=== PATIENT | female | born 2000 | race Caucasian/White ===

== ENCOUNTER 2019-06-15 15:56 | Emergency (ER) | payer MEDICAID, SELFPAY | END 2019-06-15 18:16 | disposition home or self-care (01) | DX: K29.00 Acute gastritis without bleeding (principal); B34.9 Viral infection, unspecified; F17.210 Nicotine dependence, cigarettes, uncomplicated | CPT/HCPCS: 36415; 80053; 81003; 83690; 84703; 85025; 87081; 87880; 99282 ==

== ENCOUNTER 2019-06-17 18:36 | Emergency (ER) | payer MEDICAID, SELFPAY ==
[2019-06-17 18:42] VITALS: BP 130/82; PULSE 99; RESP 16; TEMP 36.6; O2SAT 97; BMI 45.7
--- NOTE | 2019-06-17 19:47 | ECG_ITS ---
Measurements Intervals Rector Rate: 95 P: 42 UT: 155 QRS: 38 QRSD: 89 T: 40 QT: 340 QTc: 429 SINUS RHYTHM Compared to ECG 06/01/2019 14:57:02 No significant changes Electronically Signed On 06-18-2019 6:46:48 LINING CEMENTER by Eloisa Guzman M.D. [email or web address]
== END 2019-06-17 20:38 | disposition left against medical advice (07) ==
LOC: ER 07-14 23:31
PROVIDERS: Emergency Provider Emergency Medicine; PCP Pediatrics Adolescent Medicine
DX: Z53.21 Procedure and treatment not carried out due to patient leaving prior to being seen by health care provider (principal)
CPT/HCPCS: 93005; 99281

== ENCOUNTER 2019-06-18 09:58 | Emergency (ER) | payer MEDICAID, SELFPAY ==
[2019-06-18 10:03] VITALS: BP 121/71; PULSE 80; RESP 16; TEMP 36.7; O2SAT 98; BMI 38.7
--- NOTE | 2019-06-18 10:20 | W.ED.CHESTPA ---
HPI - Chest Pain General: Chief Complaint: Chest Pain Stated Complaint: Chest pain Time Seen by Provider: 06/18/19 10:20 Source: patient Mode of arrival: ambulatory Limitations: no limitations History of Present Illness: HPI narrative: here for continued nausea/vomiting and diarrhea x 1 week; now having chest congestion and a cough; subjective low grade fevers; no blood in vomit or stool; has been seen in our ED twice now for similar symptoms MD complaint: chest pain Associated symptoms: Reports abdominal pain, fever(s) (subjective; low grade), nausea, vomiting and other (diarrhea ); Deny dyspnea, palpitations or syncope Review of Systems Const: Reports: fever (subjective; low grade); Denies: body aches ENMT: Denies: throat pain, enlarged tonsils or painful swallowing Card: Reports: chest pain; Denies: palpitations, irregular heart rhythm, edema, lightheadedness, syncope, pre-syncope, shortness of breath on exertion or shortness of breath when lying down Resp: Reports: productive cough and chest congestion; Denies: shortness of breath or coughing up blood GI: Reports: abdominal pain, nausea, vomiting and diarrhea; Denies: vomiting blood, coffee grounds in vomit, excessive passing of gas, fecal incontinence, painful bowel movements or rectal pain : Denies: flank pain, difficulty urinating, painful urination, urinary frequency, urinary urgency or urinary hesitancy Musc: Denies: neck pain or joint pain Skin/Breast: Denies: rash Neuro: Denies: headache, numbness in extremities or weakness in extremities PFSH ED PFSH: Statuses (acute, chronic, etc) shown below reflect problem list status as previously entered and may not be historically accurate Social History Smoking and tobacco status: current every day smoker Female Reproductive History: Date of last menstrual period: 05/25/19 Physical Exam Const: COMMON NORMALS: no apparent distress, oriented x3, no limitations and well nourished GENERAL APPEARANCE: cooperative ORIENTATION/CONSCIOUSNESS: Yes awake, Yes oriented to person, Yes oriented to place and Yes oriented to time HENMT: COMMON NORMALS: normocephalic, head/scalp atraumatic and external nose normal HEAD & SCALP: normocephalic and atraumatic FACE & SINUS: normal facial exam and sinuses nontender NOSE: external nose normal MOUTH: oral and palatal mucosa normal THROAT: posterior oropharynx normal Neck/C-Spine: COMMON NORMALS: full ROM and no lymphadenopathy Resp: COMMON NORMALS: normal respiratory effort and clear to auscultation bilaterally AUSCULTATION: clear to auscultation bilaterally Cardio: COMMON NORMALS: regular rate and regular rhythm RATE: regular rate RHYTHM: regular rhythm GI: COMMON NORMALS: normal to inspection, nondistended, normoactive bowel sounds, soft to palpation, non-tender and no masses PALPATION: Yes soft : COMMON NORMALS: Yes no CVA tenderness BLADDER/KIDNEY EXAM: Yes no CVA tenderness Back/Pelvis: COMMON NORMALS: no CVA tenderness Neuro: COMMON NORMALS: oriented x3 SENSORIUM/ORIENTATION: Yes oriented to person, Yes oriented to place and Yes oriented to time Skin: COMMON NORMALS: no rashes or lesions noted and skin turgor normal GENERAL SKIN EXAM: no rashes or lesions noted and turgor normal Course Reevaluation(s): Reevaluation #1: pt has not had any vomiting while in ED; she is requesting food-ate entire sandwich and sprite; she was unable to produce stool sample throughout her stay Vital Signs: Vital signs: Vital Signs Temperature 98.0 F 06/18/19 10:03 Pulse Rate 73 06/18/19 13:02 Respiratory Rate 18 06/18/19 13:02 Blood Pressure 111/55 06/18/19 13:02 Pulse Oximetry 96 06/18/19 13:02 MDM - Chest Pain Lab Data: Attestation: I reviewed the patient's lab results. Labs: Lab Results 06/18/19 06/18/19 06/18/19 Range/Units 10:17 10:17 11:05 WBC 6.5 (4.5-13.0) 10^3/ uL RBC 4.84 (4.1-5.3) 10^6/u L Hgb 13.1 (11.5-15.3) g/dL Hct 41.2 (37.0-47.0) % MCV 85.1 (81-99) fL MCH 27.1 L (28.0-34.0) pg MCHC 31.8 (30.0-36.0) g/dL RDW 13.0 (12.1-15.1) % Plt Count 421 H (130-400) 10^3/c mm MPV 9.2 (7.4-10.4) fL Neut % (Auto) 52.4 % Lymph % (Auto) 37.7 % Victoria % (Auto) 7.2 % Eos % (Auto) 2.1 % Baso % (Auto) 0.3 % Neut # (Auto) 3.4 (1.8-8.0) 10^3/u L Lymph # (Auto) 2.5 (1.5-6.5) 10^3/u L Victoria # (Auto) 0.5 (0.2-0.9) 10^3/u L Eos # (Auto) 0.1 (0.0-0.8) 10^3/u L Baso # (Auto) 0.0 (0.0-0.1) 10^3/u L Nucleated RBC % (a uto) 0 % Nucleated RBCs # 0.0 /100WBC Sodium (136-145) mmol/L Potassium (3.5-5.1) mmol/L Chloride (98-107) mmol/L Carbon Dioxide (22-29) mmol/L Anion Gap (5-19) BUN (6-20) mg/dL Creatinine (0.5-0.9) mg/dL GFR Calculation (90-130) mL/min Glucose (74-109) mg/dL Calcium (8.6-10.0) mg/Dl Total Bilirubin (0.15-1.2) mg/dL AST (0-32) U/L ALT (0-33) U/L Alkaline Phosphata se (35-105) IU/L Total Protein (6.6-8.7) g/dL Albumin (3.5-5.2) g/dL Globulin (1.3-4.6) g/dL Urine Color Straw (Yellow) Urine Appearance Clear (CLEAR) Urine pH 5.0 (5-7) Ur Specific Gravit y 1.010 (1.005-1.030) Urine Protein Neg (Negative) Urine Glucose (UA) Norm (Normal) Urine Ketones Negative (Negative) Urine Occult Blood Neg (Negative) Urine Nitrate Negative (Negative) Urine Bilirubin Neg (NEGATIVE) Urine Urobilinogen Norm (Negative) mg/dL Ur Leukocyte Janice ase Negative (Negative) Urine HCG, Qual Negative (Negative) Influenza Type A A g (Negative) POC Influenza B Ag (Negative) 06/18/19 06/18/19 Range/Units 11:05 12:00 WBC (4.5-13.0) 10^3/ uL RBC (4.1-5.3) 10^6/u L Hgb (11.5-15.3) g/dL Hct (37.0-47.0) % MCV (81-99) fL MCH (28.0-34.0) pg MCHC (30.0-36.0) g/dL RDW (12.1-15.1) % Plt Count (130-400) 10^3/c mm MPV (7.4-10.4) fL Neut % (Auto) % Lymph % (Auto) % Victoria % (Auto) % Eos % (Auto) % Baso % (Auto) % Neut # (Auto) (1.8-8.0) 10^3/u L Lymph # (Auto) (1.5-6.5) 10^3/u L Victoria # (Auto) (0.2-0.9) 10^3/u L Eos # (Auto) (0.0-0.8) 10^3/u L Baso # (Auto) (0.0-0.1) 10^3/u L Nucleated RBC % (a uto) % Nucleated RBCs # /100WBC Sodium 137 (136-145) mmol/L Potassium 4.0 (3.5-5.1) mmol/L Chloride 100 (98-107) mmol/L Carbon Dioxide 26 (22-29) mmol/L Anion Gap 15.0 (5-19) BUN 12 (6-20) mg/dL Creatinine 0.8 (0.5-0.9) mg/dL GFR Calculation 92.4 (90-130) mL/min Glucose 96 (74-109) mg/dL Calcium 9.9 (8.6-10.0) mg/Dl Total Bilirubin 0.3 (0.15-1.2) mg/dL AST 23 (0-32) U/L ALT 21 (0-33) U/L Alkaline Phosphata se 78 (35-105) IU/L Total Protein 7.4 (6.6-8.7) g/dL Albumin 4.1 (3.5-5.2) g/dL Globulin 3.3 (1.3-4.6) g/dL Urine Color (Yellow) Urine Appearance (CLEAR) Urine pH (5-7) Ur Specific Gravit y (1.005-1.030) Urine Protein (Negative) Urine Glucose (UA) (Normal) Urine Ketones (Negative) Urine Occult Blood (Negative) Urine Nitrate (Negative) Urine Bilirubin (NEGATIVE) Urine Urobilinogen (Negative) mg/dL Ur Leukocyte Janice ase (Negative) Urine HCG, Qual (Negative) Influenza Type A A g Negative (Negative) POC Influenza B Ag Negative (Negative) Discharge Plan Discharge Patient Disposition: Home, Self-Care Clinical Impression: Atypical chest pain, Gastroenteritis Condition: Stable Prescriptions: New ondansetron HCl [Zofran] 4 mg tablet 4 mg PO Q6H PRN (Reason: nausea and vomiting) Qty: 14 RF: 0 dicyclomine 10 mg capsule 10 mg PO TID Qty: 14 RF: 0 No Action paroxetine HCl [Paxil] 20 mg Tablet 20 mg PO DAILY RF: 0 ziprasidone HCl [Geodon] 20 mg Capsule 20 mg PO BID RF: 0 trazodone 100 mg Tablet 100 mg PO BEDTIME RF: 0 Discharge Orders: Discharge Order (Routine); Ordered 06/18/19 Ordered By: Emy Edmonds Referrals: Natalia Granados MD [Primary Care Provider] - Discharge Diet: Advance as tolerated Discharge Activity: Resume usual activity Patient Instructions: Gastroenteritis (ED), Acute Nausea and Vomiting (ED) Activity Restrictions/Additional Instructions: Follow up with primary care in 3-4 days if symptoms persist Coding Level of Care Code ED 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
--- NOTE | 2019-06-18 10:31 | XR_ITS ---
WS: [id number] Portable AP upright chest, 06/18/2019 Clinical Data: chest pain Comparison: Portable chest, 06/11/2019 Findings: No nodules, masses or effusions are seen. The heart is normal. The pulmonary vascularity is not increased. No pneumonia or pneumothorax is seen. XR/XR chest 1V [id number] Impression: Negative chest.
--- NOTE | 2019-06-18 10:47 | PC.NURSE ---
pt reports chest pain in left upper chest that worsens with coughing and inspiration. Pt gowned, pulse ox, environmental monitoring technician, and NIBP monitor on pt. portable CXR at bedside. Pt reports nausea, bile like vomiting, and diarrhea
[2019-06-18 10:52] LABS: Add Urine Microscopic? NO
--- NOTE | 2019-06-18 11:05 | PC.NURSE ---
blood drawn by rn. Peripheral iv. Prior to fluid start. sent to lab
[2019-06-18 11:07] LABS: Bilirubin Urine Neg (NEGATIVE); Blood Urine Neg (Negative); Glucose Urine UA Norm (Normal); Ketones Urine Negative (Negative); Leukocyte Esterase Urine Negative (Negative); Nitrate Urine Negative (Negative); OR HCG Qualitative Urine Negative (Negative); Protein Urine Neg (Negative); Urine Appearance Clear (CLEAR); Urine Color Straw (Yellow); Urobilinogen Urine Norm (Negative)
[2019-06-18] MEDS: sodium chloride 0.9% 1,000 ML 999 ML IV ×2 (11:08→13:00)
[2019-06-18 11:16] LABS: Basophils % 0.3 %; Eosinophils # 0.1 10^3/uL (0.0-0.8); Eosinophils % 2.1 %; Hematocrit 41.2 % (37.0-47.0); Hemoglobin 13.1 g/dL (11.5-15.3); Lymphocytes # 2.5 10^3/uL (1.5-6.5); Lymphocytes % 37.7 %; Mean Corpuscular HGB Conc 31.8 g/dL (30.0-36.0); Mean Corpuscular Hemoglobin 27.1 pg (28.0-34.0); Mean Corpuscular Volume 85.1 fL (81-99); Mean Platelet Volume 9.2 fL (7.4-10.4); Monocytes # 0.5 10^3/uL (0.2-0.9); Monocytes % 7.2 %; Neutrophils # 3.4 10^3/uL (1.8-8.0); Neutrophils % 52.4 %; Nucleated Red Blood Cells % 0 %; Platelet Count 421 10^3/cmm (130-400); Red Blood Count 4.84 10^6/uL (4.1-5.3); White Blood Count 6.5 10^3/uL (4.5-13.0)
[2019-06-18 11:35] LABS: Alanine Aminotransferase 21 U/L (0-33); Albumin Level 4.1 g/dL (3.5-5.2); Alkaline Phosphatase 78 IU/L (35-105); Aspartate Amino Transferase 23 U/L (0-32); Blood Urea Nitrogen 12 mg/dL (6-20); Calcium 9.9 mg/Dl (8.6-10.0); Carbon Dioxide 26 mmol/L (22-29); Chloride 100 mmol/L (98-107); Globulin 3.3 g/dL (1.3-4.6); Glomerular Filtration Rate 92.4 mL/min (90-130); Glucose 96 mg/dL (74-109); Sodium 137 mmol/L (136-145); Total Bilirubin 0.3 mg/dL (0.15-1.2); Total Protein 7.4 g/dL (6.6-8.7)
[2019-06-18 12:02] VITALS: BP 101/55; PULSE 60; RESP 18; O2SAT 97
--- NOTE | 2019-06-18 12:03 | PC.NURSE ---
flu swab obtained by nasal swab by rn. labeled and sent to lab
[2019-06-18 13:02] VITALS: BP 111/55; PULSE 73; RESP 18; O2SAT 96
[2019-06-18 13:02] LABS: Influenza A by IFA Negative (Negative); Influenza B by IFA Negative (Negative)
[2019-06-18 14:21] VITALS: BP 112/58; PULSE 80; RESP 26; O2SAT 96
== END 2019-06-18 14:21 | disposition home or self-care (01) ==
PROVIDERS: Emergency Provider Physician Assistant; PCP Pediatrics Adolescent Medicine
DX: R07.89 Other chest pain (principal); K52.9 Noninfective gastroenteritis and colitis, unspecified; F17.210 Nicotine dependence, cigarettes, uncomplicated
CPT/HCPCS: 36415; 71045; 80053; 81003; 82274; 82784; 83516; 83630; 84703; 85025; 87493; 87505; 87804; 96360; 96361; 99282; J7030

== ENCOUNTER 2019-08-24 20:06 | Emergency (ER) | payer MEDICAID, SELFPAY ==
[2019-08-24 20:12] VITALS: BP 119/76; PULSE 62; RESP 18; TEMP 36.9; O2SAT 99; BMI 32.9
[2019-08-24 22:40] LABS: HCG Qualitative Urine. Negative (Negative)
[2019-08-24 22:50] LABS: Urine Appearance SL Hazy (CLEAR); Urine Color Yellow (Yellow)
[2019-08-24 22:51] LABS: Add Urine Microscopic? YES; Bacteria Urine 2+; Bilirubin Urine Neg (NEGATIVE); Blood Urine Neg (Negative); Glucose Urine UA Norm (Normal); Ketones Urine Negative (Negative); Leukocyte Esterase Urine 2+ (Negative); Mucus Urine TRACE; Nitrate Urine Negative (Negative); Protein Urine Neg (Negative); Squamous Epithelial Cell Urine 0-4 (0-5); Urobilinogen Urine Norm (Negative); pH Urine 6.5 (5-7)
[2019-08-24 22:52] LABS: Add Urine Culture? Yes; Trichomonas Urine 1+
--- NOTE | 2019-08-24 23:05 | W.ED.FEMALGU ---
HPI - Female Genitourinary General: Chief complaint: Urogenital-Female Stated complaint: vag itching/burningabd pain Time Seen by Provider: 08/24/19 23:04 History of Present Illness: HPI Narrative: Patient is a 18-year-old female who comes into the ED with vaginal discharge. The vaginal discharge has been going on for the last 7 days. She describes it as a greenish-yellow color and has a foul odor. She says she is having a little bit of pelvic pain and irritation for the past couple days. Patient did say that she has had trichomonas in the past. She would also like to be tested for gonorrhea and chlamydia. Associated symptoms: Reports vaginal discharge (greenish/yellow); Deny abdominal pain, headache(s) or nausea Date of Last Menstrual Period: 05/25/19 Review of Systems Const: Denies: fever, chills or fatigue Eyes: Denies: change in vision or eye discomfort ENMT: Denies: throat pain, painful swallowing, nasal discharge or nasal congestion Card: Denies: chest pain, palpitations, edema, swelling of feet/ankles, shortness of breath on exertion or shortness of breath when lying down Resp: Denies: shortness of breath, productive cough or non-productive cough GI: Denies: abdominal pain, nausea, vomiting, diarrhea, constipation or blood in stool : Reports: vaginal odor, vaginal discharge (greenish/yellow) and pelvic pain (mild irritation); Denies: flank pain, painful urination or blood in urine Musc: Denies: neck pain, back pain or extremity swelling Skin/Breast: Denies: rash or new lesion Neuro: Denies: headache, numbness in extremities or weakness in extremities PFS ED PFSH: Social History Smoking and tobacco status: current every day smoker Female Reproductive History: Date of last menstrual period: 05/25/19 Physical Exam Const: COMMON NORMALS: oriented x3 HENMT: COMMON NORMALS: normocephalic HEAD & SCALP: normocephalic MOUTH: oral and palatal mucosa normal THROAT: posterior oropharynx normal and uvula midline Neck/C-Spine: COMMON NORMALS: supple GENERAL: Yes normal visual inspection Resp: COMMON NORMALS: normal respiratory effort, no retractions, no use of accessory muscles and clear to auscultation bilaterally AUSCULTATION: clear to auscultation bilaterally Cardio: COMMON NORMALS: regular rate, regular rhythm, S1 normal heart sound, S2 normal heart sound, no gallops, no clicks, no murmurs and peripheral pulses 2+ throughout RATE: regular rate RHYTHM: regular rhythm HEART SOUNDS: S1 normal and S2 normal PERIPHERAL PULSES: pulses 2+ throughout GI: COMMON NORMALS: normal to inspection, nondistended, normoactive bowel sounds, soft to palpation, non-tender and no masses PALPATION: Yes soft and Yes bladder palpation abnormal (mild discomfort upon palpation of lower pelvic region and over bladder.) : COMMON NORMALS: Yes no CVA tenderness BLADDER/KIDNEY EXAM: Yes no CVA tenderness and Yes bladder abnormal to palpation (mild discomfort upon palpation of lower pelvic region and over bladder.) Bladder abnormal details: tender Back/Pelvis: COMMON NORMALS: no CVA tenderness Extremity: COMMON NORMALS: normal to inspection Neuro: COMMON NORMALS: oriented x3 and moves all extremities Skin: COMMON NORMALS: no rashes or lesions noted GENERAL SKIN EXAM: no rashes or lesions noted Course ED course: Patient is a 18-year-old female who comes into the ED with vaginal discharge with a foul odor. Urine tested positive for trichomonas. Patient would also like to be tested for gonorrhea and chlamydia. I explained to her that we will prophylactically give her the treatment for gonorrhea and chlamydia here in the ED even though we do not know if she has not yet. She agreed with this. Gonorrhea and Chlamydia lab was ordered and is pending. While in the ED patient was given a gram of azithromycin and an injection of 250 mg Rocephin. Patient was also given a prescription for Flagyl to treat the Trichomonas. Patient was instructed to meet with her PCP within 5 to 7 days for reevaluation. Patient agreed with and understood plan. Vital Signs: Vital signs: Vital Signs Temperature 98.4 F 08/24/19 20:12 Pulse Rate 80 08/24/19 23:44 Respiratory Rate 16 08/24/19 23:44 Blood Pressure 119/76 08/24/19 20:12 Pulse Oximetry 98 08/24/19 23:44 MDM - Female Lab Data: Attestation: I reviewed the patient's lab results. Labs: Lab Results 08/24/19 08/24/19 Range/Units 22:14 22:16 HCG, Qual Negative (Negative) Urine Color Yellow (Yellow) Urine Appearance Sl hazy (CLEAR) Urine pH 6.5 (5-7) Ur Specific Gravit y 1.020 (1.005-1.030) Urine Protein Neg (Negative) Urine Glucose (UA) Norm (Normal) Urine Ketones Negative (Negative) Urine Blood Neg (Negative) Urine Nitrate Negative (Negative) Urine Bilirubin Neg (NEGATIVE) Urine Urobilinogen Norm (Negative) mg/dL Ur Leukocyte Janice ase 2+ H (Negative) Urine RBC None (0-2) /hpf Urine WBC 5-10 H (0-5) /hpf Ur Squamous Epith Cells 0-4 H (0-5) Urine Bacteria 2+ H (NONE) Urine Mucus Trace Urine Trichomonas 1+ H Discharge Plan Discharge Patient Disposition: Home, Self-Care Clinical Impression: Trichomoniasis Condition: Stable Prescriptions: New Flagyl 500 mg tablet 500 mg PO BID 7 Days Qty: 14 RF: 0 No Action paroxetine HCl [Paxil] 20 mg Tablet 20 mg PO DAILY RF: 0 ziprasidone HCl [Geodon] 20 mg Capsule 20 mg PO BID RF: 0 trazodone 100 mg Tablet 100 mg PO BEDTIME RF: 0 dicyclomine 10 mg capsule 10 mg PO TID Qty: 14 RF: 0 Zofran 4 mg tablet 4 mg PO Q6H PRN (Reason: nausea and vomiting) Qty: 14 RF: 0 Discharge Orders: Discharge Order (Routine); Ordered 08/24/19 Ordered By: Blaine Kahn Referrals: Natalia Granados MD [Primary Care Provider] - Discharge Diet: Regular Discharge Activity: Resume usual activity Patient Instructions: Sexually Transmitted Diseases (ED), Trichomoniasis - Female Activity Restrictions/Additional Instructions: Follow-up with your PCP in 7 days for reevaluation. Take full course of Flagyl as prescribed. You can take Tylenol or ibuprofen for pain. Drink plenty of fluids and stay hydrated. You were also treated prophylactically for gonorrhea and chlamydia. That does not mean that you tested positive, you will be notified if your labs test positive for gonorrhea or chlamydia (labs usually take a couple days). Discharge Date/Time: 08/24/19 23:46 Coding Level of Care Code ED Mill Control Operator for Chg Fwd Exam Comprehensive
[2019-08-24] MEDS: cefTRIAXone 250 mg SDV IM (23:36)
[2019-08-24] MEDS: azithromycin 250 mg Tablet 1000 MG PO (23:36)
[2019-08-24] MEDS: lidocaine 1% INJ 20 mL 2.1 ML IM (23:39)
[2019-08-24 23:44] VITALS: PULSE 80; RESP 16; O2SAT 98
== END 2019-08-24 23:46 | disposition home or self-care (01) ==
PROVIDERS: Emergency Medicine; Emergency Provider Physician Assistant; PCP Pediatrics Adolescent Medicine
DX: A59.01 Trichomonal vulvovaginitis (principal); F17.200 Nicotine dependence, unspecified, uncomplicated
CPT/HCPCS: 12345; 81001; 81025; 87086; 87491; 87591; 96372; 99282; 99283; J0696; J2001; Q0144

== ENCOUNTER 2019-08-30 20:50 | Emergency (ER) | payer MEDICAID, SELFPAY ==
[2019-08-30 20:51] VITALS: PULSE 76; RESP 18; TEMP 36.4; O2SAT 98; BMI 32.9
--- NOTE | 2019-08-30 20:54 | ED_ITS ---
Entered by Francy Frank, acting as scribe for Segundo Kingsley DO HPI - Psych General: Chief Complaint: Psychiatric Symptoms Stated Complaint: 96 hour Time Seen by Provider: 08/30/19 20:53 Source: patient Mode of arrival: EMS Limitations: no limitations History of Present Illness: HPI Narrative: 18 yo f came to the er by [facility] for SI thoughts and attempt. Onset was today. Pt states that she was at the [facility] and she tried to cut herself. Pt states that she tried to kill herself with a bed sheet. Pt said that her face were was turning purple and that she started to fee funny and so she undid the bed sheet that was around her neck. Pt said that she was trying to get the police attention before she did it but they were pre occupied per patient. MD complaint: suicidal ideation Onset (ago): day(s) (today) Duration: constant History of same: Yes Relieving factors: none Exacerbating factors: none Associated psychiatric symptoms: none Associated symptoms: Reports suicidal ideation Treatments prior to arrival: none If self harm: admits thoughts of self harm Details of plan: Pt states that she tried cutting herself with straws and then tried to hang herself with a bed sheet. Review of Systems Const: Denies: fever Eyes: Denies: change in vision ENMT: Denies: throat pain Card: Denies: chest pain Resp: Denies: shortness of breath or productive cough GI: Denies: abdominal pain : Denies: painful urination Skin/Breast: Denies: rash Neuro: Denies: headache Psych: Reports: suicidal ideation Endo: Denies: excessive urination Vern/Lymph: Denies: easy bruising PFSH ED PFSH: Social History Smoking and tobacco status: current every day smoker Female Reproductive History: Date of last menstrual period: 05/25/19 Physical Exam Const: COMMON NORMALS: average body habitus, oriented x3 and alert GENERAL APPEARANCE: cooperative, comfortable, well kempt and well developed NUTRITIONAL APPEARANCE: obese ORIENTATION/CONSCIOUSNESS: Yes awake, Yes oriented to person and Yes oriented to place HENMT: COMMON NORMALS: normocephalic, head/scalp atraumatic, EAC's normal, TM's normal bilaterally, external nose normal, moist oral mucous membranes and oropharynx normal HEAD & SCALP: normocephalic and atraumatic NOSE: external nose normal EXTERNAL AUDITORY CANAL: EAC's normal TYMPANIC MEMBRANE: TM's normal bilaterally MOUTH: oral and palatal mucosa normal, lip normal and tongue normal THROAT: posterior oropharynx normal and tonsils normal Eye: COMMON NORMALS: PERRL, EOMs intact bilaterally, conjunctivae normal and no scleral icterus CONJUNCTIVA: Yes conjunctivae normal PUPIL: Yes PERRL Neck/C-Spine: COMMON NORMALS: full ROM, no lymphadenopathy, supple, no meningeal signs and thyroid normal THYROID: thyroid normal and asymmetrical Lymph: LYMPHATIC: no lymphadenopathy noted Resp: COMMON NORMALS: normal respiratory effort, no retractions, no use of accessory muscles and clear to auscultation bilaterally AUSCULTATION: clear to auscultation bilaterally Cardio: COMMON NORMALS: regular rate and regular rhythm RATE: regular rate RHYTHM: regular rhythm HEART SOUNDS: no murmurs GI: COMMON NORMALS: normal to inspection, nondistended, normoactive bowel sounds, soft to palpation and no hepatosplenomegaly PALPATION: Yes soft and Yes no hepatosplenomegaly : COMMON NORMALS: Yes no CVA tenderness BLADDER/KIDNEY EXAM: Yes no CVA tenderness Back/Pelvis: COMMON NORMALS: no CVA tenderness LUMBAR SPINE/LOWER BACK: Yes normal to inspection Extremity: COMMON NORMALS: no clubbing, cyanosis or edema, no calf tenderness and no pedal edema Neuro: COMMON NORMALS: oriented x3 SENSORIUM/ORIENTATION: Yes alert, Yes oriented to person and Yes oriented to place MENINGEAL SIGNS: Yes no meningeal signs Psych: APPEARANCE: Yes well kempt Skin: COMMON NORMALS: no rashes or lesions noted and skin turgor normal GENERAL SKIN EXAM: no rashes or lesions noted and turgor normal MDM - Psych Lab Data: Labs: Lab Results 08/30/19 08/30/19 08/30/19 Range/Units 20:17 20:17 20:17 WBC (4.5-13.0) 10^3/ uL RBC (4.1-5.3) 10^6/u L Hgb (11.5-15.3) g/dL Hct (37.0-47.0) % MCV (81-99) fL MCH (28.0-34.0) pg MCHC (30.0-36.0) g/dL RDW (12.1-15.1) % Plt Count (130-400) 10^3/c mm MPV (7.4-10.4) fL Neut % (Auto) % Lymph % (Auto) % [place] % (Auto) % Eos % (Auto) % Baso % (Auto) % Neut # (Auto) (1.8-8.0) 10^3/u L Lymph # (Auto) (1.5-6.5) 10^3/u L [place] # (Auto) (0.2-0.9) 10^3/u L Eos # (Auto) (0.0-0.8) 10^3/u L Baso # (Auto) (0.0-0.1) 10^3/u L Nucleated RBC % (a uto) % Nucleated RBCs # /100WBC Sodium (136-145) mmol/L Potassium (3.5-5.1) mmol/L Chloride (98-107) mmol/L Carbon Dioxide (22-29) mmol/L Anion Gap (5-19) BUN (6-20) mg/dL Creatinine (0.5-0.9) mg/dL GFR Calculation (90-130) mL/min Glucose (65-115) mg/dL Calculated Osmolal ity (285-295) mOsm/k g Calcium (8.5-10.5) mg/dL Total Bilirubin (0.15-1.2) mg/dL AST (0-32) U/L ALT (0-33) U/L Alkaline Phosphata se (35-105) IU/L Total Protein (6.6-8.7) g/dL Albumin (3.5-5.2) g/dL Globulin (1.3-4.6) g/dL HCG, Qual Negative (Negative) Urine Color Yellow (Yellow) Urine Appearance Clear (CLEAR) Urine pH 5 (5-7) Ur Specific Gravit y 1.025 (1.005-1.030) Urine Protein Neg (Negative) Urine Glucose (UA) Norm (Normal) Urine Ketones Negative (Negative) Urine Blood Neg (Negative) Urine Nitrate Negative (Negative) Urine Bilirubin Neg (NEGATIVE) Urine Urobilinogen Norm (Negative) mg/dL Ur Leukocyte Janice ase Negative (Negative) Salicylates (3-10) mg/dL Urine Opiates Scre en Negative (Negative) ng/mL Acetaminophen (10-30) ug/mL Ur Barbiturates Sc reen Negative (Negative) ng/mL Ur Phencyclidine S crn Negative (Negative) ng/mL Ur Amphetamines Sc reen Negative (Negative) ng/mL U Benzodiazepines Scrn Negative (Negative) ng/mL Urine Cocaine Scre en Negative (Negative) ng/mL U Marijuana (THC) Screen Negative (Negative) ng/mL Ethyl Alcohol (0-10) mg/dL 08/30/19 08/30/19 Range/Units 21:05 21:05 WBC 11.2 (4.5-13.0) 10^3/ uL RBC 5.02 (4.1-5.3) 10^6/u L Hgb 14.2 (11.5-15.3) g/dL Hct 43.7 (37.0-47.0) % MCV 87.1 (81-99) fL MCH 28.3 (28.0-34.0) pg MCHC 32.5 (30.0-36.0) g/dL RDW 14.3 (12.1-15.1) % Plt Count 412 H (130-400) 10^3/c mm MPV 10.4 (7.4-10.4) fL Neut % (Auto) 58.5 % Lymph % (Auto) 35.1 % [place] % (Auto) 5.2 % Eos % (Auto) 0.6 % Baso % (Auto) 0.4 % Neut # (Auto) 6.6 (1.8-8.0) 10^3/u L Lymph # (Auto) 3.9 (1.5-6.5) 10^3/u L [place] # (Auto) 0.6 (0.2-0.9) 10^3/u L Eos # (Auto) 0.1 (0.0-0.8) 10^3/u L Baso # (Auto) 0.1 (0.0-0.1) 10^3/u L Nucleated RBC % (a uto) 0 % Nucleated RBCs # 0.0 /100WBC Sodium 136 (136-145) mmol/L Potassium 3.5 (3.5-5.1) mmol/L Chloride 99 (98-107) mmol/L Carbon Dioxide 24 (22-29) mmol/L Anion Gap 16.5 (5-19) BUN 11 (6-20) mg/dL Creatinine 0.7 (0.5-0.9) mg/dL GFR Calculation 107.8 (90-130) mL/min Glucose 116 H (65-115) mg/dL Calculated Osmolal ity 279 L (285-295) mOsm/k g Calcium 10.0 (8.5-10.5) mg/dL Total Bilirubin 0.2 (0.15-1.2) mg/dL AST 22 (0-32) U/L ALT 26 (0-33) U/L Alkaline Phosphata se 74 (35-105) IU/L Total Protein 7.6 (6.6-8.7) g/dL Albumin 4.3 (3.5-5.2) g/dL Globulin 3.3 (1.3-4.6) g/dL HCG, Qual (Negative) Urine Color (Yellow) Urine Appearance (CLEAR) Urine pH (5-7) Ur Specific Gravit y (1.005-1.030) Urine Protein (Negative) Urine Glucose (UA) (Normal) Urine Ketones (Negative) Urine Blood (Negative) Urine Nitrate (Negative) Urine Bilirubin (NEGATIVE) Urine Urobilinogen (Negative) mg/dL Ur Leukocyte Janice ase (Negative) Salicylates < 0.3 L (3-10) mg/dL Urine Opiates Scre en (Negative) ng/mL Acetaminophen < 5.0 L (10-30) ug/mL Ur Barbiturates Sc reen (Negative) ng/mL Ur Phencyclidine S crn (Negative) ng/mL Ur Amphetamines Sc reen (Negative) ng/mL U Benzodiazepines Scrn (Negative) ng/mL Urine Cocaine Scre en (Negative) ng/mL U Marijuana (THC) Screen (Negative) ng/mL Ethyl Alcohol < 10 (0-10) mg/dL Discharge Plan Discharge Patient Disposition: Home, Self-Care Clinical Impression: Personality disorder in adult Condition: Stable Prescriptions: Changed Geodon 20 mg Capsule 40 mg PO BID Qty: 0 RF: 0 No Action paroxetine HCl [Paxil] 20 mg Tablet 20 mg PO DAILY RF: 0 trazodone 100 mg Tablet 100 mg PO BEDTIME RF: 0 dicyclomine 10 mg capsule 10 mg PO TID Qty: 14 RF: 0 Zofran 4 mg tablet 4 mg PO Q6H PRN (Reason: nausea and vomiting) Qty: 14 RF: 0 Discharge Orders: Discharge Order (Routine); Ordered 08/30/19 Ordered By: Segundo Kingsley Referrals: [facility], [Staff Physician] - Discharge Diet: Usual diet Discharge Activity: Resume usual activity Discharge Date/Time: 08/30/19 22:07 Coding Level of Care Code ED Nozzle Tender for Chg Fwd Exam Comprehensive The documentation recorded by the Zac ramos Stephanie Lyn, accurately reflects the service I personally performed and the decisions made by Sancho mcallister Curtis L, Aug 30, 2019 20:50
[2019-08-30 21:16] LABS: Basophils # 0.1 10^3/uL (0.0-0.1); Basophils % 0.4 %; Eosinophils # 0.1 10^3/uL (0.0-0.8); Eosinophils % 0.6 %; Hematocrit 43.7 % (37.0-47.0); Hemoglobin 14.2 g/dL (11.5-15.3); Lymphocytes # 3.9 10^3/uL (1.5-6.5); Lymphocytes % 35.1 %; Mean Corpuscular HGB Conc 32.5 g/dL (30.0-36.0); Mean Corpuscular Hemoglobin 28.3 pg (28.0-34.0); Mean Corpuscular Volume 87.1 fL (81-99); Mean Platelet Volume 10.4 fL (7.4-10.4); Monocytes # 0.6 10^3/uL (0.2-0.9); Monocytes % 5.2 %; Neutrophils # 6.6 10^3/uL (1.8-8.0); Neutrophils % 58.5 %; Nucleated Red Blood Cells % 0 %; Platelet Count 412 10^3/cmm (130-400); Red Blood Count 5.02 10^6/uL (4.1-5.3); Red Cell Distribution Width 14.3 % (12.1-15.1); White Blood Count 11.2 10^3/uL (4.5-13.0)
[2019-08-30 21:22] LABS: HCG Qualitative Urine. Negative (Negative)
[2019-08-30 21:31] LABS: Alanine Aminotransferase 26 U/L (0-33); Albumin Level 4.3 g/dL (3.5-5.2); Alkaline Phosphatase 74 IU/L (35-105); Anion Gap 16.5 (5-19); Aspartate Amino Transferase 22 U/L (0-32); Blood Urea Nitrogen 11 mg/dL (6-20); Carbon Dioxide 24 mmol/L (22-29); Chloride 99 mmol/L (98-107); Globulin 3.3 g/dL (1.3-4.6); Glomerular Filtration Rate 107.8 mL/min (90-130); Glucose 116 mg/dL (65-115); Osmolality Calculated 279 mOsm/kg (285-295); Potassium 3.5 mmol/L (3.5-5.1); Sodium 136 mmol/L (136-145); Total Bilirubin 0.2 mg/dL (0.15-1.2); Total Protein 7.6 g/dL (6.6-8.7)
[2019-08-30 21:31] LABS: Add Urine Microscopic? NO
[2019-08-30 21:33] LABS: Acetaminophen < 5.0 ug/mL (10-30); Alcohol Level < 10 mg/dL (0-10); Salicylate < 0.3 mg/dL (3-10)
[2019-08-30 21:33] LABS: Bilirubin Urine Neg (NEGATIVE); Blood Urine Neg (Negative); Glucose Urine UA Norm (Normal); Ketones Urine Negative (Negative); Leukocyte Esterase Urine Negative (Negative); Nitrate Urine Negative (Negative); Protein Urine Neg (Negative); Specific Gravity, Urine 1.025 (1.005-1.030); Urine Appearance Clear (CLEAR); Urine Color Yellow (Yellow); Urobilinogen Urine Norm (Negative); pH Urine 5 (5-7)
[2019-08-30 21:42] LABS: Amphetamines Screen Urine Negative (Negative); Barbiturates Screen Urine Negative (Negative); Benzodiazepines Screen Urine Negative (Negative); Cocaine Screen Urine Negative (Negative); Opiate Screen Urine Negative (Negative); PCP Screen Urine Negative (Negative); THC Screen Urine Negative (Negative)
[2019-08-30 22:07] VITALS: PULSE 74; RESP 18; O2SAT 99
== END 2019-08-30 22:07 | disposition home or self-care (01) ==
PROVIDERS: Emergency Provider Family Medicine; PCP Pediatrics Adolescent Medicine
DX: F60.9 Personality disorder, unspecified (principal); E66.9 Obesity, unspecified; Z68.32 Body mass index [BMI] 32.0-32.9, adult; F17.200 Nicotine dependence, unspecified, uncomplicated
CPT/HCPCS: 12345; 80053; 80306; 80307; 81003; 81025; 85025; 99284; A9270

== ENCOUNTER 2019-09-01 13:08 | Emergency (ER) | payer MEDICAID, SELFPAY ==
[2019-09-01 13:19] VITALS: BP 107/67; PULSE 95; RESP 18; TEMP 37; O2SAT 98; BMI 32.9
--- NOTE | 2019-09-01 13:55 | W.ED.NAVMDI ---
HPI - Nausea/Vomiting/Diarrhea General: Chief complaint: Nausea/Vomiting/Diarrhea Stated complaint: cough n/v Time Seen by Provider: 09/01/19 13:55 History of Present Illness: Associated nausea: Yes Associated symtoms: Reports nausea Review of Systems General: Reports: 10 or more systems reviewed and unremarkable except in HPI and below GI: Reports: nausea, vomiting and coffee grounds in vomit (one bout; resolved) PFSH ED PFSH: Social History Smoking and tobacco status: current every day smoker Female Reproductive History: Date of last menstrual period: 05/25/19 Physical Exam Const: COMMON NORMALS: no apparent distress, oriented x3, no limitations and alert GENERAL APPEARANCE: cooperative and comfortable ORIENTATION/CONSCIOUSNESS: Yes awake, Yes oriented to person, Yes oriented to place and Yes oriented to time HENMT: COMMON NORMALS: normocephalic, head/scalp atraumatic, external ears normal, EAC's normal, TM's normal bilaterally and external nose normal HEAD & SCALP: normal to inspection, normocephalic and atraumatic FACE & SINUS: normal facial exam, sinuses nontender and face symmetric NOSE: external nose normal, nares normal and no nasal discharge EXTERNAL EAR: Yes external ears normal EXTERNAL AUDITORY CANAL: EAC's normal TYMPANIC MEMBRANE: TM's normal bilaterally MOUTH: oral and palatal mucosa normal, lip normal and tongue normal THROAT: posterior oropharynx normal, tonsils normal and uvula midline Eye: COMMON NORMALS: PERRL, EOMs intact bilaterally and conjunctivae normal GENERAL EYE: normal appearance of both eyes and normal light reflex EYELID: eyelids normal CONJUNCTIVA: Yes conjunctivae normal PUPIL: Yes PERRL EOM: Yes EOM abnormal DIRECT OPHTHALMOSCOPY: Yes normal light reflex Neck/C-Spine: COMMON NORMALS: full ROM, no lymphadenopathy, supple, no meningeal signs, no JVD and thyroid normal GENERAL: Yes normal visual inspection THYROID: thyroid normal CERVICAL SPINE: Yes cervical ROM normal and Yes normal cervical lordosis Lymph: LYMPHATIC: no lymphadenopathy noted Chest: COMMONS NORMALS: inspection of chest normal and palpation of chest normal Resp: COMMON NORMALS: normal respiratory effort, no retractions and clear to auscultation bilaterally AUSCULTATION: clear to auscultation bilaterally Cardio: COMMON NORMALS: no JVD, regular rate, regular rhythm, S1 normal heart sound, S2 normal heart sound, no gallops, no clicks, no murmurs, no rub and peripheral pulses 2+ throughout RATE: regular rate RHYTHM: regular rhythm HEART SOUNDS: S1 normal and S2 normal PERIPHERAL PULSES: pulses 2+ throughout GI: COMMON NORMALS: normal to inspection, nondistended, normoactive bowel sounds, soft to palpation, non-tender and no masses PALPATION: Yes soft : COMMON NORMALS: Yes no CVA tenderness and Yes external appearance normal BLADDER/KIDNEY EXAM: Yes no CVA tenderness Back/Pelvis: COMMON NORMALS: no CVA tenderness, thoracic and lumbar spine normal to inspection, no thoracic nor lumbar tenderness and thoraco-lumbar ROM normal Extremity: COMMON NORMALS: normal to inspection, full ROM, normal capillary refill, no joint enlargement, no clubbing, cyanosis or edema, no calf tenderness and no pedal edema GENERAL: Yes normal exam except as noted Neuro: COMMON NORMALS: oriented x3, moves all extremities, no focal motor deficits, no sensory deficits noted and gait normal SENSORIUM/ORIENTATION: Yes alert, Yes oriented to person, Yes oriented to place and Yes oriented to time MENINGEAL SIGNS: Yes no meningeal signs Psych: COMMON NORMALS: mental status grossly normal, thought process normal, cooperative, affect normal, speech normal and activity/motor behavior normal SPEECH: Yes normal speech THOUGHT PROCESS: normal thought process Skin: COMMON NORMALS: no rashes or lesions noted, no wounds and skin turgor normal GENERAL SKIN EXAM: no rashes or lesions noted and turgor normal Course ED course: Pt is currently on flagyl PO for dx of trich. Pt states NVD has been present greater than 4 times for two days with mild cramping. UA ordered to rule out UTI as pt complains of some burning with urination. IM nausea meds given and will do PO challenge. Reevaluation(s): Reevaluation #1: UA negative for UTI. Pt tolerating fluids after IM meds. Pt appears well and able for DC. No episodes of NVD while present in ER. Time: 15:04 Vital Signs: Vital signs: Vital Signs Temperature 98.6 F 09/01/19 13:19 Pulse Rate 95 09/01/19 13:19 Respiratory Rate 18 09/01/19 13:19 Blood Pressure 107/67 09/01/19 13:19 Pulse Oximetry 98 09/01/19 13:19 MDM - Nausea/Vomiting/Diarrhea Lab Data: Labs: Lab Results 09/01/19 Range/Units 13:16 Urine Color Yellow (Yellow) Urine Appearance Clear (CLEAR) Urine pH 6.5 (5-7) Ur Specific Gravit y 1.010 (1.005-1.030) Urine Protein Neg (Negative) Urine Glucose (UA) Norm (Normal) Urine Ketones Negative (Negative) Urine Blood Neg (Negative) Urine Nitrate Negative (Negative) Urine Bilirubin Neg (NEGATIVE) Urine Urobilinogen Norm (Negative) mg/dL Ur Leukocyte Janice ase Negative (Negative) Discharge Plan Discharge Patient Disposition: Home, Self-Care Clinical Impression: Gastroenteritis Condition: Stable Prescriptions: No Action Geodon 20 mg Capsule 40 mg PO BID Qty: 0 RF: 0 paroxetine HCl [Paxil] 20 mg Tablet 20 mg PO DAILY RF: 0 trazodone 100 mg Tablet 100 mg PO BEDTIME RF: 0 Referrals: Natalia Granados MD [Primary Care Provider] - Discharge Diet: Advance as tolerated Discharge Activity: Resume usual activity Activity Restrictions/Additional Instructions: Clear fluids only and advance as tolerated over 24 hours. Do not drink alcohol while on Flagyl. Return if worsening in symptoms. Coding Level of Care Code ED Handle And Vent Machine Operator for Xin Fwd Exam Comprehensive
[2019-09-01] MEDS: promethazine 25 mg/mL SDV 1 mL IM (14:22)
[2019-09-01 14:28] LABS: Add Urine Microscopic? NO
[2019-09-01 14:37] LABS: Bilirubin Urine Neg (NEGATIVE); Blood Urine Neg (Negative); Glucose Urine UA Norm (Normal); Ketones Urine Negative (Negative); Leukocyte Esterase Urine Negative (Negative); Nitrate Urine Negative (Negative); Protein Urine Neg (Negative); Urine Appearance Clear (CLEAR); Urine Color Yellow (Yellow); Urobilinogen Urine Norm (Negative); pH Urine 6.5 (5-7)
--- NOTE | 2019-09-01 15:27 | PC.NURSE ---
Patient tolerated sprite to drink without nausea and vomiting. Vital signs stable and patient reports feeling better.
[2019-09-01 15:28] VITALS: BP 119/87; PULSE 80; RESP 16; TEMP 36.7; O2SAT 100
== END 2019-09-01 15:29 | disposition home or self-care (01) ==
LOC: ER 15:23
PROVIDERS: Emergency Provider Nurse Practitioner Family; PCP Pediatrics Adolescent Medicine
DX: K52.9 Noninfective gastroenteritis and colitis, unspecified (principal)
CPT/HCPCS: 12345; 81003; 96372; 96375; 99281; 99283; J2550

== ENCOUNTER → 2019-09-02 09:07 | Outpatient (BNVA) | payer MEDICAID, SELFPAY | PROVIDERS: PCP Pediatrics Adolescent Medicine; Visit Provider Counselor Professional | DX: F60.3 Borderline personality disorder (principal) | CPT/HCPCS: 90834 ==

== ENCOUNTER → 2019-09-03 09:27 | Outpatient (BNVA) | payer MEDICAID, SELFPAY | PROVIDERS: PCP Pediatrics Adolescent Medicine; Visit Provider Psychiatry & Neurology Psychiatry | DX: F60.3 Borderline personality disorder (principal); F43.12 Post-traumatic stress disorder, chronic; F17.200 Nicotine dependence, unspecified, uncomplicated; F12.20 Cannabis dependence, uncomplicated | CPT/HCPCS: 99204 ==

== ENCOUNTER 2019-09-06 08:50 | Emergency (ER) | payer MEDICAID, SELFPAY ==
[2019-09-06 08:51] VITALS: BP 125/78; PULSE 98; RESP 17; TEMP 36.7; O2SAT 98; BMI 32.9
--- NOTE | 2019-09-06 08:57 | XR_ITS ---
WS: [id number] XR chest 1V portable [id number] REASON FOR EXAM: cough/congestion FINDINGS: The heart mediastinum were normal. The lung danielle are well aerated. No pneumonia, pleural effusion, pulmonary edema, or mass effect. Th ere are scattered granulomas seen. The hilum and apices normal. XR/XR chest 1V portable [id number] IMPRESSION: Negative chest for active pathology.
[2019-09-06] MEDS: SUMAtriptan 6 mg/0.5 mL SDV SUBCUT (09:16)
--- NOTE | 2019-09-06 09:19 | W.ED.GENADLT ---
HPI - General Adult General: Chief complaint: Nausea/Vomiting/Diarrhea Stated complaint: COUGH N/D Time Seen by Provider: 09/06/19 08:51 Source: patient Mode of arrival: ambulatory Limitations: no limitations History of Present Illness: HPI narrative: Patient is a 18-year-old female who presents to ED today with multiple medical complaints. She tells me she has had a nonproductive cough for 5 to 6 months. This is the first time she has sought evaluation for this. She denies shortness of breath or difficulty breathing. She has not been running fevers. She also tells me she is having some diarrhea. She states she recently began taking Flagyl for a Trichomonas infection and states she has a few doses left. Patient was seen here recently for abdominal cramping, nausea, vomiting, diarrhea. She states the cramping and vomiting has subsided but the diarrhea has not (reports 5 episodes in a 24 hour period-nonbloody). Patient also complains of a migraine headache over the past few days. She states she has a longstanding history of migraine headaches and feels her headache today is identical. Onset (ago): unknown (5-6 months for cough; [place] x 2-3 days; diarrhea for about a week) Exacerbating factors: other ([place] is worse with light) Associated symptoms: Reports headache(s); Deny chest pain, dyspnea, malaise, nausea, rash, palpitations, syncope or vomiting Review of Systems Const: Denies: fever, chills, body aches, change in appetite, change in weight, fatigue or malaise Eyes: Reports: photophobia; Denies: change in vision or blurry vision ENMT: Denies: throat pain, enlarged tonsils or painful swallowing Card: Denies: chest pain, palpitations, irregular heart rhythm, edema, lightheadedness, syncope, pre-syncope or bluish discoloration of hands/feet Resp: Reports: non-productive cough; Denies: shortness of breath, productive cough, pain on inspiration, change in phlegm color, coughing up blood or chest congestion GI: Reports: diarrhea; Denies: abdominal pain, nausea or vomiting : Denies: flank pain, difficulty urinating, painful urination, urinary frequency, urinary urgency or urinary hesitancy Musc: Denies: neck pain or back pain Skin/Breast: Denies: rash Neuro: Reports: headache; Denies: numbness in extremities, weakness in extremities or changes in sensation PFSH ED PFSH: Medical History (Updated 09/06/19 @ 09:30 by TORO Mosley) Personality disorder in adult Social History (Updated 09/03/19 @ 09:47 by Willian Epstein LPN) Smoking and tobacco status: current every day smoker cigarettes Packs smoked per day: 0.5 Years cigarettes smoked: 3 Quit status (tobacco): has tried quititng Number of times tried to quit tobacco: 2 Second hand smoke exposure: Yes Female Reproductive History: Date of last menstrual period: 05/25/19 Physical Exam Const: COMMON NORMALS: no apparent distress, oriented x3, no limitations and alert NUTRITIONAL APPEARANCE: obese ORIENTATION/CONSCIOUSNESS: Yes oriented to person, Yes oriented to place and Yes oriented to time HENMT: COMMON NORMALS: normocephalic and head/scalp atraumatic HEAD & SCALP: normocephalic and atraumatic Eye: COMMON NORMALS: PERRL, EOMs intact bilaterally and conjunctivae normal CONJUNCTIVA: Yes conjunctivae normal PUPIL: Yes PERRL Resp: COMMON NORMALS: normal respiratory effort and clear to auscultation bilaterally AUSCULTATION: clear to auscultation bilaterally Cardio: COMMON NORMALS: regular rate and regular rhythm RATE: regular rate RHYTHM: regular rhythm GI: COMMON NORMALS: normal to inspection, nondistended, normoactive bowel sounds, soft to palpation, non-tender, no hepatosplenomegaly and no masses PALPATION: Yes soft and Yes no hepatosplenomegaly : COMMON NORMALS: Yes no CVA tenderness BLADDER/KIDNEY EXAM: Yes no CVA tenderness Back/Pelvis: COMMON NORMALS: no CVA tenderness Neuro: LANE COMA SCALE: document GCS findings Lane coma scale eye opening: Spontaneous [place] coma scale verbal response: Orientated [place] coma scale motor response: Obey commands [place] coma scale total score: 15 COMMON NORMALS: oriented x3, CN's II-XII intact bilaterally, moves all extremities, no focal motor deficits, no sensory deficits noted and gait normal SENSORIUM/ORIENTATION: Yes alert, Yes oriented to person, Yes oriented to place and Yes oriented to time Skin: COMMON NORMALS: no rashes or lesions noted GENERAL SKIN EXAM: no rashes or lesions noted Course Vital Signs: Vital signs: Vital Signs Temperature 98.1 F 09/06/19 08:51 Pulse Rate 98 09/06/19 08:51 Respiratory Rate 17 09/06/19 08:51 Blood Pressure 125/78 09/06/19 08:51 Pulse Oximetry 98 09/06/19 08:51 MDM - General Adult MDM Narrative: Medical decision making narrative: Patient appears in no acute distress. She has perfect vital signs. None of her complaints are emergent at this time. Diarrhea most likely has been caused from the Flagyl use. Recommend she go ahead and finish this course as she only has 1-2 doses left. Primary care can reassess the diarrhea if it continues after that. She was given IM sumatriptan for her migraine headache. Her CXR is without acute findings. We will give her a cough medicine to help with her cough. Discharge Plan Discharge Patient Disposition: Home, Self-Care Clinical Impression: Cough, Antibiotic-associated diarrhea Migraine Qualifiers: Migraine type: without aura Status migrainosus presence: without status migrainosus Intractability: not intractable Qualified Code(s): G43.009 - Migraine without aura, not intractable, without status migrainosus Condition: Stable Prescriptions: New promethazine-DM 6.25-15 mg/5 mL syrup 5 ml PO Q6H PRN (Reason: cough) Qty: 473 RF: 0 No Action trazodone 100 mg tablet 100 mg PO BEDTIME Qty: 30 RF: 2 prazosin 5 mg capsule 5 mg PO .HS Qty: 30 RF: 2 duloxetine 30 mg capsule,delayed release(DR/EC) 30 mg PO DAILY Qty: 30 RF: 2 hydroxyzine HCl 50 mg tablet 50 mg PO QID PRN (Reason: Anxiety/insomnia) Qty: 120 RF: 2 Discharge Orders: Discharge Order (Routine); Ordered 09/06/19 Ordered By: Emy Edmonds Referrals: Natalia Granados MD [Primary Care Provider] - Discharge Diet: Usual diet Discharge Activity: Resume usual activity Patient Instructions: Migraine Headache (ED), Chronic Cough (ED), Acute Diarrhea (ED) Discharge Date/Time: 09/06/19 09:40 Coding Level of Care Code ED Associate Professor Of Church Music for Chg Fwd Exam Comprehensive
== END 2019-09-06 09:40 | disposition home or self-care (01) ==
PROVIDERS: Emergency Provider Physician Assistant; PCP Pediatrics Adolescent Medicine
DX: R05 Cough (principal); K52.1 Toxic gastroenteritis and colitis; T37.3X5A Adverse effect of other antiprotozoal drugs, initial encounter; G43.909 Migraine, unspecified, not intractable, without status migrainosus; E66.9 Obesity, unspecified; F17.210 Nicotine dependence, cigarettes, uncomplicated; R40.2412 Glasgow coma scale score 13-15, at arrival to emergency department
CPT/HCPCS: 12345; 71045; 96372; 99281; 99283; J3030

== ENCOUNTER 2019-09-17 14:59 | Emergency (ER) | payer MEDICAID, SELFPAY ==
--- NOTE | 2019-09-17 15:04 | XR_ITS ---
WS: [id number] PORTABLE CHEST HISTORY: cough COMPARISON: 09/06/2019 Lungs are clear and well expanded. No pleural effusion or pneumothorax. Cardiac size: Normal. Mediastinum/Aorta: Normal mediastinum. No osseous abnormality seen. XR/XR chest 1V portable [id number] IMPRESSION: Unremarkable portable chest.
[2019-09-17 15:08] VITALS: BP 125/106; PULSE 103; RESP 16; TEMP 37; O2SAT 100; BMI 32.9
--- NOTE | 2019-09-17 15:09 | ED_ITS ---
HPI - URI/Sore Throat General: Chief Complaint: Abdominal Pain Stated Complaint: sob, fever Time Seen by Provider: 09/17/19 15:00 Source: patient Mode of arrival: ambulatory History of Present Illness: HPI Narrative: 18-year-old female who states she is had cough congestion and fever over the last week. States she also had has some nausea and vomiting. Patient is currently drinking a soda pop and states her nausea is improved. States she is worried about the coronavirus as she has been [facility] multiple times. Patient is in no distress here. MD elicited complaint: fever and cough Consistency: intermittent Severity: mild Able to tolerate fluids by mouth: Yes Exacerbating factors: nothing Relieving factors: nothing Associated symptoms: Reports fever(s), nausea and vomiting; Deny chest pain or headache(s) Review of Systems Const: Reports: fever Eyes: Denies: blurry vision or eye discomfort ENMT: Denies: throat pain or dental pain Card: Denies: chest pain Resp: Reports: productive cough GI: Reports: nausea and vomiting : Denies: painful urination Musc: Denies: neck pain or back pain Skin/Breast: Denies: rash Neuro: Denies: headache Psych: Denies: depression Vern/Lymph: Denies: easy bruising All/Imm: Denies: hives PFSH ED PFSH: Medical History Personality disorder in adult Social History Smoking and tobacco status: current every day smoker cigarettes Packs smoked per day: 0.5 Years cigarettes smoked: 3 Quit status (tobacco): has tried quititng Number of times tried to quit tobacco: 2 Second hand smoke exposure: Yes Female Reproductive History: Date of last menstrual period: 05/25/19 Physical Exam Const: COMMON NORMALS: no apparent distress, oriented x3 and healthy appearing HENMT: COMMON NORMALS: normocephalic and head/scalp atraumatic HEAD & SCALP: normocephalic and atraumatic Eye: COMMON NORMALS: PERRL and EOMs intact bilaterally PUPIL: Yes PERRL Neck/C-Spine: COMMON NORMALS: full ROM and supple Chest: COMMONS NORMALS: inspection of chest normal and palpation of chest normal Resp: COMMON NORMALS: normal respiratory effort, no retractions, no use of accessory muscles and clear to auscultation bilaterally AUSCULTATION: clear to auscultation bilaterally Cardio: COMMON NORMALS: regular rate, regular rhythm and no murmurs RATE: regular rate RHYTHM: regular rhythm GI: COMMON NORMALS: normal to inspection, nondistended, normoactive bowel sounds, soft to palpation, non-tender and no masses PALPATION: Yes soft Extremity: COMMON NORMALS: normal to inspection and full ROM Neuro: COMMON NORMALS: oriented x3, moves all extremities and no focal motor deficits Psych: COMMON NORMALS: mental status grossly normal, thought process normal and cooperative THOUGHT PROCESS: normal thought process Skin: COMMON NORMALS: no rashes or lesions noted and no wounds GENERAL SKIN EXAM: no rashes or lesions noted Course Vital Signs: Vital signs: Vital Signs Temperature 98.6 F 09/17/19 15:08 Pulse Rate 71 09/17/19 16:01 Respiratory Rate 17 09/17/19 16:01 Blood Pressure 113/82 09/17/19 16:01 Pulse Oximetry 98 09/17/19 16:01 MDM - URI/Sore Throat MDM Narrative: Medical decision making narrative: Patient presents here with chronic cough along with low-grade fevers and vomiting. Patient is well- appearing here and lab work and x-ray are normal. Patient prescribed Zofran and is stable for discharge. Patient tested for the coronavirus informed to self quarantine at this time. Lab Data: Labs: Lab Results 09/17/19 09/17/19 09/17/19 Range/Units 15:22 15:22 15:40 WBC 8.5 (4.5-13.0) 10^3/ uL RBC 4.76 (4.1-5.3) 10^6/u L Hgb 13.5 (11.5-15.3) g/dL Hct 42.5 (37.0-47.0) % MCV 89.3 (81-99) fL MCH 28.4 (28.0-34.0) pg MCHC 31.8 (30.0-36.0) g/dL RDW 15.4 H (12.1-15.1) % Plt Count 431 H (130-400) 10^3/c mm MPV 9.6 (7.4-10.4) fL Neut % (Auto) 62.6 % Lymph % (Auto) 31.3 % Garden % (Auto) 4.4 % Eos % (Auto) 1.1 % Baso % (Auto) 0.5 % Neut # (Auto) 5.3 (1.8-8.0) 10^3/u L Lymph # (Auto) 2.7 (1.5-6.5) 10^3/u L Garden # (Auto) 0.4 (0.2-0.9) 10^3/u L Eos # (Auto) 0.1 (0.0-0.8) 10^3/u L Baso # (Auto) 0.0 (0.0-0.1) 10^3/u L Nucleated RBC % (a uto) 0 % Nucleated RBCs # 0.0 /100WBC Sodium 139 (136-145) mmol/L Potassium 3.8 (3.5-5.1) mmol/L Chloride 102 (98-107) mmol/L Carbon Dioxide 26 (22-29) mmol/L Anion Gap 14.8 (5-19) BUN 11 (6-20) mg/dL Creatinine 0.7 (0.5-0.9) mg/dL GFR Calculation 107.8 (90-130) mL/min Glucose 123 H (65-115) mg/dL Calculated Osmolal ity 285 (285-295) mOsm/k g Calcium 9.9 (8.5-10.5) mg/dL Total Bilirubin 0.2 (0.15-1.2) mg/dL AST 25 (0-32) U/L ALT 29 (0-33) U/L Alkaline Phosphata se 75 (35-105) IU/L Total Protein 7.6 (6.6-8.7) g/dL Albumin 4.1 (3.5-5.2) g/dL Globulin 3.5 (1.3-4.6) g/dL Lipase 34 (13-60) U/L HCG, Qual Negative (Negative) Urine Color (Yellow) Urine Appearance (CLEAR) Urine pH (5-7) Ur Specific Gravit y (1.005-1.030) Urine Protein (Negative) Urine Glucose (UA) (Normal) Urine Ketones (Negative) Urine Blood (Negative) Urine Nitrate (Negative) Urine Bilirubin (NEGATIVE) Urine Urobilinogen (Negative) mg/dL Ur Leukocyte Janice ase (Negative) 09/17/19 Range/Units 15:40 WBC (4.5-13.0) 10^3/ uL RBC (4.1-5.3) 10^6/u L Hgb (11.5-15.3) g/dL Hct (37.0-47.0) % MCV (81-99) fL MCH (28.0-34.0) pg MCHC (30.0-36.0) g/dL RDW (12.1-15.1) % Plt Count (130-400) 10^3/c mm MPV (7.4-10.4) fL Neut % (Auto) % Lymph % (Auto) % Garden % (Auto) % Eos % (Auto) % Baso % (Auto) % Neut # (Auto) (1.8-8.0) 10^3/u L Lymph # (Auto) (1.5-6.5) 10^3/u L Garden # (Auto) (0.2-0.9) 10^3/u L Eos # (Auto) (0.0-0.8) 10^3/u L Baso # (Auto) (0.0-0.1) 10^3/u L Nucleated RBC % (a uto) % Nucleated RBCs # /100WBC Sodium (136-145) mmol/L Potassium (3.5-5.1) mmol/L Chloride (98-107) mmol/L Carbon Dioxide (22-29) mmol/L Anion Gap (5-19) BUN (6-20) mg/dL Creatinine (0.5-0.9) mg/dL GFR Calculation (90-130) mL/min Glucose (65-115) mg/dL Calculated Osmolal ity (285-295) mOsm/k g Calcium (8.5-10.5) mg/dL Total Bilirubin (0.15-1.2) mg/dL AST (0-32) U/L ALT (0-33) U/L Alkaline Phosphata se (35-105) IU/L Total Protein (6.6-8.7) g/dL Albumin (3.5-5.2) g/dL Globulin (1.3-4.6) g/dL Lipase (13-60) U/L HCG, Qual (Negative) Urine Color Yellow (Yellow) Urine Appearance Clear (CLEAR) Urine pH 7 (5-7) Ur Specific Gravit y 1.005 (1.005-1.030) Urine Protein Neg (Negative) Urine Glucose (UA) Norm (Normal) Urine Ketones Negative (Negative) Urine Blood Neg (Negative) Urine Nitrate Negative (Negative) Urine Bilirubin Neg (NEGATIVE) Urine Urobilinogen Norm (Negative) mg/dL Ur Leukocyte Janice ase Negative (Negative) Imaging Data^: CXR: Radiologist's impression: [facility] [address] [address] XRay Report Signed Patient: An Villarreal Unit #: [id number] : 2000 Age/Sex: 18 / F ADM Date: 09/17/19 Loc: ER Room/Bed: Attending Dr: Ordering Provider/Ordering MD: Dennis Pritchard MD Date of Service: 09/17/19 Procedure(s): XR chest 1V portable [id number] Accession Number(s): [id number] Report Number: [id number] WS: [id number] PORTABLE CHEST HISTORY: cough COMPARISON: 09/06/2019 Lungs are clear and well expanded. No pleural effusion or pneumothorax. Cardiac size: Normal. Mediastinum/Aorta: Normal mediastinum. No osseous abnormality seen. XR/XR chest 1V portable [id number] IMPRESSION: Unremarkable portable chest. Discharge Plan Discharge Patient Disposition: Home, Self-Care Clinical Impression: Acute upper respiratory infection Vomiting Qualifiers: Vomiting type: unspecified Vomiting Intractability: non-intractable Nausea presence: with nausea Qualified Code(s): R11.2 - Nausea with vomiting, unspeci fied Condition: Stable Prescriptions: New Zofran 4 mg tablet 4 mg PO QID PRN (Reason: nausea and vomiting) Qty: 14 RF: 0 No Action trazodone 100 mg tablet 100 mg PO BEDTIME Qty: 30 RF: 2 prazosin 5 mg capsule 5 mg PO .HS Qty: 30 RF: 2 duloxetine 30 mg capsule,delayed release(DR/EC) 30 mg PO DAILY Qty: 30 RF: 2 hydroxyzine HCl 50 mg tablet 50 mg PO QID PRN (Reason: Anxiety/insomnia) Qty: 120 RF: 2 promethazine-DM 6.25-15 mg/5 mL syrup 5 ml PO Q6H PRN (Reason: cough) Qty: 473 RF: 0 Geodon 20 mg Capsule 20 mg PO BID RF: 0 Discharge Orders: Discharge Order (Routine); Ordered 09/17/19 Ordered By: Dennis Pritchard Referrals: Natalia Granados MD [Primary Care Provider] - 4-7 days Discharge Diet: Advance as tolerated Discharge Activity: Resume usual activity Patient Instructions: Upper Respiratory Infection (ED), Acute Nausea and Vomiting (ED) Coding Level of Care Code ED Management Accounts Manager for Chg Fwd Exam Comprehensive
[2019-09-17] MEDS: ondansetron 4 MG Tablet PO (15:36)
[2019-09-17 15:43] LABS: Basophils % 0.5 %; Eosinophils # 0.1 10^3/uL (0.0-0.8); Eosinophils % 1.1 %; Hematocrit 42.5 % (37.0-47.0); Hemoglobin 13.5 g/dL (11.5-15.3); Lymphocytes # 2.7 10^3/uL (1.5-6.5); Lymphocytes % 31.3 %; Mean Corpuscular HGB Conc 31.8 g/dL (30.0-36.0); Mean Corpuscular Hemoglobin 28.4 pg (28.0-34.0); Mean Corpuscular Volume 89.3 fL (81-99); Mean Platelet Volume 9.6 fL (7.4-10.4); Monocytes # 0.4 10^3/uL (0.2-0.9); Monocytes % 4.4 %; Neutrophils # 5.3 10^3/uL (1.8-8.0); Neutrophils % 62.6 %; Nucleated Red Blood Cells % 0 %; Platelet Count 431 10^3/cmm (130-400); Red Blood Count 4.76 10^6/uL (4.1-5.3); Red Cell Distribution Width 15.4 % (12.1-15.1); White Blood Count 8.5 10^3/uL (4.5-13.0)
[2019-09-17 16:01] VITALS: BP 113/82; PULSE 71; RESP 17; O2SAT 98
[2019-09-17 16:05] LABS: Add Urine Microscopic? NO; HCG Qualitative Urine. Negative (Negative); Urine Appearance Clear (CLEAR); Urine Color Yellow (Yellow)
[2019-09-17 16:06] LABS: Bilirubin Urine Neg (NEGATIVE); Blood Urine Neg (Negative); Glucose Urine UA Norm (Normal); Ketones Urine Negative (Negative); Leukocyte Esterase Urine Negative (Negative); Nitrate Urine Negative (Negative); Protein Urine Neg (Negative); Specific Gravity, Urine 1.005 (1.005-1.030); Urobilinogen Urine Norm (Negative); pH Urine 7 (5-7)
[2019-09-17 16:09] LABS: Alanine Aminotransferase 29 U/L (0-33); Albumin Level 4.1 g/dL (3.5-5.2); Alkaline Phosphatase 75 IU/L (35-105); Anion Gap 14.8 (5-19); Aspartate Amino Transferase 25 U/L (0-32); Blood Urea Nitrogen 11 mg/dL (6-20); Calcium 9.9 mg/dL (8.5-10.5); Carbon Dioxide 26 mmol/L (22-29); Chloride 102 mmol/L (98-107); Globulin 3.5 g/dL (1.3-4.6); Glomerular Filtration Rate 107.8 mL/min (90-130); Glucose 123 mg/dL (65-115); Lipase 34 U/L (13-60); Osmolality Calculated 285 mOsm/kg (285-295); Potassium 3.8 mmol/L (3.5-5.1); Sodium 139 mmol/L (136-145); Total Bilirubin 0.2 mg/dL (0.15-1.2); Total Protein 7.6 g/dL (6.6-8.7)
[2019-09-17 16:20] VITALS: BP 113/82; PULSE 96; RESP 16; O2SAT 100
--- NOTE | 2019-09-21 10:53 | PC.NURSE ---
attempted to call pt to inform of negative covid test. no answer from any phone number listed on her chart. primary phone was turned off.
[2019-09-24 10:57] LABS: Coronavirus Overall Results NOT DETECTED
--- NOTE | 2019-10-07 14:32 | PC.NURSE ---
Patient notified of negative Covid 19 test results at this time.
== END 2019-09-17 16:30 | disposition home or self-care (01) ==
PROVIDERS: Emergency Provider Emergency Medicine; PCP Pediatrics Adolescent Medicine
DX: J06.9 Acute upper respiratory infection, unspecified (principal); R11.2 Nausea with vomiting, unspecified; F17.210 Nicotine dependence, cigarettes, uncomplicated; F43.12 Post-traumatic stress disorder, chronic; F60.3 Borderline personality disorder
CPT/HCPCS: 12345; 36415; 71045; 80053; 81003; 81025; 83690; 85025; 87635; 99282; 99283; Q0162

== ENCOUNTER → 2019-10-01 07:56 | Outpatient (BNVA) | payer MEDICAID, SELFPAY | PROVIDERS: PCP Pediatrics Adolescent Medicine; Visit Provider Psychiatry & Neurology Psychiatry | DX: F43.12 Post-traumatic stress disorder, chronic (principal); F12.20 Cannabis dependence, uncomplicated; F17.200 Nicotine dependence, unspecified, uncomplicated; F60.3 Borderline personality disorder | CPT/HCPCS: 99213 ==

== ENCOUNTER → 2019-10-02 07:55 | Outpatient (BNVA) | payer MEDICAID, SELFPAY | PROVIDERS: PCP Pediatrics Adolescent Medicine; Visit Provider Counselor Professional | DX: F12.20 Cannabis dependence, uncomplicated (principal); F17.200 Nicotine dependence, unspecified, uncomplicated; F43.12 Post-traumatic stress disorder, chronic; F60.3 Borderline personality disorder | CPT/HCPCS: 90834 ==

== ENCOUNTER → 2020-01-14 07:52 | Outpatient (BNVA) | payer MEDICAID, SELFPAY | PROVIDERS: PCP Pediatrics Adolescent Medicine; Visit Provider Psychiatry & Neurology Psychiatry | DX: F43.12 Post-traumatic stress disorder, chronic (principal) | CPT/HCPCS: 99214 ==

== ENCOUNTER 2020-03-03 15:55 | Inpatient (IN) | payer MEDICAID, SELFPAY ==
[2020-03-03 17:02] VITALS: BP 114/85; PULSE 87; RESP 16; TEMP 36.6; O2SAT 100; BMI 36.6
--- NOTE | 2020-03-03 17:10 | ED_ITS ---
HPI - Female Genitourinary General: Chief complaint: Urogenital-Female Stated complaint: POSSIBLE STI Time Seen by Provider: 03/03/20 16:10 History of Present Illness: HPI Narrative: 19-year-old female patient who is incarcerated presents to the emergency department with lower pelvic pain, reports, feel like I have an STD . She reports history of trichomonas and chlamydia infection. She reports malodorous discharge. She denies fever chills, she denies dysuria. MD elicited complaint: vaginal discharge and possible STD Pertinent past history: STI/STD Onset (ago): day(s) (2-3) Location of symptoms: vaginal Female Urogenital Radiation: Non-Radiating Quality of pain: cramping Consistency: intermittent Vaginal discharge: white and yellow Vaginal bleeding: none Exacerbating factors: none Relieving factors: none Associated symptoms: Reports no associated symptoms and vaginal discharge; Deny abdominal pain, headache(s) or nausea Treatment prior to arrival: none Sexual activity: Yes Date of Last Menstrual Period: 02/17/20 Review of Systems General: Reports: 10 or more systems reviewed and unremarkable except in HPI and below Const: Denies: fever(s), chills or diaphoresis Eyes: Denies: blurry vision or eye redness ENMT: Denies: throat pain, dental pain or disequilibrium Card: Denies: chest pain, palpitations or irregular heart rhythm Resp: Denies: dyspnea, productive cough, non-productive cough or wheezing GI: Denies: abdominal pain, nausea or vomiting : Reports: vaginal discharge; Denies: flank pain, difficulty voiding or dysuria Musc: Denies: back pain Skin/Breast: Denies: rash or pruritus Neuro: Denies: headache(s), weakness in extremities or behavioral changes Vern/Lymph: Denies: easy bruising PFS ED PFSH: Medical History (Updated 03/03/20 @ 17:21 by YOHANNES Glynn) Personality disorder in adult Family History Grandmother Hypertension Maternal grandmother Breast cancer Paternal grandmother Diabetes Maternal great grandmother Heart disease Maternal great grandmother Grandfather Diabetes Maternal great grandfather Heart disease Maternal great grandfather Family/Other Stroke Maternal great uncle Denies family history of Colon cancer Ovarian cancer Hyperlipidemia Family history of thyroid problem Uterine cancer Social History Additional social history: - Tobacco use: Current everyday smoker; 0.5pk daily Alcohol use: Denies Drug use: Denies Female Reproductive History: Date of last menstrual period: 02/17/20 Physical Exam Const: COMMON NORMALS: no acute distress, patient oriented x3, healthy appearing and alert GENERAL APPEARANCE: cooperative, comfortable and well h ydrated HENMT: COMMON NORMALS: normocephalic, Normal external nose present and moist oral mucous membranes HEAD & SCALP: normocephalic NOSE: Normal external nose present Eye: COMMON NORMALS: Equal, round and reactive pupils present and EOMs intact bilaterally GENERAL EYE: appearance normal, both eyes and all related structures PUPIL: Yes Equal, round and reactive pupils present Neck/C-Spine: COMMON NORMALS: full ROM and no lymphadenopathy GENERAL: Yes normal visual inspection and Yes trachea midline CERVICAL SPINE: Yes cervical ROM normal Lymph: LYMPHATIC: no lymphadenopathy noted Chest: COMMONS NORMALS: normal inspection of the chest Resp: COMMON NORMALS: normal respiratory effort and clear to auscultation bilaterally AUSCULTATION: clear to auscultation bilaterally Cardio: COMMON NORMALS: regular rhythm, S1 normal heart sound present, S2 normal heart sound present and Peripheral pulses 2+ throughout RHYTHM: regular rhythm HEART SOUNDS: S1 normal heart sound present and S2 normal heart sound present PERIPHERAL PULSES: Peripheral pulses 2+ throughout GI: COMMON NORMALS: Soft to palpation and non-tender INSPECTION: Yes normal to inspection PALPATION: Yes Soft to palpation : COMMON NORMALS: Yes no CVA tenderness BLADDER/KIDNEY EXAM: Yes no CVA tenderness Back/Pelvis: COMMON NORMALS: no CVA tenderness and thoracic and lumbar spine normal to inspection Extremity: COMMON NORMALS: normal to inspection and capillary refill normal Neuro: COMMON NORMALS: patient oriented x3 and no focal motor deficits SENSORIUM/ORIENTATION: Yes alert Psych: COMMON NORMALS: mental status grossly normal, Normal thought process present and cooperative ACTIVITY/MOTOR BEHAVIOR: Yes appropriate eye contact THOUGHT PROCESS: Normal thought process present Skin: COMMON NORMALS: no rashes or lesions noted and turgor normal GENERAL SKIN EXAM: no rashes or lesions noted and turgor normal Course Vital Signs: Vital signs: Vital Signs Temperature 97.8 F 03/03/20 17:02 Pulse Rate 87 03/03/20 17:02 Respiratory Rate 16 03/03/20 17:02 Blood Pressure 114/85 03/03/20 17:02 Pulse Oximetry 100 03/03/20 17:02 MDM - Female Lab Data: Labs: Lab Results 03/03/20 03/03/20 Range/Units 16:57 16:57 HCG, Qual Negative (Negative) Urine Color Yellow (Yellow) Urine Appearance Hazy A (CLEAR) Urine pH 8 H (5-7) Ur Specific Gravit y 1.015 (1.005-1.030) Urine Protein Neg (Negative) Urine Glucose (UA) Norm (Normal) Urine Ketones Negative (Negative) Urine Blood Neg (Negative) Urine Nitrate Negative (Negative) Urine Bilirubin Neg (Negative) Prot Sulfosalicyli c Acd Negative (Negative) Urine Urobilinogen Norm (Negative) mg/dL Ur Leukocyte Janice ase 2+ H (Negative) Urine RBC None (0-2) /hpf Urine WBC 25-40 H (0-5) /hpf Ur Squamous Epith Cells 5-10 H (0-5) /hpf Amorphous Sediment Not Reportable Urine Bacteria 2+ H (NONE) /hpf Urine Trichomonas Trace H /hpf Discharge Plan Discharge Patient Disposition: Home Clinical Impression: STI (sexually transmitted infection) Condition: Stable Prescriptions: New Flagyl 500 mg tablet 500 mg PO TID Qty: 21 RF: 0 No Action venlafaxine 75 mg capsule,extended release 24hr 75 mg PO QAM 30 Days Qty: 30 RF: 1 mirtazapine 15 mg tablet 15 mg PO .hs 30 Days Qty: 30 RF: 1 prazosin 2 mg capsule 6 mg PO .HS 30 Days Qty: 90 RF: 1 Zofran 4 mg tablet 4 mg PO QID PRN (Reason: nausea and vomiting) Qty: 14 RF: 0 Discharge Orders: Discharge Order (Routine); Ordered 03/03/20 Ordered By: Xiomy Clark Referrals: Natalia Granados MD [Primary Care Provider] - Discharge Diet: Usual diet Discharge Activity: Resume usual activity Patient Instructions: Chlamydia Infection (ED), Sexually Transmitted Diseases (ED), Trichomoniasis (ED) Activity Restrictions/Additional Instructions: No sex until follow-up with your primary care and medically cleared to do so Take Flagyl until all gone, avoid alcohol with use of medication Return to the emergency department if you develop abdominal pain, fever chills or nausea vomiting Follow-up with your primary care provider to ensure infection has resolved Coding Level of Care Code ED 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
[2020-03-03 17:23] LABS: HCG Qualitative Urine. Negative (Negative)
[2020-03-03 17:24] LABS: Add Urine Microscopic? YES; Bilirubin Urine Neg (Negative); Blood Urine Neg (Negative); Glucose Urine UA Norm (Normal); Ketones Urine Negative (Negative); Leukocyte Esterase Urine 2+ (Negative); Nitrate Urine Negative (Negative); Protein Urine Neg (Negative); Specific Gravity, Urine 1.015 (1.005-1.030); Sulfosalicylic Acid Urine Negative (Negative); Urine Appearance Hazy (CLEAR); Urine Color Yellow (Yellow); Urobilinogen Urine Norm (Negative); pH Urine 8 (5-7)
[2020-03-03 17:30] LABS: Add Urine Culture? Yes; Bacteria Urine 2+ /hpf; Trichomonas Urine TRACE /hpf; WBC Urine 25-40 /hpf (0-5)
[2020-03-03 17:31] VITALS: BP 142/58; PULSE 89; RESP 16; O2SAT 99
[2020-03-03] MEDS: azithromycin 250 mg Tablet 1000 MG PO (17:49)
--- NOTE | 2020-03-03 17:55 | PC.NURSE ---
pt reported to me that she has si with a plan of suffocating herself and has tried while at shelter. INFORMED DR. SULTANA. DR. SULTANA AT BEDSIDE SPEAKING WITH PT.
--- NOTE | 2020-03-03 18:09 | PC.NURSE ---
Pt moved to [facility] bed until admission to psych.
--- NOTE | 2020-03-03 18:47 | PC.NURSE ---
Have attempted twice to call report to [facility], was told they will not take report at this time.
[2020-03-03 18:53] LABS: Amphetamines Screen Urine Negative (Negative); Barbiturates Screen Urine Negative (Negative); Benzodiazepines Screen Urine Negative (Negative); Cocaine Screen Urine Negative (Negative); Opiate Screen Urine Negative (Negative); PCP Screen Urine Negative (Negative); THC Screen Urine Positive (Negative)
--- NOTE | 2020-03-03 18:58 | PC.NURSE ---
Again attempted to call report, again told no one could take report, all nurses busy.
[2020-03-03 18:59] LABS: Basophils % 0.3 %; Eosinophils # 0.1 10^3/uL (0.0-0.8); Eosinophils % 0.5 %; Hematocrit 45.2 % (37.0-47.0); Hemoglobin 13.9 g/dL (11.5-15.3); Lymphocytes # 3.1 10^3/uL (1.5-6.5); Lymphocytes % 26.6 %; Mean Corpuscular HGB Conc 30.8 g/dL (30.0-36.0); Mean Corpuscular Hemoglobin 28.3 pg (28.0-34.0); Mean Corpuscular Volume 91.9 fL (81-99); Mean Platelet Volume 10.2 fL (7.4-10.4); Monocytes # 0.6 10^3/uL (0.2-0.9); Neutrophils # 7.84 10^3/uL (1.8-8.0); Neutrophils % 67.4 %; Nucleated Red Blood Cells % 0 %; Platelet Count 388 10^3/cmm (130-400); Red Blood Count 4.92 10^6/uL (4.1-5.3); Red Cell Distribution Width 13.2 % (12.1-15.1); White Blood Count 11.6 10^3/uL (4.5-13.0)
[2020-03-03 19:12] VITALS: BP 142/58; PULSE 89; RESP 16; TEMP 36.6; O2SAT 99
[2020-03-03 19:38] LABS: Alanine Aminotransferase 27 U/L (0-33); Albumin Level 4.1 g/dL (3.5-5.2); Alkaline Phosphatase 87 IU/L (35-105); Anion Gap 17.1 (5-19); Aspartate Amino Transferase 21 U/L (0-32); Blood Urea Nitrogen 12 mg/dL (6-20); Calcium 9.9 mg/dL (8.5-10.5); Carbon Dioxide 23 mmol/L (22-29); Chloride 101 mmol/L (98-107); Creatinine Clr Calc Pharmacy 134.2741; Globulin 3.7 g/dL (1.3-4.6); Glomerular Filtration Rate 106.7 mL/min (90-130); Glucose 99 mg/dL (65-115); Osmolality Calculated 284 mOsm/kg (285-295); Potassium 4.1 mmol/L (3.5-5.1); Salicylate 0.4 mg/dL (3-10); Sodium 137 mmol/L (136-145); Total Bilirubin 0.2 mg/dL (0.15-1.2); Total Protein 7.8 g/dL (6.6-8.7)
[2020-03-03 19:40] LABS: Acetaminophen < 5.0 ug/mL (10-30); Alcohol Level < 10 mg/dL (0-10)
[2020-03-03] MEDS: prazosin 1 mg Capsule 6 MG PO (21:42)
[2020-03-03] MEDS: trazodone 50 mg Tablet PO (21:42)
[2020-03-03] MEDS: mirtazapine 15 mg Tablet PO (21:42)
--- NOTE | 2020-03-03 21:44 | PC.NURSE ---
The patient has a dime size bruise to left arm where blood was drawn in the ED.
[2020-03-03 21:58] VITALS: BP 121/86; PULSE 95; RESP 19; TEMP 37.1; O2SAT 96
[2020-03-03] MEDS: acetaminophen 325 mg Tablet 650 MG PO (22:06)
--- NOTE | 2020-03-03 22:28 | PC.NURSE ---
@[id number] Patient arrived in handcuffs and ankles shackled by the police department and once we had clearance the officer removed her restraints. A second shift supervisor came with paperwork for patient court date. He told the patient that her court date on mar 21. He went on to tell her that Supervisor [employer] [facility] stated that this is the 3rd time patient has been arrested and claimed mental illness to escape the longterm. He went on to say that if she does not come to court this time, regardless of reason, that he is going to incarcerate her for 120 days, that he is tired of playing games with her. Currently, patient is in the dayroom since her arrival on the unit. She is bragging about her interaction with local police and stated she wanted to whip his ass and spider monkey him Meaning climb up his back... she reports a headache. She responded to medication administration by clapping her hands and saying this is my favorite part of this place.
--- NOTE | 2020-03-04 04:54 | PC.NURSE ---
Prn tylenol 650mg PO for headache given. She is sleeping soundly without pain Visteril 50mg PO given for anxiety. She is no longer anxious and is resting
[2020-03-04] MEDS: venlafaxine ER (24HR) 75 mg Capsule PO (05:42)
[2020-03-04 06:00] VITALS: BP 110/75; PULSE 100; RESP 20; TEMP 36.6; O2SAT 98
[2020-03-04] MEDS: paliperidone ER 6 mg Tablet PO (11:39)
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
[2020-03-04 14:00] VITALS: BP 114/81; PULSE 85; RESP 18; TEMP 36.9; O2SAT 98
[2020-03-04 20:52] VITALS: BP 118/78; PULSE 89; RESP 20; TEMP 37; O2SAT 98
[2020-03-04] MEDS: mirtazapine 15 mg Tablet PO (21:09)
[2020-03-04] MEDS: prazosin 1 mg Capsule 6 MG PO (21:09)
[2020-03-05] MEDS: venlafaxine ER (24HR) 75 mg Capsule PO (05:12)
[2020-03-05 06:00] VITALS: BP 126/82; PULSE 73; RESP 18; TEMP 37.1; O2SAT 99
[2020-03-05] MEDS: paliperidone ER 6 mg Tablet PO (08:44)
--- NOTE | 2020-03-05 10:58 | PM.NPN ---
Subjective NPU Subjective: Interval history: An presented today reporting that she was in long term secondary to some shoplifting charges. She reports that there were several people at this location and they all ran and left her with stuff and she has no plans of saying anybody's names. So she is stuck in the back so to speak. She reports that she has a court date on March 17 and that her hope is to discharge from here stable on medication, get a job at 1 of the places she has applied, so she can be prepared to review a payment plan with the exchange engineer at her hearing. She reports that she is adjusting to the medication and she is eating fine and sleeping okay. Mental Status Exam MSE Comments: This is an obese white female with adequate dress, grooming and eye contact. No abnormal movements except for mild psychomotor retardation. Cooperative with exam in no acute distress. Speech was normal rate and slightly decreased volume. Mood described as a little better, affect congruent. Thought process organized. Thought content: Patient denied suicidal ideation, she denies any homicidal ideation, there are no delusions reported or noted, she reported decreasing auditory hallucinations but did not report visual hallucinations. Attention and concentration were intact and memory appeared mostly reliable. She is alert and oriented x3. Insight and judgment are impaired, but improving, impulse control is limited. Vitals/I&O/Wt Last Vital Signs Temp 98.7 F 03/05/20 06:00 Pulse 73 03/05/20 06:00 Resp 18 03/05/20 06:00 BP 126/82 03/05/20 06:00 Pulse Ox 99 03/05/20 06:00 Weight last 48 hrs Weight 90.718 kg Data NPU : 03/03/20 18:50 03/03/20 18:50 Micro: Microbiology 03/03/20 16:57 Urine Culture - Final Urine,Clean Catch 03/03/20 16:57 Chlamydia trachomatis (YOHAN) - Final Urine Random Neisseria gonorrhoeae (YOHAN) - Final Microbiology 03/03/20 16:57 Urine,Clean Catch Urine Culture - Final 03/03/20 16:57 Urine Random Chlamydia trachomatis (YOHAN) - Final 03/03/20 16:57 Urine Random Neisseria gonorrhoeae (YOHAN) - Final A&P Additional A&P Information (1) STI (sexually transmitted infection): (2) Suicidal ideation: (3) Cannabis dependence, uncomplicated: (4) Nicotine dependence, unspecified, uncomplicated: (5) Post-traumatic stress disorder, chronic: (6) Borderline personality disorder: (7) Psychosis: (8) Malingering: This is a 19-year-old white female with a long history of mental health issues with a history of PTSD cannabis use and suicidal ideation with borderline personality disorder appearing more prominent who presents endorsing psychosis which could be a micro-psychosis of borderline personality disorder endorsing anxiety attacks secondary to the hallucinations open to a trial of medication. 1. Continue current medication. 2. Continue every 15 minute checks for safety. 3. Encourage individual, group and milieu therapy. 4. Recommend sober living treatment at the highest level of care to which she is willing to commit. At this point however outpatient services should suffice given her reporting. Involuntary Hold Information 96 Hour Hold: 96 Hour Involuntary Admission: Yes 96 Hour Hold Ending Date: 03/09/20 96 Hour Hold Ending Time: 18:00 Attestations NPU Medical Necessity Statement*: Inpatient hospitalization is medically necessary and the clinically appropriate intervention at this time. We will monitor medications and add medications and make changes as indicated. Likely length of stay 1-3 days. Please note there are some concerns that this was an episode of malingering. Coding Level of Care Code Acute Biofuels Manager for Xin Domínguez
[2020-03-05 14:00] VITALS: BP 119/80; PULSE 88; RESP 20; TEMP 37; O2SAT 97
[2020-03-05] MEDS: hyDROXYzine 25 mg Capsule 50 MG PO (16:03)
--- NOTE | 2020-03-05 16:03 | PC.NURSE ---
PRN VISTARIL VISTARIL 50MG PO PER PATIENT C/O ANXIETY. WILL CONTINUE TO MONITOR FOR MEDICATION EFFECTIVENESS.
--- NOTE | 2020-03-05 16:50 | PC.NURSE ---
PRN VISTARIL FOLLOW UP MEDICATION EFFECTIVE. NO FURTHER C/O ANXIETY.
[2020-03-05 20:25] VITALS: BP 132/88; PULSE 89; RESP 18; TEMP 36.4; O2SAT 98
[2020-03-05] MEDS: prazosin 1 mg Capsule 6 MG PO (20:27)
[2020-03-05] MEDS: mirtazapine 15 mg Tablet PO (20:28)
[2020-03-06 06:00] VITALS: BP 134/87; PULSE 70; RESP 15; TEMP 36.7; O2SAT 99
[2020-03-06] MEDS: venlafaxine ER (24HR) 75 mg Capsule PO (06:20)
[2020-03-06] MEDS: paliperidone ER 6 mg Tablet PO (08:37)
--- NOTE | 2020-03-06 12:22 | P.PN_ITS ---
Subjective NPU Subjective: Interval history: An presents today reporting that things are looking brighter. She reports that she has a court date on March 17 but that prior to that she has interviews with [employer] Saldana and signed. She is hopeful she will secure 1 of those jobs which will allow her to have a intelligent conversation with the court about when she can pay back her findings which will take a big stress off of her. She reports she is tolerating the medication well and we discussed the possibility discharge in the morning. Mental Status Exam MSE Comments: This is an obese white female with adequate dress, grooming and eye contact. No abnormal movements except for mild psychomotor retardation. Cooperative with exam in no acute distress. Speech was normal rate and slightly decreased volume. Mood described as a little better, affect congruent. Thought process organized. Thought content: Patient denied suicidal ideation, she denies any homicidal ideation, there are no delusions reported or noted, she reported decreasing auditory hallucinations but did not report visual hallucinations. Attention and concentration were intact and memory appeared mostly reliable. She is alert and oriented x3. Insight and judgment are impaired, but improving, impulse control is limited. Vitals/I&O/Wt Last Vital Signs Temp 98.1 F 03/06/20 06:00 Pulse 70 03/06/20 06:00 Resp 15 03/06/20 06:00 BP 134/87 03/06/20 06:00 Pulse Ox 99 03/06/20 06:00 Weight last 48 hrs Weight 108.635 kg Data NPU : 03/03/20 18:50 03/03/20 18:50 Micro: Microbiology 03/03/20 16:57 Urine Culture - Final Urine,Clean Catch Microbiology 03/03/20 16:57 Urine,Clean Catch Urine Culture - Final A&P Additional A&P Information (1) STI (sexually transmitted infection): (2) Suicidal ideation: (3) Cannabis dependence, uncomplicated: (4) Nicotine dependence, unspecified, uncomplicated: (5) Post-traumatic stress disorder, chronic: (6) Borderline personality disorder: (7) Psychosis: (8) Malingering: This is a 19-year-old white female with a long history of mental health issues with a history of PTSD cannabis use and suicidal ideation with borderline personality disorder appearing more prominent who presents endorsing psychosis which could be a micro-psychosis of borderline personality disorder endorsing anxiety attacks secondary to the hallucinations adjusting well to the new medica tion. 1. Continue current medication. 2. Continue every 15 minute checks for safety. 3. Encourage individual, group and milieu therapy. 4. Recommend sober living treatment at the highest level of care to which she is willing to commit. At this point however outpatient services should suffice given her reporting. Involuntary Hold Information 2 96 Hour Hold: 96 Hour Involuntary Admission: Yes 96 Hour Hold Ending Date: 03/09/20 96 Hour Hold Ending Time: 18:00 Attestations NPU Medical Necessity Statement*: Inpatient hospitalization is medically necessary and the clinically appropriate intervention at this time. We will monitor medications and add medications and make changes as indicated. Likely length of stay 1 to 2 days. Coding Level of Care Code Acute Information Security Consultant for Xin Domínguez
[2020-03-06 14:00] VITALS: BP 113/57; PULSE 104; RESP 18; TEMP 37.1; O2SAT 98
[2020-03-06 20:44] VITALS: BP 143/16; PULSE 96; RESP 16; TEMP 36.9; O2SAT 96
[2020-03-06] MEDS: trazodone 50 mg Tablet PO (21:31)
[2020-03-06] MEDS: hyDROXYzine 25 mg Capsule 50 MG PO (21:31)
[2020-03-06] MEDS: prazosin 1 mg Capsule 6 MG PO (21:31)
[2020-03-06] MEDS: mirtazapine 15 mg Tablet PO (21:31)
[2020-03-07 06:00] VITALS: BP 122/73; PULSE 68; RESP 17; TEMP 36.8; O2SAT 99
[2020-03-07] MEDS: venlafaxine ER (24HR) 75 mg Capsule PO (06:55)
--- NOTE | 2020-03-07 07:49 | PC.RESP ---
Smoking Cessation information sent to patient.
[2020-03-07] MEDS: paliperidone ER 6 mg Tablet PO (07:52)
[2020-03-07 10:01] VITALS: BP 122/73; PULSE 68; RESP 17; TEMP 36.8; O2SAT 99
--- NOTE | 2020-03-07 10:16 | P.DS_ITS ---
Diagnoses at Discharge Discharge Diagnosis (1) STI (sexually transmitted infection): Status: Resolved (2) Suicidal ideation: Status: Resolved (3) Cannabis dependence, uncomplicated: Status: Acute (4) Nicotine dependence, unspecified, uncomplicated: Status: Resolved (5) Post-traumatic stress disorder, chronic: Status: Acute (6) Borderline personality disorder: Status: Acute (7) Psychosis: Status: Acute (8) Malingering: Status: Resolved Reason for Visit Reason for Visit: POSSIBLE STI Hospital Course Hospital Course The patient presented to the emergency room with lower pelvic pain, with history of trichomoniasis and chlamydia, and reporting a malodorous discharge. After that had been managed, she claimed she was suicidal and the emergency room doctor spoke with her and the flatbed owner operator, who acknowledged he was going to release her. She reported she had a plan to hang herself. She was placed on a 96-hour hold and admitted to the neuropsychiatric unit for definitive treatment of those issues. On the unit, she quickly acclimated to the individual, group, and milieu therapies provided. She did endorse having some psychosis and that the medication she had tried in the past, to help with her psychosis, was ineffective. We discussed the risks, benefits, and alternatives of initiating Invega, which we started and she tolerated well with a positive response. She was deemed absent credible lethality and so she was discharged. During the hospitalization, the patient had routine laboratory studies which were within normal limits, except for a few outliers. Additionally, the patient had a general medical evaluation which was within normal limits and revealed no new acute processes. Discharge Summary At the time of discharge the patient denied all lethality, was absent psychosis, and mood and anxiety were well managed. The patient endorsed a plan to avoid all drugs of abuse and to follow-up with outpatient services, as recommended. The patient was evaluated and deemed to be absent credible lethality, and had achieved the maximum benefit from an inpatient hospitalization, and so she was discharged. Involuntary Hold Information 96 Hour Hold: 96 Hour Involuntary Admission: Yes 96 Hour Hold Ending Date: 03/09/20 96 Hour Hold Ending Time: 18:00 Mental Status Exam MSE Comments: This is an obese white female with adequate dress, grooming and eye contact. No abnormal movements. Cooperative with exam in no acute distress. Speech was normal rate and volume. Mood described as good, affect congruent. Thought process organized. Thought content: Patient denied suicidal ideation, she denies any homicidal ideation, there are no delusions reported or noted, she reported decreasing auditory hallucinations but did not report visual hallucinations. Attention and concentration were intact and memory appeared mostly reliable. She is alert and oriented x3. Insight and judgment are improving, impulse control is limited, but improving. Discharge Data Vitals: Last Vital Signs Temp 98.3 F 03/07/20 10:01 Pulse 68 03/07/20 10:01 Resp 17 03/07/20 10:01 BP 122/73 03/07/20 10:01 Pulse Ox 99 03/07/20 10:01 Discharge Plan Discharge Patient Disposition: Home Condition: Stable Prescriptions: New Flagyl 500 mg tablet 500 mg PO TID Qty: 21 RF: 0 paliperidone 6 mg Tablet Extended Release 24hr 6 mg PO DAILY 30 Days Qty: 30 RF: 1 Continued venlafaxine 75 mg capsule,extended release 24hr 75 mg PO QAM 30 Days Qty: 30 RF: 1 mirtazapine 15 mg tablet 15 mg PO BEDTIME 30 Days Qty: 30 RF: 1 prazosin 2 mg capsule 6 mg PO BEDTIME 30 Days Qty: 90 RF: 1 Discharge Orders: Discharge Order (Routine); Ordered 03/07/20 Ordered By: Zeb Ramirez Referrals: Elvira Frausto MD [[place]] - 03/16/20 1:45 pm () Radha Fonseca APN, WHDIANNE [Nurse Practitioner] - Lou Stern MS, CERTIFIED REGISTERED DENTAL ASSISTANT [Referring] - 4-7 days (*On Walk In Status-go to [facility] and ask to see a therapist on a walk in basis. Do ask about getting your child welfare caseworker if you have not had contact with one yet ) Discharge Diet: Usual diet Discharge Activity: Resume usual activity Patient Instructions: Chlamydia Infection (ED), Sexually Transmitted Diseases (ED), Trichomoniasis (ED) Activity Restrictions/Additional Instructions: For your court note. Be sure to call [facility] and ask for Kadi [phone] at [phone]. [phone]. Make sure to leave a number to reach you if you leave a message. No sex until follow-up with your primary care and medically cleared to do so Take Flagyl until all gone, avoid alcohol with use of medication Return to the emergency department if you develop abdominal pain, fever chills or nausea vomiting Follow-up with your primary care provider to ensure infection has resolved Discharge Date/Time: 03/07/20 12:54 Discharge Attestations [facility] Time Spent in Discharge Care*: less than 30 min Specific Discharge Activities: Specific discharge activities: educating patient, discussing with correctional casework specialist/social workers/dc planners, documenting/other paperwork and evaluating patient/reviewing data Coding Level of Care Code Acute Emergency Department Technician for [facility] Fwd Diagnoses STI (sexually transmitted infection) A64 Suicidal ideation R45.851 Cannabis dependence, uncomplicated F12.20 Nicotine dependence, unspecified, uncomplicated F17.200 Post-traumatic stress disorder, chronic F43.12 Borderline personality disorder F60.3 Psychosis F29 Malingering Z76.5
== END 2020-03-07 12:54 | disposition home or self-care (01) | DRG 885 ==
LOC: ER 18:11 → NP 18:37
PROVIDERS: Emergency Medicine; Nurse Practitioner Family; Admitting Provider Psychiatry & Neurology Psychiatry; PCP Pediatrics Adolescent Medicine; Visit Provider Psychiatry & Neurology Psychiatry
DX: F23 Brief psychotic disorder (principal); R45.851 Suicidal ideations; F32.9 Major depressive disorder, single episode, unspecified; F41.9 Anxiety disorder, unspecified; F17.210 Nicotine dependence, cigarettes, uncomplicated; Z91.5 Personal history of self-harm; Z62.810 Personal history of physical and sexual abuse in childhood; F43.12 Post-traumatic stress disorder, chronic; Z76.5 Malingerer [conscious simulation]; F60.3 Borderline personality disorder; F12.20 Cannabis dependence, uncomplicated; A64 Unspecified sexually transmitted disease
CPT/HCPCS: 12345; 36415; 80053; 80306; 80307; 81001; 81025; 85025; 87086; 87491; 87591; 99283; Q0144

== ENCOUNTER → 2020-03-16 11:56 | Outpatient (BNVA) | payer MEDICAID, SELFPAY | PROVIDERS: PCP Pediatrics Adolescent Medicine; Visit Provider Psychiatry & Neurology Psychiatry | DX: F43.12 Post-traumatic stress disorder, chronic (principal); F33.3 Major depressive disorder, recurrent, severe with psychotic symptoms | CPT/HCPCS: 99214 ==

== ENCOUNTER → 2020-06-14 07:56 | Outpatient (BNVA) | payer MEDICAID, SELFPAY | PROVIDERS: PCP Pediatrics Adolescent Medicine; Visit Provider Nurse Practitioner Psychiatric/Mental Health | DX: F33.3 Major depressive disorder, recurrent, severe with psychotic symptoms (principal); F43.12 Post-traumatic stress disorder, chronic; F60.3 Borderline personality disorder; F12.20 Cannabis dependence, uncomplicated; F17.200 Nicotine dependence, unspecified, uncomplicated | CPT/HCPCS: 99212 ==

== ENCOUNTER 2020-08-02 22:04 | Emergency (ER) | payer MEDICAID, SELFPAY ==
[2020-08-02 22:08] VITALS: BP 112/70; PULSE 89; RESP 17; TEMP 36.9; O2SAT 98; BMI 46.0
--- NOTE | 2020-08-02 22:13 | W.ED.ABDPA2 ---
HPI - Abdominal Pain General: Chief Complaint: Abdominal Pain Stated Complaint: ABD PAIN Time Seen by Provider: 08/02/20 22:06 History of Present Illness: HPI narrative: Patient is a 19-year-old female comes to the ED via EMS with abdominal pain, nausea vomiting diarrhea. While in route patient received nausea meds and Dilaudid to help with pain. Patient says her pain is greatly improved due to meds given by EMS. Symptoms started about 1 week ago. She states the abdominal pain is located in the periumbilical region and in the right upper quadrant of the abdomen. She currently rates the pain a 3 out of 10. She endorses having nausea and vomiting over the last week. She says her symptoms get worse after she eats and she has diarrhea. Patient says she did go see her PCP for same complaint on July 28 and they performed some lab work and working to set her up for an outpatient CT of the abdomen. She endorses having more episodes of acid reflux since symptoms started as well. Denies any fever, chills, constipation, dysuria or hematuria. No past abdominal surgery history. Associated Symptoms: Reports diarrhea, nausea and vomiting; Denies chills, constipation, dysuria, fever(s), hematochezia and hematuria Related Data: Date of Last Menstrual Period: 07/02/20 Review of Systems Const: Reports: change in appetite (Decreased appetite); Denies: fever(s), chills or fatigue Eyes: Denies: change in vision or eye discomfort ENMT: Denies: throat pain, odynophagia, nasal discharge or nasal congestion Card: Denies: chest pain, palpitations, edema, swelling of feet/ankles, dyspnea on exertion or orthopnea Resp: Denies: dyspnea, productive cough or non-productive cough GI: Reports: abdominal pain, nausea, vomiting and diarrhea; Denies: constipation or hematochezia : Denies: flank pain, dysuria or hematuria Musc: Denies: neck pain, back pain or extremity swelling Skin/Breast: Denies: rash or new lesions Neuro: Denies: headache(s), numbness in extremities or weakness in extremities [facility] ED PFSH: Medical History MDD (major depressive disorder) Personality disorder in adult Family History Grandmother Hypertension Maternal grandmother Breast cancer Paternal grandmother Diabetes Maternal great grandmother Heart disease Maternal great grandmother Grandfather Diabetes Maternal great grandfather Heart disease Maternal great grandfather Family/Other Stroke Maternal great uncle Denies family history of Colon cancer Ovarian cancer Hyperlipidemia Family history of thyroid problem Uterine cancer Social History Smoking and tobacco status: current every day smoker Additional social history: - Tobacco use: Current everyday smoker; 0.5pk daily Alcohol use: Denies Drug use: Denies Female Reproductive History: Date of last menstrual period: 07/02/20 Physical Exam Narrative: EXAM NARRATIVE: Patient is a pleasant 19-year-old female that is appear in any acute distress or pain. She appears nontoxic and is sitting comfortable on the exam bed while in the room. Const: COMMON NORMALS: no acute distress, patient oriented x3 and alert GENERAL APPEARANCE: cooperative and comfortable NUTRITIONAL APPEARANCE: obese HENMT: COMMON NORMALS: normocephalic HEAD & SCALP: normocephalic MOUTH: Normal oral and palatal mucosa present THROAT: posterior oropharynx normal and uvula midline Eye: COMMON NORMALS: Equal, round and reactive pupils present PUPIL: Yes Equal, round and reactive pupils present Neck/C-Spine: COMMON NORMALS: supple GENERAL: Yes normal visual inspection Resp: COMMON NORMALS: normal respiratory effort, No retractions, No use of accessory muscles and clear to auscultation bilaterally AUSCULTATION: clear to auscultation bilaterally Cardio: COMMON NORMALS: regular rate, regular rhythm, S1 normal heart sound present, S2 normal heart sound present, No gallops present (Cardio), No clicks present (Cardio), No murmurs present (Cardio) and Peripheral pulses 2+ throughout RATE: regular rate RHYTHM: regular rhythm HEART SOUNDS: S1 normal heart sound present and S2 normal heart sound present PERIPHERAL PULSES: Peripheral pulses 2+ throughout GI: COMMON NORMALS: Normal to inspection, nondistended, normoactive bowel sounds present, Soft to palpation and no masses INSPECTION: Yes central obesity PALPATION: Yes Soft to palpation and Yes Tenderness to palpation present (GI) Details: RUQ and other (Periumbilical tenderness.) : COMMON NORMALS: Yes no CVA tenderness BLADDER/KIDNEY EXAM: Yes no CVA tenderness Back/Pelvis: COMMON NORMALS: no CVA tenderness Extremity: COMMON NORMALS: normal to inspection Neuro: COMMON NORMALS: patient oriented x3 SENSORIUM/ORIENTATION: Yes alert GAIT: Yes Normal gait present Skin: GENERAL SKIN EXAM: dry skin Course Vital Signs: Vital signs: Vital Signs Temperature 98.5 F 08/02/20 22:08 Pulse Rate 78 08/03/20 00:49 Respiratory Rate 18 08/03/20 00:49 Blood Pressure 122/54 08/03/20 00:49 Pulse Oximetry 98 08/03/20 00:49 MDM - Abdominal Pain MDM Narrative: Medical decision making narrative: Patient is a 19-year-old female comes to the ED via EMS with abdominal pain, nausea/vomiting, diarrhea. Patient has been having the symptoms for about a week. Patient arrived here in the ED and her pain was well controlled due to EMS giving pain meds and nausea meds. Patient abdominal pain located in the periumbilical region and the right upper quadrant. Exam findings showed a nontoxic 39-year-old female in no acute distress or pain. She sitting comfortably on exam bed when I enter the room. Mild right upper quadrant tenderness and mild periumbilical tenderness. Vitals stable. CBC, CMP and lipase are unremarkable. hCG negative and UA was unremarkable as well. CT of abdomen showed no acute findings and appendix visualized and normal. Patient's pain and nausea is controlled here in the ED. Patient diagnosed with biliary colic and discharged home with a prescription for hydrocodone for pain. Patient currently has Zofran for nausea. I told her to eat a clear liquid diet then advance as tolerated. Follow-up with her PCP in 5 to 7 days for reevaluation. Return to ED precautions given. Patient understood and agree with plan. Lab Data: Attestation: I reviewed the patient's lab results. Labs: Lab Results 08/02/20 08/02/20 08/02/20 Range/Units 22:11 22:11 22:11 WBC 12.0 (4.5-13.0) 10^3/ uL RBC 4.71 (4.1-5.3) 10^6/u L Hgb 12.9 (11.5-15.3) g/dL Hct 40.2 (37.0-47.0) % MCV 85.4 (81-99) fL MCH 27.4 L (28.0-34.0) pg MCHC 32.1 (30.0-36.0) g/dL RDW 13.3 (12.1-15.1) % Plt Count 470 H (130-400) 10^3/c mm MPV 9.5 (7.4-10.4) fL Neut % (Auto) 60.0 % Lymph % (Auto) 32.5 % Greene % (Auto) 5.9 % Eos % (Auto) 0.9 % Baso % (Auto) 0.2 % Neut # (Auto) 7.21 (1.8-8.0) 10^3/u L Lymph # (Auto) 3.9 (1.5-6.5) 10^3/u L Greene # (Auto) 0.7 (0.2-0.9) 10^3/u L Eos # (Auto) 0.1 (0.0-0.8) 10^3/u L Baso # (Auto) 0.0 (0.0-0.1) 10^3/u L Nucleated RBC % (a uto) 0 % Nucleated RBCs # 0.0 /100WBC Sodium 137 (136-145) mmol/L Potassium 4.1 (3.5-5.1) mmol/L Chloride 101 (98-107) mmol/L Carbon Dioxide 25 (22-29) mmol/L Anion Gap 15.1 (5-19) BUN 12 (6-20) mg/dL Creatinine 0.5 (0.5-0.9) mg/dL GFR Calculation 157.3 H (90-130) mL/min Glucose 101 (65-115) mg/dL Calculated Osmolal ity 284 L (285-295) mOsm/k g Calcium 8.9 (8.5-10.5) mg/dL Total Bilirubin 0.2 (0.15-1.2) mg/dL AST 12 (0-32) U/L ALT 11 (0-33) U/L Alkaline Phosphata se 76 (35-105) IU/L Total Protein 7.0 (6.6-8.7) g/dL Albumin 3.7 (3.5-5.2) g/dL Globulin 3.3 (1.3-4.6) g/dL Lipase 26 (13-60) U/L HCG, Qual Negative (Negative) Urine Color (Yellow) Urine Appearance (CLEAR) Urine pH (5-7) Ur Specific Gravit y (1.005-1.030) Urine Protein (Negative) Urine Glucose (UA) (Normal) Urine Ketones (Negative) Urine Blood (Negative) Urine Nitrate (Negative) Urine Bilirubin (Negative) Urine Urobilinogen (Negative) mg/dL Ur Leukocyte Janice ase (Negative) Urine RBC (0-2) /hpf Urine WBC (0-5) /hpf Ur Squamous Epith Cells (0-5) /hpf Amorphous Sediment Urine Bacteria (NONE) /hpf 08/02/20 Range/Units 22:50 WBC (4.5-13.0) 10^3/ uL RBC (4.1-5.3) 10^6/u L Hgb (11.5-15.3) g/dL Hct (37.0-47.0) % MCV (81-99) fL MCH (28.0-34.0) pg MCHC (30.0-36.0) g/dL RDW (12.1-15.1) % Plt Count (130-400) 10^3/c mm MPV (7.4-10.4) fL Neut % (Auto) % Lymph % (Auto) % Greene % (Auto) % Eos % (Auto) % Baso % (Auto) % Neut # (Auto) (1.8-8.0) 10^3/u L Lymph # (Auto) (1.5-6.5) 10^3/u L Greene # (Auto) (0.2-0.9) 10^3/u L Eos # (Auto) (0.0-0.8) 10^3/u L Baso # (Auto) (0.0-0.1) 10^3/u L Nucleated RBC % (a uto) % Nucleated RBCs # /100WBC Sodium (136-145) mmol/L Potassium (3.5-5.1) mmol/L Chloride (98-107) mmol/L Carbon Dioxide (22-29) mmol/L Anion Gap (5-19) BUN (6-20) mg/dL Creatinine (0.5-0.9) mg/dL GFR Calculation (90-130) mL/min Glucose (65-115) mg/dL Calculated Osmolal ity (285-295) mOsm/k g Calcium (8.5-10.5) mg/dL Total Bilirubin (0.15-1.2) mg/dL AST (0-32) U/L ALT (0-33) U/L Alkaline Phosphata se (35-105) IU/L Total Protein (6.6-8.7) g/dL Albumin (3.5-5.2) g/dL Globulin (1.3-4.6) g/dL Lipase (13-60) U/L HCG, Qual (Negative) Urine Color Yellow (Yellow) Urine Appearance Clear (CLEAR) Urine pH 6 (5-7) Ur Specific Gravit y 1.015 (1.005-1.030) Urine Protein Neg (Negative) Urine Glucose (UA) Norm (Normal) Urine Ketones Negative (Negative) Urine Blood Neg (Negative) Urine Nitrate Negative (Negative) Urine Bilirubin Neg (Negative) Urine Urobilinogen Norm (Negative) mg/dL Ur Leukocyte Janice ase Negative (Negative) Urine RBC 0-4 H (0-2) /hpf Urine WBC None (0-5) /hpf Ur Squamous Epith Cells 5-10 H (0-5) /hpf Amorphous Sediment Not Reportable Urine Bacteria Trace (NONE) /hpf Imaging Data ^: CT Abd/Pel: Attestation: I personally reviewed and interpreted this imaging study as follows: Radiologist's impression: [address] [address] [address] Scan Report Signed Patient: An Villarreal #: [id number] : 2000Acct#:[id number] Age/Sex: 19 / FADM Date: 08/02/20 Loc: ERRoom/Bed: Attending Dr: Ordering Provider/Ordering MD: Blaine Kahn Date of Service: 08/02/20 Procedure(s): CT abdomen pelvis w con* [id number] Accession Number(s): [id number] Report Number: [id number] PROCEDURE INFORMATION: Exam: CT Abdomen And Pelvis With Contrast Exam date and time: 08/02/2020 10:28 PM Age: 19 years old Clinical indication: Abdominal pain; Localized; Patient HX: Right sided abd pain with n/v/d. ; Additional info: Abdom pain with n/v/d TECHNIQUE: Imaging protocol: Computed tomography of the abdomen and pelvis with contrast. Total images: 266 Radiation optimization: All CT scans at this facility use at least one of these dose optimization techniques: automated exposure control; mA and/or kV adjustment per patient size (includes targeted exams where dose is matched to clinical indication); or iterative reconstruction. Contrast material: OMNI 300; Contrast volume: 95 ml; Contrast route: INTRAVENOUS (IV); COMPARISON: US Pelvis Female [id number] 01/09/2018 6:48 PM RADIATION DOSE METRICS: Total DLP (mGy-cm): 1736.48 FINDINGS: Lungs: Limited assessment of the lung bases fails to reveal evidence for active cardiopulmonary process. Liver: Unremarkable. No mass. Gallbladder and bile ducts: Normal. No calcified stones. No ductal dilation. Pancreas: Normal. No ductal dilation. Spleen: Tiny splenule. Spleen otherwise unremarkable. Adrenal glands: Normal. No mass. Kidneys and ureters: Normal. No hydronephrosis. Stomach and bowel: Assessment of the hollow viscus fails to reveal evidence of active or acute pathology. Nonobstructed bowel pattern. No visible acute diverticulitis. No visible adynamic or reactive ileus. Appendix: The appendix is visualized and appears noninflamed. Intraperitoneal space: No visible pneumoperitoneum. No visible intraperitoneal ascites. visible evidence of mesenteric lymphadenitis or active mesenteritis/panniculitis. Vasculature: Unremarkable. No abdominal aortic aneurysm. Lymph nodes: No current visible evidence of active mesenteric or retroperitoneal lymphadenopathy. Urinary bladder: Unremarkable as visualized. Reproductive: Dominant simple appearing left ovarian cyst dimensions 48 mm x 41 mm. No further imaging is recommended. (Reference: Shawn). Bones/joints: No visible active or acute osseous pathology. Soft tissues: Marked obesity. CT/CT abdomen pelvis w con* [id number] IMPRESSION: 1. Currently no visible evidence of acute abdominal or pelvic pathologic process. 2. The appendix is visualized and appears noninflamed. REFERENCES: Shawn et al. Management of Incidental Adnexal Findings on CT and MRI: A White Paper of the ACR Incidental Findings Committee, J Am Rafael Radiol. 2019;17(2):248-254. Radiation Dose CTDIVOL = (mGy): DLP = 1736.48 (mGy-cm) Dictated By:Rickey Bailey Signed By:Rickey BaileySigned Date/Time:08/02/20 5689 Discharge Plan Discharge Patient Disposition: Home Clinical Impression: Biliary colic symptom Condition: Stable Prescriptions: No Action ondansetron HCl [Zofran] 4 mg tablet 4 mg PO Q6H PRN (Reason: nausea and vomiting) Qty: 20 RF: 0 aripiprazole 10 mg tablet 10 mg PO DAILY Qty: 14 RF: 0 hydroxyzine HCl 10 mg tablet 10 mg PO BID PRN (Reason: anxiety) Qty: 28 RF: 0 mirtazapine 15 mg tablet 15 mg PO BEDTIME 14 Days Qty: 14 RF: 0 prazosin 2 mg capsule 2 mg PO .qhs Qty: 14 RF: 0 Discharge Orders: Discharge ED (Routine); Ordered 08/03/20 Ordered By: Blaine Kahn Discharge Diet: Advance as tolerated and Clear Liquid Discharge Activity: Resume usual activity Patient Instructions: Biliary Colic (ED), Opioid Safety Activity Restrictions/Additional Instructions: Follow-up with medical provider as directed in 7 to 10 days for reevaluation. Take medications as prescribed. Clear liquid diet and then advance diet as tolerated. Avoid foods that cause symptoms. Return to the ER or your medical provider if condition worsens. Please read and understand discharge instructions. If any questions, please ask. Coding Level of Care Code ED Critical Care Transport Nurse for Xin Fwd Exam Comprehensive
[2020-08-02 22:14] VITALS: BP 112/70; PULSE 93; RESP 18; O2SAT 97
--- NOTE | 2020-08-02 22:20 | CTR_ITS ---
PROCEDURE INFORMATION: Exam: CT Abdomen And Pelvis With Contrast Exam date and time: 08/02/2020 10:28 PM Age: 19 years old Clinical indication: Abdominal pain; Localized; Patient HX: Right sided abd pain with n/v/d. ; Additional info: Abdom pain with n/v/d TECHNIQUE: Imaging protocol: Computed tomography of the abdomen and pelvis with contrast. Total images: 266 Radiation optimization: All CT scans at this facility use at least one of these dose optimization techniques: automated exposure control; mA and/or kV adjustment per patient size (includes targeted exams where dose is matched to clinical indication); or iterative reconstruction. Contrast material: OMNI 300; Contrast volume: 95 ml; Contrast route: INTRAVENOUS (IV); COMPARISON: US Pelvis Female [id number] 01/09/2018 6:48 PM RADIATION DOSE METRICS: Total DLP (mGy-cm): 1736.48 FINDINGS: Lungs: Limited assessment of the lung bases fails to reveal evidence for active cardiopulmonary process. Liver: Unremarkable. No mass. Gallbladder and bile ducts: Normal. No calcified stones. No ductal dilation. Pancreas: Normal. No ductal dilation. Spleen: Tiny splenule. Spleen otherwise unremarkable. Adrenal glands: Normal. No mass. Kidneys and ureters: Normal. No hydronephrosis. Stomach and bowel: Assessment of the hollow viscus fails to reveal evidence of active or acute pathology. Nonobstructed bowel pattern. No visible acute diverticulitis. No visible adynamic or reactive ileus. Appendix: The appendix is visualized and appears noninflamed. Intraperitoneal space: No visible pneumoperitoneum. No visible intraperitoneal ascites. visible evidence of mesenteric lymphadenitis or active mesenteritis/panniculitis. Vasculature: Unremarkable. No abdominal aortic aneurysm. Lymph nodes: No current visible evidence of active mesenteric or retroperitoneal lymphadenopathy. Urinary bladder: Unremarkable as visualized. Reproductive: Dominant simple appearing left ovarian cyst dimensions 48 mm x 41 mm. No further imaging is recommended. (Reference: Shawn). Bones/joints: No visible active or acute osseous pathology. Soft tissues: Marked obesity. CT/CT abdomen pelvis w con* [id number] IMPRESSION: 1. Currently no visible evidence of acute abdominal or pelvic pathologic process. 2. The appendix is visualized and appears noninflamed. REFERENCES: Shawn et al. Management of Incidental Adnexal Findings on CT and MRI: A White Paper of the ACR Incidental Findings Committee, J Am Rafael Radiol. 2019;17(2):248-254. Radiation Dose CTDIVOL = (mGy): DLP = 1736.48 (mGy-cm)
[2020-08-02 22:28] LABS: Basophils % 0.2 %; Eosinophils # 0.1 10^3/uL (0.0-0.8); Eosinophils % 0.9 %; Hematocrit 40.2 % (37.0-47.0); Hemoglobin 12.9 g/dL (11.5-15.3); Lymphocytes # 3.9 10^3/uL (1.5-6.5); Lymphocytes % 32.5 %; Mean Corpuscular HGB Conc 32.1 g/dL (30.0-36.0); Mean Corpuscular Hemoglobin 27.4 pg (28.0-34.0); Mean Corpuscular Volume 85.4 fL (81-99); Mean Platelet Volume 9.5 fL (7.4-10.4); Monocytes # 0.7 10^3/uL (0.2-0.9); Monocytes % 5.9 %; Neutrophils # 7.21 10^3/uL (1.8-8.0); Nucleated Red Blood Cells % 0 %; Platelet Count 470 10^3/cmm (130-400); Red Blood Count 4.71 10^6/uL (4.1-5.3); Red Cell Distribution Width 13.3 % (12.1-15.1)
[2020-08-02 22:48] LABS: HCG, Serum Qual Negative (Negative)
[2020-08-02 22:52] VITALS: BP 114/71; PULSE 84; O2SAT 98
[2020-08-02 22:55] LABS: Alanine Aminotransferase 11 U/L (0-33); Albumin Level 3.7 g/dL (3.5-5.2); Alkaline Phosphatase 76 IU/L (35-105); Anion Gap 15.1 (5-19); Aspartate Amino Transferase 12 U/L (0-32); Blood Urea Nitrogen 12 mg/dL (6-20); Calcium 8.9 mg/dL (8.5-10.5); Carbon Dioxide 25 mmol/L (22-29); Chloride 101 mmol/L (98-107); Globulin 3.3 g/dL (1.3-4.6); Glomerular Filtration Rate 157.3 mL/min (90-130); Glucose 101 mg/dL (65-115); Lipase 26 U/L (13-60); Osmolality Calculated 284 mOsm/kg (285-295); Potassium 4.1 mmol/L (3.5-5.1); Sodium 137 mmol/L (136-145); Total Bilirubin 0.2 mg/dL (0.15-1.2)
[2020-08-02] MEDS: iohexol 300 mg/mL 100 mL Btl IV (23:09)
[2020-08-02 23:30] VITALS: BP 117/80; PULSE 86; RESP 18; O2SAT 96
[2020-08-02 23:41] LABS: Urine Appearance Clear (CLEAR); Urine Color Yellow (Yellow)
[2020-08-02 23:42] LABS: Bilirubin Urine Neg (Negative); Blood Urine Neg (Negative); Glucose Urine UA Norm (Normal); Ketones Urine Negative (Negative); Leukocyte Esterase Urine Negative (Negative); Nitrate Urine Negative (Negative); Protein Urine Neg (Negative); Specific Gravity, Urine 1.015 (1.005-1.030); Urobilinogen Urine Norm (Negative); pH Urine 6 (5-7)
[2020-08-02] MEDS: metoclopramide 5 mg/mL SDV 2 mL 10 MG IVP (23:43)
[2020-08-02 23:48] VITALS: RESP 16; O2SAT 98
[2020-08-02] MEDS: morphine 4 mg/mL SDV 1 mL 2 MG IVP (23:48)
[2020-08-02 23:52] LABS: Add Urine Culture? No; Bacteria Urine TRACE /hpf; RBC Urine 0-4 /hpf (0-2)
[2020-08-03 00:49] VITALS: BP 122/54; PULSE 78; RESP 18; O2SAT 98
== END 2020-08-03 00:49 | disposition home or self-care (01) ==
PROVIDERS: Emergency Provider Physician Assistant
DX: K80.50 Calculus of bile duct without cholangitis or cholecystitis without obstruction (principal); F17.210 Nicotine dependence, cigarettes, uncomplicated
CPT/HCPCS: 74177; 80053; 81001; 83690; 84703; 85025; 96374; 96375; 99283; J2270; J2765; Q9967

== ENCOUNTER → 2020-08-08 13:43 | Outpatient (BNVA) | payer MEDICAID, SELFPAY | PROVIDERS: Visit Provider Nurse Practitioner Psychiatric/Mental Health | DX: F33.3 Major depressive disorder, recurrent, severe with psychotic symptoms (principal); F43.12 Post-traumatic stress disorder, chronic; F60.3 Borderline personality disorder; F12.20 Cannabis dependence, uncomplicated; F17.200 Nicotine dependence, unspecified, uncomplicated | CPT/HCPCS: 99214 ==

== ENCOUNTER 2020-08-18 20:50 | Emergency (ER) | payer MEDICAID, SELFPAY ==
[2020-08-18 20:50] VITALS: BP 133/98; PULSE 99; RESP 18; O2SAT 98; BMI 46.7
[2020-08-18 21:18] VITALS: BP 121/78; PULSE 94; RESP 18; O2SAT 97
[2020-08-18 21:35] LABS: Add Urine Microscopic? NO
[2020-08-18 21:50] LABS: Bilirubin Urine 1+ (Negative); Blood Urine Neg (Negative); Glucose Urine UA Norm (Normal); Ketones Urine Negative (Negative); Leukocyte Esterase Urine Negative (Negative); Nitrate Urine Negative (Negative); Protein Urine Neg (Negative); Urine Appearance Clear (CLEAR); Urine Color Yellow (Yellow); Urobilinogen Urine Norm (Negative); pH Urine 5 (5-7)
[2020-08-18 21:51] LABS: Basophils % 0.3 %; Eosinophils # 0.1 10^3/uL (0.0-0.8); Eosinophils % 0.3 %; Hematocrit 44.2 % (37.0-47.0); Hemoglobin 14.2 g/dL (11.5-15.3); Lymphocytes # 1.5 10^3/uL (1.5-6.5); Lymphocytes % 10.2 %; Mean Corpuscular HGB Conc 32.1 g/dL (30.0-36.0); Mean Corpuscular Hemoglobin 27.5 pg (28.0-34.0); Mean Corpuscular Volume 85.7 fL (81-99); Mean Platelet Volume 9.5 fL (7.4-10.4); Monocytes # 0.5 10^3/uL (0.2-0.9); Monocytes % 3.5 %; Neutrophils # 12.68 10^3/uL (1.8-8.0); Neutrophils % 85.4 %; Nucleated Red Blood Cells % 0 %; Platelet Count 465 10^3/cmm (130-400); Red Blood Count 5.16 10^6/uL (4.1-5.3); Red Cell Distribution Width 13.7 % (12.1-15.1); White Blood Count 14.9 10^3/uL (4.5-13.0)
[2020-08-18] MEDS: sodium chloride 0.9% 1,000 ML 999 ML IV (21:52)
[2020-08-18 22:07] LABS: HCG, Serum Qual Negative (Negative)
[2020-08-18 22:14] LABS: Alanine Aminotransferase 17 U/L (0-33); Alcohol Level < 10 mg/dL (0-10); Alkaline Phosphatase 85 IU/L (35-105); Anion Gap 14.9 (5-19); Aspartate Amino Transferase 15 U/L (0-32); Blood Urea Nitrogen 12 mg/dL (6-20); C Reactive Protein 11.7 mg/L (0.0-4.9); Calcium 8.7 mg/dL (8.5-10.5); Carbon Dioxide 24 mmol/L (22-29); Chloride 100 mmol/L (98-107); Globulin 3.7 g/dL (1.3-4.6); Glomerular Filtration Rate 106.7 mL/min (90-130); Glucose 99 mg/dL (65-115); Lipase 24 U/L (13-60); Osmolality Calculated 280 mOsm/kg (285-295); Potassium 3.9 mmol/L (3.5-5.1); Sodium 135 mmol/L (136-145); Total Bilirubin 0.6 mg/dL (0.15-1.2); Total Protein 7.7 g/dL (6.6-8.7)
[2020-08-18] MEDS: lidocaine 2% viscous 15 ML, aluminum-mag hydrox-simethicon 30 ML, sucralfate oral liq 1 GM PO (22:32)
[2020-08-18] MEDS: ondansetron 2 mg/ML SDV 2 mL 4 MG IVP (22:32)
[2020-08-18] MEDS: famotidine 20 mg/2 mL INJ 40 MG IVP (22:33)
[2020-08-18] MEDS: morphine 4 mg/mL SDV 1 mL IVP (22:35)
[2020-08-18 22:41] VITALS: BP 139/71; RESP 18; O2SAT 98
--- NOTE | 2020-08-18 22:52 | ED_ITS ---
HPI - Abdominal Pain General: Chief Complaint: Abdominal Pain Stated Complaint: ABD PAIN Time Seen by Provider: 08/18/20 20:51 Source: patient and old records reviewed Mode of arrival: EMS Limitations: no limitations History of Present Illness: HPI narrative: Patient is a 19-year-old female who presents to the emergency department with abdominal pain. She states that the abdominal pain has been ongoing for about 4 weeks now but has been getting worse. She says the abdominal pain is central with associated nausea and vomiting. She denies any fever. She has been evaluated by her primary care provider and in the emergency department but no cause for the pain has been identified. The patient states that she was given fentanyl en route to the emergency department but it did help her pain. MD elicited complaint: abdominal pain Onset (ago): week(s) (4) Pain Consistency: intermittent Location: Epigastric Severity: severe Quality: stabbing Radiation: none Migration to: no migration Exacerbating factors: nothing Relieving factors: nothing Associated Symptoms: Reports dyspepsia, heartburn, nausea and vomiting; Denies anorexia, belching, bloating, change in bowel habits, change in stool character, chills, coffee ground emesis, constipation, GI cramping, diarrhea, dysuria, excessive flatus, fever(s), hematochezia, hematuria, hematemesis, fecal incontinence, loose stools, melena, poor appetite and syncope Related Data: Date of Last Menstrual Period: 07/02/20 Review of Systems General: Reports: 10 or more systems reviewed and unremarkable except in HPI and below Const: Denies: fever(s) or chills Eyes: Denies: change in vision or blurry vision ENMT: Denies: throat pain, enlarged tonsils, odynophagia, hoarseness, mouth pain or swelling of lips/tongue Card: Denies: syncope Resp: Denies: dyspnea, productive cough or non-productive cough GI: Reports: nausea, vomiting and heartburn; Denies: hematemesis, coffee ground emesis, diarrhea, constipation, bloating, GI cramping, belching, excessive flatus, fecal incontinence, change in bowel habits, change in stool character, hematochezia or melena : Denies: dysuria or hematuria Musc: Denies: neck pain, back pain or extremity swelling Skin/Breast: Denies: rash, pruritus or erythema Neuro: Denies: headache(s), numbness in extremities or weakness in extremities Endo: Denies: polyuria, polydipsia or tired all the time PFSH ED PFSH: Medical History (Reviewed 08/18/20 @ 23:40 by Gabo Barfield MD, [facility] [place]) MDD (major depressive disorder) Personality disorder in adult Family History (Reviewed 08/18/20 @ 23:40 by Gabo Barfield MD, [facility] [place]) Grandmother Hypertension Maternal grandmother Breast cancer Paternal grandmother Diabetes Maternal great grandmother Heart disease Maternal great grandmother Grandfather Diabetes Maternal great grandfather Heart disease Maternal great grandfather Family/Other Stroke Maternal great uncle Denies family history of Colon cancer Ovarian cancer Hyperlipidemia Family history of thyroid problem Uterine cancer Social History (Reviewed 08/18/20 @ 23:40 by Gabo Barfield MD, [facility] [place]) Smoking and tobacco status: current every day smoker cigarettes Packs smoked per day: 0.5 Years cigarettes smoked: 4 Quit status (tobacco): not considering quitting Additional social history: - Tobacco use: Current everyday smoker; 0.5pk daily Alcohol use: Denies Drug use: Denies Female Reproductive History: Date of last menstrual period: 07/02/20 Physical Exam Const: COMMON NORMALS: no acute distress, average body habitus, patient oriented x3, no limitations, healthy appearing, alert and well nourished HENMT: COMMON NORMALS: normocephalic, atraumatic and moist oral mucous membranes HEAD & SCALP: normocephalic and atraumatic Neck/C-Spine: COMMON NORMALS: no meningeal signs and no JVD Resp: COMMON NORMALS: normal respiratory effort, No retractions, No use of accessory muscles, clear to auscultation bilaterally and percussion normal AUSCULTATION: clear to auscultation bilaterally PERCUSSION: percussion normal Cardio: COMMON NORMALS: no JVD, regular rate, regular rhythm, S1 normal heart sound present, S2 normal heart sound present, No gallops present (Cardio), No clicks present (Cardio), No murmurs present (Cardio), No rub (Cardio) and Peripheral pulses 2+ throughout RATE: regular rate RHYTHM: regular rhythm HEART SOUNDS: S1 normal heart sound present and S2 normal heart sound present PERIPHERAL PULSES: Peripheral pulses 2+ throughout GI: COMMON NORMALS: Normal to inspection, nondistended, normoactive bowel sounds present, Soft to palpation, No hepatosplenomegaly present, no masses and no bruits PALPATION: Yes Soft to palpation, Yes Tenderness to palpation present (GI) (epigastric), No Guarding due to palpation present (GI), No Rigid due to palpation and Yes No hepatosplenomegaly present Extremity: COMMON NORMALS: normal to inspection, full ROM, capillary refill normal, no calf tenderness and no pedal edema Neuro: COMMON NORMALS: patient oriented x3 SENSORIUM/ORIENTATION: Yes alert MENINGEAL SIGNS: Yes no meningeal signs Skin: COMMON NORMALS: no rashes or lesions noted, no wounds, turgor normal, no jaundice, no petechiae and no mottling GENERAL SKIN EXAM: no rashes or lesions noted and turgor normal Course Reevaluation(s): Reevaluation #1: Discussed her lab findings with her. Unremarkable. Explained that she likely has gastritis. We will discharge her home with a prescription for omeprazole and sucralfate. She voiced understanding and is in agreement with this plan. She is currently pain-free. Time: 22:52 Vital Signs: Vital signs: Vital Signs Pulse Rate 85 08/18/20 22:54 Respiratory Rate 16 08/18/20 22:54 Blood Pressure 139/71 08/18/20 22:54 Pulse Oximetry 99 08/18/20 22:54 MDM - Abdominal Pain MDM Narrative: Medical decision making narrative: Patient is a 19-year-old female who presents to the emergency department with a 4-week history of abdominal pain. Evaluation in the emergency department is unremarkable with lab work all normal other than mild leukocytosis. Evaluation is consistent with likely gastritis and she is going to be managed as such Medical Records: Attestation: I reviewed the patient's medical records. Lab Data: Attestation: I reviewed the patient's lab results. Labs: Lab Results 08/18/20 08/18/20 08/18/20 Range/Units 21:33 21:41 21:41 WBC 14.9 H (4.5-13.0) 10^3/ uL RBC 5.16 (4.1-5.3) 10^6/u L Hgb 14.2 (11.5-15.3) g/dL Hct 44.2 (37.0-47.0) % MCV 85.7 (81-99) fL MCH 27.5 L (28.0-34.0) pg MCHC 32.1 (30.0-36.0) g/dL RDW 13.7 (12.1-15.1) % Plt Count 465 H (130-400) 10^3/c mm MPV 9.5 (7.4-10.4) fL Neut % (Auto) 85.4 % Lymph % (Auto) 10.2 % Moffat % (Auto) 3.5 % Eos % (Auto) 0.3 % Baso % (Auto) 0.3 % Neut # (Auto) 12.68 H (1.8-8.0) 10^3/u L Lymph # (Auto) 1.5 (1.5-6.5) 10^3/u L Moffat # (Auto) 0.5 (0.2-0.9) 10^3/u L Eos # (Auto) 0.1 (0.0-0.8) 10^3/u L Baso # (Auto) 0.0 (0.0-0.1) 10^3/u L Nucleated RBC % (a uto) 0 % Nucleated RBCs # 0.0 /100WBC Sodium 135 L (136-145) mmol/L Potassium 3.9 (3.5-5.1) mmol/L Chloride 100 (98-107) mmol/L Carbon Dioxide 24 (22-29) mmol/L Anion Gap 14.9 (5-19) BUN 12 (6-20) mg/dL Creatinine 0.7 (0.5-0.9) mg/dL GFR Calculation 106.7 (90-130) mL/min Glucose 99 (65-115) mg/dL Calculated Osmolal ity 280 L (285-295) mOsm/k g Calcium 8.7 (8.5-10.5) mg/dL Total Bilirubin 0.6 (0.15-1.2) mg/dL AST 15 (0-32) U/L ALT 17 (0-33) U/L Alkaline Phosphata se 85 (35-105) IU/L C-Reactive Protein 11.7 H (0.0-4.9) mg/L Total Protein 7.7 (6.6-8.7) g/dL Albumin 4.0 (3.5-5.2) g/dL Globulin 3.7 (1.3-4.6) g/dL Lipase 24 (13-60) U/L HCG, Qual (Negative) Urine Color Yellow (Yellow) Urine Appearance Clear (CLEAR) Urine pH 5 (5-7) Ur Specific Gravit y 1.020 (1.005-1.030) Urine Protein Neg (Negative) Urine Glucose (UA) Norm (Normal) Urine Ketones Negative (Negative) Urine Blood Neg (Negative) Urine Nitrate Negative (Negative) Urine Bilirubin 1+ H (Negative) Urine Urobilinogen Norm (Negative) mg/dL Ur Leukocyte Janice ase Negative (Negative) Ethyl Alcohol < 10 (0-10) mg/dL 08/18/20 Range/Units 21:41 WBC (4.5-13.0) 10^3/ uL RBC (4.1-5.3) 10^6/u L Hgb (11.5-15.3) g/dL Hct (37.0-47.0) % MCV (81-99) fL MCH (28.0-34.0) pg MCHC (30.0-36.0) g/dL RDW (12.1-15.1) % Plt Count (130-400) 10^3/c mm MPV (7.4-10.4) fL Neut % (Auto) % Lymph % (Auto) % Moffat % (Auto) % Eos % (Auto) % Baso % (Auto) % Neut # (Auto) (1.8-8.0) 10^3/u L Lymph # (Auto) (1.5-6.5) 10^3/u L Moffat # (Auto) (0.2-0.9) 10^3/u L Eos # (Auto) (0.0-0.8) 10^3/u L Baso # (Auto) (0.0-0.1) 10^3/u L Nucleated RBC % (a uto) % Nucleated RBCs # /100WBC Sodium (136-145) mmol/L Potassium (3.5-5.1) mmol/L Chloride (98-107) mmol/L Carbon Dioxide (22-29) mmol/L Anion Gap (5-19) BUN (6-20) mg/dL Creatinine (0.5-0.9) mg/dL GFR Calculation (90-130) mL/min Glucose (65-115) mg/dL Calculated Osmolal ity (285-295) mOsm/k g Calcium (8.5-10.5) mg/dL Total Bilirubin (0.15-1.2) mg/dL AST (0-32) U/L ALT (0-33) U/L Alkaline Phosphata se (35-105) IU/L C-Reactive Protein (0.0-4.9) mg/L Total Protein (6.6-8.7) g/dL Albumin (3.5-5.2) g/dL Globulin (1.3-4.6) g/dL Lipase (13-60) U/L HCG, Qual Negative (Negative) Urine Color (Yellow) Urine Appearance (CLEAR) Urine pH (5-7) Ur Specific Gravit y (1.005-1.030) Urine Protein (Negative) Urine Glucose (UA) (Normal) Urine Ketones (Negative) Urine Blood (Negative) Urine Nitrate (Negative) Urine Bilirubin (Negative) Urine Urobilinogen (Negative) mg/dL Ur Leukocyte Janice ase (Negative) Ethyl Alcohol (0-10) mg/dL Discharge Plan Discharge Patient Disposition: Home Clinical Impression: Gastritis Qualifiers: Gastritis type: unspecified gastritis Chronicity: acute Gastritis bleeding: without bleeding Qualified Code(s): K29.00 - Acute gastritis without bleeding Condition: Stable Prescriptions: New omeprazole 40 mg capsule,delayed release(DR/EC) 40 mg PO DAILY Qty: 14 RF: 0 sucralfate 1 gram tablet 1 g PO TID Qty: 42 RF: 0 Continued ondansetron HCl [Zofran] 4 mg tablet 4 mg PO Q6H PRN (Reason: nausea and vomiting) Qty: 20 RF: 0 hydroxyzine HCl 25 mg tablet 25 mg PO BID PRN (Reason: anxiety) Qty: 60 RF: 0 prazosin 1 mg capsule 3 mg PO BEDTIME@2200 RF: 0 trazodone 100 mg tablet 100 mg PO BEDTIME@2200 PRN (Reason: insomnia) RF: 0 escitalopram oxalate 10 mg tablet 10 mg PO DAILY@1000 RF: 0 aripiprazole 10 mg tablet 10 mg PO DAILY@1000 RF: 0 Discharge Orders: Discharge ED (Routine); Ordered 08/18/20 Ordered By: Gabo Barfield Discharge Diet: As Directed Discharge Activity: Increase activity as tolerated Patient Instructions: Gastritis (ED), Diet for Ulcers and Gastritis (ED) Activity Restrictions/Additional Instructions: Return for any new or worsening symptoms. Follow-up with your primary care provider within 3 days. Take the medications as prescribed. Consume the diet as told to you on given to you in your discharge instructions. Coding Level of Care Code ED Boarder Machine for Xin Domínguez
[2020-08-18 22:54] VITALS: BP 139/71; PULSE 85; RESP 16; O2SAT 99
== END 2020-08-18 23:21 | disposition home or self-care (01) ==
PROVIDERS: Emergency Provider Family Medicine
DX: K29.00 Acute gastritis without bleeding (principal); F17.210 Nicotine dependence, cigarettes, uncomplicated
CPT/HCPCS: 80053; 80307; 81003; 83690; 84703; 85025; 86140; 96361; 96374; 96375; 99284; J2270; J2405; J3490; J7030

== ENCOUNTER 2020-08-22 13:28 | Outpatient (CLI) | payer MEDICAID, SELFPAY ==
--- NOTE | 2020-08-22 13:39 | CT_ITS ---
WS: [id number] CT ABDOMEN AND PELVIS WITH CONTRAST HISTORY: Abdominal pain for 3 weeks. TECHNIQUE: Imaging performed of the abdomen and pelvis with IV contrast. Single phase imaging of the abdomen. Coronal and sagittal reformats are submitted. All CT scans at [facility] use at least one of these dose optimization techniques: automated exposure control; mA and/or kV adjustment per patient size (includes targeted exams where dose is matched to clinical indication); or iterativ e reconstruction. IV CONTRAST: Omnipaque 300; 95 mL IV. Oral contrast: Yes. DLP: 1111.55 mGycm COMPARISON: 08/02/2010 Lower thorax: Lung bases are clear. Heart is normal size. No hiatal hernia. Liver/biliary system: Normal size with no intrahepatic dilatation. Gallbladder: Normal. No gallstones or wall thickening. No pericholecystic fluid. Pancreas: Normal. Spleen: Normal. Adrenal glands: Normal. Right kidney: Normal. Left kidney: Normal. Aorta: Normal. Lymphadenopathy: None. Free fluid: None. GI tract: Normal appendix. No GI tract obstruction. Mild increased fat around the distal small bowel. No strictures are identified. No obstructive pattern. Abdominal wall: Unremarkable abdominal wall. No hernia. Pelvis: Normal. Bones: Unremarkable. CT/CT abdomen pelvis w con* [id number] IMPRESSION: 1. Normal appendix. 2. Increased amount of fat surrounding the distal small bowel. This mild fatty proliferation can be seen with inflammatory bowel disease such as Crohn's. At this time there are no strictures or fluid or obstructive pattern.
[2020-08-22] MEDS: iohexol 300 mg/mL 50 mL Btl PO (13:47)
[2020-08-22] MEDS: iohexol 300 mg/mL 100 mL Btl IV (15:23)
== END 2020-08-22 13:29 | disposition home or self-care (01) ==
LOC: RADWPI 13:31
PROVIDERS: Visit Provider Nurse Practitioner Family
DX: R10.9 Unspecified abdominal pain (principal)
CPT/HCPCS: 74177; 80053; 81003; 81025; 85025; 87491; 87591; 87661; Q9967

== ENCOUNTER → 2020-08-23 15:28 | Outpatient (BNVA) | payer MEDICAID, SELFPAY | PROVIDERS: Visit Provider Nurse Practitioner Family | DX: R19.7 Diarrhea, unspecified (principal); R10.84 Generalized abdominal pain | CPT/HCPCS: 80053; 85025 ==

== ENCOUNTER → 2020-08-24 11:11 | Outpatient (BNVA) | payer MEDICAID, SELFPAY | PROVIDERS: Visit Provider Nurse Practitioner Family | DX: R19.7 Diarrhea, unspecified (principal) | CPT/HCPCS: 83630; 87338; 87493; 87506 ==

== ENCOUNTER 2020-09-06 20:28 | Emergency (ER) | payer MEDICAID, SELFPAY ==
[2020-09-06 20:37] VITALS: BP 121/91; PULSE 79; RESP 16; TEMP 36.8; O2SAT 100; BMI 45.7
--- NOTE | 2020-09-06 23:37 | ED_ITS ---
HPI - Abdominal Pain General: Chief Complaint: Abdominal Pain Stated Complaint: ABD PAIN Time Seen by Provider: 09/06/20 23:02 Source: patient and family Mode of arrival: EMS Limitations: no limitations History of Present Illness: HPI narrative: 19-year-old female complaining of generalized abdominal pain on and off for at least a month. Sometimes associated with nausea and vomiting. She has been seen in clinic twice for these complaints as well as once here in the ED. She has had more than 1 CT abdomen pelvis with no acute findings. Denies any dysuria, fever. She does use marijuana, she states the last time she used was about a week and a half ago. Denies any pelvic pain, abnormal vaginal discharge or bleeding. Last time she ate was around 1130 this morning, she says she is starving and very thirsty. MD elicited complaint: abdominal pain Pertinent past history: gastritis Onset (ago): month(s) Pain Consistency: intermittent and colicky Location: Diffuse Severity: similar to previous episodes Quality: cramping, stabbing, aching, sharp and burning Radiation: epigastric Migration to: periumbilical Exacerbating factors: eating and vomiting Relieving factors: nothing Context: history of similar episodes Associated Symptoms: Reports bloating, GI cramping, dyspepsia, heartburn, nausea, poor appetite and vomiting; Denies chills, constipation, diarrhea, dysuria and fever(s) Treatments prior to arrival: NSAIDs Related Data: Date of Last Menstrual Period: 08/03/20 Review of Systems General: Reports: 10 or more systems reviewed and unremarkable except in HPI and below Const: Reports: body aches, change in appetite, fatigue and diaphoresis; Denies: fever(s) or chills Eyes: Denies: change in vision, blurry vision or blind spots ENMT: Denies: throat pain or odynophagia Card: Denies: chest pain, palpitations or irregular heart rhythm GI: Reports: abdominal pain, nausea, vomiting, heartburn and GI cramping; Denies: diarrhea, constipation or bloating : Denies: flank pain, difficulty voiding or dysuria Musc: Denies: neck pain, back pain, extremity pain or extremity swelling Skin/Breast: Denies: rash, pruritus, erythema or photosensitivity Neuro: Denies: headache(s), numbness in extremities or weakness in extremities Psych: Reports: depression; Denies: anxiety Endo: Denies: polyuria, polydipsia or tired all the time Vern/Lymph: Denies: easy bruising or easy bleeding PFSH ED PFSH: Medical History MDD (major depressive disorder) Personality disorder in adult Family History Grandmother Hypertension Maternal grandmother Breast cancer Paternal grandmother Diabetes Maternal great grandmother Heart disease Maternal great grandmother Grandfather Diabetes Maternal great grandfather Heart disease Maternal great grandfather Family/Other Stroke Maternal great uncle Denies family history of Colon cancer Ovarian cancer Hyperlipidemia Family history of thyroid problem Uterine cancer Social History Smoking and tobacco status: current every day smoker cigarettes Packs smoked per day: 0.5 Years cigarettes smoked: 4 Quit status (tobacco): not considering quitting Additional social history: - Tobacco use: Current everyday smoker; 0.5pk daily Alcohol use: Denies Drug use: Denies Female Reproductive History: Date of last menstrual period: 08/03/20 Physical Exam Const: COMMON NORMALS: no acute distress, patient oriented x3 and alert GENERAL APPEARANCE: cooperative and anxious; not in distress, not ill appearing and not frail appearing NUTRITIONAL APPEARANCE: overweight ORIENTATION/CONSCIOUSNESS: Yes awake, Yes oriented to person and Yes oriented to place HENMT: COMMON NORMALS: normocephalic and atraumatic HEAD & SCALP: normocephalic and atraumatic FACE & SINUS: normal facial exam and face symmetric Eye: COMMON NORMALS: Equal, round and reactive pupils present, EOMs intact bilaterally, conjunctivae normal and no scleral icterus CONJUNCTIVA: Yes conjunctivae normal PUPIL: Yes Equal, round and reactive pupils present Neck/C-Spine: COMMON NORMALS: no lymphadenopathy Resp: COMMON NORMALS: normal respiratory effort, No retractions and No use of accessory muscles EFFORT & INSPECTION: Yes able to speak in complete sentences, Yes symmetric chest movement, No tachypneic and No respiratory distress Cardio: COMMON NORMALS: regular rate, regular rhythm, S1 normal heart sound present and S2 normal heart sound present RATE: regular rate RHYTHM: regular rhythm HEART SOUNDS: S1 normal heart sound present and S2 normal heart sound present GI: COMMON NORMALS: Soft to palpation INSPECTION: No Abdominal wall edema and No abdominal distension PALPATION: Yes Soft to palpation, Yes Tenderness to palpation present (GI) (Mild, diffuse), No Guarding due to palpation present (GI) and No Rigid due to palpation : COMMON NORMALS: Yes no CVA tenderness and Yes normal external appearance BLADDER/KIDNEY EXAM: Yes no CVA tenderness Back/Pelvis: COMMON NORMALS: no CVA tenderness and thoracic and lumbar spine normal to inspection Extremity: COMMON NORMALS: normal to inspection, full ROM and capillary refill normal Neuro: MARVA COMA SCALE: document GCS findings COMMON NORMALS: patient oriented x3 SENSORIUM/ORIENTATION: Yes alert, Yes oriented to person and Yes oriented to place Skin: COMMON NORMALS: no rashes or lesions noted, no wounds, turgor normal and no jaundice GENERAL SKIN EXAM: no rashes or lesions noted and turgor normal Course Vital Signs: Vital signs: Vital Signs Temperature 98.3 F 09/06/20 20:37 Pulse Rate 69 09/07/20 01:47 Respiratory Rate 14 09/07/20 01:47 Blood Pressure 121/91 09/06/20 20:37 Pulse Oximetry 98 09/07/20 01:47 MDM - Abdominal Pain MDM Narrative: Medical decision making narrative: 19-year-old female with recurrent visits of abdominal pain, nausea, and vomiting ongoing for the last 1 to 2 months. Lab work unremarkable. UA does not show any acute infection. She does not have any peritoneal signs on exam, she is tolerating p.o. liquids without difficulty. Vital signs are all stable. I suspect that she is suffering from cannabinoid hyperemesis syndrome, discussed this with her. She also has GERD, I will refill her omeprazole and prescribe some Levsin for pain control. She needs to follow-up with her PCP as scheduled, and discussed return immediately to the ER if her symptoms worsen, if she cannot keep down liquids, if she develops a fever, or has any other worsening symptoms. Differential Diagnosis: Differential diagnosis abdominal pain: Likely abdominal pain, constipation, gastroenteritis and pancreatitis Medical Records: Attestation: I reviewed the patient's medical records. Lab Data: Attestation: I reviewed the patient's lab results. Labs: Lab Results 09/06/20 09/06/20 09/06/20 Range/Units 20:37 20:37 21:23 WBC 12.2 (4.5-13.0) 10^3/ uL RBC 4.72 (4.1-5.3) 10^6/u L Hgb 13.2 (11.5-15.3) g/dL Hct 41.9 (37.0-47.0) % MCV 88.8 (81-99) fL MCH 28.0 (28.0-34.0) pg MCHC 31.5 (30.0-36.0) g/dL RDW 13.8 (12.1-15.1) % Plt Count 436 H (130-400) 10^3/c mm MPV 10.1 (7.4-10.4) fL Neut % (Auto) 69.7 % Lymph % (Auto) 24.5 % [place] % (Auto) 4.7 % Eos % (Auto) 0.6 % Baso % (Auto) 0.3 % Neut # (Auto) 8.47 H (1.8-8.0) 10^3/u L Lymph # (Auto) 3.0 (1.5-6.5) 10^3/u L [place] # (Auto) 0.6 (0.2-0.9) 10^3/u L Eos # (Auto) 0.1 (0.0-0.8) 10^3/u L Baso # (Auto) 0.0 (0.0-0.1) 10^3/u L Nucleated RBC % (a uto) 0 % Nucleated RBCs # 0.0 /100WBC Sodium 135 L (136-145) mmol/L Potassium 3.5 (3.5-5.1) mmol/L Chloride 103 (98-107) mmol/L Carbon Dioxide 22 (22-29) mmol/L Anion Gap 13.5 (5-19) BUN 18 (6-20) mg/dL Creatinine 0.8 (0.5-0.9) mg/dL GFR Calculation 91.4 (90-130) mL/min Glucose 120 H (65-115) mg/dL Calculated Osmolal ity 283 L (285-295) mOsm/k g Calcium 9.0 (8.5-10.5) mg/dL Total Bilirubin 0.2 (0.15-1.2) mg/dL AST 18 (0-32) U/L ALT 22 (0-33) U/L Alkaline Phosphata se 96 (35-105) IU/L Total Protein 7.6 (6.6-8.7) g/dL Albumin 3.9 (3.5-5.2) g/dL Globulin 3.7 (1.3-4.6) g/dL HCG, Qual (Negative) Urine Color (Yellow) Urine Appearance (CLEAR) Urine pH (5-7) Ur Specific Gravit y (1.005-1.030) Urine Protein (Negative) Urine Glucose (UA) (Normal) Urine Ketones (Negative) Urine Blood (Negative) Urine Nitrate (Negative) Urine Bilirubin (Negative) Urine Urobilinogen (Negative) mg/dL Ur Leukocyte Janice ase (Negative) Urine RBC (0-2) /hpf Urine WBC (0-5) /hpf Ur Squamous Epith Cells (0-5) /hpf Amorphous Sediment Urine Bacteria (NONE) /hpf Urine Opiates Scre en Negative (Negative) ng/mL Ur Barbiturates Sc reen Negative (Negative) ng/mL Ur Phencyclidine S crn Negative (Negative) ng/mL Ur Amphetamines Sc reen Negative (Negative) ng/mL U Benzodiazepines Scrn Negative (Negative) ng/mL Urine Cocaine Scre en Negative (Negative) ng/mL U Marijuana (THC) Screen Positive H (Negative) ng/mL 09/06/20 09/06/20 Range/Units 21:23 23:30 WBC (4.5-13.0) 10^3/ uL RBC (4.1-5.3) 10^6/u L Hgb (11.5-15.3) g/dL Hct (37.0-47.0) % MCV (81-99) fL MCH (28.0-34.0) pg MCHC (30.0-36.0) g/dL RDW (12.1-15.1) % Plt Count (130-400) 10^3/c mm MPV (7.4-10.4) fL Neut % (Auto) % Lymph % (Auto) % [place] % (Auto) % Eos % (Auto) % Baso % (Auto) % Neut # (Auto) (1.8-8.0) 10^3/u L Lymph # (Auto) (1.5-6.5) 10^3/u L [place] # (Auto) (0.2-0.9) 10^3/u L Eos # (Auto) (0.0-0.8) 10^3/u L Baso # (Auto) (0.0-0.1) 10^3/u L Nucleated RBC % (a uto) % Nucleated RBCs # /100WBC Sodium (136-145) mmol/L Potassium (3.5-5.1) mmol/L Chloride (98-107) mmol/L Carbon Dioxide (22-29) mmol/L Anion Gap (5-19) BUN (6-20) mg/dL Creatinine (0.5-0.9) mg/dL GFR Calculation (90-130) mL/min Glucose (65-115) mg/dL Calculated Osmolal ity (285-295) mOsm/k g Calcium (8.5-10.5) mg/dL Total Bilirubin (0.15-1.2) mg/dL AST (0-32) U/L ALT (0-33) U/L Alkaline Phosphata se (35-105) IU/L Total Protein (6.6-8.7) g/dL Albumin (3.5-5.2) g/dL Globulin (1.3-4.6) g/dL HCG, Qual Negative (Negative) Urine Color Yellow (Yellow) Urine Appearance Hazy A (CLEAR) Urine pH 5 (5-7) Ur Specific Gravit y 1.025 (1.005-1.030) Urine Protein Neg (Negative) Urine Glucose (UA) Norm (Normal) Urine Ketones Negative (Negative) Urine Blood Neg (Negative) Urine Nitrate Negative (Negative) Urine Bilirubin Neg (Negative) Urine Urobilinogen Norm (Negative) mg/dL Ur Leukocyte Janice ase Negative (Negative) Urine RBC 0-4 H (0-2) /hpf Urine WBC 0-4 H (0-5) /hpf Ur Squamous Epith Cells 10-15 H (0-5) /hpf Amorphous Sediment Not Reportable Urine Bacteria 3+ H (NONE) /hpf Urine Opiates Scre en (Negative) ng/mL Ur Barbiturates Sc reen (Negative) ng/mL Ur Phencyclidine S crn (Negative) ng/mL Ur Amphetamines Sc reen (Negative) ng/mL U Benzodiazepines Scrn (Negative) ng/mL Urine Cocaine Scre en (Negative) ng/mL U Marijuana (THC) Screen (Negative) ng/mL Discharge Plan Discharge Patient Disposition: Home Clinical Impression: Abdominal pain, chronic, generalized, Cannabinoid hyperemesis syndrome Gastritis Qualifiers: Gastritis type: other gastritis Chronicity: chronic Gastritis bleeding: without bleeding Qualified Code(s): K29.50 - Unspecified chronic gastritis without bleeding Condition: Stable Prescriptions: New omeprazole 40 mg capsule,delayed release(DR/EC) 40 mg PO DAILY 28 Days Qty: 30 RF: 0 Levsin/SL 0.125 mg tablet, sublingual 0.125 mg PO Q6H PRN (Reason: abdominal pain) Qty: 20 RF: 0 ondansetron 8 mg tablet,disintegrating 8 mg PO BID PRN (Reason: nausea and vomiting) 5 Days Qty: 10 RF: 0 No Action ondansetron HCl [Zofran] 4 mg tablet 4 mg PO Q6H PRN (Reason: nausea and vomiting) Qty: 20 RF: 0 hydroxyzine HCl 25 mg tablet 25 mg PO BID PRN (Reason: anxiety) Qty: 60 RF: 0 prazosin 1 mg capsule 3 mg PO BEDTIME@2200 RF: 0 trazodone 100 mg tablet 100 mg PO BEDTIME@2200 PRN (Reason: insomnia) RF: 0 escitalopram oxalate 10 mg tablet 10 mg PO DAILY@1000 RF: 0 aripiprazole 10 mg tablet 10 mg PO DAILY@1000 RF: 0 omeprazole 40 mg capsule,delayed release(DR/EC) 40 mg PO DAILY Qty: 14 RF: 0 sucralfate 1 gram tablet 1 g PO TID Qty: 42 RF: 0 Discharge Orders: Discharge ED (Routine); Ordered 09/07/20 Ordered By: Christine Angeles Discharge Diet: Advance as tolerated Discharge Activity: Resume usual activity Patient Instructions: Abdominal Pain (ED) Activity Restrictions/Additional Instructions: Avoid marijuana and anything containing THC. Continue to avoid alcohol, spicy foods, fatty or fried foods. Make sure to take your omeprazole every single day. Follow-up with your PCP in the next 2 days. Return immediately to the ER if you cannot keep any liquids down, you develop fever, worsening pain, or any other concerning changes. Coding Level of Care Code ED Health Care Specialist for Xin Domínguez
[2020-09-06 23:45] LABS: Basophils % 0.3 %; Eosinophils # 0.1 10^3/uL (0.0-0.8); Eosinophils % 0.6 %; Hematocrit 41.9 % (37.0-47.0); Hemoglobin 13.2 g/dL (11.5-15.3); Lymphocytes % 24.5 %; Mean Corpuscular HGB Conc 31.5 g/dL (30.0-36.0); Mean Corpuscular Volume 88.8 fL (81-99); Mean Platelet Volume 10.1 fL (7.4-10.4); Monocytes # 0.6 10^3/uL (0.2-0.9); Monocytes % 4.7 %; Neutrophils # 8.47 10^3/uL (1.8-8.0); Neutrophils % 69.7 %; Nucleated Red Blood Cells % 0 %; Platelet Count 436 10^3/cmm (130-400); Red Blood Count 4.72 10^6/uL (4.1-5.3); Red Cell Distribution Width 13.8 % (12.1-15.1); White Blood Count 12.2 10^3/uL (4.5-13.0)
[2020-09-06 23:50] LABS: HCG Qualitative Urine. Negative (Negative)
[2020-09-06] MEDS: pantoprazole DR 40 mg Tablet PO (23:58)
[2020-09-06] MEDS: ondansetron 4 MG Tablet 8 MG PO (23:58)
[2020-09-07 00:07] LABS: Alanine Aminotransferase 22 U/L (0-33); Albumin Level 3.9 g/dL (3.5-5.2); Alkaline Phosphatase 96 IU/L (35-105); Anion Gap 13.5 (5-19); Aspartate Amino Transferase 18 U/L (0-32); Blood Urea Nitrogen 18 mg/dL (6-20); Carbon Dioxide 22 mmol/L (22-29); Chloride 103 mmol/L (98-107); Creatinine Clr Calc Pharmacy 133.5548; Globulin 3.7 g/dL (1.3-4.6); Glomerular Filtration Rate 91.4 mL/min (90-130); Glucose 120 mg/dL (65-115); Osmolality Calculated 283 mOsm/kg (285-295); Potassium 3.5 mmol/L (3.5-5.1); Sodium 135 mmol/L (136-145); Total Bilirubin 0.2 mg/dL (0.15-1.2); Total Protein 7.6 g/dL (6.6-8.7)
[2020-09-07 01:07] LABS: Add Urine Microscopic? YES; Bilirubin Urine Neg (Negative); Blood Urine Neg (Negative); Glucose Urine UA Norm (Normal); Ketones Urine Negative (Negative); Leukocyte Esterase Urine Negative (Negative); Nitrate Urine Negative (Negative); Protein Urine Neg (Negative); Specific Gravity, Urine 1.025 (1.005-1.030); Urine Appearance Hazy (CLEAR); Urine Color Yellow (Yellow); Urobilinogen Urine Norm (Negative); pH Urine 5 (5-7)
[2020-09-07 01:15] LABS: Bacteria Urine 3+ /hpf; RBC Urine 0-4 /hpf (0-2); WBC Urine 0-4 /hpf (0-5)
[2020-09-07 01:16] LABS: Amphetamines Screen Urine Negative (Negative); Barbiturates Screen Urine Negative (Negative); Benzodiazepines Screen Urine Negative (Negative); Cocaine Screen Urine Negative (Negative); Opiate Screen Urine Negative (Negative); PCP Screen Urine Negative (Negative); THC Screen Urine Positive (Negative)
[2020-09-07 01:47] VITALS: PULSE 69; RESP 14; O2SAT 98
== END 2020-09-07 01:48 | disposition home or self-care (01) ==
PROVIDERS: Emergency Provider Family Medicine
DX: K29.50 Unspecified chronic gastritis without bleeding (principal); G89.29 Other chronic pain; R10.84 Generalized abdominal pain; R11.10 Vomiting, unspecified; F12.90 Cannabis use, unspecified, uncomplicated; F17.210 Nicotine dependence, cigarettes, uncomplicated
CPT/HCPCS: 80053; 80306; 81001; 81025; 85025; 99283; Q0162

== ENCOUNTER → 2020-09-19 09:52 | Outpatient (BNVA) | payer MEDICAID, SELFPAY | PROVIDERS: Visit Provider Nurse Practitioner Family | DX: N91.2 Amenorrhea, unspecified (principal); R10.84 Generalized abdominal pain; Z11.3 Encounter for screening for infections with a predominantly sexual mode of transmission | CPT/HCPCS: 81000; 81025; 87086; 87491; 87591; 87661 ==

== ENCOUNTER → 2020-09-20 08:23 | Outpatient (BNVA) | payer MEDICAID, SELFPAY | PROVIDERS: Visit Provider Nurse Practitioner Psychiatric/Mental Health | DX: F33.3 Major depressive disorder, recurrent, severe with psychotic symptoms (principal); N92.6 Irregular menstruation, unspecified; A59.9 Trichomoniasis, unspecified; F43.12 Post-traumatic stress disorder, chronic; A74.9 Chlamydial infection, unspecified; F60.3 Borderline personality disorder; F12.20 Cannabis dependence, uncomplicated; F17.200 Nicotine dependence, unspecified, uncomplicated | CPT/HCPCS: 84146; 84443; 84702; 99214 ==

== ENCOUNTER → 2020-09-23 08:23 | Outpatient (BNVA) | payer MEDICAID, SELFPAY | PROVIDERS: Visit Provider Nurse Practitioner Family | DX: R50.9 Fever, unspecified (principal); J02.0 Streptococcal pharyngitis | CPT/HCPCS: 87880 ==

== ENCOUNTER → 2020-09-27 09:12 | Outpatient (BNVA) | payer MEDICAID, SELFPAY | PROVIDERS: Visit Provider Counselor Mental Health | DX: F43.12 Post-traumatic stress disorder, chronic (principal); F33.3 Major depressive disorder, recurrent, severe with psychotic symptoms; F41.9 Anxiety disorder, unspecified | CPT/HCPCS: 90834 ==

== ENCOUNTER → 2020-10-18 09:01 | Outpatient (BNVA) | payer MEDICAID, SELFPAY | PROVIDERS: Visit Provider Counselor Mental Health | DX: F43.12 Post-traumatic stress disorder, chronic (principal); F33.9 Major depressive disorder, recurrent, unspecified; F60.3 Borderline personality disorder | CPT/HCPCS: 90834; 90839 ==

== ENCOUNTER 2020-10-18 14:38 | Inpatient (IN) | payer MEDICAID, SELFPAY ==
[2020-10-18 14:40] VITALS: BP 118/80; PULSE 75; RESP 18; TEMP 36.7; O2SAT 99; BMI 46.4
[2020-10-18 15:39] LABS: Basophils % 0.5 %; Eosinophils # 0.1 10^3/uL (0.0-0.8); Eosinophils % 1.3 %; Hematocrit 39.6 % (37.0-47.0); Hemoglobin 12.6 g/dL (11.5-15.3); Lymphocytes # 2.6 10^3/uL (1.5-6.5); Lymphocytes % 29.7 %; Mean Corpuscular HGB Conc 31.8 g/dL (30.0-36.0); Mean Corpuscular Hemoglobin 27.5 pg (28.0-34.0); Mean Corpuscular Volume 86.5 fL (81-99); Mean Platelet Volume 9.4 fL (7.4-10.4); Monocytes # 0.5 10^3/uL (0.2-0.9); Monocytes % 5.4 %; Neutrophils # 5.45 10^3/uL (1.8-8.0); Neutrophils % 62.8 %; Nucleated Red Blood Cells % 0 %; Platelet Count 405 10^3/cmm (130-400); Red Blood Count 4.58 10^6/uL (4.1-5.3); Red Cell Distribution Width 13.5 % (12.1-15.1); White Blood Count 8.7 10^3/uL (4.5-13.0)
--- NOTE | 2020-10-18 16:05 | ED_ITS ---
HPI - Psych General: Chief Complaint: Psychiatric Symptoms Stated Complaint: SI Time Seen by Provider: 10/18/20 14:44 Source: patient, RN notes reviewed and old records reviewed Limitations: no limitations History of Present Illness: HPI Narrative: 19-year-old female with a history of psychiatric disease and borderline personality disorder presents with chief complaint of anxiety and depression which are chronic with acute suicidal thoughts. Patient reports that she frequently has suicidal thoughts but as of recently they have been increasing. Today she had a panic attack and was going to overdose on all of her psychiatric medication. However, she was in contact with her therapist who called the crisis center and the crisis center called an ambulance to come and get her. Associated symptoms: Reports depression and suicidal ideation; Deny auditory hallucinations, visual hallucinations or homicidal ideation Review of Systems General: Reports: 10 or more systems reviewed and unremarkable except in HPI and below GI: Reports: diarrhea and bloating Psych: Reports: anxiety, depression, mood swings, panic attacks and suicidal ideation; Denies: visual hallucinations, auditory hallucinations, tactile hallucinations or homicidal ideation PENDING SALE TO [facility] ED PFSH: Medical History Anxiety Borderline personality disorder IBD (inflammatory bowel disease) diarrhea MDD (major depressive disorder) No pertinent past medical history neghx: htn,dm,thyroid,dvt/pe PCP: Mikayla Martínez Post-traumatic stress disorder, chronic Surgical History History of tonsillectomy (~2017) Family History Grandmother Hypertension Maternal grandmother Breast cancer Paternal grandmother--dx age 50's Diabetes Maternal great grandmother Heart disease Maternal great grandmother Grandfather Diabetes Maternal great grandfather Heart disease Maternal great grandfather Family/Other Stroke Maternal great uncle Denies family history of Colon cancer Ovarian cancer Hyperlipidemia Family history of thyroid problem Uterine cancer Social History Smoking and tobacco status: current every day smoker cigarettes Packs smoked pe r day: 0.5 Years cigarettes smoked: 4 Second hand smoke exposure: No Alcohol intake: current Alcohol intake frequency: few times a week Alcohol type: hard liquor Lives independently: Yes Marital status: Single History of recent travel: No Current gender identity: Female Additional social history: - Tobacco use: Current everyday smoker; 0.5pk daily Alcohol use: Denies Drug use: Denies Female Reproductive History: Date of last menstrual period: 08/03/20 Physical Exam Const: COMMON NORMALS: no limitations, alert and well nourished EXAM LIMITATIONS: no altered mental status GENERAL APPEARANCE: cooperative, well kempt and well developed; not in distress and not ill appearing NUTRITIONAL APPEARANCE: obese ORIENTATION/CONSCIOUSNESS: Yes awake; not confused OTHER: Patient's hair is dyed purple HENMT: COMMON NORMALS: normocephalic, atraumatic, external ears normal and Normal external nose present HEAD & SCALP: normal to inspection, normocepha lic and atraumatic FACE & SINUS: face symmetric NOSE: Normal external nose present EXTERNAL EAR: Yes external ears normal MOUTH: lip normal; no muffled voice Eye: COMMON NORMALS: EOMs intact bilaterally and conjunctivae normal GENERAL EYE: appearance normal, both eyes and all related structures CONJUNCTIVA: Yes conjunctivae normal Neck/C-Spine: COMMON NORMALS: no JVD GENERAL: Yes normal visual inspection and Yes trachea midline Resp: COMMON NORMALS: normal respiratory effort, No use of accessory muscles and clear to auscultation bilaterally EFFORT & INSPECTION: Yes able to speak in complete sentences and Yes symmetric chest movement AUSCULTATION: clear to auscultation bilaterally Cardio: COMMON NORMALS: no JVD, regular rate and regular rhythm RATE: regular rate RHYTHM: regular rhythm PERIPHERAL PULSES: radial pulses present GI: INSPECTION: Yes normal to inspection PALPATION: No Tenderness to palpation present (GI) and No Guarding due to palpation present (GI) Back/Pelvis: COMMON NORMALS: thoraco-lumbar ROM normal Extremity: COMMON NORMALS: normal to inspection GENERAL: Yes normal exam except as noted Neuro: COMMON NORMALS: moves all extremities, no focal motor deficits and no sensory deficits noted SENSORIUM/ORIENTATION: Yes alert Psych: COMMON NORMALS: mental status grossly normal, Normal thought process present, cooperative, normal affect and speech normal APPEARANCE: Yes well kempt SPEECH: Yes normal speech THOUGHT PROCESS: Normal thought process present Skin: COMMON NORMALS: no rashes or lesions noted, turgor normal and no jaundice GENERAL SKIN EXAM: no rashes or lesions noted and turgor normal Course Vital Signs: Vital signs: Vital Signs Temperature 98.1 F 10/18/20 14:40 Pulse Rate 75 10/18/20 14:40 Respiratory Rate 18 10/18/20 14:40 Blood Pressure 118/80 10/18/20 14:40 Pulse Oximetry 99 10/18/20 14:40 MDM - Psych MDM Narrative: Medical decision making narrative: 19-year-old pleasant female presents with worsening anxiety and depression leading to suicidal thoughts. She had plan to overdose by taking her medications. She is calm and cooperative here. She does voluntarily want to be admitted. I discussed this case with Dr. Ramirez. He is willing to admit the patient to the Neuropsych Unit. Lab Data: Attestation: I reviewed the patient's lab results. Labs: Lab Results 10/18/20 10/18/20 10/18/20 Range/Units 14:50 14:50 15:25 WBC 8.7 (4.5-13.0) 10^3/ uL RBC 4.58 (4.1-5.3) 10^6/u L Hgb 12.6 (11.5-15.3) g/dL Hct 39.6 (37.0-47.0) % MCV 86.5 (81-99) fL MCH 27.5 L (28.0-34.0) pg MCHC 31.8 (30.0-36.0) g/dL RDW 13.5 (12.1-15.1) % Plt Count 405 H (130-400) 10^3/c mm MPV 9.4 (7.4-10.4) fL Neut % (Auto) 62.8 % Lymph % (Auto) 29.7 % [place] % (Auto) 5.4 % Eos % (Auto) 1.3 % Baso % (Auto) 0.5 % Neut # (Auto) 5.45 (1.8-8.0) 10^3/u L Lymph # (Auto) 2.6 (1.5-6.5) 10^3/u L [place] # (Auto) 0.5 (0.2-0.9) 10^3/u L Eos # (Auto) 0.1 (0.0-0.8) 10^3/u L Baso # (Auto) 0.0 (0.0-0.1) 10^3/u L Nucleated RBC % (a uto) 0 % Nucleated RBCs # 0.0 /100WBC Sodium (136-145) mmol/L Potassium (3.5-5.1) mmol/L Chloride (98-107) mmol/L Carbon Dioxide (22-29) mmol/L Anion Gap (5-19) BUN (6-20) mg/dL Creatinine (0.5-0.9) mg/dL GFR Calculation (90-130) mL/min Glucose (65-115) mg/dL Calculated Osmolal ity (285-295) mOsm/k g Calcium (8.5-10.5) mg/dL Total Bilirubin (0.15-1.2) mg/dL AST (0-32) U/L ALT (0-33) U/L Alkaline Phosphata se (35-105) IU/L Total Protein (6.6-8.7) g/dL Albumin (3.5-5.2) g/dL Globulin (1.3-4.6) g/dL TSH (0.27-4.20) uIU/ mL HCG, Qual Negative (Negative) Urine Color Yellow (Yellow) Urine Appearance Clear (CLEAR) Urine pH 7 (5-7) Ur Specific Gravit y 1.000 L (1.005-1.030) Urine Protein Neg (Negative) Urine Glucose (UA) Norm (Normal) Urine Ketones Negative (Negative) Urine Blood Neg (Negative) Urine Nitrate Negative (Negative) Urine Bilirubin Neg (Negative) Urine Urobilinogen Norm (Negative) mg/dL Ur Leukocyte Janice ase Negative (Negative) Salicylates (3-10) mg/dL Acetaminophen (10-30) ug/mL 10/18/20 Range/Units 15:25 WBC (4.5-13.0) 10^3/ uL RBC (4.1-5.3) 10^6/u L Hgb (11.5-15.3) g/dL Hct (37.0-47.0) % MCV (81-99) fL MCH (28.0-34.0) pg MCHC (30.0-36.0) g/dL RDW (12.1-15.1) % Plt Count (130-400) 10^3/c mm MPV (7.4-10.4) fL Neut % (Auto) % Lymph % (Auto) % [place] % (Auto) % Eos % (Auto) % Baso % (Auto) % Neut # (Auto) (1.8-8.0) 10^3/u L Lymph # (Auto) (1.5-6.5) 10^3/u L [place] # (Auto) (0.2-0.9) 10^3/u L Eos # (Auto) (0.0-0.8) 10^3/u L Baso # (Auto) (0.0-0.1) 10^3/u L Nucleated RBC % (a uto) % Nucleated RBCs # /100WBC Sodium 139 (136-145) mmol/L Potassium 3.9 (3.5-5.1) mmol/L Chloride 104 (98-107) mmol/L Carbon Dioxide 26 (22-29) mmol/L Anion Gap 12.9 (5-19) BUN 9 (6-20) mg/dL Creatinine 0.5 (0.5-0.9) mg/dL GFR Calculation 157.3 H (90-130) mL/min Glucose 114 (65-115) mg/dL Calculated Osmolal ity 288 (285-295) mOsm/k g Calcium 8.6 (8.5-10.5) mg/dL Total Bilirubin 0.2 (0.15-1.2) mg/dL AST 15 (0-32) U/L ALT 13 (0-33) U/L Alkaline Phosphata se 75 (35-105) IU/L Total Protein 6.9 (6.6-8.7) g/dL Albumin 3.8 (3.5-5.2) g/dL Globulin 3.1 (1.3-4.6) g/dL TSH 0.97 (0.27-4.20) uIU/ mL HCG, Qual (Negative) Urine Color (Yellow) Urine Appearance (CLEAR) Urine pH (5-7) Ur Specific Gravit y (1.005-1.030) Urine Protein (Negative) Urine Glucose (UA) (Normal) Urine Ketones (Negative) Urine Blood (Negative) Urine Nitrate (Negative) Urine Bilirubin (Negative) Urine Urobilinogen (Negative) mg/dL Ur Leukocyte Janice ase (Negative) Salicylates < 0.3 L (3-10) mg/dL Acetaminophen < 5.0 L (10-30) ug/mL Discharge Plan Discharge Patient Disposition: Admitted As Inpatient Admit Provider: Zeb Ramirez Clinical Impression: MDD (major depressive disorder), Borderline personality disorder, Post- traumatic stress disorder, chronic, Suicidal ideation, Anxiety Condition: Stable Coding Level of Care Code ED Managing Consultant for Chg Fwd Exam Comprehensive
[2020-10-18 16:14] LABS: Alanine Aminotransferase 13 U/L (0-33); Albumin Level 3.8 g/dL (3.5-5.2); Alkaline Phosphatase 75 IU/L (35-105); Anion Gap 12.9 (5-19); Aspartate Amino Transferase 15 U/L (0-32); Blood Urea Nitrogen 9 mg/dL (6-20); Calcium 8.6 mg/dL (8.5-10.5); Carbon Dioxide 26 mmol/L (22-29); Chloride 104 mmol/L (98-107); Globulin 3.1 g/dL (1.3-4.6); Glomerular Filtration Rate 157.3 mL/min (90-130); Glucose 114 mg/dL (65-115); Osmolality Calculated 288 mOsm/kg (285-295); Potassium 3.9 mmol/L (3.5-5.1); Sodium 139 mmol/L (136-145); Thyroid Stimulating Hormone 0.97 uIU/mL (0.27-4.20); Total Bilirubin 0.2 mg/dL (0.15-1.2); Total Protein 6.9 g/dL (6.6-8.7)
[2020-10-18 16:19] LABS: Add Urine Microscopic? NO; Charge for UA Resulting for Rev
[2020-10-18 16:23] LABS: Acetaminophen < 5.0 ug/mL (10-30); Salicylate < 0.3 mg/dL (3-10)
[2020-10-18 16:35] LABS: Bilirubin Urine Neg (Negative); Blood Urine Neg (Negative); Glucose Urine UA Norm (Normal); HCG Qualitative Urine. Negative (Negative); Ketones Urine Negative (Negative); Leukocyte Esterase Urine Negative (Negative); Nitrate Urine Negative (Negative); Protein Urine Neg (Negative); Urine Appearance Clear (CLEAR); Urine Color Yellow (Yellow); Urobilinogen Urine Norm (Negative); pH Urine 7 (5-7)
[2020-10-18] MEDS: OLANZapine 10 mg ODT PO (17:10)
[2020-10-18 18:15] VITALS: BP 110/78; PULSE 86; RESP 18; TEMP 36.8; O2SAT 97
[2020-10-18 18:41] VITALS: BP 117/70; PULSE 81; RESP 16; O2SAT 96
[2020-10-18] MEDS: prazosin 1 mg Capsule 4 MG PO (21:17)
[2020-10-18 22:00] VITALS: BP 131/87; PULSE 68; RESP 20; TEMP 36.8; O2SAT 96
[2020-10-19 06:00] VITALS: BP 105/65; PULSE 60; RESP 14; TEMP 36.6; O2SAT 99
[2020-10-19] MEDS: escitalopram 10 mg Tablet 20 MG PO (06:01)
[2020-10-19] MEDS: nicotine 2 mg Gum BUCCAL ×2 (12:33→23:06)
[2020-10-19 14:00] VITALS: BP 141/96; PULSE 87; RESP 18; TEMP 36.6; O2SAT 98
[2020-10-19] MEDS: hyDROXYzine 25 mg Capsule 50 MG PO (14:30)
--- NOTE | 2020-10-19 14:34 | PC.NURSE ---
PRN Vistaril patient at nurses stating she was anxious, after she was noted to be participating in group, laughing and conversing with other patients. Patient is stating now that she is pissed and anxious. Patient is given PRN Vistaril 50mg PO. Will monitor for effectiveness of this medication.
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
[2020-10-19] MEDS: benzocaine 20% 7 gm 1 APPLIC MUCOUS MEM ×2 (16:36→21:06)
[2020-10-19 20:19] VITALS: BP 138/96; PULSE 79; RESP 17; TEMP 36.4; O2SAT 99
[2020-10-19] MEDS: acetaminophen 325 mg Tablet 650 MG PO (21:05)
[2020-10-19] MEDS: prazosin 1 mg Capsule 4 MG PO (21:05)
[2020-10-19] MEDS: trazodone 50 mg Tablet PO ×2 (21:23→23:06)
[2020-10-19] MEDS: escitalopram 10 mg Tablet PO (23:00)
[2020-10-20 06:00] VITALS: BP 123/74; PULSE 75; RESP 14; TEMP 37.1; O2SAT 99
[2020-10-20] MEDS: escitalopram 10 mg Tablet 30 MG PO (08:14)
[2020-10-20] MEDS: nicotine 2 mg Gum BUCCAL (09:04)
[2020-10-20] MEDS: hyDROXYzine 25 mg Capsule 50 MG PO (10:59)
--- NOTE | 2020-10-20 10:59 | PC.NURSE ---
PRN VISTARIL 50 MG GIVEN PO PER PT C/O STATED ANXIETY. NO OUTWARD S/S OF ANXIETY NOTED. WILL CONT TO MONITOR
--- NOTE | 2020-10-20 13:46 | P.DS_ITS ---
Diagnoses at Discharge Discharge Diagnosis (1) Suicidal ideation: Status: Acute (2) Post-traumatic stress disorder, chronic: Status: Chronic (3) Borderline personality disorder: Status: Chronic (4) IBD (inflammatory bowel disease): Status: Acute Permanent problem details: diarrhea (5) Nicotine addiction: Status: Chronic (6) MDD (major depressive disorder): Status: Chronic Qualifiers: Major depression recurrence: recurrent Active/Remission status: remission status unspecified Qualified Code(s): F33.9 - Major depressive disorder, recurrent, unspecified Reason for Visit Reason for Visit: SI Hospital Course Hospital Course Patient presents emergency department with anxiety and depressive symptoms and passive suicidal thoughts in the context of ongoing life stressors. Patient has longstanding history of borderline personality disorder with chronic, passive suicidal ideation with no active intent or plan although she does have intermittent past episodes of self-harm with no actual intent of ending her life. Patient is followed by outpatient clinic and sees a therapist on a regular basis. During this hospitalization her Lexapro was increased to Lexapro 30 mg daily targeting her anxiety and depressive symptoms. Patient continues to have intermittent passive suicidal thoughts with no active intent or plan but states that these typically occur in the context of moments of frustration in which her expectations do not match reality to include her expectation of immediately leaving the hospital after requesting to come into the hospital. Patient participate in unit activities to include group sessions and unit milieu with occasional behavioral disturbances although she was easily verbally redirected with little effort. Patient tolerated medication change well no reports of any medication side effects. Patient was not suicidal at the time of discharge and did not appear to pose an imminent threat of harm to self or others. Low to moderate risk of harm to self and others given no current suicidal ideation although patient experiences a lifelong pattern of chronic passive suicidal thoughts as well as intermittent self harming behavior typically as a means of attention seeking in addition to her poor coping with life stressors. Patient's inadequate coping, impulsivity and unexpected behaviors continue to elevate her risk at times and would be further compounded by the use of any alcohol or substances. Risk mitigation included psychiatric hospitalization given complaint of worsening anxiety and depressive symptoms with medication stabilization although patient had no imminent threat of self-harm at the time of hospitalization. Patient was able to communicate her understanding of the need to be compliant with her ongoing therapy and medication management in order to develop more adaptive coping strategies in order to further mitigate her risk of harm to self and others. Involuntary Hold Information 96 Hour Hold: 96 Hour Involuntary Admission: No 96 Hour Hold Ending Date: 03/09/20 96 Hour Hold Ending Time: 18:00 Mental Status Exam MSE Comments: Appears stated age, obese, wearing hospital scrubs, calm, cooperative, polite, tattoo of heart outline next to her right outer [place]hus, polite, good eye contact Psychomotor activity is neither increased nor decreased, no agitation Speech is normal rate and volume, spontaneous, clear articulation, not pressured I feel okay, full range of affect, not labile Alert and oriented to person, place, time, situation Memory and concentration appear to be intact per interview Intellectual functioning appears to be average at best based on vocabulary, interview Thought process, linear, no flight of ideas, no looseness of associations Thought content, no delusions, no hallucinations, no suicidal homicidal ideation Insight and judgment appear to be fair Discharge Data Vitals: Last Vital Signs Temp 98.7 F 10/20/20 06:00 Pulse 75 10/20/20 06:00 Resp 14 10/20/20 06:00 BP 123/74 10/20/20 06:00 Pulse Ox 99 10/20/20 06:00 Discharge Plan Discharge Patient Disposition: Home Condition: Stable Prescriptions: New escitalopram oxalate 10 mg Tablet 30 mg PO DAILY Qty: 30 RF: 0 Continued hydroxyzine HCl 50 mg tablet 50 mg PO BID PRN (Reason: anxiety) Qty: 60 RF: 0 trazodone 100 mg tablet 100 mg PO BEDTIME PRN (Reason: insomnia) RF: 0 prazosin 2 mg capsule 4 mg PO BEDTIME RF: 0 Discontinued escitalopram oxalate 20 mg tablet 20 mg PO QAM Qty: 30 RF: 1 Discharge Orders: Discharge Order (Routine); Ordered 10/20/20 Ordered By: Dennis Messer Referrals: Ellie Maurer APRN [Nurse Practitioner] - 10/24/20 2:30 pm Discharge Diet: Usual diet Discharge Activity: Resume usual activity Patient Instructions: Opioid Safety Discharge Attestations NPU Time Spent in Discharge Care*: greater than 30 min Status at Discharge: Cognitive status at discharge: cognitively intact , Behavioral status at discharge: cooperative , Functional status at discharge: independent ambulation Overall status at discharge: patient is back to baseline Coding Level of Care Code Acute Chg FW DC note Diagnoses Suicidal ideation R45.851 Post-traumatic stress disorder, chronic F43.12 Borderline personality disorder F60.3 IBD (inflammatory bowel disease) K52.9 Nicotine addiction F17.200 MDD (major depressive disorder) F33.9 Major depression recurrence: recurrent Active/Remission status: remission status unspecified
[2020-10-20 14:11] VITALS: BP 123/74; PULSE 75; RESP 14; TEMP 37.1; O2SAT 99
--- NOTE | 2020-10-21 11:49 | PC.RESP ---
SMOKING CESSATION INFORMATION SENT TO PATIENT.
== END 2020-10-20 14:42 | disposition home or self-care (01) | DRG 885 ==
LOC: ER 15:16 → NP 17:34
PROVIDERS: Admitting Provider Psychiatry & Neurology Psychiatry; Emergency Provider Emergency Medicine; Visit Provider Psychiatry & Neurology Psychiatry
DX: F33.9 Major depressive disorder, recurrent, unspecified (principal); R45.851 Suicidal ideations; F60.3 Borderline personality disorder; F41.9 Anxiety disorder, unspecified; F41.0 Panic disorder [episodic paroxysmal anxiety]; F17.210 Nicotine dependence, cigarettes, uncomplicated; Z81.8 Family history of other mental and behavioral disorders; F43.12 Post-traumatic stress disorder, chronic; K58.9 Irritable bowel syndrome, unspecified
CPT/HCPCS: 36415; 80053; 80307; 81003; 81025; 84443; 85025; 99285

== ENCOUNTER → 2020-10-24 08:22 | Outpatient (BNVA) | payer MEDICAID, SELFPAY | PROVIDERS: Visit Provider Nurse Practitioner Psychiatric/Mental Health | DX: F43.12 Post-traumatic stress disorder, chronic (principal); F33.9 Major depressive disorder, recurrent, unspecified; F60.3 Borderline personality disorder | CPT/HCPCS: 99214 ==

== ENCOUNTER → 2021-02-02 13:55 | Outpatient (BNVA) | payer MEDICAID, SELFPAY | PROVIDERS: Visit Provider Nurse Practitioner Psychiatric/Mental Health | DX: F60.3 Borderline personality disorder (principal); F43.12 Post-traumatic stress disorder, chronic; F33.9 Major depressive disorder, recurrent, unspecified | CPT/HCPCS: 99213 ==

== ENCOUNTER → 2021-02-23 15:11 | Outpatient (BNVA) | payer MEDICAID, SELFPAY | PROVIDERS: Visit Provider Nurse Practitioner Psychiatric/Mental Health | DX: F33.9 Major depressive disorder, recurrent, unspecified (principal); F60.3 Borderline personality disorder; F43.12 Post-traumatic stress disorder, chronic; Z51.81 Encounter for therapeutic drug level monitoring; Z79.899 Other long term (current) drug therapy | CPT/HCPCS: 96372; 99214 ==

== ENCOUNTER → 2021-05-05 00:01 | Outpatient (BNVA) | payer MEDICAID, SELFPAY | PROVIDERS: Visit Provider Nurse Practitioner | DX: R07.9 Chest pain, unspecified (principal) | CPT/HCPCS: 81025 ==

== ENCOUNTER 2021-05-21 22:26 | Inpatient (IN) | payer MEDICAID, SELFPAY ==
[2021-05-21] VITALS (10 sets, daily range): BP systolic 103–134; BP diastolic 51–79; PULSE 129; RESP 18; TEMP 37.1; O2SAT 94–99; BMI 45.7
--- NOTE | 2021-05-21 22:44 | ECG_ITS ---
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 Measurements Intervals [place] Rate: 125 P: 54 OK: 153 QRS: 41 QRSD: 90 T: 39 QT: 336 QTc: 486 Interpretive Statements SINUS TACHYCARDIA NONSPECIFIC T-WAVE ABNORMALITY Compared to ECG 06/17/2019 18:51:26 T-wave abnormality now present Sinus rhythm no longer present Electronically Signed On 05-22-2021 16:59:02 [employer] by Vinny Padilla M.D. [id number]
--- NOTE | 2021-05-21 22:47 | W.ED.OVERDOS ---
HPI - Overdose General: Chief Complaint: Overdose Stated Complaint: OD Time Seen by Provider: 05/21/21 22:35 History of Present Illness: HPI Narrative: 20-year-old female who says around 10 PM she took unknown amounts of gabapentin, paliperidone, Advil PM, and doxepin. She says she did this to try to hurt herself. She has done this in the past. complaint: intentional overdose Onset (ago): minute(s) Review of Systems Const: Denies: fever(s) Eyes: Denies: change in vision ENMT: Denies: throat pain Card: Denies: chest pain or palpitations Resp: Denies: dyspnea, productive cough or non-productive cough GI: Reports: abdominal pain and nausea; Denies: vomiting : Denies: dysuria Neuro: Reports: dizziness; Denies: headache(s) or confusion PFSH ED PFSH: Medical History Anxiety Borderline personality disorder IBD (inflammatory bowel disease) diarrhea MDD (major depressive disorder) No pertinent past medical history neghx: htn,dm,thyroid,dvt/pe PCP: Mikayla Martínez Post-traumatic stress disorder, chronic Psychiatric care Surgical History History of tonsillectomy (~2017) Family History Grandmother Hypertension Maternal grandmother Breast cancer Paternal grandmother--dx age 50's Diabetes Maternal great grandmother Heart disease Maternal great grandmother Grandfather Diabetes Maternal great grandfather Heart disease Maternal great grandfather Family/Other Stroke Maternal great uncle Denies family history of Colon cancer Ovarian cancer Hyperlipidemia Family history of thyroid problem Uterine cancer Social History Smoking and tobacco status: current every day smoker cigarettes Packs smoked per day: 0.5 Years cigarettes smoked: 6 Quit status (tobacco): not considering quitting Second hand smoke exposure: Yes Alcohol intake: current Alcohol intake frequency: few times a week Alcohol type: hard liquor Lives independently: Yes Marital status: Single History of recent travel: No Current gender identity: Female Additional social history: - Tobacco use: Current everyday smoker; 0.5pk daily Alcohol use: Denies Drug use: Denies Female Reproductive History: Date of last menstrual period: 03/21/21 Physical Exam Const: COMMON NORMALS: no acute distress, patient oriented x3 and alert GENERAL APPEARANCE: cooperative HENMT: COMMON NORMALS: normocephalic, atraumatic and Normal external nose present HEAD & SCALP: normocephalic and atraumatic FACE & SINUS: normal facial exam NOSE: Normal external nose present Eye: COMMON NORMALS: Equal, round and reactive pupils present and EOMs intact bilaterally PUPIL: Yes Equal, round and reactive pupils present Chest: COMMONS NORMALS: normal inspection of the chest Resp: COMMON NORMALS: normal respiratory effort, No use of accessory muscles and clear to auscultation bilaterally AUSCULTATION: clear to auscultation bilaterally GI: COMMON NORMALS: Normal to inspection, nondistended, normoactive bowel sounds present, Soft to palpation and no masses PALPATION: Yes Soft to palpation and Yes Tenderness to palpation present (GI) (minimal diffuse) Neuro: COMMON NORMALS: patient oriented x3 SENSORIUM/ORIENTATION: Yes alert Course Consultations: Consultation #1: nancy Time: 01:32 Vital Signs: Vital signs: Vital Signs Temperature 98.7 F 05/21/21 22:34 Pulse Rate 74 05/22/21 01:25 Respiratory Rate 17 05/22/21 01:25 Blood Pressure 95/45 05/22/21 01:25 Pulse Oximetry 95 05/22/21 01:25 MDM - Overdose MDM Narrative: Medical decision making narrative: 20-year-old female who has remained stable on the monitor. Her blood pressures 90/45, heart rate 81, saturations 95% on room air. EKG shows a sinus tachycardia originally which has resolved. There is no QT prolongation. [place] is normal. White blood cell count is 13. Potassium 3.4. BMP is otherwise normal. Urine tox is positive for marijuana, otherwise clean. No alcohol on board. Currently she wishes to be evaluated. Affidavit has been written. She is medically stable. Lab Data: Labs: Lab Results 05/21/21 05/21/21 05/21/21 23:15 23:15 23:15 WBC 13.3 10^3/uL H 10 ^3/uL (4.0-10.0) RBC 4.81 10^6/uL 10^6 /uL (4.1-5.3) Hgb 13.2 g/dL g/dL (11.5-15.3) Hct 41.0 % % (37.0-47.0) MCV 85.2 fl fl (81-99) MCH 27.4 pg L pg (28.0-34.0) MCHC 32.2 g/dL g/dL (30.0-36.0) RDW 14.3 % % (12.1-15.1) Plt Count 433 10^3/cmm H 10 ^3/cmm (130-400) MPV 9.8 fL fL (7.4-10.4) Neut % (Auto) 67.9 % % Lymph % (Auto) 25.5 % % Coleman % (Auto) 5.3 % % Eos % (Auto) 0.5 % % Baso % (Auto) 0.4 % % Neut # (Auto) 9.04 10^3/uL H 10 ^3/uL (1.8-7.7) Lymph # (Auto) 3.4 10^3/uL 10^3/ uL (0.8-4.8) Coleman # (Auto) 0.7 10^3/uL 10^3/ uL (0.2-0.9) Eos # (Auto) 0.1 10^3/uL 10^3/ uL (0.0-0.8) Baso # (Auto) 0.1 10^3/uL 10^3/ uL (0.0-0.1) Nucleated RBC % (a uto) 0 % % Nucleated RBCs # 0.0 /100WBC /100W BC Sodium 140 mmol/L mmol/L (136-145) Potassium 3.4 mmol/L L mmol /L (3.5-5.1) Chloride 103 mmol/L mmol/L (98-107) Carbon Dioxide 22 mmol/L mmol/L (22-29) Anion Gap 18.4 (5-19) BUN 12 mg/dL mg/dL (6-20) Creatinine 0.7 mg/dL mg/dL (0.5-0.9) GFR Calculation 105.6 mL/min mL/m in (90-130) Glucose 117 mg/dL H mg/dL (65-115) Calculated Osmolal ity 291 mOsm/kg mOsm/ kg (285-295) Calcium 8.7 mg/dL mg/dL (8.5-10.5) Total Bilirubin 0.2 mg/dL mg/dL (0.15-1.2) AST 13 U/L U/L (0-32) ALT 13 U/L U/L (0-33) Alkaline Phosphata se 78 IU/L IU/L (35-105) Total Protein 7.3 g/dL g/dL (6.6-8.7) Albumin 3.9 g/dL g/dL (3.5-5.2) Globulin 3.4 g/dL g/dL (1.3-4.6) TSH 2.02 uIU/mL uIU/m L (0.27-4.20) HCG, Qual Negative (Negative) Urine Color Urine Appearance Urine pH Ur Specific Gravit y Urine Protein Urine Glucose (UA) Urine Ketones Urine Blood Urine Nitrate Urine Bilirubin Urine Urobilinogen Ur Leukocyte Janice ase Salicylates < 0.3 mg/dL L mg/ dL (3-10) Urine Opiates Scre en Acetaminophen < 5.0 ug/mL L ug/ mL (10-30) Ur Barbiturates Sc reen Ur Phencyclidine S crn Ur Amphetamines Sc reen U Benzodiazepines Scrn Luis Lopez Urine Cocaine Scre en U Marijuana (THC) Screen Ethyl Alcohol < 10 mg/dL mg/dL (0-10) 05/21/21 05/21/21 05/21/21 23:15 23:15 23:38 WBC RBC Hgb Hct MCV MCH MCHC RDW Plt Count MPV Neut % (Auto) Lymph % (Auto) Coleman % (Auto) Eos % (Auto) Baso % (Auto) Neut # (Auto) Lymph # (Auto) Coleman # (Auto) Eos # (Auto) Baso # (Auto) Nucleated RBC % (a uto) Nucleated RBCs # Sodium Potassium Chloride Carbon Dioxide Anion Gap BUN Creatinine GFR Calculation Glucose Calculated Osmolal ity Calcium Total Bilirubin AST ALT Alkaline Phosphata se Total Protein Albumin Globulin TSH HCG, Qual Urine Color Yellow (Yellow) Urine Appearance Clear (CLEAR) Urine pH 5 (5-7) Ur Specific Gravit y 1.020 (1.005-1.030) Urine Protein Neg (Negative) Urine Glucose (UA) Norm (Normal) Urine Ketones 1+ H (Negative) Urine Blood Neg (Negative) Urine Nitrate Negative (Negative) Urine Bilirubin 1+ H (Negative) Urine Urobilinogen Norm mg/dL mg/dL (Negative) Ur Leukocyte Janice ase Negative (Negative) Salicylates Urine Opiates Scre en Negative ng/mL ng /mL (Negative) Acetaminophen Ur Barbiturates Sc reen Negative ng/mL ng /mL (Negative) Ur Phencyclidine S crn Negative ng/mL ng /mL (Negative) Ur Amphetamines Sc reen Negative ng/mL ng /mL (Negative) U Benzodiazepines Scrn Negative ng/mL ng /mL (Negative) Luis Lopez 0.1 mmol/L L mmol /L (0.6-1.2) Urine Cocaine Scre en Negative ng/mL ng /mL (Negative) U Marijuana (THC) Screen Positive ng/mL H ng/mL (Negative) Ethyl Alcohol Discharge Plan Discharge Patient Disposition: Admitted As Inpatient Admit Provider: Zeb Ramirez Clinical Impression: Drug overdose Qualifiers: Encounter type: initial encounter Injury intent: intentional self-harm Qualified Code(s): T50.902A - Poisoning by unspecified drugs, medicaments and biological substances, intentional self-harm, initial encounter Condition: Stable Coding Level of Care Code ED Mental Health Program Specialist for Xin Fwd Exam Detailed
[2021-05-21] MEDS: sodium chloride 0.9% 1,000 ML 999 ML IV (23:22)
[2021-05-21 23:25] LABS: Basophils # 0.1 10^3/uL (0.0-0.1); Basophils % 0.4 %; Eosinophils # 0.1 10^3/uL (0.0-0.8); Eosinophils % 0.5 %; Hemoglobin 13.2 g/dL (11.5-15.3); Lymphocytes # 3.4 10^3/uL (0.8-4.8); Lymphocytes % 25.5 %; Mean Corpuscular HGB Conc 32.2 g/dL (30.0-36.0); Mean Corpuscular Hemoglobin 27.4 pg (28.0-34.0); Mean Corpuscular Volume 85.2 fl (81-99); Mean Platelet Volume 9.8 fL (7.4-10.4); Monocytes # 0.7 10^3/uL (0.2-0.9); Monocytes % 5.3 %; Neutrophils # 9.04 10^3/uL (1.8-7.7); Neutrophils % 67.9 %; Nucleated Red Blood Cells % 0 %; Platelet Count 433 10^3/cmm (130-400); Red Blood Count 4.81 10^6/uL (4.1-5.3); Red Cell Distribution Width 14.3 % (12.1-15.1); White Blood Count 13.3 10^3/uL (4.0-10.0)
[2021-05-21 23:31] LABS: Add Urine Microscopic? NO; Charge for UA Resulting for Rev
[2021-05-21 23:33] LABS: Urine Appearance Clear (CLEAR); Urine Color Yellow (Yellow)
[2021-05-21 23:34] LABS: Bilirubin Urine 1+ (Negative); Blood Urine Neg (Negative); Glucose Urine UA Norm (Normal); Ketones Urine 1+ (Negative); Leukocyte Esterase Urine Negative (Negative); Nitrate Urine Negative (Negative); Protein Urine Neg (Negative); Urobilinogen Urine Norm (Negative); pH Urine 5 (5-7)
[2021-05-21 23:35] LABS: HCG, Serum Qual Negative (Negative)
[2021-05-21 23:42] LABS: Amphetamines Screen Urine Negative (Negative); Barbiturates Screen Urine Negative (Negative); Benzodiazepines Screen Urine Negative (Negative); Cocaine Screen Urine Negative (Negative); Opiate Screen Urine Negative (Negative); PCP Screen Urine Negative (Negative); THC Screen Urine Positive (Negative)
[2021-05-21 23:49] LABS: Alanine Aminotransferase 13 U/L (0-33); Albumin Level 3.9 g/dL (3.5-5.2); Alkaline Phosphatase 78 IU/L (35-105); Anion Gap 18.4 (5-19); Aspartate Amino Transferase 13 U/L (0-32); Blood Urea Nitrogen 12 mg/dL (6-20); Calcium 8.7 mg/dL (8.5-10.5); Carbon Dioxide 22 mmol/L (22-29); Chloride 103 mmol/L (98-107); Creatinine Clr Calc Pharmacy 151.3621; Globulin 3.4 g/dL (1.3-4.6); Glomerular Filtration Rate 105.6 mL/min (90-130); Glucose 117 mg/dL (65-115); Osmolality Calculated 291 mOsm/kg (285-295); Potassium 3.4 mmol/L (3.5-5.1); Sodium 140 mmol/L (136-145); Thyroid Stimulating Hormone 2.02 uIU/mL (0.27-4.20); Total Bilirubin 0.2 mg/dL (0.15-1.2); Total Protein 7.3 g/dL (6.6-8.7)
[2021-05-21 23:50] LABS: Acetaminophen < 5.0 ug/mL (10-30); Alcohol Level < 10 mg/dL (0-10); Salicylate < 0.3 mg/dL (3-10)
[2021-05-22] VITALS (48 sets, daily range): BP systolic 81–142; BP diastolic 35–82; PULSE 60–85; RESP 11–27; TEMP 36.7; O2SAT 91–100
[2021-05-22 00:04] LABS: Lithium 0.1 mmol/L (0.6-1.2)
--- NOTE | 2021-05-22 08:53 | PC.OT ---
OT EVALUATION ATTEMPTED. PATIENT SLEEPING SOUNDLY ON MULTIPLE OCCASIONS THIS MORNING. WILL ATTEMPT AGAIN AT A LATER TIME.
[2021-05-22] MEDS: famotidine 20 mg Tablet PO ×2 (09:24→18:51)
[2021-05-22] MEDS: gabapentin 300 mg Capsule PO ×2 (09:24→14:49)
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
[2021-05-23 06:00] VITALS: RESP 19
[2021-05-23] MEDS: famotidine 20 mg Tablet PO ×2 (08:26→18:14)
[2021-05-23] MEDS: nicotine 2 mg Gum BUCCAL ×2 (12:35→18:16)
[2021-05-23] MEDS: acetaminophen 325 mg Tablet 650 MG PO (12:36)
[2021-05-23 14:00] VITALS: BP 140/82; PULSE 82; RESP 20; TEMP 37.2; O2SAT 97
--- NOTE | 2021-05-23 17:55 | W.PM.NPUPNS ---
Subjective NPU Subjective: Interval history: Patient presents today in a 180 degree presentation from yesterday. Fully alert and able to participate in the interview. Endorsing significant improvement in her mood with was represented positively in her affect and alertness. She reports that she had some feelings about her grandmother being ill and her conflict with her brother and she does endorse that she had an intentional overdose leading to her presentation yesterday. She denies feeling that way today. Mental Status Exam MSE Comments: This is a morbidly obese white female in hospital scrubs with appropriate grooming and eye contact. No abnormal movements. Cooperative with exam in no acute distress. Speech was normal rate and volume. Mood described as better, affect congruent. Thought process organized. Thought content: Patient denied suicidal or homicidal ideation, no delusions reported or noted, denied any auditory visual hallucinations. Attention and concentration were intact and memory appeared reliable but none were formally tested. She is alert and oriented x3. Insight and judgment appeared improving, impulse control is impaired. Vitals/I&O/Wt Last Vital Signs Temp 99 F 05/23/21 14:00 Pulse 84 05/23/21 21:17 Resp 18 05/23/21 21:17 BP 130/81 05/23/21 21:17 Pulse Ox 97 05/23/21 21:17 Data NPU : 05/21/21 23:15 05/21/21 23:15 A&P Additional A&P Information (1) Drug overdose: (2) Borderline personality disorder: (3) Anxiety: (4) MDD (major depressive disorder): (5) Post-traumatic stress disorder, chronic: Additional A&P Information This is a 20-year-old white male with a long history of mental health issues and some cannabis use who presents after reported drug overdose unable to stay awake for interview the 96-hour hold. 1. Continue current medication. 2. Continue every 15 minute checks for safety. 3. Encourage individual, group and milieu therapies. 4. Encourage sober living treatment after discharge at the highest level of care to which he is willing to commit. 5. We will get collateral information from outpatient team given her borderline personality disorder to determine how we can discharge in a safe manner. Involuntary Hold Information 96 Hour Hold: 96 Hour Involuntary Admission: No 96 Hour Hold Ending Date: 03/09/20 96 Hour Hold Ending Time: 18:00 Attestations NPU Medical Necessity Statement*: Inpatient hospitalization is medically necessary and the clinically appropriate intervention at this time. We will monitor medication to make changes as indicated. Likely length of stay 2-4 days. Coding Level of Care Code Acute Machine Set Up Operator for [facility]
[2021-05-23 21:17] VITALS: BP 130/81; PULSE 84; RESP 18; O2SAT 97
[2021-05-24] MEDS: acetaminophen 325 mg Tablet 650 MG PO (05:43)
[2021-05-24 06:00] VITALS: BP 138/86; PULSE 66; RESP 17; O2SAT 100
[2021-05-24] MEDS: nicotine 2 mg Gum BUCCAL ×4 (06:32→21:23)
[2021-05-24] MEDS: famotidine 20 mg Tablet PO ×2 (08:44→17:15)
[2021-05-24 14:00] VITALS: BP 124/73; PULSE 100; RESP 14; TEMP 36.6; O2SAT 98
[2021-05-24] MEDS: hyDROXYzine 25 mg Capsule 50 MG PO (14:58)
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
[2021-05-24] MEDS: gabapentin 300 mg Capsule PO (20:53)
[2021-05-24] MEDS: blistex lip oint 7 gm Tube 1 APPLIC TOPICAL (20:54)
[2021-05-24 22:00] VITALS: BP 129/85; PULSE 87; RESP 16; TEMP 36.8; O2SAT 98
[2021-05-25 06:00] VITALS: BP 105/73; PULSE 60; RESP 16; TEMP 36.5; O2SAT 99
[2021-05-25] MEDS: nicotine 2 mg Gum BUCCAL ×3 (08:41→15:09)
[2021-05-25] MEDS: OLANZapine 5 mg ODT PO (08:41)
[2021-05-25] MEDS: gabapentin 300 mg Capsule PO ×2 (08:41→15:09)
[2021-05-25] MEDS: famotidine 20 mg Tablet PO (08:41)
[2021-05-25 14:00] VITALS: BP 105/73; PULSE 60; RESP 16; TEMP 36.5
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
[2021-05-25 14:46] VITALS: BP 105/73; PULSE 60; RESP 16; TEMP 36.5
[2021-05-25 14:49] VITALS: BP 105/73; PULSE 60; RESP 16; TEMP 36.5
[2021-05-25] MEDS: paliperidone palmitate 234 mg Syringe IM (15:33)
== END 2021-05-25 15:35 | disposition home or self-care (01) | DRG 918 ==
LOC: ER 05-22 01:35 → NP 05-22 01:58
PROVIDERS: Admitting Provider Psychiatry & Neurology Psychiatry; Emergency Provider Emergency Medicine; Visit Provider Psychiatry & Neurology Psychiatry
DX: T43.592A Poisoning by other antipsychotics and neuroleptics, intentional self-harm, initial encounter (principal); F33.9 Major depressive disorder, recurrent, unspecified; Z68.42 Body mass index [BMI] 45.0-49.9, adult; T39.312A Poisoning by propionic acid derivatives, intentional self-harm, initial encounter; T43.012A Poisoning by tricyclic antidepressants, intentional self-harm, initial encounter; F17.210 Nicotine dependence, cigarettes, uncomplicated; E66.01 Morbid (severe) obesity due to excess calories; F60.3 Borderline personality disorder; F41.9 Anxiety disorder, unspecified; F43.12 Post-traumatic stress disorder, chronic; F12.980 Cannabis use, unspecified with anxiety disorder; Z81.8 Family history of other mental and behavioral disorders; Z81.4 Family history of other substance abuse and dependence; Z62.810 Personal history of physical and sexual abuse in childhood
CPT/HCPCS: 36415; 80053; 80178; 80306; 80307; 81003; 84443; 84703; 85025; 93005; 96372; 97150; 97165; 99285; J7030

== ENCOUNTER 2021-05-28 23:59 | Emergency (ER) | payer MEDICAID, SELFPAY ==
[2021-05-29 00:04] VITALS: BP 118/84; PULSE 118; RESP 20; TEMP 36.5; O2SAT 98; BMI 45.7
[2021-05-29 00:42] LABS: Add Urine Microscopic? NO; Charge for UA Resulting for Rev
[2021-05-29 00:50] LABS: Urine Appearance Clear (CLEAR); Urine Color Yellow (Yellow)
[2021-05-29 00:50] LABS: HCG, Serum Qual Negative (Negative)
[2021-05-29 00:51] LABS: Bilirubin Urine 1+ (Negative); Blood Urine Neg (Negative); Glucose Urine UA Norm (Normal); Ketones Urine Negative (Negative); Leukocyte Esterase Urine Negative (Negative); Nitrate Urine Negative (Negative); Protein Urine Neg (Negative); Urobilinogen Urine 1 mg/dL (Negative); pH Urine 5 (5-7)
[2021-05-29 01:01] LABS: Basophils % 0.2 %; Eosinophils # 0.2 10^3/uL (0.0-0.8); Eosinophils % 1.3 %; Hematocrit 43.9 % (37.0-47.0); Hemoglobin 14.4 g/dL (11.5-15.3); Lymphocytes % 23.7 %; Mean Corpuscular HGB Conc 32.8 g/dL (30.0-36.0); Mean Corpuscular Hemoglobin 27.5 pg (28.0-34.0); Mean Corpuscular Volume 83.8 fl (81-99); Mean Platelet Volume 9.9 fL (7.4-10.4); Monocytes # 0.7 10^3/uL (0.2-0.9); Monocytes % 5.8 %; Neutrophils % 68.6 %; Nucleated Red Blood Cells % 0 %; Platelet Count 518 10^3/cmm (130-400); Red Blood Count 5.24 10^6/uL (4.1-5.3); Red Cell Distribution Width 14.2 % (12.1-15.1); White Blood Count 12.7 10^3/uL (4.0-10.0)
[2021-05-29 01:02] LABS: Alanine Aminotransferase 15 U/L (0-33); Albumin Level 4.2 g/dL (3.5-5.2); Alkaline Phosphatase 84 IU/L (35-105); Anion Gap 14.8 (5-19); Aspartate Amino Transferase 12 U/L (0-32); Blood Urea Nitrogen 11 mg/dL (6-20); Calcium 8.7 mg/dL (8.5-10.5); Carbon Dioxide 25 mmol/L (22-29); Chloride 100 mmol/L (98-107); Creatinine Clr Calc Pharmacy 151.3621; Globulin 3.7 g/dL (1.3-4.6); Glomerular Filtration Rate 105.6 mL/min (90-130); Glucose 108 mg/dL (65-115); Lipase 41 U/L (13-60); Osmolality Calculated 282 mOsm/kg (285-295); Potassium 3.8 mmol/L (3.5-5.1); Sodium 136 mmol/L (136-145); Total Bilirubin 0.4 mg/dL (0.15-1.2); Total Protein 7.9 g/dL (6.6-8.7)
--- NOTE | 2021-05-29 01:26 | W.ED.ABDPA2 ---
HPI - Abdominal Pain General: Chief Complaint: Abdominal Pain Stated Complaint: ABD Pain N\V Time Seen by Provider: 05/29/21 01:07 History of Present Illness: HPI narrative: Patient is a 20-year-old female comes to the ED with abdominal pain, nausea/vomiting and diarrhea. Patient has been having symptoms for approximately 1 week. She rates her abdominal pain an 8 out of 10 and its located in the periumbilical region. Patient says she is been unable to keep any food or fluids down and has multiple episodes of emesis day. She also reports having diarrhea daily as well. Denies any fever, chills, chest pain, shortness of breath, vaginal bleeding, vaginal discharge, dysuria or hematuria. Associated Symptoms: Reports diarrhea, nausea and vomiting; Denies chills, constipation, dysuria, fever(s), hematochezia and hematuria Related Data: Date of Last Menstrual Period: 03/01/21 Review of Systems Const: Denies: fever(s), chills or fatigue Eyes: Denies: change in vision or eye discomfort ENMT: Denies: throat pain, odynophagia, nasal discharge or nasal congestion Card: Denies: chest pain, palpitations, edema, swelling of feet/ankles, dyspnea on exertion or orthopnea Resp: Denies: dyspnea, productive cough or non-productive cough GI: Reports: abdominal pain, nausea, vomiting and diarrhea; Denies: constipation or hematochezia : Denies: flank pain, dysuria or hematuria Musc: Denies: neck pain, back pain or extremity swelling Skin/Breast: Denies: rash or new lesions Neuro: Denies: headache(s), numbness in extremities or weakness in extremities PFS ED PFSH: Medical History Anxiety Borderline personality disorder IBD (inflammatory bowel disease) diarrhea MDD (major depressive disorder) No pertinent past medical history neghx: htn,dm,thyroid,dvt/pe PCP: Mikayla Martínez Post-traumatic stress disorder, chronic Psychiatric care Surgical History History of tonsillectomy (~2017) Family History Grandmother Hypertension Maternal grandmother Breast cancer Paternal grandmother--dx age 50's Diabetes Maternal great grandmother Heart disease Maternal great grandmother Grandfather Diabetes Maternal great grandfather Heart disease Maternal great grandfather Family/Other Stroke Maternal great uncle Denies family history of Colon cancer Ovarian cancer Hyperlipidemia Family history of thyroid problem Uterine cancer Social History Smoking and tobacco status: current every day smoker cigarettes Packs smoked per day: 0.5 Years cigarettes smoked: 6 Quit status (tobacco): not considering quitting Second hand smoke exposure: Yes Alcohol intake: current Alcohol intake frequency: few times a week Alcohol type: hard liquor Lives independently: Yes Marital status: Single History of recent travel: No Current gender identity: Female Additional social history: - Tobacco use: Current everyday smoker; 0.5pk daily Alcohol use: Denies Drug use: Denies Female Reproductive History: Date of last menstrual period: 03/01/21 Physical Exam Const: COMMON NORMALS: no acute distress, patient oriented x3 and alert GENERAL APPEARANCE: cooperative and comfortable HENMT: COMMON NORMALS: normocephalic HEAD & SCALP: normocephalic MOUTH: Normal oral and palatal mucosa present THROAT: posterior oropharynx normal and uvula midline Neck/C-Spine: COMMON NORMALS: supple GENERAL: Yes normal visual inspection Resp: COMMON NORMALS: normal respiratory effort, No retractions, No use of accessory muscles and clear to auscultation bilaterally AUSCULTATION: clear to auscultation bilaterally Cardio: COMMON NORMALS: regular rate, regular rhythm, S1 normal heart sound present, S2 normal heart sound present, No gallops present (Cardio), No clicks present (Cardio), No murmurs present (Cardio) and Peripheral pulses 2+ throughout RATE: regular rate RHYTHM: regular rhythm HEART SOUNDS: S1 normal heart sound present and S2 normal heart sound present PERIPHERAL PULSES: Peripheral pulses 2+ throughout GI: COMMON NORMALS: Normal to inspection, nondistended, normoactive bowel sounds present, Soft to palpation and no masses PALPATION: Yes Soft to palpation and Yes Tenderness to palpation present (GI) Details: other (periumbilical pain) : COMMON NORMALS: Yes no CVA tenderness BLADDER/KIDNEY EXAM: Yes no CVA tenderness Back/Pelvis: COMMON NORMALS: no CVA tenderness Extremity: COMMON NORMALS: normal to inspection Neuro: COMMON NORMALS: patient oriented x3 SENSORIUM/ORIENTATION: Yes alert GAIT: Yes Normal gait present Skin: GENERAL SKIN EXAM: dry skin Course Vital Signs: Vital signs: Vital Signs Temperature 97.7 F 05/29/21 00:04 Pulse Rate 95 05/29/21 01:30 Respiratory Rate 18 05/29/21 01:52 Blood Pressure 109/91 05/29/21 01:30 Pulse Oximetry 97 05/29/21 01:52 MDM - Abdominal Pain MDM Narrative: Medical decision making narrative: Patient is a 20-year-old female comes to the ED with abdominal pain, nausea/vomiting and diarrhea. Symptoms began well for the past week. Vital stable. Patient has some periumbilical abdominal tenderness. Rest of exam is benign. White blood cell count 12.7 the rest of CBC, CMP lipase were unremarkable. UA unremarkable. hCG negative. CT of abdomen pelvis showed mesenteric adenitis. Patient was given 1 L of IV fluids, Zofran and morphine help with symptoms. Patient was diagnosed with mesenteric adenitis and viral syndrome and discharged home with a prescription for dicyclomine and Zofran. She was told to follow-up with PCP in 5 to 7 days for reevaluation. Return to ED precautions given. Patient understood agree with plan. Lab Data: Attestation: I reviewed the patient's lab results. Labs: Lab Results 05/28/21 05/29/21 05/29/21 23:20 00:34 00:34 WBC 12.7 10^3/uL H 10 ^3/uL (4.0-10.0) RBC 5.24 10^6/uL 10^6 /uL (4.1-5.3) Hgb 14.4 g/dL g/dL (11.5-15.3) Hct 43.9 % % (37.0-47.0) MCV 83.8 fl fl (81-99) MCH 27.5 pg L pg (28.0-34.0) MCHC 32.8 g/dL g/dL (30.0-36.0) RDW 14.2 % % (12.1-15.1) Plt Count 518 10^3/cmm H 10 ^3/cmm (130-400) MPV 9.9 fL fL (7.4-10.4) Neut % (Auto) 68.6 % % Lymph % (Auto) 23.7 % % [place] % (Auto) 5.8 % % Eos % (Auto) 1.3 % % Baso % (Auto) 0.2 % % Neut # (Auto) 8.70 10^3/uL H 10 ^3/uL (1.8-7.7) Lymph # (Auto) 3.0 10^3/uL 10^3/ uL (0.8-4.8) [place] # (Auto) 0.7 10^3/uL 10^3/ uL (0.2-0.9) Eos # (Auto) 0.2 10^3/uL 10^3/ uL (0.0-0.8) Baso # (Auto) 0.0 10^3/uL 10^3/ uL (0.0-0.1) Nucleated RBC % (a uto) 0 % % Nucleated RBCs # 0.0 /100WBC /100W BC Sodium 136 mmol/L mmol/L (136-145) Potassium 3.8 mmol/L mmol/L (3.5-5.1) Chloride 100 mmol/L mmol/L (98-107) Carbon Dioxide 25 mmol/L mmol/L (22-29) Anion Gap 14.8 (5-19) BUN 11 mg/dL mg/dL (6-20) Creatinine 0.7 mg/dL mg/dL (0.5-0.9) GFR Calculation 105.6 mL/min mL/m in (90-130) Glucose 108 mg/dL mg/dL (65-115) Calculated Osmolal ity 282 mOsm/kg L mOs m/kg (285-295) Calcium 8.7 mg/dL mg/dL (8.5-10.5) Total Bilirubin 0.4 mg/dL mg/dL (0.15-1.2) AST 12 U/L U/L (0-32) ALT 15 U/L U/L (0-33) Alkaline Phosphata se 84 IU/L IU/L (35-105) Total Protein 7.9 g/dL g/dL (6.6-8.7) Albumin 4.2 g/dL g/dL (3.5-5.2) Globulin 3.7 g/dL g/dL (1.3-4.6) Lipase 41 U/L U/L (13-60) HCG, Qual Urine Color Yellow (Yellow) Urine Appearance Clear (CLEAR) Urine pH 5 (5-7) Ur Specific [place] 1.030 (1.005-1.030) Urine Protein Neg (Negative) Urine Glucose (UA) Norm (Normal) Urine Ketones Negative (Negative) Urine Blood Neg (Negative) Urine Nitrate Negative (Negative) Urine Bilirubin 1+ H (Negative) Urine Urobilinogen 1 mg/dL H mg/dL (Negative) Ur Leukocyte Janice ase Negative (Negative) 05/29/21 00:34 WBC RBC Hgb Hct MCV MCH MCHC RDW Plt Count MPV Neut % (Auto) Lymph % (Auto) [place] % (Auto) Eos % (Auto) Baso % (Auto) Neut # (Auto) Lymph # (Auto) [place] # (Auto) Eos # (Auto) Baso # (Auto) Nucleated RBC % (a uto) Nucleated RBCs # Sodium Potassium Chloride Carbon Dioxide Anion Gap BUN Creatinine GFR Calculation Glucose Calculated Osmolal ity Calcium Total Bilirubin AST ALT Alkaline Phosphata se Total Protein Albumin Globulin Lipase HCG, Qual Negative (Negative) Urine Color Urine Appearance Urine pH Ur Specific [place] y Urine Protein Urine Glucose (UA) Urine Ketones Urine Blood Urine Nitrate Urine Bilirubin Urine Urobilinogen Ur Leukocyte Janice ase Imaging Data ^: CT Abd/Pel: Attestation: I personally reviewed and interpreted this imaging study as follows: Radiologist's impression: [address] [address] [address] Scan Report Signed Patient: An Villarreal Unit #: [id number] : 2000 Age/Sex: 20 / F ADM Date: 05/28/21 Loc: ER Room/Bed: Attending Dr: Ordering Provider/Ordering MD: Blaine Kahn Date of Service: 05/29/21 Procedure(s): CT abdomen pelvis w con* [id number] Accession Number(s): [id number] Report Number: [id number] PROCEDURE INFORMATION: Exam: CT Abdomen And Pelvis With Contrast Exam date and time: 05/29/2021 1:34 AM Age: 20 years old Clinical indication: Abdominal pain; Epigastric; Additional info: Abdominal pain, n/v/d TECHNIQUE: Imaging protocol: Computed tomography of the abdomen and pelvis with contrast. Radiation optimization: All CT scans at this facility use at least one of these dose optimization techniques: automated exposure control; mA and/or kV adjustment per patient size (includes targeted exams where dose is matched to clinical indication); or iterative reconstruction. Contrast material: VISI; Contrast volume: 95 ml; Contrast route: INTRAVENOUS (IV); COMPARISON: CT abdomen pelvis w con* [id number] 08/22/2020 3:19 PM RADIATION DOSE METRICS: Total DLP (mGy-cm): 1804.42 FINDINGS: Liver: Normal. No mass. Gallbladder and bile ducts: Normal. No calcified stones. No ductal dilation. Pancreas: Normal. No ductal dilation. Spleen: Normal. No splenomegaly. Adrenal glands: Normal. No mass. Kidneys and ureters: Normal. No hydronephrosis. Stomach and bowel: Unremarkable. No obstruction. No mucosal thickening. Appendix: No evidence of appendicitis. Intraperitoneal space: Unremarkable. No free air. No significant fluid collection. Vasculature: Unremarkable. No abdominal aortic aneurysm. Lymph nodes: There is mild hazy stranding in the mid abdominal mesentery with scattered reactive lymph nodes consistent with probable mesenteric adenitis. Urinary bladder: Unremarkable as visualized. Reproductive: Unremarkable as visualized. Bones/joints: Unremarkable. No acute fracture. Soft tissues: Unremarkable. CT/CT abdomen pelvis w con* [id number] IMPRESSION: Probable mesenteric adenitis. No other acute abnormality. Dictated By: Marino Linares MD Signed By: Marino Linares MD Signed Date/Time: 05/29/21233 DD/ 3 Discharge Plan Discharge Patient Disposition: Home Clinical Impression: Mesenteric adenitis, Viral syndrome Condition: Stable Prescriptions: New ondansetron 4 mg tablet,disintegrating 4 mg PO Q8H Qty: 15 RF: 0 dicyclomine 20 mg tablet 20 mg PO QID PRN (Reason: abdominal pain and diarrhea) Qty: 30 RF: 0 No Action famotidine 20 mg tablet 20 mg PO BID 10 Days Qty: 20 RF: 0 gabapentin 300 mg capsule 300 mg PO TID 30 Days Qty: 90 RF: 1 paliperidone 3 mg tablet extended release 24hr 3 mg PO DAILY PRN (Reason: agitation or psychotic thoughts) 14 Days Qty: 14 RF: 2 Invega Sustenna 234 mg/1.5 mL syringe 234 mg IM Q30D 30 Days Qty: 1.5 RF: 2 Discharge Orders: Discharge ED (Routine); Ordered 05/29/21 Ordered By: Blaine Kahn Discharge Diet: Advance as tolerated Discharge Activity: Resume usual activity Patient Instructions: Viral Syndrome (ED), Mesenteric Adenitis (ED) Activity Restrictions/Additional Instructions: Follow-up with medical provider as directed in 5 to 7 days reevaluation. Take medications as prescribed. Drink plenty fluids and stay hydrated. Return to the ER or your medical provider if condition worsens. Please read and understand discharge instructions. Thank you for choosing [facility] for your healthcare needs today. Please realize this is an emergency room and that we are providing you with a medical screening exam and this may not be complete and all inclusive of all the testing and or work up that you may need to determine your ailment or severity of your illness. It is very important that you follow up as instructed or that you return to the Emergency Department should you have concerns or if your condition changes or worsens in any way. Coding Level of Care Code ED Steam Fitter Supervisor for Xin Fwd Exam Comprehensive
[2021-05-29 01:30] VITALS: BP 109/91; PULSE 95; O2SAT 95
--- NOTE | 2021-05-29 01:34 | CTR_ITS ---
PROCEDURE INFORMATION: Exam: CT Abdomen And Pelvis With Contrast Exam date and time: 05/29/2021 1:34 AM Age: 20 years old Clinical indication: Abdominal pain; Epigastric; Additional info: Abdominal pain, n/v/d TECHNIQUE: Imaging protocol: Computed tomography of the abdomen and pelvis with contrast. Radiation optimization: All CT scans at this facility use at least one of these dose optimization techniques: automated exposure control; mA and/or kV adjustment per patient size (includes targeted exams where dose is matched to clinical indication); or iterative reconstruction. Contrast material: VISI; Contrast volume: 95 ml; Contrast route: INTRAVENOUS (IV); COMPARISON: CT abdomen pelvis w con* [id number] 08/22/2020 3:19 PM RADIATION DOSE METRICS: Total DLP (mGy-cm): 1804.42 FINDINGS: Liver: Normal. No mass. Gallbladder and bile ducts: Normal. No calcified stones. No ductal dilation. Pancreas: Normal. No ductal dilation. Spleen: Normal. No splenomegaly. Adrenal glands: Normal. No mass. Kidneys and ureters: Normal. No hydronephrosis. Stomach and bowel: Unremarkable. No obstruction. No mucosal thickening. Appendix: No evidence of appendicitis. Intraperitoneal space: Unremarkable. No free air. No significant fluid collection. Vasculature: Unremarkable. No abdominal aortic aneurysm. Lymph nodes: There is mild hazy stranding in the mid abdominal mesentery with scattered reactive lymph nodes consistent with probable mesenteric adenitis. Urinary bladder: Unremarkable as visualized. Reproductive: Unremarkable as visualized. Bones/joints: Unremarkable. No acute fracture. Soft tissues: Unremarkable. CT/CT abdomen pelvis w con* [id number] IMPRESSION: Probable mesenteric adenitis. No other acute abnormality.
[2021-05-29] MEDS: sodium chloride 0.9% 1,000 ML 999 ML IV (01:48)
[2021-05-29 01:52] VITALS: RESP 18; O2SAT 97
[2021-05-29] MEDS: morphine 4 mg/mL SDV 1 mL IVP (01:52)
[2021-05-29] MEDS: ondansetron 2 mg/ML SDV 2 mL 4 MG IVP (01:52)
[2021-05-29] MEDS: iodixanol 320 mg/mL 100mL Btl IV (02:08)
[2021-05-29 02:57] VITALS: BP 101/69; PULSE 90; RESP 16; O2SAT 97
== END 2021-05-29 02:58 | disposition home or self-care (01) ==
PROVIDERS: Emergency Provider Physician Assistant
DX: I88.0 Nonspecific mesenteric lymphadenitis (principal); B34.9 Viral infection, unspecified; F17.210 Nicotine dependence, cigarettes, uncomplicated
CPT/HCPCS: 74177; 80053; 81003; 83690; 84703; 85025; 96361; 96374; 96375; 99283; J2270; J2405; J7030; Q9967

== ENCOUNTER 2021-08-08 18:54 | Inpatient (IN) | payer MEDICAID, SELFPAY ==
[2021-08-08 19:00] VITALS: BP 145/95; PULSE 108; RESP 16; TEMP 36.7; O2SAT 98; BMI 46.3
--- NOTE | 2021-08-08 19:02 | ED_ITS ---
HPI - Overdose General: Chief Complaint: Overdose Stated Complaint: OVERDOSE Time Seen by Provider: 08/08/21 19:02 History of Present Illness: Ms Villarreal is a 20-year-old lady with significant psychiatric past medical history presents the emergency department due to intentional overdose. She reports that she took approximately 5 x 100 mg tablets of doxepin. She denies other coingestants. Time of ingestion was approximately 10 PM. She reports that she did this with a hope of going to sleep and not waking up. She does have a history of suicide attempts and endorses worsening of depression. She does feel moderately sleepy which has been mildly worsening. She also endorses bilateral leg cramps. Denies other medical complaints at this time. No other specific changes in health, exacerbating, relieving factors identified. Review of Systems General: Reports: 10 or more systems reviewed and unremarkable except in HPI and below PFSH ED PFSH: Medical History Anxiety Borderline personality disorder IBD (inflammatory bowel disease) diarrhea MDD (major depressive disorder) No pertinent past medical history neghx: htn,dm,thyroid,dvt/pe PCP: Mikayla Martínez Post-traumatic stress disorder, chronic Psychiatric care Surgical History History of tonsillectomy (~2017) Family History Grandmother Hypertension Maternal grandmother Breast cancer Paternal grandmother--dx age 50's Diabetes Maternal great grandmother Heart disease Maternal great grandmother Grandfather Diabetes Maternal great grandfather Heart disease Maternal great grandfather Family/Other Stroke Maternal great uncle Denies family history of Colon cancer Ovarian cancer Hyperlipidemia Family history of thyroid problem Uterine cancer Social History Smoking and tobacco status: current every day smoker cigarettes Packs smoked per day: 0.5 Years cigarettes smoked: 6 Quit status (tobacco): not considering quitting Second hand smoke exposure: Yes Alcohol intake: current Alcohol intake frequency: few times a week Alcohol ty pe: hard liquor Lives independently: Yes Marital status: Single History of recent travel: No Current gender identity: Female Additional social history: - Tobacco use: Current everyday smoker; 0.5pk daily Alcohol use: Denies Drug use: Denies Female Reproductive History: Date of last menstrual period: 03/31/21 Physical Exam Const: GENERAL APPEARANCE: cooperative, well developed and other (Mildly somnolent) NUTRITIONAL APPEARANCE: obese HENMT: COMMON NORMALS: normocephalic and atraumatic HEAD & SCALP: normocephalic and atraumatic THROAT: posterior oropharynx normal Eye: COMMON NORMALS: conjunctivae normal CONJUNCTIVA: Yes conjunctivae normal SCLERA: sclerae normal Neck/C-Spine: COMMON NORMALS: supple GENERAL: Yes trachea midline Resp: COMMON NORMALS: normal respiratory effort EFFORT & INSPECTION: Yes able to speak in complete sentences Cardio: COMMON NORMALS: regular rate and regular rhythm RATE: regular rate RHYTHM: regular rhythm GI: COMMON NORMALS: Soft to palpation PALPATION: Yes Soft to palpation and No Tenderness to palpation present (GI) PERCUSSION: normal to percussion Extremity: GENERAL: Yes normal exam except as noted and No edema Neuro: COMMON NORMALS: moves all extremities SENSORIUM/ORIENTATION: No Orientation impaired Psych: COMMON NORMALS: mental status grossly normal and Normal thought process present THOUGHT PROCESS: Normal thought process present Course ED course: - Patient was seen and evaluated by me at bedside - Patient placed on cardiac monitors, IV access obtained - Initial evaluation notable for mild somnolence, exam otherwise as above. Patient endorses goal of completion of suicide as reason for overdose. - Labs notable for minimal leukocytosis. Metabolic panel with minimal hypokalemia, replenishment ordered. Toxic ingestions negative as screened with exception of THC. - Based on exam and history no indication for imaging at this time. - Repeat EKG revealed similar narrow QRS. - Upon serial reexamination after treatment the patient was improved - Based on patient history, evaluation, labs, and imaging as interpreted the most likely cause of the patient's condition is suicide attempt by overdose - Based on ED evaluation at this point there is no obvious condition that would preclude the patient from inpatient management of psychiatric concerns. - Discussed with psychiatry service who agreed to admit the patient. Note: Click bubbles or prepopulated danielle in note writing are used for assistance with data collection and billing and are inherently more limited than narrative and other text portions of this note. Please use narrative for additional clinical history and defer to narrative/free test for any case of contradictory information. If information appears in only free text or click bubble it should be considered present or absent as reported. Please contact note program writer for clarifications of clinical information or contradictory information. MDM is a brief summary, contradictory or erroneous seeming information should be clarified and full note should be reviewed. Vital Signs: Vital signs: Vital Signs Temperature 98.7 F 08/11/21 20:50 Pulse Rate 72 08/12/21 18:35 Respiratory Rate 18 08/12/21 18:35 Blood Pressure 118/82 08/12/21 18:35 Pulse Oximetry 98 08/12/21 18:35 MDM - Overdose Medical Decision Making 20-year-old lady presenting with suicide attempt by 5 100 mg tablets of doxepin. Admitted to psychiatry unit in satisfactory condition for definitive ma nagement. Medical Records I reviewed the patient's medical records. Lab Data I reviewed the patient's lab results. : 08/08/21 19:59 08/08/21 19:59 Laboratory Results WBC 10.2 10^3/uL (4.0-10.0) H 08/08/21 19:59 RBC 4.45 10^6/uL (4.1-5.3) 08/08/21 19:59 Hgb 12.3 g/dL (11.5-15.3) 08/08/21 19:59 Hct 37.4 % (37.0-47.0) 08/08/21 19: MCV 84.0 fl (81-99) 08/08/21 19:59 MCH 27.6 pg (28.0-34.0) L 08/08/21 19: MCHC 32.9 g/dL (30.0-36.0) 08/08/21 19: RDW 12.8 % (12.1-15.1) 08/08/21 19:59 Plt Count 374 10^3/cmm (130-400) 08/08/21 19:59 MPV 9.6 fL (7.4-10.4) 08/08/21 19: Neut % (Auto) 57.1 % 08/08/21 19:59 Lymph % (Auto) 35.6 % 08/08/21 19:59 [place] % (Auto) 6.0 % 08/08/21 19:59 Eos % (Auto) 0.7 % 08/08/21 19:59 Baso % (Auto) 0.4 % 08/08/21 19:59 Neut # (Auto) 5.82 10^3/uL (1.8-7.7) 08/08/21 19:59 Lymph # (Auto) 3.6 10^3/uL (0.8-4.8) 08/08/21 19:59 [place] # (Auto) 0.6 10^3/uL (0.2-0.9) 08/08/21 19:59 Eos # (Auto) 0.1 10^3/uL (0.0-0.8) 08/08/21 19:59 Baso # (Auto) 0.0 10^3/uL (0.0-0.1) 08/08/21 19:59 Nucleated RBC % (auto) 0 % 08/08/21:59 Nucleated RBCs # 0.0 /100WBC 08/08/21 19:59 Sodium 140 mmol/L (136-145) 08/08/21 19:59 Potassium 3.4 mmol/L (3.5-5.1) L 08/08/21 19:59 Chloride 106 mmol/L (98-107) 08/08/21 19:59 Carbon Dioxide 23 mmol/L (22-29) 08/08/21 19:59 Anion Gap 14.4 (5-19) 08/08/21 19:59 BUN 10 mg/dL (6-20) 08/08/21 19:59 Creatinine 0.6 mg/dL (0.5-0.9) 08/08/21 19:59 GFR Calculation 126.2 mL/min (90-130) 08/08/21 19:59 Glucose 99 mg/dL (65-115) 08/08/21 19:59 Calculated Osmolality 289 mOsm/kg (285-295) 08/08/21 19:59 Calcium 8.7 mg/dL (8.5-10.5) 08/08/21 19:59 Magnesium 1.9 mg/dL (1.7-2.3) 08/08/21 19:59 Total Bilirubin 0.2 mg/dL (0.15-1.2) 08/08/21 19:59 AST 15 U/L (0-32) 08/08/21 19:59 ALT 16 U/L (0-33) 08/08/21 19:59 Alkaline Phosphatase 73 IU/L (35-105) 08/08/21 19:59 Total Protein 6.8 g/dL (6.6-8.7) 08/08/21 19:59 Albumin 3.6 g/dL (3.5-5.2) 08/08/21 19:59 Globulin 3.2 g/dL (1.3-4.6) 08/08/21 19:59 TSH 2.65 uIU/mL (0.27-4.20) 08/08/21 19:59 Prolactin 84.53 ng/mL (4.8-23.3) H 08/08/21 19:59 HCG, Qual Negative (Negative) 08/08/21 19:20 Urine Color Yellow (Yellow) 08/08/21 19:20 Urine Appearance Clear (CLEAR) 08/08/21 19:20 Urine pH 7 (5-7) 08/08/21 19:20 Ur Specific [place] 1.005 (1.005-1.030) 08/08/21 19:20 Urine Protein Neg (Negative) 08/08/21 19:20 Urine Glucose (UA) Norm (Normal) 08/08/21 19:20 Urine Ketones Negative (Negative) 08/08/21 19:20 Urine Blood Neg (Negative) 08/08/21 19:20 Urine Nitrate Negative (Negative) 08/08/21 19:20 Urine Bilirubin Neg (Negative) 08/08/21 19:20 Urine Urobilinogen Neg mg/dL (Negative) 08/08/21 19:20 Ur Leukocyte Esterase Negative (Negative) 08/08/21 19:20 Salicylates < 0.3 mg/dL (3-10) L 08/08/21 19:59 Urine Opiates Screen Negative ng/mL (Negative) 08/08/21 19:20 Acetaminophen < 5.0 ug/mL (10-30) L 08/08/21 19:59 Ur Barbiturates Screen Negative ng/mL (Negative) 08/08/21 19:20 Ur Phencyclidine Scrn Negative ng/mL (Negative) 08/08/21 19:20 Ur Amphetamines Screen Negative ng/mL (Negative) 08/08/21 19:20 U Benzodiazepines Scrn Negative ng/mL (Negative) 08/08/21 19:20 Urine Cocaine Screen Negative ng/mL (Negative) 08/08/21 19:20 U Marijuana (THC) Screen Positive ng/mL (Negative) H 08/08/21 19:20 Ethyl Alcohol < 10 mg/dL (0-10) 08/08/21 19:59 EKG Data EKG 2: I personally reviewed and interpreted this EKG as follows: EKG interpretation date: 09/05/21 EKG interpretation time: 20:45 Interpretation: Twelve-lead EKG shows a regular rhythm at a rate of 67. DE interval 155, QRS duration 95, QTc 431. Normal axis. Interpretation: Sinus rhythm. Nonspecific ST segment abnormalities. EKG 1: I personally reviewed and interpreted this EKG as follows: EKG interpretation date: 09/05/21 EKG interpretation time: 19:40 Interpretation: Twelve-lead EKG shows a regular rhythm at a rate of 87. DE interval 161, QRS duration 94, QTc 421. Normal axis. Interpretation: Sinus rhythm, nonspecific ST segment abnormalities Discharge Plan Discharge Patient Disposition: Admitted As Inpatient Admit Provider: Gaetano Gurrola Clinical Impression: Suicide attempt by drug overdose Condition: Stable Discharge Diet: Usual diet Discharge Activity: Resume usual activity Coding Level of Care Code ED Instrument Person for Xin Domínguez
--- NOTE | 2021-08-08 19:03 | ECG_ITS ---
[facility] Test Date: 2021-08-08 Pat Name: An Villarreal Department: Room: Gender: Female Doctor Of Osteopathy: : 2000 Requested By: Willian Potter Order Number: [id number] Jason MD: Eloisa Guzman M.D. Measurements Intervals [place] Rate: 87 P: 41 SC: 161 QRS: 37 QRSD: 94 T: 28 QT: 376 QTc: 454 Interpretive Statements SINUS RHYTHM Compared to ECG 05/21/2021 22:43:08 Sinus tachycardia no longer present T-wave abnormality no longer present Electronically Signed On 08-08-2021 20:36:35 TURBINE ASSEMBLER by Eloisa Guzman M.D. [id number]
--- NOTE | 2021-08-08 19:30 | PC.NURSE ---
Pt arrives to ED c/o Doxepin OD. This RN called poison control, who reports the following: Doxepin peaks in 3.5hrs with a half life of 30hrs. It can possibly cause widened QRS and prolonged QT intervals. Bicarb may be used as needed for this. It is also recommended to check a Mag level with the CMP . This was reported to Dr. Potter and the primary RN Brooke.
[2021-08-08 19:40] VITALS: BP 125/70; PULSE 99; RESP 21; O2SAT 93
[2021-08-08 19:51] LABS: HCG Qualitative Urine. Negative (Negative)
[2021-08-08 19:52] LABS: Add Urine Microscopic? NO; Charge for UA Resulting for Rev
[2021-08-08 20:02] VITALS: BP 132/63; PULSE 86; RESP 20; O2SAT 96
[2021-08-08 20:03] LABS: Amphetamines Screen Urine Negative (Negative); Barbiturates Screen Urine Negative (Negative); Benzodiazepines Screen Urine Negative (Negative); Cocaine Screen Urine Negative (Negative); Opiate Screen Urine Negative (Negative); PCP Screen Urine Negative (Negative); THC Screen Urine Positive (Negative)
[2021-08-08 20:04] LABS: Bilirubin Urine Neg (Negative); Blood Urine Neg (Negative); Glucose Urine UA Norm (Normal); Ketones Urine Negative (Negative); Leukocyte Esterase Urine Negative (Negative); Nitrate Urine Negative (Negative); Protein Urine Neg (Negative); Specific Gravity, Urine 1.005 (1.005-1.030); Urine Appearance Clear (CLEAR); Urine Color Yellow (Yellow); Urobilinogen Urine Neg (Negative); pH Urine 7 (5-7)
--- NOTE | 2021-08-08 20:05 | PC.NURSE ---
PT MOTHER UPDATED ON PT SITUATION.
[2021-08-08 20:06] LABS: Basophils % 0.4 %; Eosinophils # 0.1 10^3/uL (0.0-0.8); Eosinophils % 0.7 %; Hematocrit 37.4 % (37.0-47.0); Hemoglobin 12.3 g/dL (11.5-15.3); Lymphocytes # 3.6 10^3/uL (0.8-4.8); Lymphocytes % 35.6 %; Mean Corpuscular HGB Conc 32.9 g/dL (30.0-36.0); Mean Corpuscular Hemoglobin 27.6 pg (28.0-34.0); Mean Platelet Volume 9.6 fL (7.4-10.4); Monocytes # 0.6 10^3/uL (0.2-0.9); Neutrophils # 5.82 10^3/uL (1.8-7.7); Neutrophils % 57.1 %; Nucleated Red Blood Cells % 0 %; Platelet Count 374 10^3/cmm (130-400); Red Blood Count 4.45 10^6/uL (4.1-5.3); Red Cell Distribution Width 12.8 % (12.1-15.1); White Blood Count 10.2 10^3/uL (4.0-10.0)
[2021-08-08 20:42] LABS: Alanine Aminotransferase 16 U/L (0-33); Albumin Level 3.6 g/dL (3.5-5.2); Alkaline Phosphatase 73 IU/L (35-105); Aspartate Amino Transferase 15 U/L (0-32); Blood Urea Nitrogen 10 mg/dL (6-20); Calcium 8.7 mg/dL (8.5-10.5); Carbon Dioxide 23 mmol/L (22-29); Chloride 106 mmol/L (98-107); Creatinine Clr Calc Pharmacy 177.8638; Globulin 3.2 g/dL (1.3-4.6); Glomerular Filtration Rate 126.2 mL/min (90-130); Glucose 99 mg/dL (65-115); Magnesium 1.9 mg/dL (1.7-2.3); Osmolality Calculated 289 mOsm/kg (285-295); Sodium 140 mmol/L (136-145); Thyroid Stimulating Hormone 2.65 uIU/mL (0.27-4.20); Total Bilirubin 0.2 mg/dL (0.15-1.2); Total Protein 6.8 g/dL (6.6-8.7)
[2021-08-08 20:43] LABS: Acetaminophen < 5.0 ug/mL (10-30); Alcohol Level < 10 mg/dL (0-10); Anion Gap 14.4 (5-19); Potassium 3.4 mmol/L (3.5-5.1); Salicylate < 0.3 mg/dL (3-10)
--- NOTE | 2021-08-08 21:03 | ECG_ITS ---
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 Measurements Intervals [place] Rate: 67 P: 27 [place]: 155 QRS: 31 QRSD: 95 T: 27 QT: 415 QTc: 440 Interpretive Statements SINUS RHYTHM WITH SINUS ARRHYTHMIA Compared to ECG 08/08/2021 19:37:43 No significant changes Electronically Signed On 08-09-2021 20:08:37 ENDOSCOPE TECHNICIAN by Daniella Velasquez M.D. [id number]
--- NOTE | 2021-08-08 23:05 | ECG_ITS ---
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 Measurements Intervals [place] Rate: 62 P: 20 NE: 172 QRS: 25 QRSD: 96 T: 18 QT: 440 QTc: 449 Interpretive Statements SINUS RHYTHM WITH SINUS ARRHYTHMIA Compared to ECG 08/08/2021 22:39:36 No significant changes Electronically Signed On 08-09-2021 20:10:28 STEEL HANGER by Daniella Velasquez M.D. [id number]
[2021-08-09] MEDS: potassium chloride ER 20 mEq Tablet 40 MEQ PO (00:16)
[2021-08-09 01:08] VITALS: BP 110/85; PULSE 72; RESP 20; O2SAT 96
[2021-08-09 01:10] VITALS: BP 91/66; PULSE 84; RESP 18; TEMP 36.5; O2SAT 97
[2021-08-09 05:44] VITALS: BP 100/54; PULSE 58; RESP 20; TEMP 36.6; O2SAT 99
--- NOTE | 2021-08-09 11:59 | P.NPUHP_ITS ---
Providers/Chief Complaint Admitting Physician: Gaetano Gurrola MD Chief Complaint: OVERDOSE HPI NPU History of Present Illness An Villarreal is a 20 year old female Admitted through our emergency department for a high suicide attempt by overdose. The Emergency Department smell is not tested at this time and only contract is available. She was recently discharged from here in May with the following report: Discharge Diagnosis (1) Drug overdose: ?Status:?Acute ?Qualifiers: ?Encounter type:?initial encounter??Injury intent:?intentional self-harm? Qualified Code(s):?T50.902A - Poisoning by unspecified drugs, medicaments and biological substances, intentional self-harm, initial encounter (2) Borderline personality disorder: ?Status:?Chronic (3) Anxiety: ?Status:?Acute (4) MDD (major depressive disorder): ?Status:?Chronic ?Qualifiers: ?Active/Remission status:?remission status unspecified??Major depression recurrence:?recurrent? Qualified Code(s):?F33.9 - Major depressive disorder, recurrent, unspecified (5) Post-traumatic stress disorder, chronic: ?Status:?Chronic Chief Complaint: Overdose Stated Complaint: OD Time Seen by Provider: 05/21/21 22:35 History of Present Illness:?? HPI Narrative: 20-year-old female who says around 10 PM she took unknown amounts of gabapentin, paliperidone, Advil PM, and doxepin.? She says she did this to try to hurt herself.? She has done this in the past. complaint: intentional overdose Onset (ago): minute(s). She was admitted to psychiatric unit for definitive treatment of those issues.? Patient presents today fairly lethargic likely having withdrawal secondary to the drugs from the overdose as there is nothing in her UDS besides cannabis.? Attempted to arouse her before and after lunch with no luck.? She continued to very deeply and snore throughout shaking and being spoken to.? She has known to this account underwriter through a previous hospitalization in October of this year and so an excerpt of that stay is included below for context.? Since the time she has been quite involved at [facility] with consistent adherence to appointments with a diagnosis of borderline personality disorder.? We will continue to try to converse with her today. Per her 10/19/2020 [facility] inpatient psychiatric evaluation: History of Present Illness An Villarreal is a 19 year old female who presented to the emergency department with the following report: Chief Complaint: Psychiatric Symptoms Stated Complaint: SI Time Seen by Provider: 10/18/20 14:44 Source: patient, RN notes reviewed and old records reviewed Limitations: no limitations History of Present Illness:?? HPI Narrative: 19-year-old female with a history of psychiatric disease and borderline personality disorder presents with chief complaint of anxiety and depression which are chronic with acute suicidal thoughts.? Patient reports that she frequently has suicidal thoughts but as of recently they have been increasing.? Today she had a panic attack and was going to overdose on all of her psychiatric medication.? However, she was in contact with her therapist who called the crisis center and the crisis center called an ambulance to come and get her. Associated symptoms: Reports depression and suicidal ideation; Deny auditory hallucinations, visual hallucinations or homicidal ideation. She was admitted to the neuropsychiatric unit for definitive treatment of those issues.? She presents today known to this account underwriter from previous inpatient stays and present a very similar presentation.? She endorses distress and very serious tone but observation and interactions with other people show very labile presentations ranging from giddy and happy to significant distress.? She did endorse having significant psychosocial stressors including a family member being quite sick and some possible health problems of her own.? She reports that she is supposedly getting a scope and that they have significant concerns for Crohn's or UC.? We discussed the risks, benefits and alternatives of increasing her Lexapro and initiating propranolol as she denies Vistaril being helpful and she understood and agreed to proceed as is documented in this note.? Otherwise she denies substantive changes and so we reviewed information from her last inpatient hospitalization in February 2020 and an excerpt is included for context. She was admitted to the neuropsychiatry unit because of suicidal ideation and attempts. She says that the lithium was helping but it was discontinued at the last hospitalization in May because she had a tremor of her hands. She said that she is having difficulty with the Invega and has had milk leakage from her breasts recently. She has an appointment to evaluate that. She says that it is still happening. Her suicidal ideation has been worse recently. She says that her anxiety is very bad. She has tried just about every antidepressant but none of them have worked. She does not know the doses of any of them. She agreed to start with Lexapro and was told that it would probably need to be increased to 40 mg before it was helpful for anxiety. He can at the lithium but it usually does not work and was there is a good dose of antidepressant present. She felt it was working well with just the Invega previously. She requested to start it back. Meds NPU Home Medications Medication Instructions Recorded Confirmed Last Taken Type paliperidone palmitate 234 mg/1.5 234 mg (1.5 mL) IM Q30D 30 Days 05/25/21 Unknown Rx mL intramuscular syringe (Invega #1.5 ml Sustenna) Allergies Allergy/AdvReac Type Severity Reaction Status Date / Time hydromorphone [From Dilaudid] Allergy Mild dizziness, Verified 05/21/21 22:44 SOB, upset stomach lorazepam [From Ativan] Allergy ADR-Shakine Verified 05/21/21 22:44 ss PFSH NPU PFSH: Medical History Anxiety Borderline personality disorder IBD (inflammatory bowel disease) diarrhea MDD (major depressive disorder) No pertinent past medical history neghx: htn,dm,thyroid,dvt/pe PCP: Mikayla Martínez Post-traumatic stress disorder, chronic Psychiatric care Surgical History History of tonsillectomy (~2017) Family History Grandmother Hypertension Maternal grandmother Breast cancer Paternal grandmother--dx age 50's Diabetes Maternal great grandmother Heart disease Maternal great grandmother Grandfather Diabetes Maternal great grandfather Heart disease Maternal great grandfather Family/Other Stroke Maternal great uncle Denies family history of Colon cancer Ovarian cancer Hyperlipidemia Family history of thyroid problem Uterine cancer Social History Smoking and tobacco status: current every day smoker cigarettes Packs smoked per day: 0.5 Years cigarettes smoked: 6 Quit status (tobacco): not considering quitting Second hand smoke exposure: Yes Alcohol intake: current Alcohol intake frequency: few times a week Alcohol type: hard liquor Lives independently: Yes Marital status: Single History of recent travel: No Current gender identity: Female Additional social history: - Tobacco use: Current everyday smoker; 0.5pk daily Alcohol use: Denies Drug use: Denies Mental Status Exam MSE Comments: This is a obese 20-year-old female who appears approximately her stated age and is in no acute distress. He is in bed after lunch but woke up easily. She is dressed in hospital scrubs psychomotor activity mildly decreased. Speech is at a regular rate and rhythm, normal volume, good articulation, not pressured. Alert, oriented X3 Attention and concentration appears to be average. Memory is intact Mood is depressed. Affect is mildly dysphoric. Thought process is logical and goal-directed. Thought content: Denies auditory and visual hallucinations. No delusions or paranoia are noted. Admits to some continued suicidal ideation today. No homicidal ideation. Fund of knowledge is average. Insight and judgment appear to be poor. Impulse control is poor. Vitals/I&O/Wt Last Vital Signs Temp 98 F 08/09/21 05:44 Pulse 58 L 08/09/21 05:44 Resp 20 H 08/09/21 05:44 BP 100/54 08/09/21 05:44 Pulse Ox 99 08/09/21 05:44 Weight last 48 hrs Weight 114.759 kg Data NPU : 08/08/21 19:59 08/08/21 19:59 A&P Assessment and plan (1) Borderline personality disorder: Status: Chronic (2) Drug overdose: Status: Acute Qualifiers: Encounter type: initial encounter Injury intent: intentional self-harm Qualified Code(s): T50.902A - Poisoning by unspecified drugs, medicaments and biological substances, intentional self-harm, initial encounter (3) Suicide attempt by drug overdose: Status: Acute (4) Anxiety: Status: Acute Plan This is a 20-year-old female with multiple recent admissions for suicide attempts and ideation and borderline personality disorder. Plan: 1. Discontinue Invega. We will get a prolactin level. Start Lexapro 10 mg and lithium 300 mg twice daily. 2. Continue every 15 minute checks for safety. 3. Encourage individual, group and milieu therapies. 4. Encourage sober living treatment after discharge at the highest level of care to which she is willing to commit. 5. We will monitor for safety for herself in the community prior to discharge. Involuntary Hold Information 96 Hour Hold: 96 Hour Involuntary Admission: Yes 96 Hour Hold Ending Date: 03/09/20 96 Hour Hold Ending Time: 18:00 Attestations NPU Medical Necessity Statement*: Inpatient hospitalization is medically necessary and the clinically appropriate intervention at this time. We will initiate medications and make changes as indicated. She will be in the hospital for over 2 midnights. Likely length of stay 4-6 days Coding Level of Care Code Acute Vice President Of News for [facility] Fwd Diagnoses Borderline personality disorder F60.3 Drug overdose T50.902A Encounter type: initial encounter Injury intent: intentional self-harm Suicide attempt by drug overdose T50.902A Anxiety F41.9
[2021-08-09 13:44] VITALS: BP 118/73; PULSE 75; RESP 17; TEMP 36.8; O2SAT 99
[2021-08-09 14:18] LABS: Prolactin 84.53 ng/mL (4.8-23.3)
[2021-08-09] MEDS: lithium carbonate 300 mg Capsule PO (17:27)
[2021-08-09] MEDS: nicotine 2 mg Gum BUCCAL (17:47)
[2021-08-09 20:30] VITALS: BP 129/68; PULSE 88; RESP 18; TEMP 36.9; O2SAT 97
[2021-08-10 06:00] VITALS: BP 107/77; PULSE 77; RESP 18; TEMP 36.4; O2SAT 98
[2021-08-10] MEDS: escitalopram 10 mg Tablet PO (09:33)
[2021-08-10] MEDS: nicotine 2 mg Gum BUCCAL (09:33)
[2021-08-10] MEDS: lithium carbonate 300 mg Capsule PO ×2 (09:33→17:13)
[2021-08-10] MEDS: OLANZapine 5 mg ODT PO (11:22)
[2021-08-10 14:00] VITALS: BP 126/83; PULSE 76; RESP 18; TEMP 36.6; O2SAT 99
[2021-08-10] MEDS: nicotine 4 mg lozenge MUCOUS MEM ×2 (14:58→19:05)
--- NOTE | 2021-08-10 17:40 | W.PM.NPUPNS ---
Subjective NPU Subjective: Interval history: Patient is in today known to this selling underwriter from previous visits. She reports that she had slept for couple days and then since many of her sleeping pills but not in a plan to overdose or but sleep for couple of days. We discussed the fact that he will sleep for couple days and solidify reasonable plan 20 but that with her history behaviors hard to say was from a nba suicide attempt She agrees and understood how this could be an issue but she reports that she did need to be put on hold and does not believe she needs to be here now. Mental Status Exam MSE Comments: This is a morbidly obese white female in hospital scrubs with appropriate grooming and eye contact.? No abnormal movements.? Cooperative with exam in no acute distress.? Speech was normal rate and volume.? Mood described as pretty good, affect congruent.? Thought process organized.? Thought content: Patient denied suicidal or homicidal ideation, no delusions reported or noted, denied any auditory visual hallucinations.? Attention and concentration were intact and memory appeared reliable but none were formally tested.? She is alert and oriented x3.? Insight and judgment appeared limited, impulse control is limited. Vitals/I&O/Wt Last Vital Signs Temp 98.1 F 08/10/21 21:29 Pulse 85 08/10/21 21:29 Resp 20 H 08/10/21 21:29 BP 113/77 08/10/21 21:29 Pulse Ox 99 08/10/21 21:29 Data NPU : 08/08/21 19:59 08/08/21 19:59 A&P Assessment and plan (1) Suicide attempt by drug overdose: Status: Acute (2) Borderline personality disorder: Status: Chronic (3) Anxiety: Status: Acute (4) Psychiatric care: Status: Acute (5) Post-traumatic stress disorder, chronic: Status: Chronic Plan This is a 20-year-old female with multiple recent admissions for suicide attempts and ideation and borderline personality disorder. Plan: 1.? Discontinue Invega.? We will get a prolactin level.? Started Lexapro 10 mg and lithium 300 mg twice daily. 2.? Continue every 15 minute checks for safety. 3.? Encourage individual, group and milieu therapies. 4.? Encourage sober living treatment after discharge at the highest level of care to which she is willing to commit. 5.? We will monitor for safety prior to discharge back to the community. Involuntary Hold Information 96 Hour Hold: 96 Hour Involuntary Admission: Yes 96 Hour Hold Ending Date: 03/09/20 96 Hour Hold Ending Time: 18:00 Attestations NPU Medical Necessity Statement*: Inpatient hospitalization is medically necessary and the clinically appropriate intervention at this time.? We will initiate medications and make changes as indicated.? Likely length of stay 3-5 days Coding Level of Care Code Acute Auto Glass Worker for [facility] Fwd Diagnoses Suicide attempt by drug overdose T50.902A Borderline personality disorder F60.3 Anxiety F41.9 Psychiatric care Post-traumatic stress disorder, chronic F43.12
[2021-08-10 21:29] VITALS: BP 113/77; PULSE 85; RESP 20; TEMP 36.7; O2SAT 99
[2021-08-10] MEDS: hyDROXYzine 25 mg Capsule 50 MG PO (21:53)
[2021-08-11 06:00] VITALS: BP 111/74; PULSE 62; RESP 20; TEMP 36.5; O2SAT 98
[2021-08-11] MEDS: nicotine 2 mg Gum BUCCAL ×2 (07:18→20:32)
[2021-08-11] MEDS: escitalopram 10 mg Tablet PO (09:31)
[2021-08-11] MEDS: lithium carbonate 300 mg Capsule PO ×2 (09:31→18:41)
[2021-08-11] MEDS: nicotine 4 mg lozenge MUCOUS MEM ×3 (09:31→16:36)
[2021-08-11 14:00] VITALS: BP 129/84; PULSE 93; RESP 16; TEMP 36.7; O2SAT 98
--- NOTE | 2021-08-11 14:19 | W.PM.NPUPNS ---
Subjective NPU Subjective: Interval history: Patient presents today reporting that she is feeling better than when she made the choice to take the medication the other day. She reports that she does not feel like she needs any medication changes and that she does not really feel like she needed to come. She reports that she has no intention to harm herself or harm anyone else and that she really does not want to stay till her 96-hour hold is up on 08/15/2021. We discussed that we would monitor her each day and consider discharge as soon as she appears to be safe. She reports that she will have supports when she returns home and that she is certain that she will be able to avoid repeating any self-harm or suicidal behavior. Mental Status Exam MSE Comments: This is a morbidly obese white female in hospital scrubs with appropriate grooming and eye contact.? No abnormal movements.? Cooperative with exam in no acute distress.? Speech was normal rate and volume.? Mood described as good, affect congruent.? Thought process organized.? Thought content: Patient denied suicidal or homicidal ideation, no delusions reported or noted, denied any auditory or visual hallucinations.? Attention and concentration were intact and memory appeared reliable but none were formally tested.? She is alert and oriented x3.? Insight and judgment appeared limited, impulse control is limited. Vitals/I&O/Wt Last Vital Signs Temp 98.0 F 08/11/21 14:00 Pulse 93 08/11/21 14:00 Resp 16 08/11/21 14:00 BP 129/84 08/11/21 14:00 Pulse Ox 98 08/11/21 14:00 Data NPU : 08/08/21 19:59 08/08/21 19:59 A&P Assessment and plan (1) Suicide attempt by drug overdose: Status: Acute (2) Borderline personality disorder: Status: Chronic (3) Anxiety: Status: Acute (4) MDD (major depressive disorder): Status: Chronic Qualifiers: Major depression recurrence: recurrent Active/Remission status: remission status unspecified Qualified Code(s): F33.9 - Major depressive disorder, recurrent, unspecified (5) Post-traumatic stress disorder, chronic: Status: Chronic (6) Nicotine addiction: Status: Chronic Plan This is a 20-year-old female with multiple recent admissions for suicide attempts and ideation and borderline personality disorder. Plan: 1.? Discontinue Invega.? We will get a prolactin level.? Started Lexapro 10 mg and lithium 300 mg twice daily. 2.? Continue every 15 minute checks for safety. 3.? Encourage individual, group and milieu therapies. 4.? Encourage sober living treatment after discharge at the highest level of care to which she is willing to commit. 5.? We will monitor for safety prior to discharge back to the community. Involuntary Hold Information 96 Hour Hold: 96 Hour Involuntary Admission: Yes 96 Hour Hold Ending Date: 03/09/20 96 Hour Hold Ending Time: 18:00 Attestations NPU Medical Necessity Statement*: Inpatient hospitalization is medically necessary and the clinically appropriate intervention at this time.? We will initiate medications and make changes as indicated.? Likely length of stay 2-4 days Coding Level of Care Code Acute Anthropology Faculty Member for g Fwd Diagnoses Suicide attempt by drug overdose T50.902A Borderline personality disorder F60.3 Anxiety F41.9 MDD (major depressive disorder) F33.9 Major depression recurrence: recurrent Active/Remission status: remission status unspecified Post-traumatic stress disorder, chronic F43.12 Nicotine addiction F17.200
[2021-08-11] MEDS: acetaminophen 325 mg Tablet 650 MG PO (14:50)
[2021-08-11] MEDS: OLANZapine 5 mg ODT PO (16:36)
[2021-08-11] MEDS: ondansetron 4 MG Tablet PO (16:36)
[2021-08-11] MEDS: haloperidol 5 mg Tablet PO (16:36)
[2021-08-11] MEDS: ibuprofen 800 mg tablet PO (16:45)
[2021-08-11] MEDS: blistex lip oint 7 gm Tube 1 APPLIC TOPICAL (19:13)
[2021-08-11] MEDS: trazodone 50 mg Tablet PO (20:32)
[2021-08-11 20:50] VITALS: BP 97/57; PULSE 92; RESP 18; TEMP 37.1; O2SAT 97
--- NOTE | 2021-08-11 22:19 | PC.NURSE ---
2031-C/O insomnia received Trazodone given PO. 2131-Resting in bed with eyes closed.
[2021-08-12 06:00] VITALS: BP 118/82; PULSE 72; RESP 18; O2SAT 98
[2021-08-12] MEDS: nicotine 2 mg Gum BUCCAL (07:39)
[2021-08-12] MEDS: nicotine 4 mg lozenge MUCOUS MEM ×3 (08:18→17:01)
[2021-08-12] MEDS: lithium carbonate 300 mg Capsule PO ×2 (10:00→18:30)
[2021-08-12] MEDS: escitalopram 10 mg Tablet PO (10:00)
[2021-08-12] MEDS: hyDROXYzine 25 mg Capsule 50 MG PO (13:02)
[2021-08-12] MEDS: OLANZapine 5 mg ODT PO (13:02)
--- NOTE | 2021-08-12 18:29 | W.PM.NPUDCS ---
Diagnoses at Discharge Discharge Diagnosis (1) Suicide attempt by drug overdose: Status: Acute (2) Borderline personality disorder: Status: Chronic (3) Anxiety: Status: Acute (4) MDD (major depressive disorder): Status: Chronic Qualifiers: Active/Remission status: remission status unspecified Major depression recurrence: recurrent Qualified Code(s): F33.9 - Major depressive disorder, recurrent, unspecified (5) Post-traumatic stress disorder, chronic: Status: Chronic (6) Nicotine addiction: Status: Chronic Reason for Visit Reason for Visit: OVERDOSE Brief History: History of Present Illness An Villarreal is a 20 year old female Admitted through our emergency department for a high suicide attempt by overdose.? The Emergency Department smell is not tested at this time and only contract is available. She was recently discharged from here in May with the following report: Discharge Diagnosis (1) Drug overdose: ?Status:?Acute ?Qualifiers: ?Encounter type:?initial encounter??Injury intent:?intentional self-harm? Qualified Code(s):?T50.902A - Poisoning by unspecified drugs, medicaments and biological substances, intentional self-harm, initial encounter (2) Borderline personality disorder: ?Status:?Chronic (3) Anxiety: ?Status:?Acute (4) MDD (major depressive disorder): ?Status:?Chronic ?Qualifiers: ?Active/Remission status:?remission status unspecified??Major depression recurrence:?recurrent? Qualified Code(s):?F33.9 - Major depressive disorder, recurrent, unspecified (5) Post-traumatic stress disorder, chronic: ?Status:?Chronic Chief Complaint: Overdose Stated Complaint: OD Time Seen by Provider: 05/21/21 22:35 History of Present Illness:?? HPI Narrative: 20-year-old female who says around 10 PM she took unknown amounts of gabapentin, paliperidone, Advil PM, and doxepin.? She says she did this to try to hurt herself.? She has done this in the past. ?MD complaint: intentional overdose ?Onset (ago): minute(s). ?She was admitted to psychiatric unit for definitive treatment of those issues.? Patient presents today fairly lethargic likely having withdrawal secondary to the drugs from the overdose as there is nothing in her UDS besides cannabis.? Attempted to arouse her before and after lunch with no luck.? She continued to very deeply and snore throughout shaking and being spoken to.? She has known to this medical underwriter through a previous hospitalization in October of this year and so an excerpt of that stay is included below for context.? Since the time she has been quite involved at [facility] with consistent adherence to appointments with a diagnosis of borderline personality disorder.? We will continue to try to converse with her today. ?Per her 10/19/2020 [facility] inpatient psychiatric evaluation: ?History of Present Illness ?An Villarreal is a 19 year old female who presented to the emergency department with the following report: ?Chief Complaint: Psychiatric Symptoms ?Stated Complaint: SI ?Time Seen by Provider: 10/18/20 14:44 ?Source: patient, RN notes reviewed and old records reviewed ?Limitations: no limitations ?History of Present Illness:?? HPI Narrative: 19-year-old female with a history of psychiatric disease and borderline personality disorder presents with chief complaint of anxiety and depression which are chronic with acute suicidal thoughts.? Patient reports that she frequently has suicidal thoughts but as of recently they have been increasing.? Today she had a panic attack and was going to overdose on all of her psychiatric medication.? However, she was in contact with her therapist who called the crisis center and the crisis center called an ambulance to come and get her. ?Associated symptoms: Reports depression and suicidal ideation; ?Deny auditory hallucinations, visual hallucinations or homicidal ideation. ?She was admitted to the neuropsychiatric unit for definitive treatment of those issues.? She presents today known to this medical underwriter from previous inpatient stays and present a very similar presentation.? She endorses distress and very serious tone but observation and interactions with other people show very labile presentations ranging from giddy and happy to significant distress.? She did endorse having significant psychosocial stressors including a family member being quite sick and some possible health problems of her own.? She reports that she is supposedly getting a scope and that they have significant concerns for Crohn's or UC.? We discussed the risks, benefits and alternatives of increasing her Lexapro and initiating propranolol as she denies Vistaril being helpful and she understood and agreed to proceed as is documented in this note.? Otherwise she denies substantive changes and so we reviewed information from her last inpatient hospitalization in February 2020 and an excerpt is included for context. She was admitted to the neuropsychiatry unit because of suicidal ideation and attempts.? She says that the lithium was helping but it was discontinued at the last hospitalization in May because she had a tremor of her hands.? She said that she is having difficulty with the Invega and has had milk leakage from her breasts recently.? She has an appointment to evaluate that.? She says that it is still happening.? Her suicidal ideation has been worse recently.? She says that her anxiety is very bad.? She has tried just about every antidepressant but none of them have worked.? She does not know the doses of any of them.? She agreed to start with Lexapro and was told that it would probably need to be increased to 40 mg before it was helpful for anxiety.? He can at the lithium but it usually does not work and was there is a good dose of antidepressant present.? She felt it was working well with just the Invega previously.? She requested to start it back. Hospital Course Hospital Course She quickly acclimated to the individual, group and milieu therapies provided. She was having some galactorrhea and so the Invega needed at least until can be evaluated with her outpatient team which was already planned. [place] was initiated for 300 mg p.o. twice daily and Lexapro 10 mg p.o. every morning was started for depression and trazodone 50 mg p.o. nightly for sleep. She showed marked improvement. She was able to contract for safety outside the hospital prior to discharge. During the hospitalization, patient had routine laboratory studies which were within normal limits except for few outliers. Additionally there was a general medical evaluation which was also within normal limits and revealed no new acute processes. Discharge Summary: At the time of discharge, she denied psychosis or lethality. Mood and anxiety were well managed. Patient endorsed a plan to avoid all drugs of abuse and follow-up with the aftercare recommendations of the treatment team. Patient was evaluated and deemed to be absent credible lethality, and had achieved the maximum benefit from an inpatient hospitalization, so was discharged. Involuntary Hold Information 96 Hour Hold: 96 Hour Involuntary Admission: Yes 96 Hour Hold Ending Date: 03/09/20 96 Hour Hold Ending Time: 18:00 Mental Status Exam MSE Comments: This is a morbidly obese white female in hospital scrubs with appropriate grooming and eye contact.? No abnormal movements.? Cooperative with exam in no acute distress.? Speech was normal rate and volume.? Mood described as good, affect congruent.? Thought process organized.? Thought content: Patient denied suicidal or homicidal ideation, no delusions reported or noted, denied any auditory or visual hallucinations.? Attention and concentration were intact and memory appeared reliable but none were formally tested.? She is alert and oriented x3.? Insight and judgment appeared limited, impulse control is limited, but improving Discharge Data Studies Completed and Pending: Laboratory Results WBC 10.2 10^3/uL (4.0 -10.0) H 08/08/21 19:59 RBC 4.45 10^6/uL (4.1 -5.3) 08/08/21 19:59 Hgb 12.3 g/dL (11.5-1 5.3) 08/08/21 19:59 Hct 37.4 % (37.0-47.0 ) 08/08/21 19:59 MCV 84.0 fl (81-99) 08/08/21 19:59 MCH 27.6 pg (28.0-34. 0) L 08/08/21 19:59 MCHC 32.9 g/dL (30.0-3 6.0) 08/08/21 19:59 RDW 12.8 % (12.1-15.1 ) 08/08/21 19:59 Plt Count 374 10^3/cmm (130 -400) 08/08/21 19:59 MPV 9.6 fL (7.4-10.4) 08/08/21 19:59 Neut % (Auto) 57.1 % 08/08/21 19:59 Lymph % (Auto) 35.6 % 08/08/21 19:59 [place] % (Auto) 6.0 % 08/08/21 19:59 Eos % (Auto) 0.7 % 08/08/21 19:59 Baso % (Auto) 0.4 % 08/08/21 19:59 Neut # (Auto) 5.82 10^3/uL (1.8 -7.7) 08/08/21 19:59 Lymph # (Auto) 3.6 10^3/uL (0.8- 4.8) 08/08/21 19:59 [place] # (Auto) 0.6 10^3/uL (0.2- 0.9) 08/08/21 19:59 Eos # (Auto) 0.1 10^3/uL (0.0- 0.8) 08/08/21 19:59 Baso # (Auto) 0.0 10^3/uL (0.0- 0.1) 08/08/21 19:59 Nucleated RBC % (a uto) 0 % 08/08/21 19:59 Nucleated RBCs # 0.0 /100WBC 08/08/21 19:59 Sodium 140 mmol/L (136-1 45) 08/08/21 19:59 Potassium 3.4 mmol/L (3.5-5 .1) L 08/08/21 19:59 Chloride 106 mmol/L (98-10 7) 08/08/21 19:59 Carbon Dioxide 23 mmol/L (22-29) 08/08/21 19:59 Anion Gap 14.4 (5-19) 08/08/21 19:59 BUN 10 mg/dL (6-20) 08/08/21 19:59 Creatinine 0.6 mg/dL (0.5-0. 9) 08/08/21 19:59 GFR Calculation 126.2 mL/min (90- 130) 08/08/21 19:59 Glucose 99 mg/dL (65-115) 08/08/21 19:59 Calculated Osmolal ity 289 mOsm/kg (285- 295) 08/08/21 19:59 Calcium 8.7 mg/dL (8.5-10 .5) 08/08/21 19:59 Magnesium 1.9 mg/dL (1.7-2. 3) 08/08/21 19:59 Total Bilirubin 0.2 mg/dL (0.15-1 .2) 08/08/21 19:59 AST 15 U/L (0-32) 08/08/21 19:59 ALT 16 U/L (0-33) 08/08/21 19:59 Alkaline Phosphata se 73 IU/L (35-105) 08/08/21 19:59 Total Protein 6.8 g/dL (6.6-8.7 ) 08/08/21 19:59 Albumin 3.6 g/dL (3.5-5.2 ) 08/08/21 19:59 Globulin 3.2 g/dL (1.3-4.6 ) 08/08/21 19:59 TSH 2.65 uIU/mL (0.27 -4.20) 08/08/21 19:59 Prolactin 84.53 ng/mL (4.8- 23.3) H 08/08/21 19:59 HCG, Qual Negative (Negati ve) 08/08/21 19:20 Urine Color Yellow (Yellow) 08/08/21 19:20 Urine Appearance Clear (CLEAR) 08/08/21 19:20 Urine pH 7 (5-7) 08/08/21 19:20 Ur Specific Gravit y 1.005 (1.005-1.0 30) 08/08/21 19:20 Urine Protein Neg (Negative) 08/08/21 19:20 Urine Glucose (UA) Norm (Normal) 08/08/21 19:20 Urine Ketones Negative (Negati ve) 08/08/21 19:20 Urine Blood Neg (Negative) 08/08/21 19:20 Urine Nitrate Negative (Negati ve) 08/08/21 19:20 Urine Bilirubin Neg (Negative) 08/08/21 19:20 Urine Urobilinogen Neg mg/dL (Negati ve) 08/08/21 19:20 Ur Leukocyte Janice ase Negative (Negati ve) 08/08/21 19:20 Salicylates < 0.3 mg/dL (3-10 ) L 08/08/21 19:59 Urine Opiates Scre en Negative ng/mL (N egative) 08/08/21 19:20 Acetaminophen < 5.0 ug/mL (10-3 0) L 08/08/21 19:59 Ur Barbiturates Sc reen Negative ng/mL (N egative) 08/08/21 19:20 Ur Phencyclidine S crn Negative ng/mL (N egative) 08/08/21 19:20 Ur Amphetamines Sc reen Negative ng/mL (N egative) 08/08/21 19:20 U Benzodiazepines Scrn Negative ng/mL (N egative) 08/08/21 19:20 Urine Cocaine Scre en Negative ng/mL (N egative) 08/08/21 19:20 U Marijuana (THC) Screen Positive ng/mL (N egative) H 08/08/21 19:20 Ethyl Alcohol < 10 mg/dL (0-10) 08/08/21 19:59 Vitals: Last Vital Signs Temp 98.7 F 08/11/21 20:50 Pulse 72 08/12/21 06:00 Resp 18 08/12/21 06:00 BP 118/82 08/12/21 06:00 Pulse Ox 98 08/12/21 06:00 Discharge Plan Discharge Patient Disposition: Home Condition: Stable Prescriptions: New lithium carbonate 300 mg Capsule 300 mg PO BID 30 Days Qty: 60 1RF escitalopram oxalate 10 mg Tablet 10 mg PO DAILY 30 Days Qty: 30 1RF trazodone 50 mg Tablet 50 mg PO BEDTIME PRN (Reason: Sleep) 30 Days Qty: 30 1RF Discontinued Invega Sustenna 234 mg/1.5 mL syringe 234 mg IM Q30D 30 Days Qty: 1.5 2RF Rx Instructions: One injection IM monthly at clinic Discharge Orders: Discharge Order (Routine); Ordered 08/12/21 Ordered By: Zeb Ramirez Discharge Diet: Usual diet Discharge Activity: Resume usual activity Patient Instructions: Opioid Safety Discharge Attestations NPU Time Spent in Discharge Care*: less than 30 min Specific Discharge Activities: Specific discharge activities: educating patient, discussing with case investigator/social workers/dc planners, documenting/other paperwork and evaluating patient/reviewing data Status at Discharge: Cognitive status at discharge: cognitively intact, Behavioral status at discharge: cooperative, Coding Level of Care Code [facility] DC note Diagnoses Suicide attempt by drug overdose T50.902A Borderline personality disorder F60.3 Anxiety F41.9 MDD (major depressive disorder) F33.9 Active/Remission status: remission status unspecified Major depression recurrence: recurrent Post-traumatic stress disorder, chronic F43.12 Nicotine addiction F17.200
[2021-08-12 18:35] VITALS: BP 118/82; PULSE 72; RESP 18; O2SAT 98
== END 2021-08-12 18:57 | disposition home or self-care (01) | DRG 918 ==
LOC: ER 08-09 00:06 → NP 08-09 00:17
PROVIDERS: Admitting Provider Psychiatry & Neurology Psychiatry; Emergency Provider Emergency Medicine; Visit Provider Psychiatry & Neurology Psychiatry
DX: T43.012A Poisoning by tricyclic antidepressants, intentional self-harm, initial encounter (principal); Z68.42 Body mass index [BMI] 45.0-49.9, adult; F32.9 Major depressive disorder, single episode, unspecified; F41.9 Anxiety disorder, unspecified; F60.3 Borderline personality disorder; K58.0 Irritable bowel syndrome with diarrhea; F43.12 Post-traumatic stress disorder, chronic; F17.210 Nicotine dependence, cigarettes, uncomplicated; E66.01 Morbid (severe) obesity due to excess calories
CPT/HCPCS: 80053; 80306; 80307; 81003; 81025; 83735; 84146; 84443; 85025; 93005; 97150; 97165; 99285; Q0162

== ENCOUNTER → 2021-09-14 15:30 | Outpatient (BNVA) | payer MEDICAID, SELFPAY | PROVIDERS: Visit Provider Nurse Practitioner Women's Health | DX: Z12.4 Encounter for screening for malignant neoplasm of cervix (principal); N64.3 Galactorrhea not associated with childbirth; N92.6 Irregular menstruation, unspecified | CPT/HCPCS: 88175 ==

== ENCOUNTER 2022-05-13 15:18 | Inpatient (IN) | payer MEDICAID, SELFPAY ==
--- NOTE | 2022-05-13 15:21 | W.ED.PSYCHS ---
HPI - Psych General: Chief Complaint: Psychiatric Symptoms Stated Complaint: SI Time Seen by Provider: 05/13/22 15:20 History of Present Illness: Ms Villarreal is a 21-year-old female with history of psychiatric disorder presenting to the emergency department due to depression with suicidal ideation. Law enforcement was called as the patient was holding a knife to her neck. She reported to them wish to . Symptoms of been worsening for some period of time. 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 Intensity symptoms is moderate to severe. Course is worsened. She reports no longer taking her psychiatric medications though is unsure of how long ago. Onset (ago): day(s) Duration: getting worse History of same: Yes Context: recent drug abuse and not taking psychiatric medications Associated psychiatric symptoms: depression, suicidal ideation and racing thoughts Review of Systems General: Reports: 10 or more systems reviewed and unremarkable except in HPI and below PFSH ED PFSH: Medical History Anxiety Borderline personality disorder managed by [facility] Chlamydia IBD (inflammatory bowel disease) diarrhea MDD (major depressive disorder) No pertinent past medical history neghx: htn,dm,thyroid,dvt/pe PCP: Mikayla Martínez Post-traumatic stress disorder, chronic Suicide attempt by drug overdose (~07/2021) Trichomoniasis Surgical History History of tonsillectomy (~2016) Family History Grandmother Hypertension Maternal grandmother Breast cancer Paternal grandmother--dx age 50's Diabetes Maternal great grandmother Heart disease Maternal great grandmother Grandfather Diabetes Maternal great grandfather Heart disease Maternal great grandfather Family/Other Stroke Maternal great uncle Denies family history of Colon cancer Ovarian cancer Hyperlipidemia Family history of thyroid problem Uterine cancer Social History Smoking and tobacco status: current every day smoker cigarettes Packs smoked per day: 0.5 Years cigarettes smoked: 6 Quit status (tobacco): not considering quitting Second hand smoke exposure: Yes Alcohol intake: current Alcohol intake frequency: few times a week Alcohol type: hard liquor Lives independently: Yes Marital status: Single History of recent travel: No Current gender identity: Female Additional social history: - Tobacco use: Current everyday smoker; 0.5pk daily Alcohol use: Denies Drug use: Denies Female Reproductive History: Date of last menstrual period: 11/15/21 Physical Exam Const: COMMON NORMALS: alert GENERAL APPEARANCE: cooperative and well developed HENMT: COMMON NORMALS: normocephalic and atraumatic HEAD & SCALP: normocephalic and atraumatic Eye: COMMON NORMALS: conjunctivae normal CONJUNCTIVA: Yes conjunctivae normal SCLERA: sclerae normal Neck/C-Spine: COMMON NORMALS: supple GENERAL: Yes trachea midline Resp: COMMON NORMALS: normal respiratory effort EFFORT & INSPECTION: Yes able to speak in complete sentences Cardio: COMMON NORMALS: regular rate and regular rhythm RATE: regular rate RHYTHM: regular rhythm GI: COMMON NORMALS: Soft to palpation PALPATION: Yes Soft to palpation and No Tenderness to palpation present (GI) Extremity: GENERAL: Yes normal exam except as noted and No edema Neuro: COMMON NORMALS: moves all extremities SENSORIUM/ORIENTATION: Yes alert and No Orientation impaired Psych: INSIGHT: Limited insight present (Psych) JUDGEMENT: Limited judgement present (Psych) Face to Face: Restrn/Seclusion Events leading up to initiation: Verbalizing threat to self or others and Combative/Striking out at staff or others Evaluation of patient's immediate situation: No signs of physical distress and Signs of psychological distress Patient reaction since intervention applied: De-escalation/no displays of violent/destructive behavior Recent labs reviewed: Yes Review of medications: Yes Patient's current medical/behavioral condition: No new concerns since last ROS Need for restraint or seclusion is: No longer present Attending notified: Attending completed assessment Course Vital Signs: Vital signs: Vital Signs Temperature 98 F 05/18/22 17:23 Pulse Rate 108 H 05/18/22 17:23 Respiratory Rate 16 05/18/22 17:23 Blood Pressure 115/78 05/18/22 17:23 Pulse Oximetry 99 05/18/22 17:23 Oxygen Delivery Me thod 05/18/22 14:00 MDM - Psych Medical Decision Making 21-year-old female presenting with suicidal ideation in the context of not taking psychiatric medications and substance abuse. History is mildly limited secondary to patient's psychiatric symptoms. No significant injuries identified on exam. Initially patient was somewhat cooperative and calm however behavior unfortunately escalated and the patient became a threat to herself and others requiring chemical and physical restraints. Patient was serially reexamined and reevaluated per protocol for release from restraints including [id number] exams and restraints were released per protocol. EKG shows sinus rhythm with marked arrhythmia and nonspecific ST segment abnormalities which are likely normal given patient's age. No significant hematologic abnormalities requiring intervention. Metabolic panel with mild dehydration, patient can adequately orally rehydrate. Negative hCG, toxic ingestions negative and lithium level is subtherapeutic. Urinalysis pending. Upon reassessment patient improved. Based on ED evaluation at this point there is no obvious condition that would preclude the patient from inpatient management of psychiatric symptoms. Patient placed on psychiatric hold. Discussed with psychiatry service and patient admitted to neuropsych unit. Medical Records I reviewed the patient's medical records. Lab Data I reviewed the patient's lab results. 05/13/22 18:30 05/13/22 18:30 Laboratory Results WBC 10.0 10^3/uL (4.0-10.0) 05/13/22 18: RBC 4.74 10^6/uL (4.1-5.3) 05/13/22 18:30 Hgb 13.2 g/dL (11.5-15.3) 05/13/22 18: Hct 40.7 % (37.0-47.0) 05/13/22 18: MCV 85.9 fl (81-99) 05/13/22 18: MCH 27.8 pg (28.0-34.0) L 05/13/22 18: MCHC 32.4 g/dL (30.0-36.0) 05/13/22 18: RDW 13.6 % (12.1-15.1) 05/13/22 18: Plt Count 407 10^3/cmm (130-400) H 05/13/22 18: MPV 9.8 fL (7.4-10.4) 05/13/22 18:30 Neut % (Auto) 60.1 % 05/13/22 18: Lymph % (Auto) 31.8 % 05/13/22 18: [place] % (Auto) 5.7 % 05/13/22 18: Eos % (Auto) 1.6 % 05/13/22 18:30 Baso % (Auto) 0.4 % 05/13/22 18:30 Neut # (Auto) 6.01 10^3/uL (1.8-7.7) 05/13/22 18:30 Lymph # (Auto) 3.2 10^3/uL (0.8-4.8) 05/13/22 18:30 [place] # (Auto) 0.6 10^3/uL (0.2-0.9) 05/13/22 18:30 Eos # (Auto) 0.2 10^3/uL (0.0-0.8) 05/13/22 18:30 Baso # (Auto) 0.0 10^3/uL (0.0-0.1) 05/13/22 18:30 Nucleated RBC % (auto) 0 % 05/13/22 18:30 Nucleated RBCs # 0.0 /100WBC 05/13/22 18:30 Sodium 131 mmol/L (136-145) L 05/13/22 18:30 Potassium 3.3 mmol/L (3.5-5.1) L 05/13/22 18:30 Chloride 97 mmol/L (98-107) L 05/13/22 18:30 Carbon Dioxide 21 mmol/L (22-29) L 05/13/22 18:30 Anion Gap 16.3 (5-19) 05/13/22 18:30 BUN 10 mg/dL (6-20) 05/13/22 18:30 Creatinine 0.6 mg/dL (0.5-0.9) 05/13/22 18: GFR Calculation 125.0 mL/min (90-130) 05/13/22 18:30 Glucose 92 mg/dL (65-115) 05/13/22 18:30 Calculated Osmolality 271 mOsm/kg (285-295) L 05/13/22 18: Calcium 9.7 mg/dL (8.5-10.5) 05/13/22 18:30 Total Bilirubin 0.4 mg/dL (0.15-1.2) 05/13/22 18:30 AST 18 U/L (0-32) 05/13/22 18:30 ALT 27 U/L (0-33) 05/13/22 18:30 Alkaline Phosphatase 66 U/L (35-105) 05/13/22 18:30 Total Protein 7.4 g/dL (6.6-8.7) 05/13/22 18:30 Albumin 3.9 g/dL (3.5-5.2) 05/13/22 18:30 Globulin 3.5 g/dL (1.3-4.6) 05/13/22 18:30 TSH 1.44 uIU/mL (0.27-4.20) 05/13/22 18:30 HCG, Qual Negative (Negative) 05/13/22 18:30 Salicylates < 0.3 mg/dL (3-10) L 05/13/22 18:30 Acetaminophen < 5.0 ug/mL (10-30) L 05/13/22 18:30 [place] 0.1 mmol/L (0.6-1.2) L 05/13/22 18:30 Ethyl Alcohol < 10 mg/dL (0-10) 05/13/22 18:30 Discharge Plan Discharge Patient Disposition: Admitted As Inpatient Admit Provider: Juma Irving Clinical Impression: Acute psychosis, Suicidal ideation, Polysubstance abuse Condition: Stable Discharge Diet: Regular Discharge Activity: Resume usual activity Coding Level of Care Code ED Media Traffic Manager for Xin Domínguez
--- NOTE | 2022-05-13 15:35 | ECG_ITS ---
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 Measurements Intervals [place] Rate: 69 P: 20 MT: 144 QRS: 38 QRSD: 90 T: 27 QT: 401 QTc: 430 Interpretive Statements SINUS RHYTHM WITH MARKED SINUS ARRHYTHMIA Nonspecific T wave changes Compared to ECG 08/09/2021 00:50:19 No significant changes Electronically Signed On 05-15-2022 0:07:54 OPERATIONAL INTELLIGENCE ANALYST by Daniella Velasquez M.D. [id number]
[2022-05-13] MEDS: haloperidol inj 5 mg/mL INJ 1 mL IM (17:34)
[2022-05-13] MEDS: midazolam 1 mg/mL INJ 2 mL 2 MG IM ×2 (17:34→18:15)
--- NOTE | 2022-05-13 18:22 | PC.NURSE ---
Pt was very aggiated and yelling and screaming, she would not let us get her blood. Dr. Potter ordered meds to help her calm down. I tired to get her to let me give her the shots and she started screaming that all we wanted to do was kill her. Pts arms and legs were held and pt was given 2 injections per MD
--- NOTE | 2022-05-13 18:25 | PC.NURSE ---
Pt was beating the wall and screaming, Dr. Potter ordered more meds and house sup was at bedside, pt was trying to hurt herself by slamming into the wall and hitting it with her fist. The deision was made to place her on the restraint bunk for her safety. Pulses were present in all 4 extremties.
[2022-05-13 18:39] LABS: Basophils % 0.4 %; Eosinophils # 0.2 10^3/uL (0.0-0.8); Eosinophils % 1.6 %; Hematocrit 40.7 % (37.0-47.0); Hemoglobin 13.2 g/dL (11.5-15.3); Lymphocytes # 3.2 10^3/uL (0.8-4.8); Lymphocytes % 31.8 %; Mean Corpuscular HGB Conc 32.4 g/dL (30.0-36.0); Mean Corpuscular Hemoglobin 27.8 pg (28.0-34.0); Mean Corpuscular Volume 85.9 fl (81-99); Mean Platelet Volume 9.8 fL (7.4-10.4); Monocytes # 0.6 10^3/uL (0.2-0.9); Monocytes % 5.7 %; Neutrophils # 6.01 10^3/uL (1.8-7.7); Neutrophils % 60.1 %; Nucleated Red Blood Cells % 0 %; Platelet Count 407 10^3/cmm (130-400); Red Blood Count 4.74 10^6/uL (4.1-5.3); Red Cell Distribution Width 13.6 % (12.1-15.1)
--- NOTE | 2022-05-13 18:44 | PC.NURSE ---
Pt was offered food and drink but she was sleeping at the time.
[2022-05-13 18:55] LABS: HCG, Serum Qual Negative (Negative)
[2022-05-13 19:04] LABS: Alanine Aminotransferase 27 U/L (0-33); Albumin Level 3.9 g/dL (3.5-5.2); Alkaline Phosphatase 66 U/L (35-105); Anion Gap 16.3 (5-19); Aspartate Amino Transferase 18 U/L (0-32); Blood Urea Nitrogen 10 mg/dL (6-20); Calcium 9.7 mg/dL (8.5-10.5); Carbon Dioxide 21 mmol/L (22-29); Chloride 97 mmol/L (98-107); Globulin 3.5 g/dL (1.3-4.6); Glucose 92 mg/dL (65-115); Osmolality Calculated 271 mOsm/kg (285-295); Potassium 3.3 mmol/L (3.5-5.1); Sodium 131 mmol/L (136-145); Thyroid Stimulating Hormone 1.44 uIU/mL (0.27-4.20); Total Bilirubin 0.4 mg/dL (0.15-1.2); Total Protein 7.4 g/dL (6.6-8.7)
[2022-05-13 19:05] LABS: Acetaminophen < 5.0 ug/mL (10-30); Alcohol Level < 10 mg/dL (0-10); Salicylate < 0.3 mg/dL (3-10)
[2022-05-13 19:15] VITALS: BP 115/75; PULSE 98; RESP 18; O2SAT 94
[2022-05-13 19:39] VITALS: BP 119/80; PULSE 90; RESP 18; O2SAT 94
[2022-05-13 20:24] LABS: Lithium 0.1 mmol/L (0.6-1.2)
--- NOTE | 2022-05-13 21:15 | PC.NURSE ---
21 yr.old female admitted to Room #170 with dx of SI. Arrived to unit via w/c accompanied by ED staff and security. Patient is tired but was able to complete assessment. Ox2. Mood calm and cooperative. Denies any current thoughts of SI/HI or AVH. Contracts for safety. Denies any current pain. Denies any current anxiety but does state she is depressed. Stated she attempted to OD on methamphetamine and LSD. Reports she did a large amount of meth and was up for 5 days before taking 3 hits of LSD. Patient is involuntary and was given rights in ED earlier today. Did review again and answered all questions. Skin assessment completed with no issues noted and no contraband present. [place] and fluids given. Orientated to unit and rules and expectations reviewed. Voiced understanding. Escorted to room without incident.
[2022-05-13 21:21] VITALS: BP 121/90; PULSE 95; RESP 18; TEMP 36.7; O2SAT 97
[2022-05-13 21:24] VITALS: BP 115/79; PULSE 91; RESP 16; O2SAT 95
[2022-05-13 22:00] VITALS: BP 115/79; PULSE 91; RESP 16; TEMP 36.7; O2SAT 95
[2022-05-14] MEDS: nicotine 2 mg Gum BUCCAL (08:55)
[2022-05-14 14:00] VITALS: BP 109/76; PULSE 90; RESP 18; TEMP 36.8; O2SAT 96
[2022-05-14] MEDS: acetaminophen 325 mg Tablet 650 MG PO ×2 (16:09→20:03)
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
[2022-05-14] MEDS: lamoTRIgine 25 mg Tablet PO (17:46)
[2022-05-14] MEDS: ondansetron 4 MG Tablet PO (17:46)
[2022-05-14] MEDS: prazosin 1 mg Capsule 2 MG PO (20:03)
[2022-05-14 21:13] VITALS: BP 111/78; PULSE 97; RESP 18; TEMP 36.9; O2SAT 95
[2022-05-15] MEDS: acetaminophen 325 mg Tablet 650 MG PO (08:10)
[2022-05-15] MEDS: ondansetron 4 MG Tablet PO (08:11)
[2022-05-15] MEDS: ARIPiprazole 10 mg Tablet 5 MG PO (08:12)
[2022-05-15] MEDS: lamoTRIgine 25 mg Tablet PO ×2 (08:12→17:16)
[2022-05-15] MEDS: nicotine 2 mg Gum BUCCAL ×2 (08:20→17:16)
[2022-05-15] MEDS: hyDROXYzine 25 mg Capsule 50 MG PO (08:37)
[2022-05-15] MEDS: OLANZapine 5 mg ODT PO (08:37)
--- NOTE | 2022-05-15 13:18 | W.PM.NPUPNS ---
Subjective NPU Subjective: Melany is a 21-year-old homeless white female with a history of addiction admitted with an overdose with intent to after significant quantities of methamphetamine were consumed along with additional hits of hallucinogens. The patient had reported a history of mood instability, chronic feelings of abandonment, history of PTSD symptoms along with depressed mood with current suicidal thoughts remaining. She had reported a history of hypomanic symptoms as well. She had reported that she was willing to consider rehabilitation for substance abuse issues as well as for treatment of her mood disorder. She had reported continued nightmares that were associated with her trauma. She continued to report feeling on edge around people and states that she has had episodes of intense anger and depressed mood that are often triggered by thoughts of her previous abuse. The patient was compliant and redirectable on the milieu. She continued to report a lack of motivation and depressed mood. She had reported that lithium and Depakote had led to significant side effects and she did not did not wish to take those medications for her mood fluctuations. Mental Status Exam MSE Comments: She is an obese white female in hospital scrubs scrubs with appropriate grooming and fair eye contact. There was no evidence of any abnormal involuntary motor movements tics or tremors. She was cooperative with exam and appeared in no acute distress. Her speech was normal in rate and volume. Her mood was described as depressed. Her affect was mood congruent and restricted in range. Her thought process was linear logical and goal directed. Her thought content showed infrequent suicidal thoughts with no active plan. There was no active homicidal ideation. She did not appear to be responding to internal stimuli. There was no evidence of any delusional thinking. Her attention and concentration appeared variable at this time. She was alert and oriented to person place and time. Her insight and judgment appeared limited her impulse control was poor. Vitals/I&O/Wt Last Vital Signs Temp 98.5 F 05/14/22 21:13 Pulse 97 05/14/22 21:13 Resp 18 05/14/22 21:13 BP 111/78 05/14/22 21:13 Pulse Ox 95 05/14/22 21:13 O2 Del Method 05/13/22 22:00 Weight last 48 hrs Weight 99.337 kg Data NPU 05/13/22 18:30 05/13/22 18:30 A&P Assessment and plan (1) Bipolar disorder, unspecified: (2) Borderline personality disorder: (3) Post-traumatic stress disorder, chronic: (4) Suicidal ideation: Plan The patient is a 21-year-old white female admitted with a relapse on amphetamines along with additional use of hallucinogenic's currently endorsing suicidal ideation and worsening depression while having significant psychosocial stressors including homelessness. 1.? Patient was agreeable to starting medications to target impulsivity along with mood. We will initiate lamotrigine at 25 mg twice a day and increase abilify to 10 mg daily along with prazosin at 2mg night to target insomnia and nightmares associated with her PTSD. 2.? Encourage individual, group and milieu therapy 3.? Continue q-15 minute check for safety 4.? Recommend sober living treatment at the highest level of care to which the patient is willing to commit. Involuntary Hold Information 96 Hour Hold: 96 Hour Involuntary Admission: Yes 96 Hour Hold Ending Date: 05/18/22 96 Hour Hold Ending Time: 00:01 Attestations NPU Medical Necessity Statement*: Inpatient hospitalization is medically necessary at this time and is the clinically appropriate intervention with a likely length of stay 5 to 7 days. 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
[2022-05-15 14:00] VITALS: BP 108/68; PULSE 73; RESP 17; O2SAT 99
[2022-05-15] MEDS: prazosin 1 mg Capsule 2 MG PO (21:08)
[2022-05-15 22:00] VITALS: BP 107/72; PULSE 73; RESP 16; TEMP 36.8; O2SAT 99
[2022-05-16 06:00] VITALS: BP 112/75; PULSE 54; RESP 16; TEMP 36.9; O2SAT 98
[2022-05-16] MEDS: ARIPiprazole 10 mg Tablet PO (08:32)
[2022-05-16] MEDS: lamoTRIgine 25 mg Tablet PO ×2 (08:32→20:36)
[2022-05-16] MEDS: ondansetron 4 MG Tablet PO ×3 (08:50→20:36)
--- NOTE | 2022-05-16 08:51 | PC.NURSE ---
PRN ZOFRAN 4 MG GIVEN PO PER PT C/O NAUSEA/VOMITING. PT STATED I DON'T FEEL GOOD AT ALL, I JUST THREW UP ALL MY BREAKFAST NOT OBSERVED BY STAFF.
[2022-05-16] MEDS: nicotine 2 mg Gum BUCCAL ×3 (09:47→20:09)
[2022-05-16 14:00] VITALS: BP 112/71; PULSE 50; RESP 16; TEMP 36.7; O2SAT 98
--- NOTE | 2022-05-16 16:04 | W.PM.NPUPNS ---
Subjective NPU Subjective: Melany is a 21-year-old homeless white female with a history of addiction admitted with an overdose with intent to after significant quantities of methamphetamine were consumed along with additional use of hallucinogens. The patient had reported a history of mood instability, chronic feelings of abandonment, history of PTSD symptoms along with depressed mood with current suicidal thoughts remaining. Patient had requested that she was homeless and wished to find a place to live with her emotional support/service animal. She reported no side effects from her current medication. She had continued to endorse nightmares associated with previous trauma. She denied any suicidal ideation but continued to report depressed mood. She had reported periods of intense mood fluctuations and intense feelings of anger. The patient had been redirectable on the milieu and continued to report desire to consider dual diagnosis treatment for her substance abuse issues. Mental Status Exam MSE Comments: She is an obese white female in hospital scrubs scrubs with appropriate grooming and fair eye contact. There was no evidence of any abnormal involuntary motor movements tics or tremors. She was cooperative with exam and appeared in no acute distress. Her speech was normal in rate, rhythm, and volume. Her mood was described as okay. Her affect was mood incongruent and restricted in range. Her thought process was linear logical and goal directed. Her thought content showed infrequent suicidal thoughts with no active plan. There was no active homicidal ideation. She did not appear to be responding to internal stimuli. There was no evidence of any delusional thinking. Her attention and concentration appeared variable at this time. She was alert and oriented to person place and time. Her insight and judgment appeared limited her impulse control was poor. Vitals/I&O/Wt Last Vital Signs Temp 98.0 F 05/16/22 14:00 Pulse 50 L 05/16/22 14:00 Resp 16 05/16/22 14:00 BP 112/71 05/16/22 14:00 Pulse Ox 98 05/16/22 14:00 O2 Del Method 05/13/22 22:00 Data NPU 05/13/22 18:30 05/13/22 18:30 A&P Assessment and plan (1) Bipolar disorder, unspecified: (2) Borderline personality disorder: (3) Post-traumatic stress disorder, chronic: (4) Suicidal ideation: Plan The patient is a 21-year-old white female admitted with a relapse on amphetamines along with additional use of hallucinogenic's currently endorsing suicidal ideation and worsening depression while having significant psychosocial stressors including homelessness. 1.? Patient was agreeable to starting medications to target impulsivity along with mood. We will initiate lamotrigine at 25 mg twice a day (bipolar depression) and continue abilify to 10 mg daily (bipolar II) along with prazosin at 2mg night to target insomnia and nightmares associated with her PTSD. 2.? Encourage individual, group and milieu therapy 3.? Continue q-15 minute check for safety 4.? Recommend sober living treatment at the highest level of care to which the patient is willing to commit. Involuntary Hold Information 96 Hour Hold: 96 Hour Involuntary Admission: Yes 96 Hour Hold Ending Date: 05/18/22 96 Hour Hold Ending Time: 00:01 Attestations NPU Medical Necessity Statement*: Inpatient hospitalization is medically necessary at this time and is the clinically appropriate intervention with a likely length of stay 5 to 7 days. 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
[2022-05-16] MEDS: acetaminophen 325 mg Tablet 650 MG PO (18:33)
[2022-05-16 20:28] VITALS: BP 113/70; PULSE 76; RESP 18; TEMP 37.2; O2SAT 99
[2022-05-16] MEDS: prazosin 1 mg Capsule 2 MG PO (20:36)
[2022-05-17 06:00] VITALS: BP 110/67; PULSE 74; RESP 18; TEMP 36.8; O2SAT 99
[2022-05-17] MEDS: ARIPiprazole 10 mg Tablet PO (08:31)
[2022-05-17] MEDS: nicotine 4 mg lozenge MUCOUS MEM ×3 (08:31→20:47)
[2022-05-17] MEDS: lamoTRIgine 25 mg Tablet PO ×2 (08:31→20:45)
[2022-05-17] MEDS: ondansetron 4 MG Tablet PO (08:31)
--- NOTE | 2022-05-17 08:32 | PC.NURSE ---
PRN ZOFRAN 4 MG GIVEN PO PER PT C/O NAUSEA/VOMITING. PT STATED SHE THREW UP HER BREAKFAST AGAIN, STATED TO THIS NURSE I THINK I'M WITHDRAWING.
[2022-05-17] MEDS: ondansetron 2 mg/ML SDV 2 mL 4 MG IM (13:57)
[2022-05-17 14:00] VITALS: BP 121/89; PULSE 97; RESP 16; TEMP 36.6; O2SAT 98
--- NOTE | 2022-05-17 16:49 | W.PM.NPUPNS ---
Subjective NPU Subjective: Patient presented today reporting that she is feeling better each day. She did knowledge significant drug use leading to this admission. She reports he had been sober for a couple years from methamphetamine and that her behavior was out of her recent character. We discussed the fact that at this point she does not have a place to return to as things with her mother and her mother's significant other and her are challenging. She discussed the possibility living in a tent in her mother's backyard. We agreed we would work with the social work team to determine a reasonable and safe discharge plan over the next couple of days. Mental Status Exam MSE Comments: This is an obese versus morbidly obese white female in hospital scrubs with appropriate grooming and eye contact.? No abnormal movements.? Cooperative with exam in no acute distress.? Speech was normal rate and volume.? Mood described as getting better, affect congruent.? Thought process organized.? Thought content: Patient denied suicidal or homicidal ideation, no delusions reported or noted, denied any auditory or visual hallucinations.? Attention and concentration were intact and memory appeared reliable but none were formally tested.? She is alert and oriented x3.? Insight and judgment appeared limited and impulse control is limited. Vitals/I&O/Wt Last Vital Signs Temp 97.9 F 05/17/22 20:03 Pulse 91 05/17/22 20:03 Resp 16 05/17/22 20:03 BP 120/71 05/17/22 20:03 Pulse Ox 95 05/17/22 20:03 O2 Del Method 05/17/22 14:00 Data NPU 05/13/22 18:30 05/13/22 18:30 A&P Assessment and plan (1) Bipolar disorder, unspecified: (2) Borderline personality disorder: (3) Post-traumatic stress disorder, chronic: (4) Suicidal ideation: Plan The patient is a 21-year-old white female admitted with a relapse on amphetamines along with additional use of hallucinogenic's currently endorsing suicidal ideation and worsening depression while having significant psychosocial stressors including homelessness. 1.? Patient was agreeable to starting medications to target impulsivity along with mood. We will initiate lamotrigine at 25 mg twice a day (bipolar depression) and continue abilify to 10 mg daily (bipolar II) along with prazosin at 2mg night to target insomnia and nightmares associated with her PTSD. 2.? Encourage individual, group and milieu therapy 3.? Continue q-15 minute check for safety 4.? Recommend sober living treatment at the highest level of care to which the patient is willing to commit. Involuntary Hold Information 96 Hour Hold: 96 Hour Involuntary Admission: Yes 96 Hour Hold Ending Date: 05/18/22 96 Hour Hold Ending Time: 00:01 Attestations NPU Medical Necessity Statement*: Inpatient hospitalization is medically necessary and the clinically appropriate intervention at this time.? We will initiate/monitor medications and make changes as indicated.? Likely length of stay 1-4 days Coding Level of Care Code Acute Project Management Instructor for g Fwd Diagnoses Bipolar disorder, unspecified F31.9 Borderline personality disorder F60.3 Post-traumatic stress disorder, chronic F43.12 Suicidal ideation R45.850
[2022-05-17] MEDS: nicotine 2 mg Gum BUCCAL (18:26)
[2022-05-17 20:03] VITALS: BP 120/71; PULSE 91; RESP 16; TEMP 36.6; O2SAT 95
[2022-05-17] MEDS: prazosin 1 mg Capsule 2 MG PO (20:44)
[2022-05-17] MEDS: trazodone 50 mg Tablet PO (20:45)
[2022-05-18 06:00] VITALS: BP 119/72; PULSE 68; RESP 17; TEMP 36.7; O2SAT 97
[2022-05-18] MEDS: nicotine 4 mg lozenge MUCOUS MEM ×3 (08:21→16:50)
[2022-05-18] MEDS: ARIPiprazole 10 mg Tablet PO (08:21)
[2022-05-18] MEDS: ondansetron 4 MG Tablet PO ×2 (08:36→17:37)
[2022-05-18] MEDS: OLANZapine 5 mg ODT PO ×2 (08:36→15:58)
[2022-05-18] MEDS: lamoTRIgine 25 mg Tablet PO (10:12)
[2022-05-18 14:00] VITALS: BP 115/78; PULSE 108; RESP 16; TEMP 36.6; O2SAT 99
[2022-05-18] MEDS: hyDROXYzine 25 mg Capsule 50 MG PO (15:58)
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
[2022-05-18 17:23] VITALS: BP 115/78; PULSE 108; RESP 16; TEMP 36.6; O2SAT 99
== END 2022-05-18 18:04 | disposition home or self-care (01) | DRG 885 ==
LOC: ER 18:47 → NP 20:44
PROVIDERS: Family Medicine; Admitting Provider Psychiatry & Neurology Psychiatry; Emergency Provider Emergency Medicine; Visit Provider Psychiatry & Neurology Psychiatry
DX: F31.9 Bipolar disorder, unspecified (principal); R45.851 Suicidal ideations; K50.90 Crohn's disease, unspecified, without complications; F60.3 Borderline personality disorder; F15.10 Other stimulant abuse, uncomplicated; F16.10 Hallucinogen abuse, uncomplicated; Z59.00 Homelessness unspecified; Z91.14 Patient's other noncompliance with medication regimen; F43.12 Post-traumatic stress disorder, chronic; Z88.5 Allergy status to narcotic agent; Z88.8 Allergy status to other drugs, medicaments and biological substances; F17.210 Nicotine dependence, cigarettes, uncomplicated
CPT/HCPCS: 36415; 80053; 80178; 80307; 84443; 84703; 85025; 93005; 96372; 97150; 97165; 99285; J1630; J2250; J2405; Q0162

== ENCOUNTER 2022-08-24 13:49 | Emergency (ER) | payer BC, MEDICAID, SELFPAY ==
[2022-08-24 13:53] VITALS: PULSE 77; RESP 18; TEMP 36.8; O2SAT 98
--- NOTE | 2022-08-24 15:00 | CT_ITS ---
WS: [id number] CT HEAD TECHNIQUE: Noncontrast CT of the head obtained from the skullbase to the vertex. CLINICAL INFORMATION: seizure last night, hit head COMPARISON: CT 2016 DLP: 1004.[address] scans at [facility] use at least one of these dose optimization techniques: automated e xposure control; mA and/or kV adjustment per patient size (includes targeted exams where dose is matc hed to clinical indication); or iterative reconstruction. FINDINGS: No evidence of intracranial hemorrhage or mass effect. Ventricular system and basal cisterns are stone nt. No extra-axial fluid collections. No evidence of mass or mass effect. Normal woods-white differen tiation. Paranasal sinuses and mastoid air cells are well aerated. .Normal visualized soft tissues. CT/CT head wo con* [id number] IMPRESSION: 1. No evidence of intracranial hemorrhage or mass effect. 2. No acute intracranial findings.
--- NOTE | 2022-08-24 15:07 | ED_ITS ---
HPI - Weakness General: Chief complaint: Weakness Stated complaint: sick all over Time Seen by Provider: 08/24/22 14:44 History of Present Illness: Patient is a 21-year-old female comes to the ED after seizure. Patient states that last night she had a seizure that was witnessed by her friends. Patient says she has a history of seizures but has not had a seizure in over 5 years. She is currently not taking any seizure medications. Pt is not being followed by neurologist. Today she has a headache and pain all over her body. She was told that she did hit her head when she fel l down from seizure. Patient missed her menstrual period this month and says there is a possibility that she could be . Associated symptoms: Reports headache(s) and nausea; Denies chest pain, chills, dysuria, fever(s) or vomiting Review of Systems Narrative: Generalized pain all over. Const: Denies: fever(s), chills or fatigue Eyes: Denies: change in vision or eye discomfort ENMT: Denies: throat pain, odynophagia, nasal discharge or nasal congestion Card: Denies: chest pain, palpitations, edema, swelling of feet/ankles, dyspnea on exertion or orthopnea Resp: Denies: dyspnea, productive cough or non-productive cough GI: Reports: nausea; Denies: abdominal pain, vomiting, diarrhea, constipation or hematochezia : Denies: flank pain, dysuria or hematuria Musc: Denies: neck pain, back pain or extremity swelling Skin/Breast: Denies: rash or new lesions Neuro: Reports: headache(s); Denies: numbness in extremities or weakness in extremities PFS ED PFSH: Medical History Anxiety Borderline [facility] Chlamydia IBD (inflammatory bowel disease) diarrhea MDD (major depressive disorder) No pertinent past medical history neghx: htn,dm,thyroid,dvt/pe PCP: Mikayla Martínez Post-traumatic stress disorder, chronic Suicide attempt by drug overdose (~07/2021) Trichomoniasis Surgical History History of tonsillectomy (~2016) Family History Grandmother Hypertension Maternal grandmother Breast cancer Paternal grandmother--dx age 50's Diabetes Maternal great grandmother Heart disease Maternal great grandmother Grandfather Diabetes Maternal great grandfather Heart disease Maternal great grandfather Family/Other Stroke Maternal great uncle Denies family history of Colon cancer Ovarian cancer Hyperlipidemia Family history of thyroid problem Uterine cancer Social History Smoking and tobacco status: current every day smoker cigarettes Packs smoked per day: 0.5 Years cigarettes smoked: 6 Quit status (tobacco): not considering quitting Second hand smoke exposure: Yes Alcohol intake: current Alcohol intake frequency: few times a week Alcohol type: hard liquor Lives independently: Yes Marital status: Single Current gender identity: Female Additional social history: - Tobacco use: Current everyday smoker; 0.5pk daily Alcohol use: Denies Drug use: Denies Physical Exam Const: COMMON NORMALS: no acute distress, patient oriented x3 and alert HENMT: COMMON NORMALS: normocephalic HEAD & SCALP: normocephalic MOUTH: Normal oral and palatal mucosa present THROAT: posterior oropharynx normal and uvula midline Eye: COMMON NORMALS: Equal, round and reactive pupils present and EOMs intact bilaterally GENERAL EYE: appearance normal, both eyes and all related structures PUPIL: Yes Equal, round and reactive pupils present Neck/C-Spine: COMMON NORMALS: supple GENERAL: Yes normal visual inspection Lymph: LYMPHATIC: no lymphadenopathy noted Resp: COMMON NORMALS: normal respiratory effort, No retractions, No use of accessory muscles and clear to auscultation bilaterally AUSCULTATION: clear to auscultation bilaterally Cardio: COMMON NORMALS: regular rate, regular rhythm, S1 normal heart sound present, S2 normal heart sound present, No gallops present (Cardio), No clicks present (Cardio), No murmurs present (Cardio) and Peripheral pulses 2+ th roughout RATE: regular rate RHYTHM: regular rhythm HEART SOUNDS: S1 normal heart sound present and S2 normal heart sound present PERIPHERAL PULSES: Peripheral pulses 2+ throughout GI: COMMON NORMALS: Normal to inspection, nondistended, normoactive bowel sounds present, Soft to palpation, non-tender and no masses PALPATION: Yes Soft to palpation : COMMON NORMALS: Yes no CVA tenderness BLADDER/KIDNEY EXAM: Yes no CVA tenderness Back/Pelvis: COMMON NORMALS: no CVA tenderness Extremity: GENERAL: Yes normal exam except as noted Neuro: COMMON NORMALS: patient oriented x3, CN's II-XII intact bilaterally, moves all extremities, no focal motor deficits and no sensory deficits noted SENSORIUM/ORIENTATION: Yes alert SENSORY EXAM: Yes extremities (intact) MOTOR EXAM: 5/5 motor strength present throughout Skin: COMMON NORMALS: no rashes or lesions noted GENERAL SKIN EXAM: no rashes or lesions noted and dry skin Course Vital Signs: Vital signs: Vital Signs Temperature 98.2 F 08/24/22 13:53 Pulse Rate 77 08/24/22 13:53 Respiratory Rate 18 08/24/22 13:53 Pulse Oximetry 98 08/24/22 13:53 Oxygen Delivery Me thod 08/24/22 13:53 MDM - Weakness Medical Decision Making Patient is a 21-year-old female comes to the ED after seizure. Patient states that last night she had a seizure that was witnessed by her friends. Patient says she has a history of seizures but has not had a seizure in over 5 years. She is currently not taking any seizure medications. Pt is not being followed by neurologist. Today she has a headache and pain all over her body. She was told that she did hit her head when she fell down from seizure. Patient missed her menstrual period this month and says there is a possibility that she could be . Vitals are stable. Exam of patient is benign and she has no neurodeficits. hCG negative, the rest of her labs were unremarkable. Abdominal x-ray showed possible constipation but no other acute finding. Head CT showed no evidence of intracranial hemorrhage or mass effect. Patient did not have any seizures here in the ED. Patient was given dose of Toradol and Norflex here in the ED. She was stable for discharge home and diagnosed with generalized pain and seizure-like activity. Told to follow-up with her PCP within the next week for reevaluation. Return to ED precautions given. Patient understood and agreed with plan. Lab Data I reviewed the patient's lab results. 08/24/22 15:10 08/24/22 15:[address] 08/24/22 15:00 IMPRESSION: 1. No evidence of intracranial hemorrhage or mass effect. 2. No acute intracranial findings. KUB X-Ray 08/24/22 15:48 IMPRESSION: Probable constipation otherwise negative study. Laboratory Results WBC 11.0 10^3/uL (4.0-10.0) H 08/24/22 15:10 RBC 4.66 10^6/uL (4.1-5.3) 08/24/22 15:10 Hgb 13.4 g/dL (11.5-15.3) 08/24/22 15:10 Hct 41.4 % (37.0-47.0) 08/24/22 15:10 MCV 88.8 fl (81-99) 08/24/22 15:10 MCH 28.8 pg (28.0-34.0) 08/24/22 15:10 MCHC 32.4 g/dL (30.0-36.0) 08/24/22 15:10 RDW 14.2 % (12.1-15.1) 08/24/22 15:10 Plt Count 418 10^3/cmm (130-400) H 08/24/22 15:10 MPV 9.6 fL (7.4-10.4) 08/24/22 15:10 Neut % (Auto) 65.8 % 08/24/22 15:10 Lymph % (Auto) 28.4 % 08/24/22 15:10 [place] % (Auto) 4.3 % 08/24/22 15:10 Eos % (Auto) 0.7 % 08/24/22 15:10 Baso % (Auto) 0.4 % 08/24/22 15:10 Neut # (Auto) 7.28 10^3/uL (1.8-7.7) 08/24/22 15:10 Lymph # (Auto) 3.1 10^3/uL (0.8-4.8) 08/24/22 15:10 [place] # (Auto) 0.5 10^3/uL (0.2-0.9) 08/24/22 15:10 Eos # (Auto) 0.1 10^3/uL (0.0-0.8) 08/24/22 15:10 Baso # (Auto) 0.0 10^3/uL (0.0-0.1) 08/24/22 15:10 Nucleated RBC % (auto) 0 % 08/24/22 15:10 Nucleated RBCs # 0.0 /100WBC 08/24/22 15:10 Sodium 140 mmol/L (136-145) 08/24/22 15:10 Potassium 4.3 mmol/L (3.5-5.1) 08/24/22 15:10 Chloride 104 mmol/L (98-107) 08/24/22 15:10 Carbon Dioxide 26 mmol/L (22-29) 08/24/22 15:10 Anion Gap 14.3 (5-19) 08/24/22 15:10 BUN 12 mg/dL (6-20) 08/24/22 15:10 Creatinine 0.7 mg/dL (0.5-0.9) 08/24/22 15:10 GFR Calculation 104.6 mL/min (90-130) 08/24/22 15:10 Glucose 99 mg/dL (65-115) 08/24/22 15:10 Calculated Osmolality 290 mOsm/kg (285-295) 08/24/22 15:10 Calcium 9.6 mg/dL (8.5-10.5) 08/24/22 15:10 Total Bilirubin 0.2 mg/dL (0.15-1.2) 08/24/22 15:10 AST 13 U/L (0-32) 08/24/22 15:10 ALT 13 U/L (0-33) 08/24/22 15:10 Alkaline Phosphatase 69 U/L (35-105) 08/24/22 15:10 Total Protein 7.4 g/dL (6.6-8.7) 08/24/22 15:10 Albumin 4.0 g/dL (3.5-5.2) 08/24/22 15:10 Globulin 3.4 g/dL (1.3-4.6) 08/24/22 15:10 HCG, Qual Negative (Negative) 08/24/22 15:10 Discharge Plan Discharge Patient Disposition: Home Clinical Impression: Generalized pain, Seizure-like activity Condition: Stable Prescriptions: No Action trazodone 50 mg Tablet 50 mg PO BEDTIME PRN (Reason: Sleep) 30 Days Qty: 30 1RF escitalopram oxalate 10 mg tablet 10 mg PO DAILY Hair,Skin and Nails 1 mg iron-66.7 mcg-1,000 mcg Tablet 1 tab PO DAILY Discharge Orders: Discharge ED (Routine); Ordered 08/24/22 Ordered By: Blaine Kahn Discharge Diet: Regular Discharge Activity: Resume usual activity Activity Restrictions/Additional Instructions: Follow-up with medical provider as directed in the next 5 to 7 days for reevaluation. Continue taking home medications as previously prescribed. Return to the ER or your medical provider if condition worsens. Please read and understand discharge instructions. Thank you for choosing [facility] for your healthcare needs today. Please realize this is an emergency room and that we are providing you with a medical screening exam and this may not be complete and all inclusive of all the testing and or work up that you may need to determine your ailment or severity of your illness. It is very important that you follow up as instructed or that you return to the Emergency Department should you have concerns or if your condition changes or worsens in any way. Coding Level of Care Code ED Disability Liaison Officer for Xin Domínguez
[2022-08-24 15:16] LABS: Basophils % 0.4 %; Eosinophils # 0.1 10^3/uL (0.0-0.8); Eosinophils % 0.7 %; Hematocrit 41.4 % (37.0-47.0); Hemoglobin 13.4 g/dL (11.5-15.3); Lymphocytes # 3.1 10^3/uL (0.8-4.8); Lymphocytes % 28.4 %; Mean Corpuscular HGB Conc 32.4 g/dL (30.0-36.0); Mean Corpuscular Hemoglobin 28.8 pg (28.0-34.0); Mean Corpuscular Volume 88.8 fl (81-99); Mean Platelet Volume 9.6 fL (7.4-10.4); Monocytes # 0.5 10^3/uL (0.2-0.9); Monocytes % 4.3 %; Neutrophils # 7.28 10^3/uL (1.8-7.7); Neutrophils % 65.8 %; Nucleated Red Blood Cells % 0 %; Platelet Count 418 10^3/cmm (130-400); Red Blood Count 4.66 10^6/uL (4.1-5.3); Red Cell Distribution Width 14.2 % (12.1-15.1)
[2022-08-24 15:44] LABS: HCG, Serum Qual Negative (Negative)
--- NOTE | 2022-08-24 15:48 | XRR_ITS ---
PROCEDURE INFORMATION: Exam: XR Abdomen Exam date and time: 08/24/2022 4:13 PM Age: 21 years old Clinical indication: Localized; Patient HX: Severe abdominal pain, the pain is worse on the anterior left side TECHNIQUE: Imaging protocol: Radiologic exam of the abdomen. Views: Frontal supine view of the abdomen. 1 View. COMPARISON: CT abdomen pelvis w con* [id number] 05/29/2021 2:04 AM FINDINGS: Gastrointestinal tract: There is a moderate degree of retained stool throughout the large bowel suggesting some degree of constipation. Bowel gas pattern is otherwise unremarkable. Bones/joints: Unremarkable. Other findings: No suspicous calcifications. XR/XR KUB [id number] IMPRESSION: Probable constipation otherwise negative study.
[2022-08-24 15:51] LABS: Alanine Aminotransferase 13 U/L (0-33); Alkaline Phosphatase 69 U/L (35-105); Anion Gap 14.3 (5-19); Aspartate Amino Transferase 13 U/L (0-32); Blood Urea Nitrogen 12 mg/dL (6-20); Calcium 9.6 mg/dL (8.5-10.5); Carbon Dioxide 26 mmol/L (22-29); Chloride 104 mmol/L (98-107); Globulin 3.4 g/dL (1.3-4.6); Glomerular Filtration Rate 104.6 mL/min (90-130); Glucose 99 mg/dL (65-115); Osmolality Calculated 290 mOsm/kg (285-295); Potassium 4.3 mmol/L (3.5-5.1); Sodium 140 mmol/L (136-145); Total Bilirubin 0.2 mg/dL (0.15-1.2); Total Protein 7.4 g/dL (6.6-8.7)
[2022-08-24] MEDS: orphenadrine 30 mg/mL Inj 2 mL 60 MG IM (17:07)
[2022-08-24] MEDS: ketorolac 60 mg/2 mL INJ IM (17:07)
--- NOTE | 2022-08-28 15:27 | DCPLANNER ---
manager hvac called patient due to no primary care physician - patient stated that she has an appointment with a primary care physician scheduled.
== END 2022-08-24 17:21 | disposition home or self-care (01) ==
PROVIDERS: Emergency Provider Physician Assistant
DX: R56.9 Unspecified convulsions (principal); R51.9 Headache, unspecified; F17.210 Nicotine dependence, cigarettes, uncomplicated
CPT/HCPCS: 36415; 70450; 74018; 80053; 84703; 85025; 96372; 99285; J1885; J2360

== ENCOUNTER 2022-11-21 13:19 | Emergency (ER) | payer SELFPAY ==
--- NOTE | 2022-11-21 | CT_ITS ---
WS: [id number] CT HEAD TECHNIQUE: Noncontrast CT of the head obtained from the skullbase to the vertex. CLINICAL INFORMATION: TRAUMA, CLOSED HEAD INJURY COMPARISON: August 24, 2022 DLP: [address] scans at [facility] use at least one of these dose optimization techniques: automated e xposure control; mA and/or kV adjustment per patient size (includes targeted exams where dose is matc hed to clinical indication); or iterative reconstruction. FINDINGS: No evidence of intracranial hemorrhage or mass effect. Ventricular system and basal cisterns are stone nt. No extra-axial fluid collections. No evidence of mass or mass effect. Normal woods-white different iation. Paranasal sinuses and mastoid air cells are well aerated. .Normal visualized soft tissues. CT/CT head wo con* [id number] IMPRESSION: 1. No evidence of intracranial hemorrhage or mass effect. 2. No acute intracranial findings. 3. No significant changes since August 24, 2022
[2022-11-21 13:21] VITALS: BP 125/63; PULSE 57; RESP 18; TEMP 37.3; O2SAT 100; BMI 35.6
--- NOTE | 2022-11-21 13:31 | ED_ITS ---
HPI - Syncope General: Chief Complaint: Syncope Stated Complaint: syncopal episodes x 2 days Time Seen by Provider: 11/21/22 13:22 Source: patient Mode of arrival: ambulatory History of Present Illness: 21-year-old female presents emergency complaining of syncopal episode yesterday and today. Today she got up from her bedroom and was walking out of the room states she passed out found herself on the floor she does not recall what happened is not sure how long she was down she did states she struck her head she is not on any anticoagulants. She has medications listed but states she is not currently taking anything. She states she has been hypoglycemic in the past however blood sugar in the field today was tested and was normal. She was given 4 mg of Zofran in route. No chest pain no abdominal pain no dysuria urgency frequency fevers sweats or chills. Onset (ago): minute(s) Prodromal symptoms: none Context: standing up Injuries sustained associated with event: head Associated symptoms: Deny abdominal pain, chest pain, fever(s), headache(s), lightheadedness, nausea, short of breath, vertigo or weakness Treatments prior to arrival: none Review of Systems Const: Denies: fever(s), chills, fatigue or malaise ENMT: Denies: throat pain, ear or mastoid pain, nasal discharge or nasal congestion Card: Denies: chest pain or lightheadedness Resp: Denies: dyspnea, productive cough or non-productive cough GI: Denies: abdominal pain or nausea : Denies: flank pain, difficulty voiding, dysuria, urinary frequency or urinary urgency Musc: Denies: neck pain or back pain Skin/Breast: Denies: rash or pruritus Neuro: Denies: headache(s) or vertigo PFS ED PFSH: Medical History Anxiety Borderline personality disorder managed by Viry Muhammad [facility] Chlamydia IBD (inflammatory bowel disease) diarrhea MDD (major depressive disorder) No pertinent past medical history neghx: htn,dm,thyroid,dvt/pe PCP: Mikayla Martínez Post-traumatic stress disorder, chronic Suicide attempt by drug overdose (~07/2021) Trichomoniasis Surgical History History of tonsillectomy (~2017) Family History Grandmother Hypertension Maternal grandmother Breast cancer Paternal grandmother--dx age 50's Diabetes Maternal great grandmother Heart disease Maternal great grandmother Grandfather Diabetes Maternal great grandfather Heart disease Maternal great grandfather Family/Other Stroke Maternal great uncle Denies family history of Colon cancer Ovarian cancer Hyperlipidemia Family history of thyroid problem Uterine cancer Social History Smoking and tobacco status: current every day smoker cigarettes Packs smoked per day: 0.5 Years cigarettes smoked: 6 Quit status (tobacco): not considering quitting Second hand smoke exposure: Yes Alcohol intake: current Alcohol intake frequency: few times a week Alcohol type: hard liquor Substance/Drug Use: current Other substance/drug use details: states hasn't smoked in month Lives independently: Yes Marital status: Single Current gender identity: Female Additional social history: - Tobacco use: Current everyday smoker; 0.5pk daily Alcohol use: Denies Drug use: Denies Physical Exam Const: GENERAL APPEARANCE: cooperative and comfortable ORIENTATION/CONSCIOUSNESS: Yes awake, Yes oriented to person, Yes oriented to place and Yes oriented to time HENMT: COMMON NORMALS: normocephalic, atraumatic and hearing grossly normal bilaterally HEAD & SCALP: normocephalic and atraumatic Resp: COMMON NORMALS: normal respiratory effort, No retractions, No use of accessory muscles and clear to auscultation bilaterally AUSCULTATION: clear to auscultation bilaterally Cardio: COMMON NORMALS: regular rate, regular rhythm and No murmurs present (Cardio) RATE: regular rate RHYTHM: regular rhythm GI: COMMON NORMALS: Soft to palpation and No hepatosplenomegaly present AUSCULTATION: Yes normoactive bowel sounds PALPATION: Yes Soft to palpation, No Tenderness to palpation present (GI), No Guarding due to palpation present (GI) and Yes No hepatosplenomegaly present Extremity: COMMON NORMALS: normal to inspection, capillary refill normal, no c lubbing, cyanosis or edema, no calf tenderness and no pedal edema Neuro: SENSORIUM/ORIENTATION: Yes oriented to person, Yes oriented to place and Yes oriented to time Skin: COMMON NORMALS: no rashes or lesions noted GENERAL SKIN EXAM: no rashes or lesions noted Course Vital Signs: Vital signs: Vital Signs Temperature 99.2 F 11/21/22 13:21 Pulse Rate 64 11/21/22 15:25 Respiratory Rate 15 11/21/22 13:53 Blood Pressure 99/66 11/21/22 15:25 Pulse Oximetry 100 11/21/22 13:53 Oxygen Delivery Me thod Room Air 11/21/22 13:53 MDM - Syncope Medical Decision Making CT head Labs unremarkable. Discharge patient home. Patient blood pressure is on the lower extremity but she does not drop significantly after receiving fluids encourage fluid intake follow-up with her primary care doctor in the next 7 to 10 days return emergency room if has further problems. Medical Records I reviewed the patient's medical records. Lab Data I reviewed the patient's lab results. 11/21/22 13:34 11/21/22 13:[address] 11/21/22 14:14 IMPRESSION: 1. No evidence of intracranial hemorrhage or mass effect. 2. No acute intracranial findings. Laboratory Results WBC 11.9 10^3/uL (4.0-10.0) H 11/21/22 13:34 RBC 4.70 10^6/uL (4.1-5.3) 11/21/22 13:34 Hgb 13.4 g/dL (11.5-15.3) 11/21/22 13:34 Hct 42.7 % (37.0-47.0) 11/21/22 13:34 MCV 90.9 fl (81-99) 11/21/22 13:34 MCH 28.5 pg (28.0-34.0) 11/21/22 13:34 MCHC 31.4 g/dL (30.0-36.0) 11/21/22 13:34 RDW 13.1 % (12.1-15.1) 11/21/22 13:34 Plt Count 366 10^3/cmm (130-400) 11/21/22 13:34 MPV 9.9 fL (7.4-10.4) 11/21/22 13:34 Neut % (Auto) 70.6 % 11/21/22 13:34 Lymph % (Auto) 23.2 % 11/21/22 13:34 [place] % (Auto) 5.2 % 11/21/22 13:34 Eos % (Auto) 0.3 % 11/21/22 13:34 Baso % (Auto) 0.4 % 11/21/22 13:34 Neut # (Auto) 8.41 10^3/uL (1.8-7.7) H 11/21/22 13:34 Lymph # (Auto) 2.8 10^3/uL (0.8-4.8) 11/21/22 13:34 [place] # (Auto) 0.6 10^3/uL (0.2-0.9) 11/21/22 13:34 Eos # (Auto) 0.0 10^3/uL (0.0-0.8) 11/21/22 13:34 Baso # (Auto) 0.1 10^3/uL (0.0-0.1) 11/21/22 13:34 Nucleated RBC % (auto) 0 % 11/21/22 13:34 Nucleated RBCs # 0.0 /100WBC 11/21/22 13:34 Sodium 138 mmol/L (136-145) 11/21/22 13:34 Potassium 3.8 mmol/L (3.5-5.1) 11/21/22 13:34 Chloride 106 mmol/L (98-107) 11/21/22 13:34 Carbon Dioxide 20 mmol/L (22-29) L 11/21/22 13:34 Anion Gap 15.8 (5-19) 11/21/22 13:34 BUN 9 mg/dL (6-20) 11/21/22 13:34 Creatinine 0.6 mg/dL (0.5-0.9) 11/21/22 13:34 GFR Calculation 125.0 mL/min (90-130) 11/21/22 13:34 Glucose 92 mg/dL (65-115) 11/21/22 13:34 Calculated Osmolality 284 mOsm/kg (285-295) L 11/21/22 13:34 Calcium 9.0 mg/dL (8.5-10.5) 11/21/22 13:34 Total Bilirubin 0.4 mg/dL (0.15-1.2) 11/21/22 13:34 AST 11 U/L (0-32) 11/21/22 13:34 ALT 13 U/L (0-33) 11/21/22 13:34 Alkaline Phosphatase 58 U/L (35-105) 11/21/22 13:34 Total Protein 7.1 g/dL (6.6-8.7) 11/21/22 13:34 Albumin 3.9 g/dL (3.5-5.2) 11/21/22 13:34 Globulin 3.2 g/dL (1.3-4.6) 11/21/22 13:34 HCG, Qual Negative (Negative) 11/21/22 13:34 Urine Color Yellow (Yellow) 11/21/22 14:15 Urine Appearance Clear (CLEAR) 11/21/22 14:15 Urine pH 8 (5-7) H 11/21/22 14:15 Ur Specific [place] 1.020 (1.005-1.030) 11/21/22 14:15 Urine Protein Neg (Negative) 11/21/22 14:15 Urine Glucose (UA) Norm (Normal) 11/21/22 14:15 Urine Ketones Negative (Negative) 11/21/22 14:15 Urine Blood Neg (Negative) 11/21/22 14:15 Urine Nitrate Negative (Negative) 11/21/22 14:15 Urine Bilirubin Neg (Negative) 11/21/22 14:15 Prot Sulfosalicylic Acd Negative (Negative) 11/21/22 14:15 Urine Urobilinogen Norm mg/dL (Negative) 11/21/22 14:15 Ur Leukocyte Esterase Negative (Negative) 11/21/22 14:15 Discharge Plan Discharge Patient Disposition: Home Clinical Impression: Syncope due to orthostatic hypotension Condition: Stable Prescriptions: No Action trazodone 50 mg Tablet 50 mg PO BEDTIME PRN (Reason: Sleep) 30 Days Qty: 30 1RF escitalopram oxalate 10 mg tablet 10 mg PO DAILY Hair,Skin and Nails 1 mg iron-66.7 mcg-1,000 mcg Tablet 1 tab PO DAILY Discharge Orders: Discharge ED (Routine); Ordered 11/21/22 Ordered By: Segundo Kingsley Patient Instructions: Opioid Safety, Pain Management Activity Restrictions/Additional Instructions: Continue current medications. Recommend increasing fluid intake follow-up with primary care doctor within the next 7 to 10 days return if you have further problems. Coding Level of Care Code ED Bacteriologist Pharmaceutical for Xin Domínguez
[2022-11-21 13:45] LABS: Basophils # 0.1 10^3/uL (0.0-0.1); Basophils % 0.4 %; Eosinophils % 0.3 %; Hematocrit 42.7 % (37.0-47.0); Hemoglobin 13.4 g/dL (11.5-15.3); Lymphocytes # 2.8 10^3/uL (0.8-4.8); Lymphocytes % 23.2 %; Mean Corpuscular HGB Conc 31.4 g/dL (30.0-36.0); Mean Corpuscular Hemoglobin 28.5 pg (28.0-34.0); Mean Corpuscular Volume 90.9 fl (81-99); Mean Platelet Volume 9.9 fL (7.4-10.4); Monocytes # 0.6 10^3/uL (0.2-0.9); Monocytes % 5.2 %; Neutrophils # 8.41 10^3/uL (1.8-7.7); Neutrophils % 70.6 %; Nucleated Red Blood Cells % 0 %; Platelet Count 366 10^3/cmm (130-400); Red Cell Distribution Width 13.1 % (12.1-15.1); White Blood Count 11.9 10^3/uL (4.0-10.0)
--- NOTE | 2022-11-21 13:45 | ECG_ITS ---
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 Measurements Intervals [place] Rate: 62 P: 22 UT: 157 QRS: 40 QRSD: 94 T: 33 QT: 418 QTc: 427 Interpretive Statements SINUS RHYTHM Compared to ECG 05/13/2022 15:35:47 Sinus arrhythmia no longer present T-wave abnormality no longer present Electronically Signed On 11-21-2022 18:19:43 CDT by Vinny Padilla M.D. [id number]
[2022-11-21] MEDS: sodium chloride 0.9% 1,000 ML 999 ML IV (13:51)
[2022-11-21 13:53] VITALS: BP 133/74; PULSE 59; RESP 15; O2SAT 100
[2022-11-21 14:05] LABS: Alanine Aminotransferase 13 U/L (0-33); Albumin Level 3.9 g/dL (3.5-5.2); Alkaline Phosphatase 58 U/L (35-105); Anion Gap 15.8 (5-19); Aspartate Amino Transferase 11 U/L (0-32); Blood Urea Nitrogen 9 mg/dL (6-20); Carbon Dioxide 20 mmol/L (22-29); Chloride 106 mmol/L (98-107); Creatinine Clr Calc Pharmacy 151.9369; Globulin 3.2 g/dL (1.3-4.6); Glucose 92 mg/dL (65-115); Osmolality Calculated 284 mOsm/kg (285-295); Potassium 3.8 mmol/L (3.5-5.1); Sodium 138 mmol/L (136-145); Total Bilirubin 0.4 mg/dL (0.15-1.2); Total Protein 7.1 g/dL (6.6-8.7)
--- NOTE | 2022-11-21 14:14 | CT_ITS ---
WS: [id number] CT HEAD TECHNIQUE: Noncontrast CT of the head obtained from the skullbase to the vertex. CLINICAL INFORMATION: Trauma, closed head injury COMPARISON: CT August 24, 2022 DLP: 1423.[address] scans at [facility] use at least one of these dose optimization techniques: automated e xposure control; mA and/or kV adjustment per patient size (includes targeted exams where dose is matc hed to clinical indication); or iterative reconstruction. FINDINGS: No evidence of intracranial hemorrhage or mass effect. Ventricular system and basal cisterns are stone nt. No extra-axial fluid collections. No evidence of mass or mass effect. Normal woods-white different iation. Paranasal sinuses and mastoid air cells are well aerated. .Normal visualized soft tissues. CT/CT head wo con* [id number] IMPRESSION: 1. No evidence of intracranial hemorrhage or mass effect. 2. No acute intracranial findings.
[2022-11-21 14:18] LABS: HCG, Serum Qual Negative (Negative)
[2022-11-21 14:27] LABS: Add Urine Microscopic? NO; Bilirubin Urine Neg (Negative); Blood Urine Neg (Negative); Glucose Urine UA Norm (Normal); Ketones Urine Negative (Negative); Leukocyte Esterase Urine Negative (Negative); Nitrate Urine Negative (Negative); Protein Urine Neg (Negative); Sulfosalicylic Acid Urine Negative (Negative); Urine Appearance Clear (CLEAR); Urine Color Yellow (Yellow); Urobilinogen Urine Norm (Negative); pH Urine 8 (5-7)
[2022-11-21 14:29] LABS: Charge for UA Resulting for Rev
[2022-11-21 15:25] VITALS: BP 118/69; BP 118/71; BP 99/66; PULSE 64; PULSE 66; PULSE 69
[2022-11-21 16:16] VITALS: BP 108/71; PULSE 75; O2SAT 99
--- NOTE | 2022-11-29 13:25 | DCPLANNER ---
winter sports manager called patient due to no primary care physician - patient stated that she has an appointment with a primary care physician scheduled.
== END 2022-11-21 16:17 | disposition home or self-care (01) ==
PROVIDERS: Emergency Provider Family Medicine
DX: I95.1 Orthostatic hypotension (principal); F17.210 Nicotine dependence, cigarettes, uncomplicated
CPT/HCPCS: 36415; 70450; 80053; 81003; 84703; 85025; 93005; 96360; 96361; 99285; J7030

== ENCOUNTER 2023-01-29 21:44 | Emergency (ER) | payer SELFPAY ==
[2023-01-29 21:47] VITALS: BP 120/79; PULSE 61; RESP 18; TEMP 36.7; O2SAT 99; BMI 34.7
[2023-01-29 21:52] VITALS: BP 136/82; PULSE 57; RESP 18; O2SAT 98
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
[2023-01-29 22:14] LABS: Basophils # 0.1 10^3/uL (0.0-0.1); Basophils % 0.6 %; Eosinophils # 0.2 10^3/uL (0.0-0.8); Eosinophils % 2.4 %; Hematocrit 43.6 % (37.0-47.0); Hemoglobin 13.6 g/dL (11.5-15.3); Lymphocytes # 3.3 10^3/uL (0.8-4.8); Lymphocytes % 34.8 %; Mean Corpuscular HGB Conc 31.2 g/dL (30.0-36.0); Mean Corpuscular Hemoglobin 28.6 pg (28.0-34.0); Mean Corpuscular Volume 91.6 fl (81-99); Mean Platelet Volume 9.9 fL (7.4-10.4); Monocytes # 0.5 10^3/uL (0.2-0.9); Monocytes % 5.5 %; Neutrophils # 5.38 10^3/uL (1.8-7.7); Neutrophils % 56.4 %; Nucleated Red Blood Cells % 0 %; Platelet Count 431 10^3/cmm (130-400); Red Blood Count 4.76 10^6/uL (4.1-5.3); Red Cell Distribution Width 13.9 % (12.1-15.1); White Blood Count 9.6 10^3/uL (4.0-10.0)
[2023-01-29 22:24] LABS: Alanine Aminotransferase 10 U/L (0-33); Alkaline Phosphatase 72 U/L (35-105); Aspartate Amino Transferase 15 U/L (0-32); Blood Urea Nitrogen 10 mg/dL (6-20); Carbon Dioxide 22 mmol/L (22-29); Chloride 106 mmol/L (98-107); Globulin 3.3 g/dL (1.3-4.6); Glomerular Filtration Rate 103.7 mL/min (90-130); Glucose 118 mg/dL (65-115); Osmolality Calculated 290 mOsm/kg (285-295); Sodium 140 mmol/L (136-145); Total Bilirubin 0.2 mg/dL (0.15-1.2); Total Protein 7.3 g/dL (6.6-8.7)
[2023-01-29 22:30] LABS: Alcohol Level < 10 mg/dL (0-10); Anion Gap 15.6 (5-19); Potassium 3.6 mmol/L (3.5-5.1)
[2023-01-29 22:55] LABS: Lactic Sepsis W/Reflex 0.7 mmol/L (0.5-2.2)
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
[2023-01-29 23:21] VITALS: BP 107/85; PULSE 60; RESP 17; O2SAT 98
[2023-01-29 23:39] VITALS: BP 109/92; BP 128/76; BP 99/79; PULSE 49; PULSE 51; PULSE 56
[2023-01-29 23:40] LABS: Add Urine Microscopic? YES; Amphetamines Screen Urine Negative (Negative); Barbiturates Screen Urine Negative (Negative); Benzodiazepines Screen Urine Negative (Negative); Bilirubin Urine Neg (Negative); Blood Urine 3+ (Negative); Cocaine Screen Urine Negative (Negative); Glucose Urine UA Norm (Normal); Ketones Urine Negative (Negative); Leukocyte Esterase Urine Negative (Negative); Nitrate Urine Negative (Negative); Opiate Screen Urine Negative (Negative); PCP Screen Urine Negative (Negative); Protein Urine Neg (Negative); RBC Urine 0-4 /hpf (0-2); THC Screen Urine Positive (Negative); Urine Appearance Clear (CLEAR); Urine Color Yellow (Yellow); Urobilinogen Urine Neg (Negative); pH Urine 6 (5-7)
[2023-01-29 23:41] LABS: Add Urine Culture? No; Bacteria Urine 1+ /hpf; Mucus Urine 2+ /hpf
[2023-01-29] MEDS: sodium chloride 0.9% 1,000 ML 999 ML IV (23:51)
[2023-01-30 00:30] VITALS: BP 98/52; PULSE 40; RESP 16; O2SAT 98
[2023-01-30] MEDS: sodium chloride 0.9% 1,000 ML 999 ML IV (00:38)
[2023-01-30 01:31] VITALS: BP 108/67; BP 111/79; BP 111/89; PULSE 51; PULSE 54; PULSE 69
[2023-01-30 01:46] VITALS: PULSE 53; RESP 21; O2SAT 100
[2023-01-30 02:48] VITALS: BP 132/72; PULSE 68; RESP 16; O2SAT 98
--- NOTE | 2023-01-30 02:51 | PC.NURSE ---
Patient upset that she has no ride home. Latricia is no longer running [employer] and [facility] ride will not be available until after 0700. Left a message for fernando @ [phone] per pts request and attempted to contact her sister, james @[phone] with no answer. Pt states i am just fed. I told the ambulance stalin that I did not have a way home and that I wanted to go to [facility] . Pt is upset that the EMS told her faisal would find her a ride home and brought her here in the first place.
--- NOTE | 2023-01-30 12:53 | DCPLANNER ---
Addendum entered by Casandra Bhakta 02/04/23 14:34: Patient has a follow up appointment scheduled for Sunday, April 16, 2023 at 10:[address] Mcginnis at neurology. Original Note: transformation manager had message to schedule a follow up appointment for patient with neurology. transformation manager sent patients information to the front office staff at neurology. Patients information will be reviewed, clinic will call patient with appointment information.
== END 2023-01-30 02:50 | disposition home or self-care (01) ==
PROVIDERS: Emergency Provider Family Medicine
DX: F41.9 Anxiety disorder, unspecified (principal); R56.9 Unspecified convulsions; S09.90XD Unspecified injury of head, subsequent encounter; Y09 Assault by unspecified means
CPT/HCPCS: 36415; 70450; 80053; 80306; 80307; 81001; 83605; 85025; 96361; 96365; 99285; J1953; J7030

== ENCOUNTER 2023-11-03 08:54 | Emergency (ER) | payer MEDICAID, SELFPAY ==
[2023-11-03 08:58] VITALS: BP 116/79; PULSE 73; RESP 16; TEMP 36.8; O2SAT 97; BMI 39.9
--- NOTE | 2023-11-03 09:14 | W.ED.ABDPA2 ---
HPI - Abdominal Pain General: Chief Complaint: Abdominal Pain Stated Complaint: VAG CRAMPING/BLEEDING 15 WKS PREG Time Seen by Provider: 11/03/23 09:04 Source: patient Mode of arrival: ambulatory History of Present Illness: 22-year-old female who is currently 15 weeks gestation. Patient was brought in in custody [facility] department she reports having previously 8 miscarriages. She had some light spotting and cramping this morning no active bleeding mostly when she wipes. She has been seeing a chemical analytical sampler in [place]. She denies fever sweats chills vaginal discharge she does have frequency and urgency with urination. MD elicited complaint: abdominal pain Associated Symptoms: Denies chills, dysuria and fever(s) Review of Systems Const: Denies: fever(s) or chills Card: Denies: chest pain Resp: Denies: dyspnea GI: Denies: abdominal pain : Reports: urinary frequency, urinary urgency and vaginal bleeding (Spotting); Denies: flank pain, dysuria or vaginal discharge Musc: Denies: neck pain or back pain Skin/Breast: Denies: rash PFSH ED PFSH: Medical History Psychiatric care Suicide attempt by drug overdose (~07/2021) Anxiety No pertinent past medical history neghx: htn,dm,thyroid,dvt/pe PCP: Mikayla Martínez IBD (inflammatory bowel disease) diarrhea Trichomoniasis Chlamydia MDD (major depressive disorder) Post-traumatic stress disorder, chronic Borderline personality disorder managed by Viry Muro- [facility] [place] Surgical History History of tonsillectomy (~2017) Family History Grandmother Hypertension Maternal grandmother Breast cancer Paternal grandmother--dx age 50's Diabetes Maternal great grandmother Heart disease Maternal great grandmother Grandfather Diabetes Maternal great grandfather Heart disease Maternal great grandfather Family/Other Stroke Maternal great uncle Denies family history of Colon cancer Ovarian cancer Hyperlipidemia Family history of thyroid problem Uterine cancer Social History Smoking and tobacco/nicotine status: current every day tobacco/nicotine user cigarettes Packs smoked per day: 0.5 Years cigarettes smoked: 6 Quit status (tobacco/nicotine): not considering quitting Second hand smoke exposure: Yes Alcohol intake: current Alcohol intake frequency: few times a week Alcohol type: hard liquor Substance/Drug Use: current Other substance/drug use details: states hasn't smoked in month Additional social history: - Tobacco use: Current everyday smoker; 0.5pk daily Alcohol use: Denies Drug use: Denies Lives independently: Yes Marital status: Single Current gender identity: Female Physical Exam Const: COMMON NORMALS: no acute distress GENERAL APPEARANCE: cooperative and comfortable ORIENTATION/CONSCIOUSNESS: Yes awake, Yes oriented to person, Yes oriented to place and Yes oriented to time HENMT: COMMON NORMALS: normocephalic, atraumatic and hearing grossly normal bilaterally HEAD & SCALP: normocephalic and atraumatic Resp: COMMON NORMALS: normal respiratory effort, No retractions, No use of accessory muscles and clear to auscultation bilaterally AUSCULTATION: clear to auscultation bilaterally Cardio: COMMON NORMALS: regular rate, regular rhythm and No murmurs present (Cardio) RATE: regular rate RHYTHM: regular rhythm GI: COMMON NORMALS: Soft to palpation and No hepatosplenomegaly present AUSCULTATION: Yes normoactive bowel sounds PALPATION: Yes Soft to palpation, No Tenderness to palpation present (GI), No Guarding due to palpation present (GI) and Yes No hepatosplenomegaly present Extremity: COMMON NORMALS: normal to inspection, capillary refill normal, no clubbing, cyanosis or edema, no calf tenderness and no pedal edema Neuro: SENSORIUM/ORIENTATION: Yes oriented to person, Yes oriented to place and Yes oriented to time Skin: COMMON NORMALS: no rashes or lesions noted GENERAL SKIN EXAM: no rashes or lesions noted Course Vital Signs: Vital signs: Vital Signs Temperature 98.3 F 11/03/23 08:58 Pulse Rate 73 11/03/23 08:58 Respiratory Rate 16 11/03/23 08:58 Blood Pressure 116/79 11/03/23 08:58 Pulse Oximetry 97 11/03/23 08:58 Oxygen Delivery Me thod Room Air 11/03/23 08:58 MDM - Abdominal Pain Medical Decision Making Beta-hCG at low range for gestational age however this point to point the often begins to tail off. Ultrasound showed cervix is close good heart activity and gross motion. UA shows cystitis treated for cystitis avoid exertional activities should follow-up with her primary care doctor tomorrow return if has further problems Medical Records I reviewed the patient's medical records. Lab Data I reviewed the patient's lab results. 11/03/23 09:13 11/03/23 10:17 Labs/Radiology: Radiology Impressions Obstetrics Ultrasound 11/03/23 09:39 IMPRESSION: 1. Single live intrauterine with a heart rate of 139 bpm. 2. Cervix within normal limits. Laboratory Results WBC 12.53 10^3/uL (3.29-11.43) H 11/03/23 09:13 RBC 4.18 10^6/uL (3.85-5.65) 11/03/23 09:13 Hgb 12.40 g/dL (11.27-16.99) 11/03/23 09:13 Hct 37.1 % (36-47) 11/03/23 09:13 MCV 88.8 fl (85-98) 11/03/23 09:13 MCH 29.7 pg (27-33) 11/03/23 09:13 MCHC 33.4 g/dL (30-55) 11/03/23 09:13 RDW 12.8 % (12.1-15.1) 11/03/23 09:13 Plt Count 416 10^3/cmm (157-399) H 11/03/23 09:13 MPV 10.0 fL (7.4-10.4) 11/03/23 09:13 Neut % (Auto) 79.4 % 11/03/23 09:13 Lymph % (Auto) 14.4 % 11/03/23 09:13 [place] % (Auto) 4.9 % 11/03/23 09:13 Eos % (Auto) 0.8 % 11/03/23 09:13 Baso % (Auto) 0.2 % 11/03/23 09:13 Neut # (Auto) 9.95 10^3/uL (1.8-7.7) H 11/03/23 09:13 Lymph # (Auto) 1.8 10^3/uL (0.8-4.8) 11/03/23 09:13 [place] # (Auto) 0.6 10^3/uL (0.2-0.9) 11/03/23 09:13 Eos # (Auto) 0.1 10^3/uL (0.0-0.8) 11/03/23 09:13 Baso # (Auto) 0.0 10^3/uL (0.0-0.1) 11/03/23 09:13 Nucleated RBC % (auto) 0 % 11/03/23 09:13 Nucleated RBCs # 0.0 /100WBC 11/03/23 09:13 Sodium 136 mmol/L (136-145) 11/03/23 10:17 Potassium 3.7 mmol/L (3.5-5.1) 11/03/23 10:17 Chloride 104 mmol/L (98-107) 11/03/23 10:17 Carbon Dioxide 19 mmol/L (22-29) L 11/03/23 10:17 Anion Gap 16.7 (5-19) 11/03/23 10:17 BUN 8 mg/dL (6-20) 11/03/23 10:17 Creatinine 0.5 mg/dL (0.5-0.9) 11/03/23 10:17 GFR Calculation 152.9 mL/min (90-130) H 11/03/23 10:17 Glucose 104 mg/dL (65-115) 11/03/23 10:17 Calculated Osmolality 281 mOsm/kg (285-295) L 11/03/23 10:17 Calcium 9.3 mg/dL (8.5-10.5) 11/03/23 10:17 Total Bilirubin 0.3 mg/dL (0.15-1.2) 11/03/23 10:17 AST 10 U/L (0-32) 11/03/23 10:17 ALT 18 U/L (0-33) 11/03/23 10:17 Alkaline Phosphatase 69 U/L (35-105) 11/03/23 10:17 Total Protein 7.6 g/dL (6.6-8.7) 11/03/23 10:17 Albumin 3.8 g/dL (3.5-5.2) 11/03/23 10:17 Globulin 3.8 g/dL (1.3-4.6) 11/03/23 10:17 Ser , Semi-Qnt 9295.00 mIU/mL 11/03/23 10:17 Urine Color Yellow (Yellow) 11/03/23 09:34 Urine Appearance Clear (CLEAR) 11/03/23 09:34 Urine pH 5 (5-7) 11/03/23 09:34 Ur Specific [place] 1.020 (1.005-1.030) 11/03/23 09:34 Urine Protein Neg (Negative) 11/03/23 09:34 Urine Glucose (UA) Norm (Normal) 11/03/23 09:34 Urine Ketones Negative (Negative) 11/03/23 09:34 Urine Blood Neg (Negative) 11/03/23 09:34 Urine Nitrate Negative (Negative) 11/03/23 09:34 Urine Bilirubin Neg (Negative) 11/03/23 09:34 Urine Urobilinogen Norm mg/dL (Negative) 11/03/23 09:34 Ur Leukocyte Esterase Trace (Negative) H 11/03/23 09:34 Urine RBC None /hpf (0-2) 11/03/23 09:34 Urine WBC 5-10 /hpf (0-5) H 11/03/23 09:34 Ur Squamous Epith Cells 0-4 /hpf (0-5) H 11/03/23 09:34 Amorphous Sediment Not Reportable 11/03/23 09:34 Urine Bacteria Trace /hpf (NONE) 11/03/23 09:34 Urine Mucus Trace /hpf 11/03/23 09:34 Blood Type B Positive 11/03/23 09:13 Rho(D) Type Rh positive 11/03/23 09:13 All radiology interpretation(s) finalized by discharge Discharge Plan Discharge Patient Disposition: Home Clinical Impression: related condition in second trimester, Vaginal spotting, Cystitis Condition: Stable Prescriptions: New Macrobid 100 mg capsule 100 mg PO BID 7 Days Qty: 14 0RF Rx Instructions: must administer with a meal/food No Action Aspir-81 81 mg Tablet,Delayed Release (Dr/Ec) 81 mg PO DAILY Unisom (doxylamine) 25 mg Tablet 25 mg PO BEDTIME PRN (Reason: Sleep) ondansetron 4 mg Tablet,Disintegrating 4 mg PO Q6H PRN (Reason: Nausea And Vomiting) 28 mg iron- 800 mcg Tablet 1 tab PO DAILY Discharge Orders: Discharge ED (Routine); Ordered 11/03/23 Ordered By: Segundo Kingsley Discharge Diet: Usual diet Discharge Activity: Limit activity as instructed Patient Instructions: Opioid Safety, Pain Management Activity Restrictions/Additional Instructions: Thank you for choosing [facility] for your healthcare needs today. Please realize this is an emergency room and that we are providing you with a medical screening exam and this may not be complete and all inclusive of all the testing and or work up that you may need to determine your ailment or severity of your illness. It is very important that you follow up as instructed or that you return to the Emergency Department should you have concerns or if your condition changes or worsens in any way. You are seen today complaining of vaginal bleeding and pelvic discomfort. You had a mild cystitis. On ultrasound your cervix is closed good heart tones and movement. You are be positive for your blood type and your beta-hCG is in the low range of normal for your gestational age. Recommend that you follow-up with the chemical analytical sampler as soon as you are able. If you have worsening problems you should return to the nearest emergency room for evaluation Coding Level of Care Code ED Pharmacist Manager for Xin Domínguez
[2023-11-03 09:38] LABS: Basophils % 0.2 %; Eosinophils # 0.1 10^3/uL (0.0-0.8); Eosinophils % 0.8 %; Hematocrit 37.1 % (36-47); Lymphocytes # 1.8 10^3/uL (0.8-4.8); Lymphocytes % 14.4 %; Mean Corpuscular HGB Conc 33.4 g/dL (30-55); Mean Corpuscular Hemoglobin 29.7 pg (27-33); Mean Corpuscular Volume 88.8 fl (85-98); Monocytes # 0.6 10^3/uL (0.2-0.9); Monocytes % 4.9 %; Neutrophils # 9.95 10^3/uL (1.8-7.7); Neutrophils % 79.4 %; Nucleated Red Blood Cells % 0 %; Platelet Count 416 10^3/cmm (157-399); Red Blood Count 4.18 10^6/uL (3.85-5.65); Red Cell Distribution Width 12.8 % (12.1-15.1); White Blood Count 12.53 10^3/uL (3.29-11.43)
--- NOTE | 2023-11-03 09:39 | USR_ITS ---
PROCEDURE INFORMATION: Exam: US , Limited Exam date and time: 11/03/2023 10:26 AM Age: 22 years old Clinical indication: complicated by abdominal or pelvic pain; Lower; Second trimester (14 weeks 0 days to 27 weeks 6 days); Gestational age or lmp: 16w4d; ; Additional info: 15-16 wks getation, pelvic pain and vaginal bleeding LABS AND CLINICAL REPORTS: Gestational age (Established): 16 w 2 d Estimated due date (Established): 04/17/2024 TECHNIQUE: Imaging protocol: Real-time ultrasound of the maternal uterus with image documentation. Exam focused on the clinical indication. COMPARISON: US pelvic complete* [id number] 01/09/2018 6:48 PM FINDINGS: Gestation: Single intrauterine with a heart rate of 139 bpm. heart rate: 139 bpm BIOMETRY: Estimated weight: 165.6 g. EFW by AC, BPD, FL, HC, [place] 1985. 69.8 percentile. Biparietal diameter (BPD): 3.33 cm. EGA (BPD) is 16 w 2 d. 49.5 % percentile Head circumference (HC): 12.79 cm. EGA (HC) is 16 w 3 d. 48.6 % percentile Abdominal circumference (AC): 10.69 cm. EGA (AC) is 16 w 4 d. 62.2 % percentile Femur length (FL): 2.28 cm. EGA (FL) is 16 w 6 d. 67.7 % percentile HC/AC: 1.2. (Normal range: 1.07 - 1.31) FL/HC: 17.83. (Normal range: 14.04 - 17.13) FL/BPD: 68.47 FL/AC: 21.33 EFW = 69.8%. MATERNAL: Cervix: Cervical length measures 3 cm. Cervical length 3 centimeters. US/US OB limited [id number] IMPRESSION: 1. Single live intrauterine with a heart rate of 139 bpm. 2. Cervix within normal limits.
[2023-11-03 09:56] LABS: Urine Appearance Clear (CLEAR); Urine Color Yellow (Yellow); pH Urine 5 (5-7)
[2023-11-03 09:57] LABS: Add Urine Culture? No; Add Urine Microscopic? YES; Bacteria Urine TRACE /hpf; Bilirubin Urine Neg (Negative); Blood Urine Neg (Negative); Glucose Urine UA Norm (Normal); Ketones Urine Negative (Negative); Leukocyte Esterase Urine Trace (Negative); Mucus Urine TRACE /hpf; Nitrate Urine Negative (Negative); Protein Urine Neg (Negative); Squamous Epithelial Cell Urine 0-4 /hpf (0-5); Urobilinogen Urine Norm (Negative)
--- NOTE | 2023-11-03 10:08 | PC.NURSE ---
[facility] DEPT SAID PATIENT IS NO LONGER IN POLICE CUSTODY.
[2023-11-03] MEDS: sodium chloride 0.9% 1,000 ML 999 ML IV (10:12)
[2023-11-03] MEDS: ondansetron 2 mg/ML SDV 2 mL 4 MG IVP (10:14)
[2023-11-03 10:52] LABS: Alanine Aminotransferase 18 U/L (0-33); Albumin Level 3.8 g/dL (3.5-5.2); Alkaline Phosphatase 69 U/L (35-105); Anion Gap 16.7 (5-19); Aspartate Amino Transferase 10 U/L (0-32); Blood Urea Nitrogen 8 mg/dL (6-20); Calcium 9.3 mg/dL (8.5-10.5); Carbon Dioxide 19 mmol/L (22-29); Chloride 104 mmol/L (98-107); Creatinine Clr Calc Pharmacy 192.3065; Globulin 3.8 g/dL (1.3-4.6); Glomerular Filtration Rate 152.9 mL/min (90-130); Glucose 104 mg/dL (65-115); Osmolality Calculated 281 mOsm/kg (285-295); Potassium 3.7 mmol/L (3.5-5.1); Sodium 136 mmol/L (136-145); Total Bilirubin 0.3 mg/dL (0.15-1.2); Total Protein 7.6 g/dL (6.6-8.7)
== END 2023-11-03 11:21 | disposition home or self-care (01) ==
PROVIDERS: Emergency Provider Family Medicine
DX: O26.852 Spotting complicating pregnancy, second trimester (principal); O23.12 Infections of bladder in pregnancy, second trimester; Z3A.15 15 weeks gestation of pregnancy; Z79.82 Long term (current) use of aspirin; F17.210 Nicotine dependence, cigarettes, uncomplicated; O99.332 Smoking (tobacco) complicating pregnancy, second trimester
CPT/HCPCS: 76815; 80053; 81001; 84702; 85025; 86900; 96374; 99284; 99285; J2405; J7030

== ENCOUNTER 2024-03-26 14:05 | Outpatient (CLI) | payer MEDICAID, SELFPAY ==
[2024-03-26 14:05] VITALS: BMI 43.2
[2024-03-26 14:23] VITALS: BP 113/66; PULSE 93
[2024-03-26 14:43] VITALS: BP 109/63; PULSE 82
[2024-03-26 15:03] VITALS: BP 108/67; PULSE 83
[2024-03-26 15:07] LABS: Actim Prom Negative
== END 2024-03-26 15:21 | disposition home or self-care (01) ==
LOC: OPOB 14:14 → OBGYN 14:15
PROVIDERS: Visit Provider Family Medicine
DX: O46.90 Antepartum hemorrhage, unspecified, unspecified trimester (principal); Z3A.00 Weeks of gestation of pregnancy not specified; R10.9 Unspecified abdominal pain; N89.8 Other specified noninflammatory disorders of vagina
CPT/HCPCS: 59025; 83986; 84112; 99211

== ENCOUNTER 2024-09-14 09:29 | Inpatient (IN) | payer MEDICAID, SELFPAY ==
[2024-09-14] VITALS (63 sets, daily range): BP systolic 93–152; BP diastolic 46–92; PULSE 53–118; RESP 14–30; TEMP 36.8–37.2; O2SAT 93–99; BMI 43.1
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
--- NOTE | 2024-09-14 09:56 | XR_ITS ---
WS: [id number] XR chest 1V portable [id number] REASON FOR EXAM: OD FINDINGS: The chest is unchanged compared to 09/17/2019. The heart and mediastinum are within normal limits. Calcified granulomatous disease bilaterally. No acute pulmonary parenchymal or pleural abnormality. XR/XR chest 1V portable [id number] IMPRESSION: No acute chest abnormality.
[2024-09-14 10:03] LABS: Basophils # 0.1 10^3/uL (0.0-0.1); Basophils % 0.5 %; Eosinophils # 0.4 10^3/uL (0.0-0.8); Eosinophils % 2.3 %; Hematocrit 40.1 % (36-47); Lymphocytes % 26.6 %; Mean Corpuscular HGB Conc 31.7 g/dL (30-55); Mean Corpuscular Hemoglobin 26.2 pg (27-33); Mean Corpuscular Volume 82.9 fl (85-98); Monocytes # 0.8 10^3/uL (0.2-0.9); Monocytes % 5.1 %; Neutrophils # 9.79 10^3/uL (1.8-7.7); Neutrophils % 65.2 %; Nucleated Red Blood Cells % 0 %; Platelet Count 537 10^3/cmm (157-399); Red Blood Count 4.84 10^6/uL (3.85-5.65); Red Cell Distribution Width 13.4 % (12.1-15.1); White Blood Count 15.02 10^3/uL (3.29-11.43)
[2024-09-14 10:07] LABS: HCG, Serum Qual Negative (Negative)
[2024-09-14 10:12] LABS: Acetaminophen 21.6 ug/mL (10-30); Alanine Aminotransferase 23 U/L (0-33); Albumin Level 4.1 g/dL (3.5-5.2); Alkaline Phosphatase 81 U/L (35-105); Anion Gap 20.4 (5-19); Aspartate Amino Transferase 20 U/L (0-32); Blood Urea Nitrogen 13 mg/dL (6-20); Calcium 9.2 mg/dL (8.5-10.5); Carbon Dioxide 20 mmol/L (22-29); Chloride 99 mmol/L (98-107); Creatinine Clr Calc Pharmacy 142.5772; Globulin 3.9 g/dL (1.3-4.6); Glomerular Filtration Rate 102.8 mL/min (90-130); Glucose 160 mg/dL (65-115); Lipase 29 U/L (13-60); Magnesium 1.9 mg/dL (1.7-2.3); Osmolality Calculated 286 mOsm/kg (285-295); Potassium 3.4 mmol/L (3.5-5.1); Salicylate 7.8 mg/dL (3-10); Sodium 136 mmol/L (136-145); Total Bilirubin 0.5 mg/dL (0.15-1.2)
[2024-09-14 10:13] LABS: Alcohol Level < 10 mg/dL (0-10)
--- NOTE | 2024-09-14 10:19 | PC.NURSE ---
96 hr rights reviewed with patient @1015 with assistance of BOUCHRA Matute All education reviewed with patient at this time. No verbalized questions or concerns for HS. Patient copy left @bedside with pt. Pt declined wanting a drink or snack. No further needs at this time.
[2024-09-14 10:25] LABS: Add Urine Microscopic? NO
[2024-09-14 10:32] LABS: Bilirubin Urine Neg (Negative); Blood Urine Neg (Negative); Glucose Urine UA Norm (Normal); Ketones Urine Negative (Negative); Nitrate Urine Negative (Negative); Protein Urine Neg (Negative); Urine Appearance Clear (CLEAR); Urine Color Yellow (Yellow); Urobilinogen Urine Norm (Negative); pH Urine 5 (5-7)
[2024-09-14 10:33] LABS: Add Urine Culture? No; Charge for UA Resulting for Rev; Leukocyte Esterase Urine Negative (Negative)
[2024-09-14 10:37] LABS: Amphetamines Screen Urine Negative (Negative); Barbiturates Screen Urine Negative (Negative); Benzodiazepines Screen Urine Negative (Negative); Cocaine Screen Urine Negative (Negative); Opiate Screen Urine Negative (Negative); PCP Screen Urine Negative (Negative); THC Screen Urine Positive (Negative)
--- NOTE | 2024-09-14 11:23 | PC.NURSE ---
PATIENT BECOMING AGGRESSIVE WITH STAFF DUE TO NOT BEING ABLE TO SEE HER MOTHER OR SON. NURSE TOLD PATIENT BOUCHRA ER FOLLOWS [facility] PROTOCOL FOR VISITATION WHICH IS BETWEEN THE HOURS OF [id number]. PATIENT CONTINUES TO SCREAM AT NURSING STAFF. PATIENT MOVED TO ROOM 8 FOR NURSING STAFF VISIBILITY. PATIENT CONTINUES TO SCREAM AND STATES I'M SUING THIS HOSPITAL. PATIENT CONTINUES TO YELL AT NURSING STAFF AT AN INCREASED LEVEL. PATIENT STARTS TO THROW HERSELF AROUND HER COT, REMOVING LEADS, AND DISPLACED IV IN RIGHT WRIST. PATIENT PRESCRIBED GEODON PER DR SORIANO. PATIENT STATES YOU'RE TRYING TO KILL ME, I'VE ALREADY TRIED TO KILL MYSELF BY TAKING MEDICATIONS. YOU'RE TRYING TO KILL ME. PATIENT EDUCATED BY PROVIDER AND NURSING STAFF THAT GEODON WAS SAFE TO TAKE FOR ANXIETY AND BEHAVIOR. PATIENT CONTINUES TO SCREAM AND THROWS HERSELF AGAINST BED RAIL. PATIENT PLACED IN RESTRAINT BED AT [address]ORIANO. PATIENT IS ON MATERIALS COORDINATOR, O2 MONITOR, AND BP CUFF. PATIENT HAS 1:[address]
--- NOTE | 2024-09-14 11:24 | PC.PHAR ---
pATIENT STATES SHE IS TAKING zOLOFT AND HYDROXYZINE AND SHE FILLS AT [facility] . I SPOKE TO [facility] AND THEY HAVEN'T FILLED FOR HER SINCE APRIL IN WHICH I NOTED ON THE RX
[2024-09-14] MEDS: ziprasidone 20 mg/mL SDV 10 MG IM (11:32)
[2024-09-14] MEDS: water for injection-sterile 10 ML 1.2 ML (11:32)
[2024-09-14 12:23] LABS: Acetaminophen 21.3 ug/mL (10-30)
--- NOTE | 2024-09-14 12:26 | PC.NURSE ---
PATIENT REMOVED FROM ALL RESTRAINTS AT THIS TIME. LINENS CHANGED. PATIENT CALM AND COOPERATIVE.
[2024-09-14 12:37] LABS: Salicylate 14.8 mg/dL (3-10)
--- NOTE | 2024-09-14 12:43 | PC.NURSE ---
ASSUMED CARE OF PT AT 1130 FROM [facility] WILSON.
--- NOTE | 2024-09-14 13:20 | PC.NURSE ---
arrived from ed, transferred self to bed, psa at bedside
--- NOTE | 2024-09-14 14:09 | ECG_ITS ---
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 Measurements Intervals [place] Rate: 56 P: 18 ID: [id number] QRS: 34 QRSD: 91 T: 25 QT: 434 QTc: 421 Interpretive Statements SINUS BRADYCARDIA WITH MARKED SINUS ARRHYTHMIA Compared to ECG 11/21/2022 13:45:04 Sinus rhythm no longer present Electronically Signed On 09-19-2024 18:35:55 CDT by Vinny Padilla M.D. [email or web address]
[2024-09-14] MEDS: pantoprazole 40 mg SDV IVP (14:15)
[2024-09-14] MEDS: sodium chloride 0.9% 1,000 ML 75 ML IV (14:15)
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
[2024-09-14 14:26] LABS: Estmated Average Glucose 126
[2024-09-14 14:32] LABS: Lactic Sepsis W/Reflex 0.7
[2024-09-14 14:42] LABS: Alanine Aminotransferase 25 U/L (0-33); Alkaline Phosphatase 72 U/L (35-105); Anion Gap 17.7 (5-19); Aspartate Amino Transferase 21 U/L (0-32); Blood Urea Nitrogen 13 mg/dL (6-20); Calcium 9.3 mg/dL (8.5-10.5); Carbon Dioxide 22 mmol/L (22-29); Chloride 104 mmol/L (98-107); Chol HDL Ratio 3.15 mg/dL (0.0-4.40); Cholesterol 145 mg/dL (0-200); Creatinine Clr Calc Pharmacy 142.5772; Globulin 3.5 g/dL (1.3-4.6); Glomerular Filtration Rate 102.8 mL/min (90-130); Glucose 83 mg/dL (65-115); HDL Cholesterol 46 mg/dL (60-100); LDL Cholesterol Calculated 86 mg/dL (50-129); LDL HDL Ratio 1.87 RATIO (0.00-3.22); Osmolality Calculated 289 mOsm/kg (285-295); Potassium 3.7 mmol/L (3.5-5.1); Salicylate 13.5 mg/dL (3-10); Sodium 140 mmol/L (136-145); Thyroid Stimulating Hormone 0.87 uIU/mL (0.27-4.20); Total Bilirubin 0.3 mg/dL (0.15-1.2); Total Protein 7.5 g/dL (6.6-8.7); Triglycerides 66 mg/dL (0-150)
--- NOTE | 2024-09-14 17:06 | ECG_ITS ---
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 Measurements Intervals [place] Rate: 63 P: 23 AR: 163 QRS: 27 QRSD: 92 T: 37 QT: 429 QTc: 442 Interpretive Statements SINUS RHYTHM WITH OCCASIONAL SUPRAVENTRICULAR PREMATURE COMPLEXES Compared to ECG 09/14/2024 14:09:53 Sinus bradycardia no longer present Sinus arrhythmia no longer present Electronically Signed On 09-19-2024 18:35:08 CDT by Vinny Padilla M.D. [email or web address]
--- NOTE | 2024-09-14 17:08 | PC.NURSE ---
Patient requesting food, contacted Dr. Callahan and received orders to advance diet as tolerated to regular diet.
[2024-09-14 18:41] LABS: Basophils % 0.3 %; Eosinophils # 0.1 10^3/uL (0.0-0.8); Lymphocytes # 3.7 10^3/uL (0.8-4.8); Lymphocytes % 31.3 %; Mean Corpuscular HGB Conc 31.9 g/dL (30-55); Mean Corpuscular Hemoglobin 26.4 pg (27-33); Mean Corpuscular Volume 82.8 fl (85-98); Mean Platelet Volume 9.5 fL (7.4-10.4); Monocytes # 0.6 10^3/uL (0.2-0.9); Monocytes % 4.9 %; Neutrophils # 7.42 10^3/uL (1.8-7.7); Neutrophils % 62.2 %; Nucleated Red Blood Cells % 0 %; Platelet Count 450 10^3/cmm (157-399); Red Blood Count 4.35 10^6/uL (3.85-5.65); Red Cell Distribution Width 13.5 % (12.1-15.1); White Blood Count 11.94 10^3/uL (3.29-11.43)
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
[2024-09-14 19:15] LABS: Salicylate 10.1 mg/dL (3-10)
[2024-09-14 19:16] LABS: Acetaminophen < 5.0 ug/mL (10-30)
[2024-09-14] MEDS: nicotine 21 mg Patch 1 PATCH TRANSDERMA (21:57)
[2024-09-14 23:20] LABS: Alanine Aminotransferase 27 U/L (0-33); Albumin Level 3.7 g/dL (3.5-5.2); Alkaline Phosphatase 67 U/L (35-105); Anion Gap 15.4 (5-19); Aspartate Amino Transferase 25 U/L (0-32); Blood Urea Nitrogen 14 mg/dL (6-20); Calcium 8.7 mg/dL (8.5-10.5); Carbon Dioxide 22 mmol/L (22-29); Chloride 102 mmol/L (98-107); Globulin 3.2 g/dL (1.3-4.6); Glomerular Filtration Rate 88.1 mL/min (90-130); Glucose 132 mg/dL (65-115); Osmolality Calculated 284 mOsm/kg (285-295); Potassium 3.4 mmol/L (3.5-5.1); Salicylate 7.2 mg/dL (3-10); Sodium 136 mmol/L (136-145); Total Bilirubin 0.2 mg/dL (0.15-1.2); Total Protein 6.9 g/dL (6.6-8.7)
[2024-09-14 23:23] LABS: Acetaminophen < 5.0 ug/mL (10-30)
[2024-09-15] VITALS (25 sets, daily range): BP systolic 94–140; BP diastolic 59–89; PULSE 57–88; RESP 16–28; TEMP 36.6–37; O2SAT 92–98
[2024-09-15] MEDS: sodium chloride 0.9% 1,000 ML 75 ML IV (03:45)
[2024-09-15 04:28] LABS: Basophils % 0.3 %; Eosinophils # 0.2 10^3/uL (0.0-0.8); Eosinophils % 2.4 %; Hematocrit 35.2 % (36-47); Lymphocytes % 44.1 %; Mean Corpuscular Hemoglobin 26.3 pg (27-33); Mean Corpuscular Volume 84.8 fl (85-98); Mean Platelet Volume 9.6 fL (7.4-10.4); Monocytes # 0.6 10^3/uL (0.2-0.9); Monocytes % 6.3 %; Neutrophils # 4.17 10^3/uL (1.8-7.7); Neutrophils % 46.6 %; Nucleated Red Blood Cells % 0 %; Platelet Count 437 10^3/cmm (157-399); Red Blood Count 4.15 10^6/uL (3.85-5.65); Red Cell Distribution Width 13.6 % (12.1-15.1); White Blood Count 8.98 10^3/uL (3.29-11.43)
[2024-09-15 04:52] LABS: Alanine Aminotransferase 25 U/L (0-33); Albumin Level 3.5 g/dL (3.5-5.2); Alkaline Phosphatase 64 U/L (35-105); Anion Gap 13.6 (5-19); Aspartate Amino Transferase 19 U/L (0-32); Blood Urea Nitrogen 12 mg/dL (6-20); Calcium 8.5 mg/dL (8.5-10.5); Carbon Dioxide 23 mmol/L (22-29); Chloride 105 mmol/L (98-107); Globulin 3.3 g/dL (1.3-4.6); Glomerular Filtration Rate 88.1 mL/min (90-130); Glucose 95 mg/dL (65-115); Osmolality Calculated 286 mOsm/kg (285-295); Potassium 3.6 mmol/L (3.5-5.1); Sodium 138 mmol/L (136-145); Total Bilirubin 0.3 mg/dL (0.15-1.2); Total Protein 6.8 g/dL (6.6-8.7)
[2024-09-15 05:05] LABS: Acetaminophen < 5.0 ug/mL (10-30)
[2024-09-15] MEDS: nicotine 21 mg Patch 1 PATCH TRANSDERMA (08:01)
--- NOTE | 2024-09-15 13:32 | P.NPUPN_ITS ---
Subjective NPU 2 Subjective: Patient presented today reporting that she is doing all right. She ran through her list of annoyances with how things were handled in the emergency department and the way things should have gone and other capacities. Otherwise she denied any side effects from medications and reported an openness to treatment and willingness to follow our recommendations. Mental Status Exam 2 MSE Comments: This is an obese versus morbidly obese white female in hospital gown with appropriate grooming and eye contact.? No abnormal movements.? Cooperative with exam in mild distress.? Speech was normal rate and volume.? Mood described as feeling a little better I does need to get back into treatment, affect congruent.? Thought process organized.? Thought content: Patient denied suicidal or homicidal ideation, no delusions reported or noted, she denied any auditory or visual hallucinations.? Attention and concentration were intact and memory appeared mostly reliable but none were formally tested.? She is alert and oriented x3.? Insight and judgment appeared limited and impulse control is impaired. Vitals/I&O/Wt Last Vital Signs Temp 98 F 09/15/24 06:46 Pulse 75 09/15/24 12:01 Resp 19 H 09/15/24 12:01 BP 112/78 09/15/24 12:01 Pulse Ox 98 09/15/24 12:01 O2 Del Method Room Air 09/15/24 00:01 09/14/24 09/15/24 09/15/24 22:59 06:59 14:59 Intake Total 320 / 320.04 1100 / 1420.04 400 / 400 Output Total 700 / 700 Balance -380 / -379.96 1100 / 720.04 400 / 400 Weight last 48 hrs Weight 107.229 kg Weight 107.048 kg Data NPU 09/15/24 03:44 09/16/24 08:17 A&P Assessment and plan (1) Borderline personality disorder: (2) Drug overdose: Qualifiers: Encounter type: initial encounter Injury intent: intentional self-harm Qualified Code(s): T50.902A - Poisoning by unspecified drugs, medicaments and biological substances, intentional self-harm, initial encounter (3) Suicide attempt by drug overdose: (4) Anxiety: Plan This is a 23-year-old female with significant past history of inpatient psychiatric care with multiple past admissions with history of borderline personality disorder with past suicide attempts presents status post intentional ingestion on a 96-hour hold. Plan: 1. Start Wellbutrin XL 150 mg p.o. q. AM. 2. Continue one-to-one while in ICU but transferred to neuropsychiatric unit when medically cleared and start every 15 minute checks for safety once she arrives. 3. We will encourage individual, group and milieu therapies once she is on the neuropsychiatric unit. 4. Encourage sober living treatment after discharge at the highest level of care to which she is willing to commit. Obtain UDS. 5. We will monitor for safety for herself in the community prior to discharge. 6. Obtain collateral information. 7. Will continue to follow. PDMP PDMP Reviewed: Not Reviewed Involuntary Hold Information 2 Hold Status: Date/Time Hold Expires: 09/18/24 @ 0945 96 Hour Hold: 96 Hour Involuntary Admission: Yes Attestations NPU 2 Medical Necessity Statement*: Inpatient hospitalization is medically necessary and the clinically appropriate intervention at this time. We will initiate medications and make changes as indicated. Likely length of stay 4-6 days Coding Level of Care Code Acute Code for [facility] Fwd Diagnoses Borderline personality disorder F60.3 Drug overdose T50.902A Encounter type: initial encounter Injury intent: intentional self-harm Suicide attempt by drug overdose T50.902A Anxiety F41.9
--- NOTE | 2024-09-15 13:49 | PC.NURSE ---
report called to npu, IV d/c. patient ao x4 follows commands and is cooperative
--- NOTE | 2024-09-15 14:12 | PC.NURSE ---
patient reported feeling weird and seeing a trail around everything that movrs and feeeling like my body is humming . VS wnl dr myers notified no n.o.
--- NOTE | 2024-09-15 16:23 | P.PN_ITS ---
Subjective 2 Subjective: Patient was seen this morning, she is alert oriented x 3, following all commands, denies any chest pain, no palpitations, shortness of breath, no nausea, vomiting, no headache, no blurry vision, no abdominal pain Vitals/I&O/Wt Last Vital Signs Temp 98 F 09/15/24 06:46 Pulse 75 09/15/24 12:01 Resp 19 H 09/15/24 12:01 BP 112/78 09/15/24 12:01 Pulse Ox 98 09/15/24 12:01 O2 Del Method Room Air 09/15/24 14:55 09/15/24 09/15/24 09/15/24 06:59 14:59 22:59 Intake Total 1100 / 1420.04 400 / 400 Balance 1100 / 720.04 400 / 400 Weight last 48 hrs Weight 107.229 kg Weight 107.048 kg Physical Exam 2 Const: COMMON NORMALS: no acute distress and patient oriented x3 Resp: COMMON NORMALS: normal respiratory effort, No retractions, No use of accessory muscles and clear to auscultation bilaterally AUSCULTATION: clear to auscultation bilaterally Cardio: COMMON NORMALS: regular rate, regular rhythm, S1 normal heart sound present and S2 normal heart sound present RATE: regular rate RHYTHM: r egular rhythm HEART SOUNDS: S1 normal heart sound present and S2 normal heart sound present GI: COMMON NORMALS: Normal to inspection, nondistended, normoactive bowel sounds present and non-tender Extremity: COMMON NORMALS: no pedal edema Neuro: COMMON NORMALS: patient oriented x3, CN's II-XII intact bilaterally and moves all extremities Psych: COMMON NORMALS: mental status grossly normal Data 09/15/24 03:44 09/15/24 03:44 A&P Assessment and plan (1) Salicylate poisoning: (2) Acetaminophen poisoning: (3) Diphenhydramine overdose: (4) Suicide attempt: (5) Intentional drug overdose: Plan Intentional drug overdose, suicide attempt -Monitor Acetaminophen poisoning -Acetaminophen level less than 5, LFTs within normal limits Salicylate poisoning - 4 -Monitor Diphenhydramine overdose -Monitor mentation, Suicide attempt, suicide precautions, psychiatry has been consulted, will moved to neuropsychiatric unit Leukocytosis, monitor Plan for today moved to neuropsychiatric unit PDMP PDMP Reviewed: Not Reviewed Attestations 2 Medical Necessity Statement*: Patient requires hospitalization for suicide attempt Diagnoses Salicylate poisoning T39.091A Acetaminophen poisoning T39.1X1A Diphenhydramine overdose T45.0X1A Suicide attempt T14.91XA Intentional drug overdose T50.902A
[2024-09-15] MEDS: nicotine 4 mg lozenge MUCOUS MEM ×2 (19:21→21:57)
[2024-09-16 06:00] VITALS: BP 94/63; PULSE 82; RESP 16; TEMP 36.9; O2SAT 96
--- NOTE | 2024-09-16 06:45 | PC.NURSE ---
[facility] NURSE CALLED STATING SHE WAS READY FOR THIS PATIENT. [employer] AND SENIOR MANAGER QUALITY ASSURANCE EXCORTED PT TO DIALYSIS ROOM.
[2024-09-16] MEDS: nicotine 4 mg lozenge MUCOUS MEM ×4 (07:29→21:57)
[2024-09-16] MEDS: buPROPion XL (24 HR) 150 mg Tablet PO (08:09)
[2024-09-16 08:48] LABS: Alanine Aminotransferase 24 U/L (0-33); Albumin Level 4.1 g/dL (3.5-5.2); Alkaline Phosphatase 76 U/L (35-105); Aspartate Amino Transferase 20 U/L (0-32); Blood Urea Nitrogen 12 mg/dL (6-20); Calcium 9.2 mg/dL (8.5-10.5); Carbon Dioxide 22 mmol/L (22-29); Chloride 105 mmol/L (98-107); Creatinine Clr Calc Pharmacy 166.5053; Globulin 3.6 g/dL (1.3-4.6); Glomerular Filtration Rate 122.8 mL/min (90-130); Glucose 106 mg/dL (65-115); Osmolality Calculated 288 mOsm/kg (285-295); Sodium 139 mmol/L (136-145); Total Bilirubin 0.3 mg/dL (0.15-1.2); Total Protein 7.7 g/dL (6.6-8.7)
[2024-09-16] MEDS: nicotine 21 mg Patch 1 PATCH TRANSDERMA (08:51)
[2024-09-16] MEDS: hyDROXYzine 25 mg Capsule 50 MG PO (08:51)
[2024-09-16 09:07] LABS: Anion Gap 16.2 (5-19); Potassium 4.2 mmol/L (3.5-5.1)
[2024-09-16 14:00] VITALS: BP 120/79; PULSE 98; RESP 18; TEMP 36.9; O2SAT 98
--- NOTE | 2024-09-16 19:15 | P.NPUPN_ITS ---
Subjective NPU 2 Subjective: Patient presented today reporting that she is doing really well. She reports that normally with medications she gets a headache and she has not had a headache with the Wellbutrin. She reports that she really misses her daughter and reported that supposedly her who she is almost to for 1 year reportedly has strep throat and she is worried about him taking care of the baby. Otherwise she denied any side effects to the medication and endorsed feeling much better. Mental Status Exam 2 MSE Comments: This is an obese versus morbidly obese white female in hospital gown with appropriate grooming and eye contact.? No abnormal movements.? Cooperative with exam in mild distress.? Speech was normal rate and volume.? Mood described as feeling a little better I does need to get back into treatment, affect congruent.? Thought process organized.? Thought content: Patient denied suicidal or homicidal ideation, no delusions reported or noted, she denied any auditory or visual hallucinations.? Attention and concentration were intact and memory appeared mostly reliable but none were formally tested.? She is alert and oriented x3.? Insight and judgment appeared limited and impulse control is impaired. Vitals/I&O/Wt Last Vital Signs Temp 98.8 F 09/16/24 20:12 Pulse 82 09/16/24 20:12 Resp 18 09/16/24 20:12 BP 118/84 09/16/24 20:12 Pulse Ox 95 09/16/24 20:12 O2 Del Method Room Air 09/16/24 20:12 Data NPU 09/15/24 03:44 09/16/24 08:17 A&P Assessment and plan (1) Borderline personality disorder: (2) Drug overdose: Qualifiers: Encounter type: initial encounter Injury intent: intentional self-harm Qualified Code(s): T50.902A - Poisoning by unspecified drugs, medicaments and biological substances, intentional self-harm, initial encounter (3) Suicide attempt by drug overdose: (4) Anxiety: Plan This is a 23-year-old female with significant past history of inpatient psychiatric care with multiple past admissions with history of borderline personality disorder with past suicide attempts presents status post intentional ingestion on a 96-hour hold. Plan: 1. Started Wellbutrin XL 150 mg p.o. q. AM. 2. Continue one-to-one while in ICU but transferred to neuropsychiatric unit when medically cleared and start every 15 minute checks for safety once she arrives. 3. We will encourage individual, group and milieu therapies once she is on the neuropsychiatric unit. 4. Encourage sober living treatment after discharge at the highest level of care to which she is willing to commit. Obtain UDS. 5. We will monitor for safety for herself in the community prior to discharge. 6. Obtain collateral information. 7. Will continue to follow. PDMP PDMP Reviewed: Not Reviewed Involuntary Hold Information 2 Hold Status: Legal Status: 96 Hour Hold Date/Time Hold Expires: 09/18/24 @ 0945 96 Hour Hold: 96 Hour Involuntary Admission: Yes Attestations NPU 2 Medical Necessity Statement*: Inpatient hospitalization is medically necessary and the clinically appropriate intervention at this time. We will initiate medications and make changes as indicated. Likely length of stay 2-4 days Coding Level of Care Code Acute Code for [facility] Fwd Diagnoses Borderline personality disorder F60.3 Drug overdose T50.902A Encounter type: initial encounter Injury intent: intentional self-harm Suicide attempt by drug overdose T50.902A Anxiety F41.9
[2024-09-16 20:12] VITALS: BP 118/74; PULSE 82; RESP 18; TEMP 37.1; O2SAT 95
[2024-09-16] MEDS: ibuprofen 600 mg Tablet PO (21:35)
[2024-09-17 06:00] VITALS: BP 102/57; PULSE 60; RESP 15; TEMP 36.6; O2SAT 99
[2024-09-17] MEDS: nicotine 4 mg lozenge MUCOUS MEM ×6 (08:01→21:31)
[2024-09-17] MEDS: buPROPion XL (24 HR) 150 mg Tablet PO (08:01)
[2024-09-17 10:51] LABS: Alanine Aminotransferase 24 U/L (0-33); Albumin Level 4.2 g/dL (3.5-5.2); Alkaline Phosphatase 74 U/L (35-105); Anion Gap 17.8 (5-19); Aspartate Amino Transferase 21 U/L (0-32); Blood Urea Nitrogen 11 mg/dL (6-20); Calcium 9.5 mg/dL (8.5-10.5); Carbon Dioxide 21 mmol/L (22-29); Chloride 104 mmol/L (98-107); Creatinine Clr Calc Pharmacy 166.5053; Globulin 3.3 g/dL (1.3-4.6); Glomerular Filtration Rate 122.8 mL/min (90-130); Glucose 118 mg/dL (65-115); Osmolality Calculated 288 mOsm/kg (285-295); Potassium 3.8 mmol/L (3.5-5.1); Sodium 139 mmol/L (136-145); Total Bilirubin 0.3 mg/dL (0.15-1.2); Total Protein 7.5 g/dL (6.6-8.7)
[2024-09-17 12:33] VITALS: BP 132/70; PULSE 99; RESP 16; TEMP 37.1; O2SAT 97
--- NOTE | 2024-09-17 18:42 | PC.NURSE ---
nursing note written by SARA Momin on 09/16/24 written on wrong patient see below, this patient is not on dialysis. An Villarreal Female : 2000 Emr# [id number] 09/16/24 06:45 (created 09/16/24 08:44) - Nurse Note by America Weeks LPN Acct Num: [id number] : 2000 Patient Age: 23 [facility] NURSE CALLED STATING SHE WAS READY FOR THIS PATIENT. PSA AND GEOSPATIAL SCIENTIST EXCORTED PT TO DIALYSIS ROOM. Initialized on 09/16/24 08:44 - END OF NOTE
--- NOTE | 2024-09-17 18:43 | P.NPUPN_ITS ---
Subjective NPU 2 Subjective: Patient presented today reporting that she really misses her baby. She reports she feels the medication is working well and she feels safe and ready to discharge. We discussed making sure that the situation is safe at home for the baby and working on discharge planning. We discussed making sure she stays engaged in outpatient treatment so that these episodes can be managed better. She denied any side effects of the medication. Mental Status Exam 2 MSE Comments: This is an obese versus morbidly obese white female in hospital gown with appropriate grooming and eye contact.? No abnormal movements.? Cooperative with exam in mild distress.? Speech was normal rate and volume.? Mood described as feeling a little better I does need to get back into treatment, affect congruent.? Thought process organized.? Thought content: Patient denied suicidal or homicidal ideation, no delusions reported or noted, she denied any auditory or visual hallucinations.? Attention and concentration were intact and memory appeared mostly reliable but none were formally tested.? She is alert and oriented x3.? Insight and judgment appeared limited and impulse control is impaired. Vitals/I&O/Wt Last Vital Signs Temp 98.1 F 09/17/24 20:41 Pulse 87 09/17/24 20:41 Resp 18 09/17/24 20:41 BP 126/82 09/17/24 20:41 Pulse Ox 97 09/17/24 20:41 O2 Del Method Room Air 09/17/24 20:41 Data NPU 09/15/24 03:44 09/17/24 10:27 A&P Assessment and plan (1) Borderline personality disorder: (2) Drug overdose: Qualifiers: Encounter type: initial encounter Injury intent: intentional self-harm Qualified Code(s): T50.902A - Poisoning by unspecified drugs, medicaments and biological substances, intentional self-harm, initial encounter (3) Suicide attempt by drug overdose: (4) Anxiety: Plan This is a 23-year-old female with significant past history of inpatient psychiatric care with multiple past admissions with history of borderline personality disorder with past suicide attempts presents status post intentional ingestion on a 96-hour hold. Plan: 1. Started Wellbutrin XL 150 mg p.o. q. AM. 2. Continue one-to-one while in ICU but transferred to neuropsychiatric unit when medically cleared and start every 15 minute checks for safety once she arrives. 3. We will encourage individual, group and milieu therapies once she is on the neuropsychiatric unit. 4. Encourage sober living treatment after discharge at the highest level of care to which she is willing to commit. Obtain UDS. 5. We will monitor for safety for herself in the community prior to discharge. 6. Obtain collateral information. Ensure the safety of the baby during this situation. Identify if a child line is necessary. 7. Will continue to follow. PDMP PDMP Reviewed: Not Reviewed Involuntary Hold Information 2 Hold Status: Legal Status: 96 Hour Hold Date/Time Hold Expires: 09/18/24 @ 0945 96 Hour Hold: 96 Hour Involuntary Admission: Yes Attestations NPU 2 Medical Necessity Statement*: Inpatient hospitalization is medically necessary and the clinically appropriate intervention at this time. We will initiate medications and make changes as indicated. Likely length of stay 1-3 days Coding Level of Care Code Acute Code for [facility] Fwd Diagnoses Borderline personality disorder F60.3 Drug overdose T50.902A Encounter type: initial encounter Injury intent: intentional self-harm Suicide attempt by drug overdose T50.902A Anxiety F41.9
[2024-09-17] MEDS: loperamide 2 mg Capsule PO (18:54)
[2024-09-17 20:41] VITALS: BP 126/82; PULSE 87; RESP 18; TEMP 36.7; O2SAT 97
[2024-09-18 06:00] VITALS: BP 114/73; PULSE 79; RESP 18; TEMP 36.7; O2SAT 100
[2024-09-18] MEDS: nicotine 4 mg lozenge MUCOUS MEM ×4 (07:19→14:12)
[2024-09-18] MEDS: buPROPion XL (24 HR) 150 mg Tablet PO (08:38)
[2024-09-18] MEDS: benzocaine 20% 7 gm 1 APPLIC MUCOUS MEM (12:23)
[2024-09-18 14:00] VITALS: BP 111/69; PULSE 82; RESP 16; TEMP 36.7; O2SAT 98
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
[2024-09-18 14:48] VITALS: BP 111/69; PULSE 82; RESP 16; TEMP 36.7; O2SAT 98
== END 2024-09-18 16:04 | disposition home or self-care (01) | DRG 918 ==
LOC: ER 10:03 → ICU 11:11 → NP 09-15 13:32
PROVIDERS: Admitting Provider Family Medicine; Emergency Provider Family Medicine; Visit Provider Psychiatry & Neurology Psychiatry
DX: T43.592A Poisoning by other antipsychotics and neuroleptics, intentional self-harm, initial encounter (principal); Z68.41 Body mass index [BMI] 40.0-44.9, adult; T39.312A Poisoning by propionic acid derivatives, intentional self-harm, initial encounter; T39.1X2A Poisoning by 4-Aminophenol derivatives, intentional self-harm, initial encounter; F17.210 Nicotine dependence, cigarettes, uncomplicated; F60.3 Borderline personality disorder; F41.9 Anxiety disorder, unspecified; E66.01 Morbid (severe) obesity due to excess calories
CPT/HCPCS: 36415; 71045; 80053; 80061; 80306; 80307; 81003; 83036; 83605; 83690; 83735; 84443; 84703; 85025; 85610; 93005; 94664; 96372; 96374; 96376; 97150; 97165; 99285; J2470; J3486; J7030; J9999